=== PATIENT | female | born 1965 | race Two or more races ===

== ENCOUNTER 2023-11-11 08:58 | Inpatient (IN) | payer MEDICAID, OTHER ==
[~2023-11-11] VITALS: Ht 167.6 cm; Wt 77.0 kg
[2023-11-11] MEDS: SODIUM CHLORIDE 0.9% 1,000 ML IV ONE (10:17)
[2023-11-11] MEDS: MORPHINE SULFATE 4 MG/ML SYR/VIAL IV ONE (10:47)
[2023-11-11] MEDS: ONDANSETRON HCL 4 MG/2 ML VIAL IV ONE (10:47)
[2023-11-11 10:54] VITALS: PULSE 53; RESP 16; O2SAT 96
[2023-11-11 10:57] LABS: INR 1.12 (0.9-1.15); Partial Thromboplastin Time 26.8 SEC (24.5-34.5); Prothrombin Time 11.8 sec (9.3-11.8)
[2023-11-11] MEDS: BACITRACIN TOP OINT 1 UD PKG TOP ONE (11:00)
[2023-11-11] MEDS: LIDOCAINE 2%HCL (LOCAL ANESTH.) INJ 20ML MDV ID ONE (11:00)
[2023-11-11 11:01] LABS: Alanine Aminotransferase 12 U/L (7-40); Albumin 4.2 g/dL (3.2-4.8); Alkaline Phosphatase 73 U/L (46-116); Anion Gap 6 (5-15); Aspartate Aminotransferase 16 U/L (13-40); BUN/Creatinine Ratio 19.2 (10.0-20.0); Bilirubin, Total 0.5 mg/dL (0.2-1.0); Blood Urea Nitrogen 15 mg/dL (9-23); Calcium 9.7 mg/dL (8.5-10.1); Carbon Dioxide 29 mmol/L (20-30); Chloride 107 mmol/L (98-107); Glucose 112 mg/dL (74-106); Magnesium 1.9 mg/dL (1.6-2.6); Potassium 4.1 mmol/L (3.5-5.1); Sodium 142 mmol/L (136-145)
[2023-11-11 11:02] LABS: Total Protein 6.8 g/dL (5.7-8.2)
[2023-11-11 11:19] LABS: Basophils # (auto) 0 10 ^3/uL (0-0.2); Basophils % (auto) 0.2 % (0.0-2.0); Eosinophils # (auto) 0 10 ^3/uL (0-0.8); Eosinophils % (auto) 1.1 % (0.0-7.0); Hemoglobin 12.4 g/dL (12.2-16.2); Lymphocytes # (auto) 1.5 10 ^3/uL (0.4-5.4); Lymphocytes % (auto) 33.7 % (10.0-50.0); Mean Corpuscular Hemoglobin 30.6 pg (28.0-32.0); Mean Corpuscular Hgb Conc. 33.5 g/dL (32.0-36.0); Mean Corpuscular Volume 91.2 fL (80.0-100.0); Monocytes # (auto) 0.5 10 ^3/uL (0-1.3); Monocytes % (auto) 11.6 % (0.0-12.0); Neutrophils # (auto) 2.4 10 ^3/uL (1.6-8.6); Neutrophils % (auto) 53.4 % (37.0-80.0); Nucleated Red Blood Cells % 0.1 %; Red Blood Cells 4.06 10^6/uL (4.0-5.20); Red Cell Distribution Width 14.5 % (11.8-14.3); White Blood Cell 4.4 10^3/uL (4.4-10.8)
[2023-11-11] MEDS: TETANUS-DIPTH-ACEL PERTUSSIS 0.5ML SYR Tdap IM ONE (11:25)
[2023-11-11] MEDS: LORazepam 2MG/ML-1ML VIAL IV ONE (12:54)
[2023-11-11] MEDS: LORazepam 2MG/ML-1ML VIAL ONE (12:54)
[2023-11-11] MEDS ORDERED: DOCUSATE SOD 100 MG CAP PO PRN (14:00)
[2023-11-11] MEDS ORDERED: ONDANSETRON HCL 4 MG/2 ML VIAL IV PRN (14:00)
[2023-11-11] MEDS: SODIUM CHLORIDE 0.9% 1,000 ML IV SCH (14:00)
[2023-11-11] MEDS ORDERED: LORazepam 2MG/ML-1ML VIAL IV PRN (15:30)
[2023-11-11] MEDS: levETIRAcetam 1000 mg/100ml 100 ML IV ONE (15:41)
[2023-11-11] MEDS ORDERED: MORPHINE SULFATE INJ 2 MG/ml SYRG IV PRN (17:00)
[2023-11-11] MEDS ORDERED: NITROGLYCERIN 0.4 MG SL TAB SL PRN (17:00)
[2023-11-11 20:00] VITALS: BP 100/59; PULSE 56; RESP 16; TEMP 98.4; O2SAT 95
[2023-11-11] MEDS: NEOMYCIN-BACITRACIN-POLYM 15GM TOP OINT TOP SCH (22:00)
[2023-11-11] MEDS: levETIRAcetam 1000 mg/100ml 100 ML IV SCH (22:46)
[2023-11-11 23:06] VITALS: BP 109/66; PULSE 57; RESP 20; TEMP 98.3; O2SAT 100
[2023-11-12] VITALS (8 sets, daily range): BP systolic 85–109; BP diastolic 49–63; PULSE 52–88; RESP 16–18; TEMP 97.8–98.7; O2SAT 95–100
[2023-11-12 06:35] LABS: Basophils # (auto) 0 10 ^3/uL (0-0.2); Basophils % (auto) 0.3 % (0.0-2.0); Eosinophils # (auto) 0.1 10 ^3/uL (0-0.8); Eosinophils % (auto) 1.4 % (0.0-7.0); Hematocrit 32.6 % (36.0-46.0); Hemoglobin 11.1 g/dL (12.2-16.2); Lymphocytes # (auto) 1.9 10 ^3/uL (0.4-5.4); Lymphocytes % (auto) 46.5 % (10.0-50.0); Mean Corpuscular Hemoglobin 30.7 pg (28.0-32.0); Mean Corpuscular Volume 90.2 fL (80.0-100.0); Monocytes # (auto) 0.5 10 ^3/uL (0-1.3); Neutrophils # (auto) 1.6 10 ^3/uL (1.6-8.6); Neutrophils % (auto) 38.8 % (37.0-80.0); Nucleated Red Blood Cells % 0.1 %; Red Blood Cells 3.61 10^6/uL (4.0-5.20); Red Cell Distribution Width 14.6 % (11.8-14.3); White Blood Cell 4.1 10^3/uL (4.4-10.8)
[2023-11-12 06:53] LABS: Alanine Aminotransferase 10 U/L (7-40); Albumin 3.5 g/dL (3.2-4.8); Alkaline Phosphatase 63 U/L (46-116); Anion Gap 5 (5-15); Aspartate Aminotransferase 15 U/L (13-40); BUN/Creatinine Ratio 13.7 (10.0-20.0); Blood Urea Nitrogen 10 mg/dL (9-23); Calcium 9.1 mg/dL (8.7-10.4); Carbon Dioxide 26 mmol/L (20-30); Chloride 110 mmol/L (98-107); Glucose 88 mg/dL (74-106); Potassium 3.8 mmol/L (3.5-5.1); Sodium 141 mmol/L (136-145)
[2023-11-12 06:54] LABS: Bilirubin, Total 0.6 mg/dL (0.2-1.0); Total Protein 5.9 g/dL (5.7-8.2)
[2023-11-12 21:40] LABS: Urine Bacteria None Seen /hpf (None Seen)
[2023-11-12 22:10] LABS: Urine Amorphous Crystal FEW /hpf (None Seen); Urine Blood Negative /uL (Negative); Urine Clarity Turbid (Clear); Urine Color Light-Yellow (Yellow); Urine Protein, UAD Negative (Negative); Urine Specific Gravity 1.011 (1.001-1.035); Urine Urobilinogen 2 mg/dL (Negative); Urine WBC 1 /hpf (0 - 5); Urine pH 7.5 (5.0-9.0)
[2023-11-12] MEDS: LORazepam 2MG/ML-1ML VIAL IV PRN (22:57)
[2023-11-13 01:00] VITALS: BP 99/60; PULSE 70; RESP 18; TEMP 97.9; O2SAT 93
[2023-11-13 05:00] VITALS: BP 105/60; PULSE 69; RESP 18; TEMP 98.1; O2SAT 94
[2023-11-13] MEDS: MORPHINE SULFATE INJ 2 MG/ml SYRG IV PRN (08:27)
[2023-11-13 09:00] VITALS: BP 103/65; PULSE 61; RESP 17; TEMP 98.1; O2SAT 98
[2023-11-13 13:00] VITALS: BP 103/56; PULSE 58; RESP 16; TEMP 97.9; O2SAT 100
[2023-11-13 17:24] VITALS: BP 106/67; PULSE 66; RESP 17; TEMP 97.9; O2SAT 99
[2023-11-13 17:58] VITALS: TEMP 36.6
== END 2023-11-13 19:00 | disposition home or self-care (01) | DRG 384 ==
LOC: EDBD 08:58 → ER 09:15 → OVERFLOW 17:01 → EAST 22:20
PROVIDERS: ADMIT Nurse Practitioner Family; ATTEND Family Medicine
PROC: 0HQ1XZZ Repair Face Skin, External Approach (ICD-10-PCS; principal; 2023-11-11)
DX: S01.81XA Laceration without foreign body of other part of head, initial encounter (principal); G40.409 Other generalized epilepsy and epileptic syndromes, not intractable, without status epilepticus; G89.29 Other chronic pain; S01.01XA Laceration without foreign body of scalp, initial encounter; W18.39XA Other fall on same level, initial encounter; Z88.2 Allergy status to sulfonamides; Z91.041 Radiographic dye allergy status; Y93.89 Activity, other specified; Y92.89 Other specified places as the place of occurrence of the external cause; Y99.8 Other external cause status; Z82.49 Family history of ischemic heart disease and other diseases of the circulatory system; Z86.73 Personal history of transient ischemic attack (TIA), and cerebral infarction without residual deficits
CPT/HCPCS: 12015; 36415; 70450; 71046; 72125; 80053; 81001; 83735; 84484; 85025; 85610; 85730; 87081; 90471; 90715; 93005; 93306; 95819; 96361; 96374; 96375; 97116; 97163; 97530; G0378; J2405

== ENCOUNTER 2023-12-05 06:36 | Emergency (ER) | payer MEDICAID ==
[~2023-12-05] VITALS: Ht 160 cm; Wt 66.0 kg
[2023-12-05 07:15] LABS: Basophils # (auto) 0 10 ^3/uL (0-0.2); Basophils % (auto) 0.5 % (0.0-2.0); Eosinophils # (auto) 0.1 10 ^3/uL (0-0.8); Eosinophils % (auto) 1.8 % (0.0-7.0); Hematocrit 35.6 % (36.0-46.0); Lymphocytes # (auto) 1.5 10 ^3/uL (0.4-5.4); Lymphocytes % (auto) 44.6 % (10.0-50.0); Mean Corpuscular Hemoglobin 30.9 pg (28.0-32.0); Mean Corpuscular Hgb Conc. 33.8 g/dL (32.0-36.0); Mean Corpuscular Volume 91.4 fL (80.0-100.0); Monocytes # (auto) 0.4 10 ^3/uL (0-1.3); Monocytes % (auto) 13.1 % (0.0-12.0); Neutrophils # (auto) 1.3 10 ^3/uL (1.6-8.6); Red Blood Cells 3.89 10^6/uL (4.0-5.20); Red Cell Distribution Width 14.5 % (11.8-14.3); White Blood Cell 3.4 10^3/uL (4.4-10.8)
[2023-12-05 07:25] VITALS: RESP 16; O2SAT 98
[2023-12-05 07:32] LABS: Alanine Aminotransferase 11 U/L (7-40); Albumin 3.9 g/dL (3.2-4.8); Alkaline Phosphatase 73 U/L (46-116); Anion Gap 3 (5-15); Aspartate Aminotransferase 18 U/L (13-40); BUN/Creatinine Ratio 21.5 (10.0-20.0); Blood Urea Nitrogen 17 mg/dL (9-23); Calcium 9.6 mg/dL (8.7-10.4); Carbon Dioxide 30 mmol/L (20-30); Chloride 108 mmol/L (98-107); Glucose 84 mg/dL (74-106); Potassium 3.9 mmol/L (3.5-5.1); Sodium 141 mmol/L (136-145)
[2023-12-05 07:33] LABS: Bilirubin, Total 0.4 mg/dL (0.2-1.0); Total Protein 6.6 g/dL (5.7-8.2)
[2023-12-05 08:55] LABS: Urine Bacteria None Seen /hpf (None Seen)
[2023-12-05 09:24] LABS: Urine Blood Negative /uL (Negative); Urine Clarity Clear (Clear); Urine Color Light-Yellow (Yellow); Urine Protein, UAD Negative (Negative); Urine Specific Gravity 1.015 (1.001-1.035); Urine Urobilinogen Normal (Negative); Urine WBC 5 /hpf (0 - 5)
[2023-12-05] MEDS: ACETAMINOPHEN 500 MG TAB PO ONE (10:31)
[2023-12-05] MEDS: ONDANSETRON HCL 4 MG/2 ML VIAL IV ONE (11:13)
[2023-12-05] MEDS: VALPROATE INJ 500 MG in SODIUM CHL 0.9% 100 ML IV ONE (11:28)
[2023-12-05 13:14] VITALS: BP 125/69; PULSE 60; RESP 18; TEMP 98; O2SAT 98
== END 2023-12-05 13:40 ==
LOC: EDBD 06:36 → ER 06:36
DX: R40.4 Transient alteration of awareness (principal); F32.9 Major depressive disorder, single episode, unspecified; E78.5 Hyperlipidemia, unspecified; Z91.040 Latex allergy status; Z88.2 Allergy status to sulfonamides; Z86.73 Personal history of transient ischemic attack (TIA), and cerebral infarction without residual deficits
CPT/HCPCS: 36415; 70450; 71046; 80053; 81001; 82962; 84484; 85025; 93005; 96365; 96375; 99285; J2405

== ENCOUNTER 2023-12-28 08:18 | Inpatient (IN) | payer MEDICAID ==
[~2023-12-28] VITALS: Ht 165.1 cm; Wt 72.2 kg
[2023-12-28 10:09] LABS: Basophils # (auto) 0 10 ^3/uL (0-0.2); Basophils % (auto) 0.7 % (0.0-2.0); Eosinophils # (auto) 0.1 10 ^3/uL (0-0.8); Eosinophils % (auto) 1.7 % (0.0-7.0); Hematocrit 35.9 % (36.0-46.0); Hemoglobin 11.9 g/dL (12.2-16.2); Lymphocytes # (auto) 1.9 10 ^3/uL (0.4-5.4); Lymphocytes % (auto) 48.8 % (10.0-50.0); Mean Corpuscular Hemoglobin 30.7 pg (28.0-32.0); Mean Corpuscular Hgb Conc. 33.3 g/dL (32.0-36.0); Mean Corpuscular Volume 92.2 fL (80.0-100.0); Monocytes # (auto) 0.5 10 ^3/uL (0-1.3); Monocytes % (auto) 12.4 % (0.0-12.0); Neutrophils # (auto) 1.4 10 ^3/uL (1.6-8.6); Neutrophils % (auto) 36.4 % (37.0-80.0); Nucleated Red Blood Cells % 0.2 %; Red Blood Cells 3.89 10^6/uL (4.0-5.20); White Blood Cell 3.8 10^3/uL (4.4-10.8)
[2023-12-28] MEDS: SODIUM CHLORIDE 0.9% 1,000 ML IV ONE ×3 (11:12→14:40)
[2023-12-28] MEDS: LORazepam 2MG/ML-1ML VIAL IV ONE (11:12)
[2023-12-28 11:18] VITALS: PULSE 66
[2023-12-28 14:15] LABS: Chloride 109 mmol/L (98-107); Potassium 4.1 mmol/L (3.5-5.1); Sodium 142 mmol/L (136-145)
[2023-12-28 14:16] LABS: Anion Gap 3 (5-15); Carbon Dioxide 30 mmol/L (20-30)
[2023-12-28 14:21] LABS: BUN/Creatinine Ratio 17.6 (10.0-20.0); Blood Urea Nitrogen 13 mg/dL (9-23); Glucose 82 mg/dL (74-106)
[2023-12-28] MEDS ORDERED: LACTATED RINGER'S 1,000 ML IV ONE (17:00)
[2023-12-28] MEDS ORDERED: LORazepam 2MG/ML-1ML VIAL IV PRN (17:00)
[2023-12-28] MEDS ORDERED: HYDROmorphone HCL 2 MG/ML VL/or syr IV PRN (17:30)
[2023-12-28] MEDS ORDERED: ONDANSETRON HCL 4 MG/2 ML VIAL IV PRN (17:30)
[2023-12-28] MEDS: LACTATED RINGER'S 1,000 ML IV ONE (18:23)
[2023-12-28] MEDS: diphenhdrAMINE HCL 25 MG CAP PO ONE (22:20)
[2023-12-28] MEDS: SODIUM CHLOR 0.9% PF (SALINE LOCK) 10ML VIAL/SYR IV SCH (22:20)
[2023-12-29] VITALS (9 sets, daily range): BP systolic 100–125; BP diastolic 55–72; PULSE 55–86; RESP 16–20; TEMP 97.6–98.8; O2SAT 92–100
[2023-12-29 00:49] LABS: Urine Bacteria FEW /hpf (None Seen); Urine Blood Negative /uL (Negative); Urine Clarity Clear (Clear); Urine Color Light-Yellow (Yellow); Urine Protein, UAD Negative (Negative); Urine Specific Gravity 1.014 (1.001-1.035); Urine Urobilinogen Normal (Negative); Urine WBC 95 /hpf (0 - 5); Urine pH 6.5 (5.0-9.0)
[2023-12-29 06:49] LABS: Basophils # (auto) 0 10 ^3/uL (0-0.2); Basophils % (auto) 0.3 % (0.0-2.0); Eosinophils # (auto) 0.1 10 ^3/uL (0-0.8); Eosinophils % (auto) 2.6 % (0.0-7.0); Hematocrit 32.8 % (36.0-46.0); Hemoglobin 11.3 g/dL (12.2-16.2); Lymphocytes # (auto) 1.8 10 ^3/uL (0.4-5.4); Lymphocytes % (auto) 42.7 % (10.0-50.0); Mean Corpuscular Hemoglobin 31.4 pg (28.0-32.0); Mean Corpuscular Hgb Conc. 34.4 g/dL (32.0-36.0); Mean Corpuscular Volume 91.1 fL (80.0-100.0); Monocytes # (auto) 0.4 10 ^3/uL (0-1.3); Monocytes % (auto) 10.9 % (0.0-12.0); Neutrophils # (auto) 1.8 10 ^3/uL (1.6-8.6); Neutrophils % (auto) 43.5 % (37.0-80.0); Nucleated Red Blood Cells % 0.2 %; Red Cell Distribution Width 13.7 % (11.8-14.3); White Blood Cell 4.1 10^3/uL (4.4-10.8)
[2023-12-29 06:53] LABS: Alanine Aminotransferase 14 U/L (7-40); Albumin 3.5 g/dL (3.2-4.8); Alkaline Phosphatase 60 U/L (46-116); Anion Gap 7 (5-15); Aspartate Aminotransferase 19 U/L (13-40); BUN/Creatinine Ratio 16.4 (10.0-20.0); Bilirubin, Total 0.6 mg/dL (0.2-1.0); Blood Urea Nitrogen 11 mg/dL (9-23); Carbon Dioxide 26 mmol/L (20-30); Chloride 109 mmol/L (98-107); Glucose 86 mg/dL (74-106); Potassium 3.2 mmol/L (3.5-5.1); Sodium 142 mmol/L (136-145); Total Protein 6.1 g/dL (5.7-8.2)
[2023-12-29] MEDS: POTASSIUM CHL 20MEQ/100ML 100 ML IV ONE (08:57)
[2023-12-29] MEDS: ENOXAPARIN SOD 40 MG/0.4 ML SYRINGE SC SCH (08:57)
[2023-12-29] MEDS: SOD CHL 0.9%/ KCL 40MEQ 1,000 ML IV SCH (08:57)
[2023-12-29] MEDS: cefTRIAXone 1GM/50ML D5W 50 ML IV ONE (12:11)
[2023-12-29 13:58] LABS: Magnesium 1.8 mg/dL (1.6-2.6)
[2023-12-29] MEDS: HYDROcodone-ACET 5/325MG TAB PO PRN (15:58)
[2023-12-29] MEDS: HYDROCORTONE 1% TOPICAL CREAM 30 GM TUBE TOP ONE (17:36)
[2023-12-29] MEDS: HYDROCORTONE 1% TOPICAL CREAM 30 GM TUBE TOP SCH (21:22)
[2023-12-29] MEDS: MELATONIN 5 MG TAB PO ONE (23:20)
[2023-12-30] VITALS (8 sets, daily range): BP systolic 110–133; BP diastolic 60–77; PULSE 58–96; RESP 16–18; TEMP 97.4–98.4; O2SAT 96–99
[2023-12-30] MEDS: TEMAZEPAM 15 MG CAP PO ONE (03:29)
[2023-12-30 08:56] LABS: Basophils # (auto) 0 10 ^3/uL (0-0.2); Basophils % (auto) 0.3 % (0.0-2.0); Eosinophils # (auto) 0 10 ^3/uL (0-0.8); Eosinophils % (auto) 0.4 % (0.0-7.0); Hematocrit 38.4 % (36.0-46.0); Hemoglobin 13.2 g/dL (12.2-16.2); Lymphocytes # (auto) 1.4 10 ^3/uL (0.4-5.4); Lymphocytes % (auto) 32.3 % (10.0-50.0); Mean Corpuscular Hemoglobin 31.8 pg (28.0-32.0); Mean Corpuscular Hgb Conc. 34.3 g/dL (32.0-36.0); Mean Corpuscular Volume 92.6 fL (80.0-100.0); Monocytes # (auto) 0.5 10 ^3/uL (0-1.3); Monocytes % (auto) 12.4 % (0.0-12.0); Neutrophils # (auto) 2.4 10 ^3/uL (1.6-8.6); Neutrophils % (auto) 54.6 % (37.0-80.0); Nucleated Red Blood Cells % 0.1 %; Red Blood Cells 4.14 10^6/uL (4.0-5.20); Red Cell Distribution Width 13.8 % (11.8-14.3); White Blood Cell 4.3 10^3/uL (4.4-10.8)
[2023-12-30 09:09] LABS: Alanine Aminotransferase 17 U/L (7-40); Albumin 4.4 g/dL (3.2-4.8); Alkaline Phosphatase 77 U/L (46-116); Anion Gap 8 (5-15); Aspartate Aminotransferase 29 U/L (13-40); BUN/Creatinine Ratio 11.9 (10.0-20.0); Blood Urea Nitrogen 10 mg/dL (9-23); Calcium 10.3 mg/dL (8.7-10.4); Carbon Dioxide 25 mmol/L (20-30); Chloride 108 mmol/L (98-107); Glucose 107 mg/dL (74-106); Potassium 3.9 mmol/L (3.5-5.1); Sodium 141 mmol/L (136-145)
[2023-12-30 09:10] LABS: Bilirubin, Total 0.5 mg/dL (0.2-1.0); Total Protein 7.7 g/dL (5.7-8.2)
[2023-12-30] MEDS: cefTRIAXone 1GM/50ML D5W 50 ML IV SCH (09:14)
[2023-12-30] MEDS ORDERED: levETIRAcetam 1000 mg/100ml 100 ML IV SCH (10:00)
[2023-12-30] MEDS: levETIRAcetam 1000 mg/100ml 100 ML IV SCH (10:39)
[2023-12-30] MEDS: levETIRAcetam 500 MG TAB PO ONE (11:42)
[2023-12-30] MEDS: LORazepam 0.5 MG TAB PO PRN (11:42)
[2023-12-30] MEDS: hydrOXYzine HCL 10 MG TAB PO PRN (15:41)
[2023-12-30] MEDS: levETIRAcetam 500 MG TAB PO SCH (21:16)
[2023-12-30] MEDS: MAGNESIUM SULFATE 1GM/100ML 100 ML IV SCH (22:00)
[2023-12-30] MEDS: MAGNESIUM SULFATE 1GM/100ML 100 ML IV ONE (22:17)
[2023-12-30] MEDS: MELATONIN 5 MG TAB PO ONE (23:20)
[2023-12-31] VITALS (8 sets, daily range): BP systolic 95–109; BP diastolic 60–64; PULSE 63–88; RESP 14–18; TEMP 97.8–98.8; O2SAT 95–100
[2023-12-31 06:51] LABS: Alanine Aminotransferase 20 U/L (7-40); Alkaline Phosphatase 69 U/L (46-116); Anion Gap 6 (5-15); Aspartate Aminotransferase 29 U/L (13-40); BUN/Creatinine Ratio 16.7 (10.0-20.0); Bilirubin, Total 0.5 mg/dL (0.2-1.0); Blood Urea Nitrogen 13 mg/dL (9-23); Calcium 9.7 mg/dL (8.7-10.4); Carbon Dioxide 27 mmol/L (20-30); Chloride 110 mmol/L (98-107); Glucose 112 mg/dL (74-106); Sodium 143 mmol/L (136-145); Total Protein 6.9 g/dL (5.7-8.2)
[2023-12-31 07:04] LABS: Basophils # (auto) 0 10 ^3/uL (0-0.2); Basophils % (auto) 0.4 % (0.0-2.0); Eosinophils # (auto) 0.1 10 ^3/uL (0-0.8); Eosinophils % (auto) 1.3 % (0.0-7.0); Hematocrit 34.6 % (36.0-46.0); Hemoglobin 12.1 g/dL (12.2-16.2); Lymphocytes # (auto) 1.6 10 ^3/uL (0.4-5.4); Lymphocytes % (auto) 39.5 % (10.0-50.0); Mean Corpuscular Hemoglobin 32.2 pg (28.0-32.0); Mean Corpuscular Hgb Conc. 35.1 g/dL (32.0-36.0); Mean Corpuscular Volume 91.7 fL (80.0-100.0); Monocytes # (auto) 0.6 10 ^3/uL (0-1.3); Monocytes % (auto) 14.5 % (0.0-12.0); Neutrophils # (auto) 1.8 10 ^3/uL (1.6-8.6); Neutrophils % (auto) 44.3 % (37.0-80.0); Nucleated Red Blood Cells % 0.1 %; Red Blood Cells 3.77 10^6/uL (4.0-5.20); Red Cell Distribution Width 13.9 % (11.8-14.3); White Blood Cell 4.1 10^3/uL (4.4-10.8)
[2024-01-01] VITALS: BP 101/69; PULSE 66; RESP 17; TEMP 98.1; O2SAT 96
[2024-01-01] MEDS: MELATONIN 5 MG TAB PO ONE (00:39)
[2024-01-01 05:00] VITALS: BP 116/81; PULSE 61; RESP 17; TEMP 98.2; O2SAT 99
[2024-01-01 06:09] LABS: Basophils # (auto) 0 10 ^3/uL (0-0.2); Basophils % (auto) 0.4 % (0.0-2.0); Eosinophils # (auto) 0.1 10 ^3/uL (0-0.8); Eosinophils % (auto) 2.6 % (0.0-7.0); Hematocrit 35.1 % (36.0-46.0); Lymphocytes # (auto) 1.7 10 ^3/uL (0.4-5.4); Lymphocytes % (auto) 41.7 % (10.0-50.0); Mean Corpuscular Hemoglobin 31.6 pg (28.0-32.0); Mean Corpuscular Hgb Conc. 34.3 g/dL (32.0-36.0); Mean Corpuscular Volume 92.3 fL (80.0-100.0); Monocytes # (auto) 0.5 10 ^3/uL (0-1.3); Monocytes % (auto) 12.9 % (0.0-12.0); Neutrophils # (auto) 1.7 10 ^3/uL (1.6-8.6); Neutrophils % (auto) 42.4 % (37.0-80.0); Nucleated Red Blood Cells % 0.2 %; Red Blood Cells 3.81 10^6/uL (4.0-5.20); Red Cell Distribution Width 14.1 % (11.8-14.3); White Blood Cell 4.1 10^3/uL (4.4-10.8)
[2024-01-01 06:28] LABS: Alanine Aminotransferase 23 U/L (7-40); Alkaline Phosphatase 70 U/L (46-116); Anion Gap 4 (5-15); BUN/Creatinine Ratio 14.8 (10.0-20.0); Blood Urea Nitrogen 12 mg/dL (9-23); Calcium 9.7 mg/dL (8.7-10.4); Carbon Dioxide 28 mmol/L (20-30); Chloride 109 mmol/L (98-107); Glucose 97 mg/dL (74-106); Magnesium 1.9 mg/dL (1.6-2.6); Potassium 4.1 mmol/L (3.5-5.1); Sodium 141 mmol/L (136-145)
[2024-01-01 06:29] LABS: Aspartate Aminotransferase 39 U/L (13-40); Bilirubin, Total 0.4 mg/dL (0.2-1.0); Total Protein 6.8 g/dL (5.7-8.2)
[2024-01-01 08:00] VITALS: PULSE 49
[2024-01-01 08:30] VITALS: BP 112/65; PULSE 67; RESP 17; TEMP 98.2; O2SAT 97
[2024-01-01 12:30] VITALS: BP 116/69; PULSE 68; RESP 18; TEMP 98; O2SAT 97
[2024-01-01] MEDS ORDERED: KEP500T PO (14:19)
[2024-01-01 15:07] LABS: Urine Bacteria None Seen /hpf (None Seen)
[2024-01-01 15:47] LABS: Urine Amorphous Crystal FEW /hpf (None Seen); Urine Blood Negative /uL (Negative); Urine Clarity Clear (Clear); Urine Color Colorless (Yellow); Urine Protein, UAD Negative (Negative); Urine Urobilinogen Normal (Negative); Urine WBC 8 /hpf (0 - 5); Urine pH 6.5 (5.0-9.0)
[2024-01-01 17:20] VITALS: BP 115/62; PULSE 62; RESP 17; TEMP 98; O2SAT 96
== END 2024-01-01 19:05 | disposition home or self-care (01) | DRG 53 ==
LOC: EDBD 08:18 → EDUNIT# 08:18 → ER 08:24 → TELE 17:31 → TELE-EAST 23:39
PROVIDERS: ADMIT Internal Medicine; ATTEND Emergency Medicine
DX: G40.409 Other generalized epilepsy and epileptic syndromes, not intractable, without status epilepticus (principal); G93.41 Metabolic encephalopathy; I69.398 Other sequelae of cerebral infarction; E87.6 Hypokalemia; N39.0 Urinary tract infection, site not specified; F32.A Depression, unspecified; F10.10 Alcohol abuse, uncomplicated; Y90.9 Presence of alcohol in blood, level not specified; M54.2 Cervicalgia; Z88.2 Allergy status to sulfonamides; Z91.041 Radiographic dye allergy status; Z79.899 Other long term (current) drug therapy; Z82.3 Family history of stroke; Z82.49 Family history of ischemic heart disease and other diseases of the circulatory system
CPT/HCPCS: 36415; 70450; 70551; 71045; 72125; 72170; 80048; 80053; 81001; 82306; 82542; 82550; 82607; 83735; 84146; 84443; 85025; 97110; 97116; 97163; 97530; 99291; G0378; J3480

== ENCOUNTER 2024-01-10 10:57 | Inpatient (IN) | payer MEDICAID ==
[~2024-01-10] VITALS: Ht 188 cm; Wt 67.3 kg
[~2024-01-10 10:57] MED LIST: KEP500T PO
[2024-01-10] MEDS: CEFEPIME 2GM/50ML NS 50 ML IV ONE (12:15)
[2024-01-10 12:36] LABS: Basophils # (auto) 0 10 ^3/uL (0-0.2); Basophils % (auto) 0.3 % (0.0-2.0); Eosinophils # (auto) 0.1 10 ^3/uL (0-0.8); Eosinophils % (auto) 1.5 % (0.0-7.0); Hematocrit 36.5 % (36.0-46.0); Hemoglobin 12.4 g/dL (12.2-16.2); Lymphocytes # (auto) 1.9 10 ^3/uL (0.4-5.4); Lymphocytes % (auto) 45.9 % (10.0-50.0); Mean Corpuscular Hemoglobin 31.7 pg (28.0-32.0); Mean Corpuscular Hgb Conc. 34.1 g/dL (32.0-36.0); Mean Corpuscular Volume 92.9 fL (80.0-100.0); Monocytes # (auto) 0.4 10 ^3/uL (0-1.3); Neutrophils # (auto) 1.8 10 ^3/uL (1.6-8.6); Neutrophils % (auto) 43.3 % (37.0-80.0); Nucleated Red Blood Cells % 0.1 %; Platelet Count (auto) 134 10^3/uL (140-450); Red Blood Cells 3.92 10^6/uL (4.0-5.20); Red Cell Distribution Width 13.6 % (11.8-14.3); White Blood Cell 4.2 10^3/uL (4.4-10.8)
[2024-01-10 13:03] LABS: Alanine Aminotransferase 13 U/L (7-40); Albumin 4.2 g/dL (3.2-4.8); Alkaline Phosphatase 66 U/L (46-116); Anion Gap 4 (5-15); Aspartate Aminotransferase 18 U/L (13-40); BUN/Creatinine Ratio 11.5 (10.0-20.0); Blood Urea Nitrogen 10 mg/dL (9-23); Calcium 9.5 mg/dL (8.7-10.4); Carbon Dioxide 29 mmol/L (20-30); Chloride 108 mmol/L (98-107); Glucose 88 mg/dL (74-106); Potassium 4.4 mmol/L (3.5-5.1); Sodium 141 mmol/L (136-145)
[2024-01-10 13:04] LABS: Bilirubin, Total 0.5 mg/dL (0.2-1.0)
[2024-01-10] MEDS: AZITHROMYCIN 250 MG TAB PO ONE (13:13)
[2024-01-10] MEDS: VANCOMYCIN 1.5GM/300ML 300 ML IV ONE (13:14)
[2024-01-10 13:43] VITALS: PULSE 51; RESP 12; O2SAT 99
[2024-01-10 15:15] LABS: Urine Bacteria FEW /hpf (None Seen); Urine Blood Negative /uL (Negative); Urine Clarity Clear (Clear); Urine Color Light-Yellow (Yellow); Urine Protein, UAD Negative (Negative); Urine Specific Gravity 1.008 (1.001-1.035); Urine Urobilinogen Normal (Negative); Urine WBC 1 /hpf (0 - 5)
[2024-01-10] MEDS ORDERED: HYDROcodone-ACET 5/325MG TAB PO PRN (16:30)
[2024-01-10] MEDS ORDERED: DOCUSATE SOD 100 MG CAP PO PRN (16:30)
[2024-01-10] MEDS ORDERED: HYDROmorphone HCL 2 MG/ML VL/or syr IV PRN (16:30)
[2024-01-10] MEDS ORDERED: ONDANSETRON HCL 4 MG/2 ML VIAL IV PRN (16:30)
[2024-01-10] MEDS: levETIRAcetam 1000 mg/100ml 100 ML IV SCH (16:43)
[2024-01-10 19:30] VITALS: PULSE 62; RESP 16; O2SAT 98
[2024-01-10] MEDS: SODIUM CHLOR 0.9% PF (SALINE LOCK) 10ML VIAL/SYR IV SCH (22:14)
[2024-01-11] VITALS (9 sets, daily range): BP systolic 98–107; BP diastolic 56–72; PULSE 50–79; RESP 16–18; TEMP 97–98.5; O2SAT 93–99
[2024-01-11] MEDS ORDERED: IBUP-1453 PO (00:19)
[2024-01-11] MEDS ORDERED: GABA300T4 PO (00:21)
[2024-01-11] MEDS ORDERED: IBUP100C23 PO (00:24)
[2024-01-11 07:05] LABS: Alanine Aminotransferase 14 U/L (7-40); Albumin 4.3 g/dL (3.2-4.8); Alkaline Phosphatase 68 U/L (46-116); Anion Gap 11 (5-15); Aspartate Aminotransferase 16 U/L (13-40); BUN/Creatinine Ratio 13.3 (10.0-20.0); Blood Urea Nitrogen 11 mg/dL (9-23); Calcium 9.8 mg/dL (8.7-10.4); Carbon Dioxide 25 mmol/L (20-30); Chloride 105 mmol/L (98-107); Glucose 89 mg/dL (74-106); Potassium 3.8 mmol/L (3.5-5.1); Sodium 141 mmol/L (136-145)
[2024-01-11 07:06] LABS: Basophils # (auto) 0 10 ^3/uL (0-0.2); Basophils % (auto) 0.3 % (0.0-2.0); Bilirubin, Total 0.7 mg/dL (0.2-1.0); Eosinophils # (auto) 0.1 10 ^3/uL (0-0.8); Eosinophils % (auto) 2.8 % (0.0-7.0); Hematocrit 39.4 % (36.0-46.0); Hemoglobin 13.6 g/dL (12.2-16.2); Lymphocytes # (auto) 2.5 10 ^3/uL (0.4-5.4); Lymphocytes % (auto) 52.3 % (10.0-50.0); Mean Corpuscular Hemoglobin 31.8 pg (28.0-32.0); Mean Corpuscular Hgb Conc. 34.4 g/dL (32.0-36.0); Mean Corpuscular Volume 92.3 fL (80.0-100.0); Monocytes # (auto) 0.4 10 ^3/uL (0-1.3); Monocytes % (auto) 9.4 % (0.0-12.0); Neutrophils # (auto) 1.7 10 ^3/uL (1.6-8.6); Neutrophils % (auto) 35.2 % (37.0-80.0); Nucleated Red Blood Cells % 0.2 %; Platelet Count (auto) 141 10^3/uL (140-450); Red Blood Cells 4.27 10^6/uL (4.0-5.20); Red Cell Distribution Width 13.9 % (11.8-14.3); White Blood Cell 4.7 10^3/uL (4.4-10.8)
[2024-01-11 07:07] LABS: Total Protein 7.4 g/dL (5.7-8.2)
[2024-01-11 08:28] LABS: Hepatitis B Surface Antibody Positive (Negative)
[2024-01-11 09:06] LABS: Hepatitis C Antibody Reactive (Negative)
[2024-01-11 09:13] LABS: INR 1.12 (0.9-1.15); Partial Thromboplastin Time 27.8 SEC (24.5-34.5); Prothrombin Time 11.8 sec (9.3-11.8)
[2024-01-11] MEDS: PANTOPRAZOLE 40 MG/10 ML VIAL INJ IV SCH (10:51)
[2024-01-11] MEDS: ENOXAPARIN SOD 40 MG/0.4 ML SYRINGE SC SCH (10:52)
[2024-01-11] MEDS: THIAMINE 100mg/ml INJ (200mg/2ml VIAL) IV ONE (16:10)
[2024-01-11] MEDS: FOLIC ACID 1 MG in D5W 5% 50 ML INJ ONE (16:12)
[2024-01-11] MEDS: ACETAMINOPHEN 325 MG TAB PO PRN (20:50)
[2024-01-11] MEDS: levETIRAcetam 500 MG TAB PO SCH (20:50)
[2024-01-11] MEDS: diphenhdrAMINE HCL 25 MG CAP PO ONE (22:39)
[2024-01-12] VITALS (7 sets, daily range): BP systolic 92–124; BP diastolic 59–82; PULSE 66–93; RESP 16–19; TEMP 97.9–98.8; O2SAT 91–93
[2024-01-12] MEDS: MELATONIN 5 MG TAB PO ONE (02:01)
[2024-01-12 06:54] LABS: Rapid Influenza A Negative (Negative); Rapid Influenza B Negative (Negative)
[2024-01-12 06:55] LABS: COVID19 ANTIGEN SOFIA FIA NEGATIVE (NEGATIVE)
[2024-01-12] MEDS: FOLIC ACID 1 MG in D5W 5% 50 ML INJ SCH (09:23)
[2024-01-12] MEDS: THIAMINE 100mg/ml INJ (200mg/2ml VIAL) IV SCH (12:11)
[2024-01-14 09:11] LABS: Hepatitis B Core Total AB Negative (Negative)
[2024-01-14 11:03] LABS: Hepatitis A Total Antibody Positive (Negative)
[2024-01-14 11:04] LABS: Hepatitis B Surface Antibody Positive (Negative); Hepatitis B Surface Antigen Negative (Negative)
[2024-01-14 11:06] LABS: Hepatitis C Antibody Reactive (Negative)
== END 2024-01-12 19:00 | disposition home or self-care (01) | DRG 52 ==
LOC: EDBD 10:57 → ER 10:57 → TELE 16:23 → TELE-WESTW 21:03
PROVIDERS: ADMIT Internal Medicine; ATTEND Internal Medicine
DX: G93.41 Metabolic encephalopathy (principal); K74.60 Unspecified cirrhosis of liver; B19.20 Unspecified viral hepatitis C without hepatic coma; E78.5 Hyperlipidemia, unspecified; G40.909 Epilepsy, unspecified, not intractable, without status epilepticus; I10 Essential (primary) hypertension; F32.A Depression, unspecified; Z20.822 Contact with and (suspected) exposure to COVID-19; F10.239 Alcohol dependence with withdrawal, unspecified; Y90.9 Presence of alcohol in blood, level not specified; Z88.2 Allergy status to sulfonamides; Z91.041 Radiographic dye allergy status; Z86.73 Personal history of transient ischemic attack (TIA), and cerebral infarction without residual deficits; Z82.49 Family history of ischemic heart disease and other diseases of the circulatory system
CPT/HCPCS: 36415; 70450; 71045; 74176; 80053; 81001; 82140; 84484; 85025; 85610; 85730; 86704; 86706; 86708; 86803; 87081; 87340; 87426; 87804; 93005; 96365; 97116; 97163; 97530; G0378; J0692; J2470; J7060

== ENCOUNTER 2024-03-30 07:44 | Inpatient (IN) | payer MEDICAID ==
[~2024-03-30] VITALS: Ht 175.3 cm; Wt 76.3 kg
[~2024-03-30 07:44] MED LIST changes: +GABA300T4 PO; +IBUP-1453 PO; +IBUP100C23 PO
--- NOTE | 2024-03-30 08:03 | ED.PDOC ---
HPI (NEURO) HPI Comments 58 year old female TIMMY presents to the ED with chief complaint of seizure. EMS reports that patient is coming from [facility] for witnessed seizure occurring this morning. EMS relays patient had a tonic-clonic seizure witnessed by staff, however, she is now in a post-ictal state and only has a complaint of feeling cold. EMS states no trauma had occurred. Patient denies any chest pain, headache, dizziness, weakness, SOB, or N/V. Time Seen by MD: 07:58 Primary Care Provider: NONE Reviewed Notes: Nurses Notes, Lithoduplicator Operator Notes, Medications, Allergies Information Source: Patient, Emergency Med Personnel Mode of Arrival: EMS Severity: Moderate Headache Severity: None Timing: Hours Duration: Minutes Prehospital treatment: None Seizure Quality: Tonic-clonic Seizure Location: Generalized Onset: At rest Circumstances: Spontaneous Symptoms: None Before: Normal During: LOC After: Normal Mentation History of: CVA, Seizure Disorder Modifying factors: Nothing Past Medical History PAST MEDICAL HISTORY: CVA, Depression, High Lipids, HTN, Seizures Surgical History: Unknown 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 Family History Family History: Reviewed,noncontributory to illness, Unknown Social History Smoker: Unknown Alcohol: Unknown Drugs: Unknown Lives In: Assisted Care Constitutional: denies: chills, diaphoresis, fatigue, fever, malaise, sweats, weakness, others EENTM: denies: blurred vision, double vision, ear bleeding, ear discharge, ear drainage, ear pain, ear ringing, eye pain, eye redness, hearing loss, mouth pain, mouth swelling, nasal discharge, nose bleeding, nose congestion, nose pain, photophobia, tearing, throat pain, throat swelling, voice changes, others Respiratory: denies: cough, hemoptysis, orthopnea, SOB at rest, shortness of breath, SOB with excertion, stridor, wheezing, others Cardiovascular: denies: chest pain, dizzy spells, diaphoresis, Dyspnea on exertion, edema, irregular heart beat, left arm pain, lightheadedness, palpitations, PND, syncope, others Gastrointestinal: denies: abdomen distended, abdominal pain, blood streaked bowels, constipated, diarrhea, dysphagia, difficulty swallowing, hematemesis, melena, nausea, poor appetite, poor fluid intake, rectal bleeding, rectal pain, vomiting, others Genitourinary: denies: abnormal vagina bleeding, burning, dyspareunia, dysuria, flank pain, frequency, hematuria, incontinence, pain, , vagina discharge, urgency, others Neurological: reports: seizure; denies: dizziness, fainting, headache, left sided numbness, left sided weakness, numbness, paresthesia, pre-existing defici t, right sided numbness, right sided weakness, speech problems, tingling, tremors, weakness, others Musculoskeletal: denies: back pain, gout, joint pain, joint swelling, muscle pain, muscle stiffness, neck pain, others Integumetry: denies: bruises, change in color, change in hair/nails, dryness, laceration, lesions, lumps, rash, wounds, others Allergic/Immunocompromised: denies: Difficulty Healing, Frequent Infections, Hives, Itching, others Hematologic/Lymphatic: denies: anemia, blood clots, easy bleeding, easy bruising, swollen glands, others Endocrine: denies: excessive hunger, excessive sweating, excessive thirst, excessive urination, flushing, intolerance to cold, intolerance to heat, unexplained weight gain, unexplained weight loss, others Psychiatric: denies: anxiety, bipolar disorder, depression, hopeless, panic disorder, schizophrenia, sleepless, suicidal, others All Other Systems: Reviewed and Negative Physical Exam General Appearance: Moderate Distress, Normal HEENT: Normal ENT Inspection, PERRL/EOMI Neck: Full Range of Motion, Non-Tender, Normal, Normal Inspection Respiratory: Chest Non-Tender, Lungs Clear, No Accessory Muscle Use, No Respiratory Distress, Normal Breath Sounds Cardiovascular: No Edema, No JVD, No Murmur, No Gallop, Normal Peripheral Pulses, Regular Rate/Rhythm Breast Exam: Deferred Gastrointestinal: No Organomegaly, Non Tender, No Pulsatile Mass, Normal Bowel Sounds, Soft Genitalia: Deferred Pelvic: Deferred Rectal: Deferred Extremities: No calf tenderness, Normal capillary refill, Normal inspection, Normal range of motion, Non-tender, No pedal edema Musculoskeletal : Apperance: Normal Neurologic: Disoriented, No Motor Deficits, No Sensory Deficits Cerebellar Function: NOT DONE Reflexes: NOT DONE Skin: Dry, Normal Color, Warm Peripheral Pulses: 3+ Radial (R), 3+ Radial (L) Lymphatic: No Adenopathy Was a procedure done? Was a procedure done?: No Differential Diagnosis (SZ) Seizure: Psychogenic Seizure, Closed Head Injury, CVA/TIA X-Ray, Labs, Meds, VS Vital Signs Date Time Temp Pulse Resp B/P (MAP) Pulse Ox O2 Delivery O2 Flow Rate FiO2 03/30/24 12:00 71 03/30/24 11:00 67 12 108/72 (84) 100 03/30/24 09:30 62 15 108/69 (82) 94 03/30/24 09:30 62 15 94 Room Air* 0 21 03/30/24 08:42 83 03/30/24 07:50 97.7 63 18 111/73 (86) 98 Lab Test 03/30/24 11:03 03/30/24 09:03 Range/Units Urine Color Light-yellow Yellow Urine Clarity Clear Clear Urine pH 7.0 5.0-9.0 Urine Specific [place] 1.018 1.001-1.035 Urine Protein Negative Negative Urine Ketones Negative Negative Urine Blood Trace H Negative /uL Urine Nitrite Negative Negative Urine Bilirubin Negative Negative Urine Urobilinogen Normal Negative mg/dL Urine Leukocyte Esterase Negative Negative /uL Urine RBC 10 0 - 4 /hpf Urine WBC 1 0 - 5 /hpf Urine Squamous Epithelial Cells None seen <5 /hpf Urine Transitional Epithelial Cells Few <2 /hpf Urine Bacteria None seen None Seen /hpf Urine Glucose Normal Normal mg/dL Urine Opiates Screen Pending Urine Fentanyl Screen Pending Urine Barbiturates Screen Pending Urine Phencyclidine Screen Pending Urine Amphetamines Screen Pending Urine Benzodiazepines Screen Pending Urine Cocaine Screen Pending Urine Cannabinoids Screen Pending White Blood Count 3.7 L 4.4-10.8 10^3/uL Red Blood Count 4.02 4.0-5.20 10^6/uL Hemoglobin 12.8 12.2-16.2 g/dL Hematocrit 37.9 36.0-46.0 % Mean Corpuscular Volume 94.3 80.0-100.0 fL Mean Corpuscular Hemoglobin 31.7 28.0-32.0 pg Mean Corpuscular Hemoglobin Concent 33.6 32.0-36.0 g/dL Red Cell Distribution Width 14.1 11.8-14.3 % Platelet Count 134 L 140-450 10^3/uL Mean Platelet Volume 8.3 6.9-10.8 fL Neutrophils (%) (Auto) 40.5 37.0-80.0 % Lymphocytes (%) (Auto) 48.4 10.0-50.0 % Monocytes (%) (Auto) 6.0 0.0-12.0 % Eosinophils (%) (Auto) 4.7 0.0-7.0 % Basophils (%) (Auto) 0.4 0.0-2.0 % Neutrophils # (Auto) 1.5 L 1.6-8.6 10 ^3/uL Lymphocytes # (Auto) 1.8 0.4-5.4 10 ^3/uL Monocytes # (Auto) 0.2 0-1.3 10 ^3/uL Eosinophils # (Auto) 0.2 0-0.8 10 ^3/uL Basophils # (Auto) 0 0-0.2 10 ^3/uL Nucleated Red Blood Cells 0.0 % Sodium Level 145 136-145 mmol/L Potassium Level 3.8 3.5-5.1 mmol/L Chloride Level 109 H 98-107 mmol/L Carbon Dioxide Level 29 20-31 mmol/L Anion Gap 7 5-15 Blood Urea Nitrogen 16 9-23 mg/dL Creatinine 0.82 0.550-1.02 mg/dL Glomerular Filtration Rate Calc 84 >90 mL/min BUN/Creatinine Ratio 19.5 10.0-20.0 Serum Glucose 89 74-106 mg/dL Calcium Level 9.6 8.7-10.4 mg/dL Troponin I High Sensitivity < 3 L </=34 ng/L Current Medications Medications (Trade) Dose Ordered Sig/Aureliano Route Start Time Stop Time Status Last Admin Lorazepam (Ativan Inj) 1 mg ONCE ONCE IV 03/30/24 10:15 03/30/24 10:16 DC 03/30/24 10:15 Levetiracetam 100 ml @ 400 mls/hr ONCE ONCE IV 03/30/24 10:15 03/30/24 10:29 DC 03/30/24 10:24 Sodium Chloride 1,000 ml @ 1,000 mls/hr Q1H ONCE IV 03/30/24 10:15 03/30/24 11:14 DC 03/30/24 10:53 Sodium Chloride 1,000 ml @ 150 mls/hr Q6H40M ONCE IV 03/30/24 10:15 03/30/24 16:54 03/30/24 10:53 Patient alert. Had a seizure. History of seizures. Vitals stable. Answering questions. She is moving all extremities. EKG reviewed does not show any acute changes. Reviewed her history. Explained to the patient. Continue cardiac monitoring. Had a seizure in the ER. Was given Ativan. Was given Keppra. Cardiac marker within normal limits. Establish intravenous access. Was given fluids. Time of 1ST Reevaluation: 08:58 Reevaluation 1ST: Unchanged Patient Education/Counseling: Diagnosis, Treatment Family Education/Counseling: No Family Present Departure 1 Departure Time of Disposition: 09:03 Impression: Primary Impression: Metabolic encephalopathy Additional Impressions: Post-ictal state Seizure disorder as sequela of cerebrovascular accident Disposition: ADMITTED INPATIENT Admit to: Med Surg Condition: Guarded Critical Care Note Critical Care Time?: Yes (45 min-critical care time only) Stability Stability form required: No Heart Score Heart Score: Heart Score Response (Comments) Value History Slightly Suspicious 0 EKG Normal 0 Age 45-64 1 Risk Factors 1 or 2 risk factors 1 Troponin Normal limit 0 Total 2 I personally scribed for DEJUAN GIMENEZ MD ([email or web address]) on 03/30/24 at 08:03. Electronically submitted by Yaya Mendosa ([email or web address]). DEJUAN GIMENEZ MD Mar 30, 2024 08:03
[2024-03-30 09:29] LABS: Basophils # (auto) 0 10 ^3/uL (0-0.2); Basophils % (auto) 0.4 % (0.0-2.0); Eosinophils # (auto) 0.2 10 ^3/uL (0-0.8); Eosinophils % (auto) 4.7 % (0.0-7.0); Hematocrit 37.9 % (36.0-46.0); Hemoglobin 12.8 g/dL (12.2-16.2); Lymphocytes # (auto) 1.8 10 ^3/uL (0.4-5.4); Lymphocytes % (auto) 48.4 % (10.0-50.0); Mean Corpuscular Hemoglobin 31.7 pg (28.0-32.0); Mean Corpuscular Hgb Conc. 33.6 g/dL (32.0-36.0); Mean Corpuscular Volume 94.3 fL (80.0-100.0); Monocytes # (auto) 0.2 10 ^3/uL (0-1.3); Neutrophils # (auto) 1.5 10 ^3/uL (1.6-8.6); Neutrophils % (auto) 40.5 % (37.0-80.0); Platelet Count (auto) 134 10^3/uL (140-450); Red Blood Cells 4.02 10^6/uL (4.0-5.20); Red Cell Distribution Width 14.1 % (11.8-14.3); White Blood Cell 3.7 10^3/uL (4.4-10.8)
[2024-03-30 09:30] VITALS: PULSE 62; RESP 15; O2SAT 94
[2024-03-30 09:42] LABS: Chloride 109 mmol/L (98-107); Potassium 3.8 mmol/L (3.5-5.1); Sodium 145 mmol/L (136-145)
[2024-03-30 09:43] LABS: Anion Gap 7 (5-15); Calcium 9.6 mg/dL (8.7-10.4); Carbon Dioxide 29 mmol/L (20-31)
[2024-03-30 09:48] LABS: BUN/Creatinine Ratio 19.5 (10.0-20.0); Blood Urea Nitrogen 16 mg/dL (9-23); Glucose 89 mg/dL (74-106)
[2024-03-30] MEDS: LORazepam 2MG/ML-1ML VIAL IV ONE (10:15)
[2024-03-30] MEDS: LORazepam 2MG/ML-1ML VIAL ONE (10:24)
[2024-03-30] MEDS: levETIRAcetam 1000 mg/100ml 100 ML IV ONE (10:24)
[2024-03-30] MEDS: SODIUM CHLORIDE 0.9% 1,000 ML IV ONE ×3 (10:53→13:23)
--- NOTE | 2024-03-30 11:02 | DVH ---
EXAM: CT HEAD WITHOUT CONTRAST INDICATION: seizure TECHNIQUE: CT of the head without intravenous contrast. Radiation dose : Head: CT Dose: CTDI volume is 56 mGy. Dose-length product is 1110.4 mGy*cm The dose indicators for CT are the volume computed tomography (CT) dose index (CTDIvol) and the dose length product (DLP), and are measured in units of mGy and mGy-cm, respectively. These indicators are not patient dose, but values generated from the CT scanner acquisition factors. The report includes radiation exposure data for exposures received during this examination. COMPARISON: CT HEAD WITHOUT CONTRAST on DOS: 01/10/24, MRI BRAIN HEAD WO CONTRAST on DOS: 12/29/23, CT HEAD WITHOUT CONTRAST on DOS: 12/28/23 FINDINGS: There is no evidence of acute intracranial hemorrhage, extra-axial collection, mass effect, midline s hift, herniation or hydrocephalus. There is [id number] cerebral atrophy. The thapa-white differentiation is intact. Patchy periventricular and subcortical white matter hypoattenuation is nonspecific but may be related to small vessel ischemic disease. The visualized paranasal sinuses and mastoid air cells are clear. The surrounding soft tissues and osseous structures are unremarkable. IMPRESSION: 1. No acute intracranial abnormality. [id number] cerebral atrophy. Radiation optimization: All CT scans at this facility use at least one of these dose optimization tyron hniques: Automated exposure control mA and/or kV adjustment per patient size (includes targeted exams where dose is matched to clinical indication) or iterative reconstruction. HS:Y
[2024-03-30 11:41] LABS: Urine Bacteria None Seen /hpf (None Seen)
[2024-03-30 12:03] LABS: Urine Blood TRACE /uL (Negative); Urine Clarity Clear (Clear); Urine Color Light-Yellow (Yellow); Urine Protein, UAD Negative (Negative); Urine Specific Gravity 1.018 (1.001-1.035); Urine Urobilinogen Normal (Negative); Urine WBC 1 /hpf (0 - 5)
[2024-03-30] MEDS ORDERED: LORazepam 2MG/ML-1ML VIAL IV PRN (12:30)
[2024-03-30] MEDS ORDERED: ONDANSETRON HCL 4 MG/2 ML VIAL IV PRN (12:30)
[2024-03-30] MEDS ORDERED: MAALOX PLUS or MAALOX 30 ML PO PRN (12:30)
[2024-03-30] MEDS ORDERED: DOCUSATE SOD 100 MG CAP PO PRN (12:30)
[2024-03-30 13:06] LABS: Amphetamine Screen, Urine Neg (NEGATIVE); Barbiturate Scree,Urine Neg (NEGATIVE); Benzodiazephine Screen, Urine Neg (NEGATIVE); Cannabinoid Screen, Urine Neg (NEGATIVE); Cocaine Screen, Urine Neg (NEGATIVE); Opiate Scree,Urine Neg (NEGATIVE); Phencyclidine Screen, Urine Neg (NEGATIVE)
--- NOTE | 2024-03-30 13:15 | DVHHP2 ---
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 Dyspnea, Edema, Lt Headedness, Other Gastrointestinal: No: Nausea, Vomiting, Abdominal Pain, Diarrhea, Constipation, Melena, Hematochezia, Other Genitourinary: No Dysuria, No Frequency, No Incontinence, No Hematuria, No Retention, No Other Musculoskeletal: No: other, neck pain, shoulder pain, arm pain, back pain, hand pain, leg pain, foot pain Skin: No: Rash, Lesions, Jaundice, Bruising, Other Neurological: Seizures; No: Weakness, Numbness, Incoordination, Change in sp eech, Confusion, Other Allergies: Coded Allergies: Iodine (Verified Allergy, Unknown, 11/11/23) Sulfa Antibiotics (Verified Allergy, Unknown, 11/11/23) Medications Current Medications Medications Dose Ordered Sig/Aureliano Route Start Time Stop Time Status Last Admin Dose Admin Levetiracetam 100 ml @ 400 mls/hr BID IV 03/30/24 22:00 Lorazepam 2 mg Q4HP PRN IV 03/30/24 12:30 Lorazepam 0.5 mg Q6HP PRN PO 03/30/24 12:30 Al Hydrox/Mg Hydrox/Simethicone 30 ml Q6HP PRN PO 03/30/24 12:30 Docusate Sodium 100 mg BIDPRN PRN PO 03/30/24 12:30 Acetaminophen 650 mg Q6HP PRN PO 03/30/24 12:30 Temazepam 15 mg QHSP PRN PO 03/30/24 12:30 Acetaminophen/ Hydrocodone Bitart 1 tab Q4HP PRN PO 03/30/24 12:30 Ondansetron HCl 4 mg Q4HP PRN IV 03/30/24 12:30 Exam Vital Signs Vital Signs Date Time Temp Pulse Resp B/P (MAP) Pulse Ox O2 Delivery O2 Flow Rate FiO2 03/30/24 12:00 71 03/30/24 11:00 12 108/72 (84) 100 03/30/24 09:30 Room Air* 0 21 03/30/24 07:50 97.7 General Appearance: Alert, Oriented X3 HEENT: Atraumatic, PERRLA Respiratory: Clear to auscultation, Normal air movement Cardiovascular: Regular rate, Normal S1, Normal S2 Abdominal: Normal bowel sounds, Soft, No tenderness Extremities: No clubbing, No cyanosis, No edema Skin: No rashes, No breakdown Neuro: Normal gait, Normal speech, Strength at 5/5 X4 ext Psych/Mental Status: Mental status NL, Mood NL Labs/Xrays Labs Test 03/30/24 11:03 03/30/24 09:03 Range/Units Urine Color Light-yellow Yellow Urine Clarity Clear Clear Urine pH 7.0 5.0-9.0 Urine Specific [place] 1.018 1.001-1.035 Urine Protein Negative Negative Urine Ketones Negative Negative Urine Blood Trace H Negative /uL Urine Nitrite Negative Negative Urine Bilirubin Negative Negative Urine Urobilinogen Normal Negative mg/dL Urine Leukocyte Esterase Negative Negative /uL Urine RBC 10 0 - 4 /hpf Urine WBC 1 0 - 5 /hpf Urine Squamous Epithelial Cells None seen <5 /hpf Urine Transitional Epithelial Cells Few <2 /hpf Urine Bacteria None seen None Seen /hpf Urine Glucose Normal Normal mg/dL White Blood Count 3.7 L 4.4-10.8 10^3/uL Red Blood Count 4.02 4.0-5.20 10^6/uL Hemoglobin 12.8 12.2-16.2 g/dL Hematocrit 37.9 36.0-46.0 % Mean Corpuscular Volume 94.3 80.0-100.0 fL Mean Corpuscular Hemoglobin 31.7 28.0-32.0 pg Mean Corpuscular Hemoglobin Concent 33.6 32.0-36.0 g/dL Red Cell Distribution Width 14.1 11.8-14.3 % Platelet Count 134 L 140-450 10^3/uL Mean Platelet Volume 8.3 6.9-10.8 fL Neutrophils (%) (Auto) 40.5 37.0-80.0 % Lymphocytes (%) (Auto) 48.4 10.0-50.0 % Monocytes (%) (Auto) 6.0 0.0-12.0 % Eosinophils (%) (Auto) 4.7 0.0-7.0 % Basophils (%) (Auto) 0.4 0.0-2.0 % Neutrophils # (Auto) 1.5 L 1.6-8.6 10 ^3/uL Lymphocytes # (Auto) 1.8 0.4-5.4 10 ^3/uL Monocytes # (Auto) 0.2 0-1.3 10 ^3/uL Eosinophils # (Auto) 0.2 0-0.8 10 ^3/uL Basophils # (Auto) 0 0-0.2 10 ^3/uL Nucleated Red Blood Cells 0.0 % Sodium Level 145 136-145 mmol/L Potassium Level 3.8 3.5-5.1 mmol/L Chloride Level 109 H 98-107 mmol/L Carbon Dioxide Level 29 20-31 mmol/L Anion Gap 7 5-15 Blood Urea Nitrogen 16 9-23 mg/dL Creatinine 0.82 0.550-1.02 mg/dL Glomerular Filtration Rate Calc 84 >90 mL/min BUN/Creatinine Ratio 19.5 10.0-20.0 Serum Glucose 89 74-106 mg/dL Calcium Level 9.6 8.7-10.4 mg/dL Troponin I High Sensitivity < 3 L </=34 ng/L Assessment/Plan Assessment/Plan Admit Med/Surge Seizures Breakthrough seizures Keppra at home Keppra increased 1000mg bid IV IV hydration monitor for overload drug screen requested prn Ativan for break through seizures if continued seizures consider neuro ct head negative Plan discussed with: Patient My Orders Orders - JOSÉ MIGUEL GU MD Procedure Category Date Status Time Levetiracetam 1000 PHA 03/30/24 In Process Mg/100ml (Levetiracet 22:00 Lorazepam 2mg/Ml Inj PHA 03/30/24 In Process (Ativan Inj) 12:30 Sodium Chloride 0.9% PHA 03/30/24 In Process 12:30 Drug Screen LAB 03/30/24 In Process 12:29 Admit ADMIT 03/30/24 Transmitted 12:29 Code Status CODE 03/30/24 Transmitted 12:29 Vital Signs [facility] 03/30/24 In Process 12:29 Review Orders With SERENA 03/30/24 In Process Adm.Md 12:29 Regular Diet DIET 03/30/24 Transmitted Lunch Lorazepam Tablet PHA 03/30/24 In Process (Ativan Tablet) 12:30 Alum & Mag PHA 03/30/24 In Process Hydrox-Simethicone 12:30 Docusate Sodium PHA 03/30/24 In Process Capsule (Colace 12:30 Acetaminophen Tablet PHA 03/30/24 In Process (Tylenol Tablet) 12:30 Temazepam (Restoril) PHA 03/30/24 In Process 12:30 Notify Md Of Changes [facility] 03/30/24 In Process From Base 12:29 Advance Directive [facility] 03/30/24 In Process 12:29 Basic Metabolic Panel LAB 03/31/24 Verified 04:00 Complete Blood Count LAB 03/31/24 Verified 04:00 Patient Condition ORDERS 03/30/24 Transmitted 12:29 Allergies SERENA 03/30/24 In Process 12:29 Hydrocodone-Acet PHA 03/30/24 In Process 5/325mg Tab ([place] 12:30 Ondansetron Hcl PHA 03/30/24 In Process (Zofran) 12:30 Problem List: (1) Altered level of consciousness (2) Head injury (3) Fall at assisted (4) Post-ictal state (5) Seizure disorder as sequela of cerebrovascular accident Date of Service: Mar 30, 2024 Billing Provider: JOSÉ MIGUEL GU MD Common Visit Codes: [id number] INP/OBS CARE (HIGH) JOSÉ MIGUEL GU MD Mar 30, 2024 13:15
[2024-03-30] MEDS: ACETAMINOPHEN 325 MG TAB PO PRN (16:24)
[2024-03-30 19:25] VITALS: PULSE 79; RESP 10; O2SAT 98
[2024-03-30] MEDS: levETIRAcetam 1000 mg/100ml 100 ML IV SCH (21:47)
[2024-03-31] MEDS: LORazepam 0.5 MG TAB PO PRN (02:21)
[2024-03-31] MEDS: HYDROcodone-ACET 5/325MG TAB PO PRN (03:47)
[2024-03-31] MEDS: diphenhdrAMINE HCL 25 MG CAP PO ONE ×2 (05:16→08:32)
[2024-03-31 06:39] LABS: Basophils # (auto) 0 10 ^3/uL (0-0.2); Basophils % (auto) 0.3 % (0.0-2.0); Eosinophils # (auto) 0.2 10 ^3/uL (0-0.8); Eosinophils % (auto) 4.3 % (0.0-7.0); Hematocrit 39.3 % (36.0-46.0); Hemoglobin 13.2 g/dL (12.2-16.2); Lymphocytes # (auto) 1.9 10 ^3/uL (0.4-5.4); Lymphocytes % (auto) 40.8 % (10.0-50.0); Mean Corpuscular Hemoglobin 31.6 pg (28.0-32.0); Mean Corpuscular Hgb Conc. 33.7 g/dL (32.0-36.0); Monocytes # (auto) 0.5 10 ^3/uL (0-1.3); Monocytes % (auto) 10.7 % (0.0-12.0); Neutrophils % (auto) 43.9 % (37.0-80.0); Nucleated Red Blood Cells % 0.1 %; Platelet Count (auto) 145 10^3/uL (140-450); Red Blood Cells 4.18 10^6/uL (4.0-5.20); Red Cell Distribution Width 14.1 % (11.8-14.3); White Blood Cell 4.5 10^3/uL (4.4-10.8)
[2024-03-31 06:41] LABS: Chloride 108 mmol/L (98-107); Potassium 3.8 mmol/L (3.5-5.1); Sodium 140 mmol/L (136-145)
[2024-03-31 06:42] LABS: Anion Gap 12 (5-15); Carbon Dioxide 20 mmol/L (20-31)
[2024-03-31 06:43] LABS: Calcium 9.8 mg/dL (8.7-10.4)
[2024-03-31 06:47] LABS: BUN/Creatinine Ratio 16.9 (10.0-20.0); Blood Urea Nitrogen 12 mg/dL (9-23); Glucose 100 mg/dL (74-106)
[2024-03-31 08:00] VITALS: PULSE 73; RESP 12; O2SAT 99
--- NOTE | 2024-03-31 16:08 | DVHPN2 ---
Reviewed: Care Plan, H&P, Labs, Medications, Previous Orders Changes from previous H/P or p: No Changes General: Per HPI Eyes: No Pain, No Vision change, No Conjunctivae inflammation, No Eyelid inflammation, No Other, No Redness ENT: No Ear pain, No Ear discharge, No Nose pain, No Nose discharge, No Nose congestion, No Mouth pain, No Mouth swelling, No Throat pain, No Throat swelling, No Other Cardiovascular: No Chest Pain, No Palpitations, No Orthopnea, No Paroxysmal Noc. Dyspnea, No Edema, No Lt Headedness, No Other Respiratory: No Cough, No Dry, No Shortness of breath, No SOB with excertion, No Wheezing, No Hemoptysis, No Pleuritic Pain, No Sputum, No Other Gastrointestinal: No Nausea, No Vomiting, No Abdominal Pain, No Diarrhea, No Constipation, No Melena, No Hematochezia, No Other Genitourinary: No Dysuria, No Frequency, No Incontinence, No Hematuria, No Retention, No Other Musculoskeletal: No other, No neck pain, No shoulder pain, No arm pain, No back pain, No hand pain, No leg pain, No foot pain Skin: No Rash, No Lesions, No Jaundice, No Bruising, No Other Objective Vitals Vital Signs Date Time Temp Pulse Resp B/P (MAP) Pulse Ox O2 Delivery O2 Flow Rate FiO2 03/31/24 12:00 82 03/31/24 12:00 14 101/65 (77) 98 03/31/24 08:00 Room Air* 0 21 03/30/24 19:25 98.3 98.3 Intake/Output Intake and Output 03/31/24 07:00 Intake Total 1987 ml Balance 1987 ml Intake IV Total 1987 ml General Appearance: Alert, Oriented X3 HEENT: Atraumatic Medications Current Medications Medications Dose Ordered Sig/Aureliano Route Start Time Stop Time Status Last Admin Dose Admin Levetiracetam 100 ml @ 400 mls/hr BID IV 03/30/24 22:00 03/31/24 10:45 400 MLS/HR Lorazepam 2 mg Q4HP PRN IV 03/30/24 12:30 Lorazepam 0.5 mg Q6HP PRN PO 03/30/24 12:30 03/31/24 15:29 0.5 MG Al Hydrox/Mg Hydrox/Simethicone 30 ml Q6HP PRN PO 03/30/24 12:30 Docusate Sodium 100 mg BIDPRN PRN PO 03/30/24 12:30 Acetaminophen 650 mg Q6HP PRN PO 03/30/24 12:30 03/30/24 16:24 650 MG Temazepam 15 mg QHSP PRN PO 03/30/24 12:30 Acetaminophen/ Hydrocodone Bitart 1 tab Q4HP PRN PO 03/30/24 12:30 03/31/24 14:11 1 TAB Ondansetron HCl 4 mg Q4HP PRN IV 03/30/24 12:30 Laboratory Results Laboratory Tests 03/31/24 05:39 Chemistry Test 03/31/24 05:39 Calcium Level 9.8 mg/dL (8.7-10.4) Urinalysis Test 03/30/24 11:03 Urine Color Light-yellow (Yellow) Urine Clarity Clear (Clear) Urine pH 7.0 (5.0-9.0) Urine Specific [place] 1.018 (1.001-1.035) Urine Protein Negative (Negative) Urine Ketones Negative (Negative) Urine Blood Trace /uL (Negative) H Urine Nitrite Negative (Negative) Urine Bilirubin Negative (Negative) Urine Urobilinogen Normal mg/dL (Negative) Urine Leukocyte Esterase Negative /uL (Negative) Urine RBC 10 /hpf (0 - 4) Urine WBC 1 /hpf (0 - 5) Urine Squamous Epithelial Cells None seen /hpf (<5) Urine Transitional Epithelial Cells Few /hpf (<2) Urine Bacteria None seen /hpf (None Seen) Urine Glucose Normal mg/dL (Normal) Labs and/or images reviewed: Labs reviewed by me, Image(s) reviewed by me Assessment/Plan Assessment/Plan Seizures Breakthrough seizures weakness Keppra at home Keppra increased 1000mg bid IV IV hydration monitor for overload drug screen requested prn Ativan for break through seizures if continued seizures consider neuro ct head negative 03/31/2024: awaiting evaluation by neurology continue with Keppra Plan discussed with: Patient Date of Service: Mar 31, 2024 Billing Provider: MARTHA FERRARA DO Common Visit Codes: [id number] INP/OBS CARE(HIGH) MARTHA FERRARA DO Mar 31, 2024 16:08
[2024-03-31] MEDS: diphenhdrAMINE HCL 50 MG/1 ML VL IV ONE (18:44)
[2024-03-31 20:00] VITALS: PULSE 84; RESP 19; O2SAT 98
[2024-03-31] MEDS: HALOPERIDOL LACTATE 5 MG/ML INJ VIAL IM ONE (21:05)
[2024-04-01] MEDS: LORazepam 2MG/ML-1ML VIAL IV ONE (01:22)
[2024-04-01] MEDS: LORazepam 2MG/ML-1ML VIAL ONE (04:56)
[2024-04-01] MEDS: LORazepam 2MG/ML-1ML VIAL IV PRN (04:57)
[2024-04-01 07:30] VITALS: PULSE 83; RESP 18; O2SAT 98
[2024-04-01] MEDS: HALOPERIDOL LACTATE 5 MG/ML INJ VIAL IM ONE (10:34)
--- NOTE | 2024-04-01 16:11 | DVHPN2 ---
Reviewed: Care Plan, H&P, Labs, Medications, Previous Orders Changes from previous H/P or p: No Changes General: Per HPI Eyes: No Pain, No Vision change, No Conjunctivae inflammation, No Eyelid inflammation, No Other, No Redness ENT: No Ear pain, No Ear discharge, No Nose pain, No Nose discharge, No Nose congestion, No Mouth pain, No Mouth swelling, No Throat pain, No Throat swelling, No Other Cardiovascular: No Chest Pain, No Palpitations, No Orthopnea, No Paroxysmal Noc. Dyspnea, No Edema, No Lt Headedness, No Other Respiratory: No Cough, No Dry, No Shortness of breath, No SOB with excertion, No Wheezing, No Hemoptysis, No Pleuritic Pain, No Sputum, No Other Gastrointestinal: No Nausea, No Vomiting, No Abdominal Pain, No Diarrhea, No Constipation, No Melena, No Hematochezia, No Other Genitourinary: No Dysuria, No Frequency, No Incontinence, No Hematuria, No Retention, No Other Musculoskeletal: No other, No neck pain, No shoulder pain, No arm pain, No back pain, No hand pain, No leg pain, No foot pain Skin: No Rash, No Lesions, No Jaundice, No Bruising, No Other Objective Vitals Vital Signs Date Time Temp Pulse Resp B/P (MAP) Pulse Ox O2 Delivery O2 Flow Rate FiO2 04/01/24 14:00 74 18 126/84 (98) 97 04/01/24 07:30 Room Air* 0 21 03/31/24 20:00 98.8 98.8 Intake/Output Intake and Output 04/01/24 07:00 Intake Total 600 ml Output Total 3020 ml Balance -2420 ml Intake Oral 500 ml IV Total 100 ml Output Urine Total 3020 ml General Appearance: Alert, Oriented X3 HEENT: Atraumatic Abdomen: Normal bowel sounds, Soft Medications Current Medications Medications Dose Ordered Sig/Aureliano Route Start Time Stop Time Status Last Admin Dose Admin Levetiracetam 100 ml @ 400 mls/hr BID IV 03/30/24 22:00 04/01/24 10:40 400 MLS/HR Lorazepam 2 mg Q4HP PRN IV 03/30/24 12:30 Lorazepam 0.5 mg Q6HP PRN PO 03/30/24 12:30 03/31/24 21:04 0.5 MG Al Hydrox/Mg Hydrox/Simethicone 30 ml Q6HP PRN PO 03/30/24 12:30 Docusate Sodium 100 mg BIDPRN PRN PO 03/30/24 12:30 Acetaminophen 650 mg Q6HP PRN PO 03/30/24 12:30 03/30/24 16:24 650 MG Temazepam 15 mg QHSP PRN PO 03/30/24 12:30 Acetaminophen/ Hydrocodone Bitart 1 tab Q4HP PRN PO 03/30/24 12:30 03/31/24 22:02 1 TAB Ondansetron HCl 4 mg Q4HP PRN IV 03/30/24 12:30 Lorazepam 1 mg Q8HP PRN IV 04/01/24 04:55 04/01/24 13:14 1 MG Laboratory Results Laboratory Tests 03/31/24 05:39 Urinalysis Test 03/30/24 11:03 Urine Color Light-yellow (Yellow) Urine Clarity Clear (Clear) Urine pH 7.0 (5.0-9.0) Urine Specific [place] 1.018 (1.001-1.035) Urine Protein Negative (Negative) Urine Ketones Negative (Negative) Urine Blood Trace /uL (Negative) H Urine Nitrite Negative (Negative) Urine Bilirubin Negative (Negative) Urine Urobilinogen Normal mg/dL (Negative) Urine Leukocyte Esterase Negative /uL (Negative) Urine RBC 10 /hpf (0 - 4) Urine WBC 1 /hpf (0 - 5) Urine Squamous Epithelial Cells None seen /hpf (<5) Urine Transitional Epithelial Cells Few /hpf (<2) Urine Bacteria None seen /hpf (None Seen) Urine Glucose Normal mg/dL (Normal) Labs and/or images reviewed: Labs reviewed by me, Image(s) reviewed by me Assessment/Plan Assessment/Plan Seizures Breakthrough seizures weakness Keppra at home Keppra increased 1000mg bid IV IV hydration monitor for overload drug screen requested prn Ativan for break through seizures if continued seizures consider neuro ct head negative 03/31/2024: awaiting evaluation by neurology continue with Keppra 04/01/2024: close monitoring. Neurology to evaluate Plan discussed with: Patient My Orders Orders - MARTHA FERRARA DO Procedure Category Date Status Time * Neurology Consult CONS 04/01/24 Transmitted 16:10 Brain Head Wo Contrast MRI 11/15/24 Verified 16:10 Date of Service: Apr 01, 2024 Billing Provider: MARTHA FERRARA DO Common Visit Codes: [id number] INP/OBS CARE(HIGH) MARTHA FERRARA DO Apr 01, 2024 16:11
[2024-04-01 18:30] VITALS: BP 125/82; PULSE 84; RESP 20; TEMP 98; O2SAT 98
[2024-04-01 19:54] VITALS: PULSE 84; RESP 20; O2SAT 98
[2024-04-01 20:00] VITALS: PULSE 84; RESP 20; O2SAT 98
[2024-04-01] MEDS ORDERED: KEP500T PO (20:54)
[2024-04-01] MEDS ORDERED: MELA3TAB27 PO (20:54)
[2024-04-01] MEDS ORDERED: MULT1TAB57 PO (20:54)
[2024-04-01] MEDS ORDERED: THIA100T10 PO (20:54)
[2024-04-01] MEDS ORDERED: OLAN1TAB75 PO (20:54)
[2024-04-01] MEDS ORDERED: SENN-58 PO (20:54)
[2024-04-01] MEDS ORDERED: LORA-1121 PO (20:54)
[2024-04-01] MEDS ORDERED: LORA-622 PO (20:54)
[2024-04-01] MEDS ORDERED: DIPH25CA66 PO (20:54)
[2024-04-01] MEDS ORDERED: ASPI1TAB20 PO (20:54)
[2024-04-01] MEDS ORDERED: QUET50TA PO (20:54)
[2024-04-01] MEDS ORDERED: ATOR20TA50 PO (20:54)
[2024-04-01] MEDS ORDERED: HYDR-3682 PO (20:54)
[2024-04-01] MEDS ORDERED: DIVA500T12 PO (20:54)
[2024-04-01] MEDS ORDERED: SERT25TA28 PO (20:54)
[2024-04-01] MEDS ORDERED: LACO150T3 PO (20:54)
[2024-04-01 21:00] VITALS: BP 142/73; PULSE 89; RESP 20; TEMP 98.2; O2SAT 99
[2024-04-02] VITALS (8 sets, daily range): BP systolic 96–124; BP diastolic 55–63; PULSE 72–84; RESP 18–20; TEMP 97.6–98.8; O2SAT 94–98
--- NOTE | 2024-04-02 12:31 | DVHINCON2 ---
Neurolgy Consult Neurology Consult Neurology Consult [place] [facility] Note # Demographics Consult Type: General Neurology Patient Location: Inpatient First Name: Tammy Last Name: Navjot Date of : 1965 Age: 58 Gender: Female Facility: [facility] Time of Initial Page (): 04/02/2024, 11:27 Time of Return Call (): 04/02/2024, 11:27 # HPI History: 58yof with seizures (on Keppra) who presents with breakthrough seizure. When asked about how much Keppra she takes, she says 1 pill a day. On review, says she is meant to be on Keppra 500mg BID. # Exam Mental Status: - awake - alert and oriented x 3 - follows commands Language: - normal speech - no aphasia Cranial Nerves: - normal - extra ocular movements intact Motor: - normal strength - no drift Sensory: - normal sensation Cerebellar: - normal cerebellar exam # Data Time Head CT personally read by me (): 04/02/2024, 12:[address]: - no bleed - per radiologist read # Assessment Impression: Breakthrough seizures commonly resulting secondary to medication non-compliance, acute medical illness such as infection or metabolic abnormality, or sleep deprivation. Unclear if pt was incorrectly taking her seizure medications. If she was only taking Keppra 500mg daily, then I would continue her on Keppra 500mg BID and litigation counsel how to properly take her medications. If she was taking Keppra 500mg BID and compliant with no other causes for breakthrough seizure such as infection or metabolic abnormalities, then I would increase to 750mg BID # Plan Labs: - CBC - comprehensive metabolic panel - ua Basic infectious and metabolic workup Magnesium Diagnostic Test: - EEG Other: - If patient has any neurological deterioration please call me back immediately - seizure precautions - Please check routine labs and studies to rule out infection or metabolic abnormality (CBC, BMP, LFTs, magnesium, UA, B-HCG, CXR) and treat as appropriate - Give 2 grams IV magnesium sulfate for serum magnesium <= 1.8, optimize other electrolytes - May consider brief course of Ativan as temporizing measure (1 mg BID x 2 days) if provoking factor such as infection, medication noncompliance, or metabolic abnormality is found - Avoid epileptogenic medications such as wellbutrin, cefepime, ultram, quinolones, and imipenum - Seizure precautions, including appropriate state law prohibiting driving, avoiding heights, tubs/swimming pools and standing over open flames # Logistics Attestation of consult completion: The patient is located at: [facility]. Facility staff participated in the visit. I performed this telemedic ine visit from my offsite office utilizing interactive 2 way audio and visual telecommunication technology. Total time spent in telemedicine encounter: I spent 27 minutes reviewing clinical data and/or imaging, obtaining history, examining the patient, co mmunicating with the onsite care team, and in preparation of this report. # Demographics First Name: Tammy Last Name: Navjot Facility: [facility] MAYRA HAHN MD Apr 02, 2024 12:31
[2024-04-02] MEDS: diphenhdrAMINE HCL 50 MG/1 ML VL IV PRN (14:09)
[2024-04-02] MEDS: GABAPENTIN 300 MG CAP PO SCH (15:34)
--- NOTE | 2024-04-02 17:45 | DVH ---
EXAM: MRI BRAIN HEAD WO CONTRAST CLINICAL HISTORY: SZ COMPARISON: CT HEAD WITHOUT CONTRAST on DOS: 03/30/24, CT HEAD WITHOUT CONTRAST on DOS: 01/10/24, MRI BRAIN HEAD WO CONTRAST on DOS: 12/29/23 TECHNIQUE: Multiplanar, multisequence magnetic resonance imaging of the brain was performed without intravenous contrast. FINDINGS: Moderate diffuse brain atrophy. Minimal chronic small-vessel ischemic changes. No hemorrhages, masses, mass effect, midline shift, herniation or cytotoxic edema following a large v ascular territory. No intra-axial or extra-axial fluid collections. No evidence of hydrocephalus. Th e basal cisterns are patent. The vascular flow voids are maintained. The pituitary gland, sella and parasellar regions are unremarkable. The cerebellar tonsils are in nor mal position. The cerebellum is unremarkable. The orbits and globes are unremarkable. Minimal mucoperiosteal thickening of the anterior ethmoid air cells. Otherwise, the paranasal sinuses and mastoids are clear. There are no worrisome calvarial l esions. IMPRESSION: No evidence of acute intracranial abnormalities.
[2024-04-02] MEDS: levETIRAcetam 500 MG TAB PO SCH (20:57)
[2024-04-02] MEDS: TEMAZEPAM 15 MG CAP PO PRN (20:58)
[2024-04-02] MEDS ORDERED: GABAPENTIN 300 MG CAP PO SCH (22:00)
[2024-04-03] VITALS (7 sets, daily range): BP systolic 93–101; BP diastolic 55–63; PULSE 64–81; RESP 17–20; TEMP 97.9–98.2; O2SAT 93–100
[2024-04-04 01:00] VITALS: BP 117/65; PULSE 68; RESP 20; TEMP 97.8; TEMP 98; TEMP 99; O2SAT 98
[2024-04-04 05:00] VITALS: BP 116/71; PULSE 74; RESP 18; TEMP 97.8; O2SAT 97
[2024-04-04 09:01] VITALS: BP 100/71; PULSE 74; RESP 16; TEMP 99; O2SAT 98
--- NOTE | 2024-04-04 11:04 | DVHPN2 ---
Reviewed: Care Plan, H&P, Labs, Medications, Previous Orders General: Per HPI Eyes: No Pain, No Vision change, No Conjunctivae inflammation, No Eyelid inflammation, No Other, No Redness ENT: No Ear pain, No Ear discharge, No Nose pain, No Nose discharge, No Nose congestion, No Mouth pain, No Mouth swelling, No Throat pain, No Throat swelling, No Other Cardiovascular: No Chest Pain, No Palpitations, No Orthopnea, No Paroxysmal Noc. Dyspnea, No Edema, No Lt Headedness, No Other Respiratory: No Cough, No Dry, No Shortness of breath, No SOB with excertion, No Wheezing, No Hemoptysis, No Pleuritic Pain, No Sputum, No Other Gastrointestinal: No Nausea, No Vomiting, No Abdominal Pain, No Diarrhea, No Constipation, No Melena, No Hematochezia, No Other Genitourinary: No Dysuria, No Frequency, No Incontinence, No Hematuria, No Retention, No Other Musculoskeletal: No other, No neck pain, No shoulder pain, No arm pain, No back pain, No hand pain, No leg pain, No foot pain Skin: No Rash, No Lesions, No Jaundice, No Bruising, No Other Objective Vitals Vital Signs Date Time Temp Pulse Resp B/P (MAP) Pulse Ox O2 Delivery O2 Flow Rate FiO2 04/04/24 09:01 99.0 74 16 100/71 (81) 98 99.0 04/04/24 07:48 Room Air* 0 21 Intake/Output Intake and Output 04/04/24 07:00 Intake Total 868 ml Balance 868 ml Intake Oral 868 ml # Voids 8 General Appearance: Alert, Oriented X3 HEENT: Atraumatic Medications Current Medications Medications Dose Ordered Sig/Aureliano Route Start Time Stop Time Status Last Admin Dose Admin Lorazepam 2 mg Q4HP PRN IV 03/30/24 12:30 Lorazepam 0.5 mg Q6HP PRN PO 03/30/24 12:30 04/02/24 23:09 0.5 MG Al Hydrox/Mg Hydrox/Simethicone 30 ml Q6HP PRN PO 03/30/24 12:30 Docusate Sodium 100 mg BIDPRN PRN PO 03/30/24 12:30 Acetaminophen 650 mg Q6HP PRN PO 03/30/24 12:30 04/02/24 20:58 650 MG Temazepam 15 mg QHSP PRN PO 03/30/24 12:30 04/04/24 00:06 15 MG Acetaminophen/ Hydrocodone Bitart 1 tab Q4HP PRN PO 03/30/24 12:30 04/02/24 23:10 1 TAB Ondansetron HCl 4 mg Q4HP PRN IV 03/30/24 12:30 Lorazepam 1 mg Q8HP PRN IV 04/01/24 04:55 04/01/24 13:14 1 MG Levetiracetam 750 mg BID PO 04/02/24 22:00 04/04/24 08:41 750 MG Diphenhydramine HCl 50 mg Q8HPRN PRN IV 04/02/24 13:30 04/04/24 05:51 50 MG Gabapentin 300 mg TID PO 04/02/24 16:00 04/04/24 05:42 300 MG Laboratory Results Laboratory Tests 03/31/24 05:39 Urinalysis Test 03/30/24 11:03 Urine Color Light-yellow (Yellow) Urine Clarity Clear (Clear) Urine pH 7.0 (5.0-9.0) Urine Specific [place] 1.018 (1.001-1.035) Urine Protein Negative (Negative) Urine Ketones Negative (Negative) Urine Blood Trace /uL (Negative) H Urine Nitrite Negative (Negative) Urine Bilirubin Negative (Negative) Urine Urobilinogen Normal mg/dL (Negative) Urine Leukocyte Esterase Negative /uL (Negative) Urine RBC 10 /hpf (0 - 4) Urine WBC 1 /hpf (0 - 5) Urine Squamous Epithelial Cells None seen /hpf (<5) Urine Transitional Epithelial Cells Few /hpf (<2) Urine Bacteria None seen /hpf (None Seen) Urine Glucose Normal mg/dL (Normal) NEAL SANTOS MD Apr 04, 2024 11:04
[2024-04-04] MEDS ORDERED: CLOTCRE3 EX (11:37)
[2024-04-04] MEDS ORDERED: LEVE500T40 PO (11:37)
--- NOTE | 2024-04-04 11:40 | DVHDS2 ---
Discharge Summary Date of Admission Mar 30, 2024 at 12:29 Date of Discharge: Apr 04, 2024 Admitting Diagnosis Seizures Breakthrough seizures weakness acute metabolic encephalopathy Labs/Diagnostic Data: Laboratory Results Test 03/31/24 05:39 03/30/24 11:03 03/30/24 09:03 White Blood Count 4.5 10^3/uL (4.4-10.8) Red Blood Count 4.18 10^6/uL (4.0-5.20) Hemoglobin 13.2 g/dL (12.2-16.2) Hematocrit 39.3 % (36.0-46.0) Mean Corpuscular Volume 94.0 fL (80.0-100.0) Mean Corpuscular Hemoglobin 31.6 pg (28.0-32.0) Mean Corpuscular Hemoglobin Concent 33.7 g/dL (32.0-36.0) Red Cell Distribution Width 14.1 % (11.8-14.3) Platelet Count 145 10^3/uL (140-450) Mean Platelet Volume 8.7 fL (6.9-10.8) Neutrophils (%) (Auto) 43.9 % (37.0-80.0) Lymphocytes (%) (Auto) 40.8 % (10.0-50.0) Monocytes (%) (Auto) 10.7 % (0.0-12.0) Eosinophils (%) (Auto) 4.3 % (0.0-7.0) Basophils (%) (Auto) 0.3 % (0.0-2.0) Neutrophils # (Auto) 2.0 10 ^3/uL (1.6-8.6) Lymphocytes # (Auto) 1.9 10 ^3/uL (0.4-5.4) Monocytes # (Auto) 0.5 10 ^3/uL (0-1.3) Eosinophils # (Auto) 0.2 10 ^3/uL (0-0.8) Basophils # (Auto) 0 10 ^3/uL (0-0.2) Nucleated Red Blood Cells 0.1 % Sodium Level 140 mmol/L (136-145) Potassium Level 3.8 mmol/L (3.5-5.1) Chloride Level 108 mmol/L (98-107) Carbon Dioxide Level 20 mmol/L (20-31) Anion Gap 12 (5-15) Blood Urea Nitrogen 12 mg/dL (9-23) Creatinine 0.71 mg/dL (0.550-1.02) Glomerular Filtration Rate Calc 100 mL/min (>90) BUN/Creatinine Ratio 16.9 (10.0-20.0) Serum Glucose 100 mg/dL (74-106) Calcium Level 9.8 mg/dL (8.7-10.4) Urine Color Light-yellow (Yellow) Urine Clarity Clear (Clear) Urine pH 7.0 (5.0-9.0) Urine Specific [place] 1.018 (1.001-1.035) Urine Protein Negative (Negative) Urine Ketones Negative (Negative) Urine Blood Trace /uL (Negative) Urine Nitrite Negative (Negative) Urine Bilirubin Negative (Negative) Urine Urobilinogen Normal mg/dL (Negative) Urine Leukocyte Esterase Negative /uL (Negative) Urine RBC 10 /hpf (0 - 4) Urine WBC 1 /hpf (0 - 5) Urine Squamous Epithelial Cells None seen /hpf (<5) Urine Transitional Epithelial Cells Few /hpf (<2) Urine Bacteria None seen /hpf (None Seen) Urine Glucose Normal mg/dL (Normal) Urine Opiates Screen Neg (NEGATIVE) Urine Fentanyl Screen Neg (NEGATIVE) Urine Barbiturates Screen Neg (NEGATIVE) Urine Phencyclidine Screen Neg (NEGATIVE) Urine Amphetamines Screen Neg (NEGATIVE) Urine Benzodiazepines Screen Neg (NEGATIVE) Urine Cocaine Screen Neg (NEGATIVE) Urine Cannabinoids Screen Neg (NEGATIVE) Troponin I High Sensitivity < 3 ng/L (</=34) Other Laboratory Tests 03/31/24 05:39 Brief Hx & Hospital Course: This is a 58 years old female with past medical history seizure come into emergency department because of seizure at home. The patient apparently had a breakthrough seizure and was given Keppra and Ativan in the emergency department to control the seizure. The patient was admitted. CT head and MRI of the brain showed no acute process, no intracranial abnormality. Luis Daniel david [facility] neurologist see the patient and recommend to increase her Keppra to 750 mg twice per day if patient compliant. Per patient she compliant with medication and never skip a dose. So I am going to increase her Keppra to 700 mg twice per day. I am going to discharge the patient home today. Advised the patient to follow up with primary care physician 1-2 weeks. Follow up with her neurologist per schedule. Activity as tolerated. Diet per home diet. Advised not driving. Physical exam: HEENT: Normocephalic atraumatic pupils equal react to light and accommodation. Extraocular muscles intact, conjunctiva pink, oropharynx moist, no thrush, no exudate. Lymphatic: No lymphadenopathy Cardiovascular exam: S1, S2 was heard. No murmurs, rubs, gallops Lung: Clear on auscultation bilaterally, no wheeze, rale, rhonchi. GI: Abdominal soft, nondistended, nontenderness, positive bowel sounds. Extremity: No crepitus, cyanosis, edema. Pedal pulses present bilateral. Full range of motion. Skin: Normal turgor, no rash. Psych: Alert, oriented x3. Neurology: No focal deficits, cranial nerve II to XII grossly intact. Condition at Discharge: Stable Final Diagnosis/Problems List Seizure Weakness acute metabolic encephalopathy Discharge Disposition: Home Discharge Instruct/Medications Diet: Cardiac 2g Na,low cholest Activity: No Restrictions, As Tolerated Follow Up/Referral: pcp 1-2 weeks Medications: resume home meds Keppra 750mg bid Discharge Statement: "Patient was advised to return to the ER or call 911 if any headaches, dizziness, shortness of breath, chest pain, abdominal pain, bleeding, fevers, or worsening of medical condition. Patient was counseled about treatment plan, medications, possible side effects, patientverbalized understanding. All questions were answered to the best of my ability. This discharge took greater then 30 minutes in planning, reviewing documentation, counseling the patient, and discussing with other team members." ASSESSMENT ASSESSMENT Assessment Seizure Date of Service: Apr 04, 2024 Billing Provider: NEAL SANTOS MD Common Visit Codes: [id number] DISCH DAY >30min NEAL SANTOS MD Apr 04, 2024 11:40
[2024-04-04 12:40] VITALS: BP 96/58; PULSE 70; RESP 16; TEMP 97.9; O2SAT 94
[2024-04-04 14:22] VITALS: BP 96/58; PULSE 70; RESP 16; TEMP 97.9; O2SAT 94
--- NOTE | 2024-04-04 19:41 | DVHPN2 ---
Reviewed: Care Plan, H&P, Labs, Medications, Previous Orders Changes from previous H/P or p: No Changes General: Per HPI Eyes: No Pain, No Vision change, No Conjunctivae inflammation, No Eyelid inflammation, No Other, No Redness ENT: No Ear pain, No Ear discharge, No Nose pain, No Nose discharge, No Nose congestion, No Mouth pain, No Mouth swelling, No Throat pain, No Throat swelling, No Other Cardiovascular: No Chest Pain, No Palpitations, No Orthopnea, No Paroxysmal Noc. Dyspnea, No Edema, No Lt Headedness, No Other Respiratory: No Cough, No Dry, No Shortness of breath, No SOB with excertion, No Wheezing, No Hemoptysis, No Pleuritic Pain, No Sputum, No Other Gastrointestinal: No Nausea, No Vomiting, No Abdominal Pain, No Diarrhea, No Constipation, No Melena, No Hematochezia, No Other Genitourinary: No Dysuria, No Frequency, No Incontinence, No Hematuria, No Retention, No Other Musculoskeletal: No other, No neck pain, No shoulder pain, No arm pain, No back pain, No hand pain, No leg pain, No foot pain Skin: No Rash, No Lesions, No Jaundice, No Bruising, No Other Objective Vitals Vital Signs Date Time Temp Pulse Resp B/P (MAP) Pulse Ox O2 Delivery O2 Flow Rate FiO2 04/04/24 14:22 97.9 70 16 94 04/04/24 12:40 96/58 (71) 04/04/24 07:48 Room Air* 0 21 Intake/Output Intake and Output 04/04/24 07:00 Intake Total 868 ml Balance 868 ml Intake Oral 868 ml # Voids 8 General Appearance: Alert, Oriented X3 HEENT: Atraumatic Abdomen: Normal bowel sounds, Soft Laboratory Results Laboratory Tests 03/31/24 05:39 Urinalysis Test 03/30/24 11:03 Urine Color Light-yellow (Yellow) Urine Clarity Clear (Clear) Urine pH 7.0 (5.0-9.0) Urine Specific [place] 1.018 (1.001-1.035) Urine Protein Negative (Negative) Urine Ketones Negative (Negative) Urine Blood Trace /uL (Negative) H Urine Nitrite Negative (Negative) Urine Bilirubin Negative (Negative) Urine Urobilinogen Normal mg/dL (Negative) Urine Leukocyte Esterase Negative /uL (Negative) Urine RBC 10 /hpf (0 - 4) Urine WBC 1 /hpf (0 - 5) Urine Squamous Epithelial Cells None seen /hpf (<5) Urine Transitional Epithelial Cells Few /hpf (<2) Urine Bacteria None seen /hpf (None Seen) Urine Glucose Normal mg/dL (Normal) Labs and/or images reviewed: Labs reviewed by me, Image(s) reviewed by me Assessment/Plan Assessment/Plan Seizures Breakthrough seizures weakness acute metabolic encephalopathy Keppra at home Keppra increased 1000mg bid IV IV hydration monitor for overload drug screen requested prn Ativan for break through seizures if continued seizures consider neuro ct head negative 03/31/2024: awaiting evaluation by neurology continue with Keppra 04/01/2024: close monitoring. Neurology to evaluate 04/02/2024: needs further evaluation by PT/OT, still confused Plan discussed with: Patient Date of Service: Apr 02, 2024 Billing Provider: MARTHA FERRARA DO Common Visit Codes: [id number] INP/OBS CARE(HIGH) MARTHA FERRARA DO Apr 04, 2024 19:41
--- NOTE | 2024-04-04 19:43 | DVHPN2 ---
Reviewed: Care Plan, H&P, Labs, Medications, Previous Orders Changes from previous H/P or p: No Changes General: Per HPI Eyes: No Pain, No Vision change, No Conjunctivae inflammation, No Eyelid inflammation, No Other, No Redness ENT: No Ear pain, No Ear discharge, No Nose pain, No Nose discharge, No Nose congestion, No Mouth pain, No Mouth swelling, No Throat pain, No Throat swelling, No Other Cardiovascular: No Chest Pain, No Palpitations, No Orthopnea, No Paroxysmal Noc. Dyspnea, No Edema, No Lt Headedness, No Other Respiratory: No Cough, No Dry, No Shortness of breath, No SOB with excertion, No Wheezing, No Hemoptysis, No Pleuritic Pain, No Sputum, No Other Gastrointestinal: No Nausea, No Vomiting, No Abdominal Pain, No Diarrhea, No Constipation, No Melena, No Hematochezia, No Other Genitourinary: No Dysuria, No Frequency, No Incontinence, No Hematuria, No Retention, No Other Musculoskeletal: No other, No neck pain, No shoulder pain, No arm pain, No back pain, No hand pain, No leg pain, No foot pain Skin: No Rash, No Lesions, No Jaundice, No Bruising, No Other Objective Vitals Vital Signs Date Time Temp Pulse Resp B/P (MAP) Pulse Ox O2 Delivery O2 Flow Rate FiO2 04/04/24 14:22 97.9 70 16 94 04/04/24 12:40 96/58 (71) 04/04/24 07:48 Room Air* 0 21 Intake/Output Intake and Output 04/04/24 07:00 Intake Total 868 ml Balance 868 ml Intake Oral 868 ml # Voids 8 General Appearance: Alert, Oriented X3 HEENT: Atraumatic Abdomen: Normal bowel sounds, Soft Laboratory Results Laboratory Tests 03/31/24 05:39 Urinalysis Test 03/30/24 11:03 Urine Color Light-yellow (Yellow) Urine Clarity Clear (Clear) Urine pH 7.0 (5.0-9.0) Urine Specific [place] 1.018 (1.001-1.035) Urine Protein Negative (Negative) Urine Ketones Negative (Negative) Urine Blood Trace /uL (Negative) H Urine Nitrite Negative (Negative) Urine Bilirubin Negative (Negative) Urine Urobilinogen Normal mg/dL (Negative) Urine Leukocyte Esterase Negative /uL (Negative) Urine RBC 10 /hpf (0 - 4) Urine WBC 1 /hpf (0 - 5) Urine Squamous Epithelial Cells None seen /hpf (<5) Urine Transitional Epithelial Cells Few /hpf (<2) Urine Bacteria None seen /hpf (None Seen) Urine Glucose Normal mg/dL (Normal) Labs and/or images reviewed: Labs reviewed by me, Image(s) reviewed by me Assessment/Plan Assessment/Plan Seizures Breakthrough seizures weakness acute metabolic encephalopathy Keppra at home Keppra increased 1000mg bid IV IV hydration monitor for overload drug screen requested prn Ativan for break through seizures if continued seizures consider neuro ct head negative 03/31/2024: awaiting evaluation by neurology continue with Keppra 04/01/2024: close monitoring. Neurology to evaluate 04/02/2024: needs further evaluation by PT/OT, still confused 04/03/2024: pt still has a sitter due to confusion and high risk of fall. needs PT/OT eval and possible SNF placement Plan discussed with: Patient Date of Service: Apr 03, 2024 Billing Provider: MARTHA FERRARA DO Common Visit Codes: [id number] INP/OBS CARE(HIGH) MARTHA FERRARA DO Apr 04, 2024 19:43
== END 2024-04-04 16:11 | disposition home or self-care (01) | DRG 53 ==
LOC: EDBD 07:44 → ER 07:44 → OVERFLOW 12:29 → CENTRAL 04-01 18:28
PROVIDERS: ADMIT Hospitalist; ATTEND Internal Medicine
DX: G40.909 Epilepsy, unspecified, not intractable, without status epilepticus (principal); F32.A Depression, unspecified; I69.398 Other sequelae of cerebral infarction; Z91.148 Patient's other noncompliance with medication regimen for other reason; Z72.820 Sleep deprivation; Z88.2 Allergy status to sulfonamides; Z91.041 Radiographic dye allergy status
CPT/HCPCS: 36415; 70450; 70551; 80048; 80307; 81001; 84484; 85025; 99291; G0378

== ENCOUNTER 2024-05-09 03:12 | Emergency (ER) | payer MEDICAID ==
[~2024-05-09] VITALS: Ht 157.5 cm; Wt 68.0 kg
[~2024-05-09 03:12] MED LIST changes: +ASPI1TAB20 PO; +ATOR20TA50 PO; +CLOTCRE3 EX; +DIPH25CA66 PO; +DIVA500T12 PO; +HYDR-3682 PO; -IBUP-1453 PO; -IBUP100C23 PO; -KEP500T PO; +LACO150T3 PO; +LEVE500T40 PO; +LORA-1121 PO; +LORA-622 PO; +MELA3TAB27 PO; +MULT1TAB57 PO; +OLAN1TAB75 PO; +QUET50TA PO; +SENN-58 PO; +SERT25TA28 PO; +THIA100T10 PO
--- NOTE | 2024-05-09 03:42 | ED.PDOC ---
History of Present Illness HPI Comments 58-year-old female brought in by EMS presents with a chief complaint of generalized weakness and bruising. Patient is confused at baseline and is coming from [facility]. Patient has been having frequent falls per EMS and staff called 911 because patient was attempting to ambulate to the restroom and had a fall. Patient now has a hematoma to her left cheek. No loss of consciousness reported. Chief Complaint: Fall Injury Time Seen by MD: 03:39 Primary Care Provider: LEXI Reviewed Notes: Medications, Allergies Allergies: Coded Allergies: Iodine (Verified Allergy, Unknown, 11/11/23) Sulfa Antibiotics (Verified Allergy, Unknown, 11/11/23) Home Meds Active Scripts Clotrimazole W/ Betamethasone (Clotrimazole/Betamethason 1-0.05 %) 1 Cre Cre, 1 CRE EX BID PRN, #45 GM Prov:NEAL SANTOS MD 04/04/24 Levetiracetam (Keppra) 500 Mg Tab, 1.5 TAB PO BID, #180 TAB 3 Refills Prov:NEAL SANTOS MD 04/04/24 Reported Medications Divalproex Sodium (Divalproex Sodium Er) 500 Mg Tab, 4 TAB PO HS, TAB 04/01/24 Atorvastatin Calcium (ATORVASTATIN CALCIUM) 20 Mg Tab, 20 MG PO HS, TAB 04/01/24 Aspirin (Aspir-81) 81 Mg Tab, 81 MG PO DAILY, TAB 04/01/24 Lacosamide (Lacosamide) 150 Mg Tab, 150 MG PO BID, TAB 04/01/24 Multiple Vitamins W/ Minerals (One Daily Multivitamin Wo) 1 Tab Tab, 1 TAB PO DAILY, TAB 04/01/24 Olanzapine (OLANZAPINE) 20 Mg Tab, 20 MG PO HS, TAB 04/01/24 Melatonin (KP MELATONIN) 3 Mg Tab, 10 MG PO HS, TAB 04/01/24 Loratadine (Claritin) 10 Mg Tab, 10 MG PO DAILY, TAB 04/01/24 Thiamine Hcl (VITAMIN B-1) 100 Mg Tb, 100 MG PO DAILY, TAB 04/01/24 Sertraline Hcl (Sertraline Hcl) 25 Mg Tab, 25 MG PO DAILY, TAB 04/01/24 Senna (Senokot) 8.6 Mg Tab, 2 TAB PO BID, TAB 04/01/24 Quetiapine Fumerate (Seroquel) 50 Mg Tab, 12.5 MG PO BID, TAB 04/01/24 Hydroxyzine Hcl (Hydroxyzine Hcl) 25 Mg Tab, 25 MG PO Q8HPRN PRN for ANXIETY, TAB 04/01/24 Diphenhydramine Hcl (Benadryl Allergy) 25 Mg Cap, 25 MG PO Q6HPRN PRN for FOR ITCHING, CAP 04/01/24 Lorazepam (ATIVAN TABLET) 0.5 Mg Tb, 0.5 MG PO Q6HPRN PRN for ANXIETY, TAB 04/01/24 Gabapentin (Once-Daily) (Gabapentin) 300 Mg Tab, 300 MG PO TID, TAB 01/11/24 Information Source: Emergency Med Personnel Mode of Arrival: EMS Severity: Moderate Timing: Minutes Duration: Since onset Prehospital treatment: None Past Medical History PAST MEDICAL HISTORY: CVA, Depression, High Lipids, HTN, Seizures Surgical History: Unknown 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 Family History Family History: Reviewed,noncontributory to illness, Unknown Social History Smoker: Unknown Alcohol: Unknown Drugs: Unknown Lives In: Assisted Care Constitutional: reports: weakness; denies: chills, diaphoresis, fatigue, fever, malaise, sweats, others EENTM: denies: blurred vision, double vision, ear bleeding, ear discharge, ear drainage, ear pain, ear ringing, eye pain, eye redness, hearing loss, mouth pain, mouth swelling, nasal discharge, nose bleeding, nose congestion, nose pain, photophobia, tearing, throat pain, throat swelling, voice changes, others Respiratory: denies: cough, hemoptysis, orthopnea, SOB at rest, shortness of breath, SOB with excertion, stridor, wheezing, others Cardiovascular: denies: chest pain, dizzy spells, diaphoresis, Dyspnea on exertion, edema, irregular heart beat, left arm pain, lightheadedness, palpitations, PND, syncope, others Gastrointestinal: denies: abdomen distended, abdominal pain, blood streaked bowels, constipated, diarrhea, dysphagia, difficulty swallowing, hematemesis, melena, nausea, poor appetite, poor fluid intake, rectal bleeding, rectal pain, vomiting, others Genitourinary: denies: abnormal vagina bleeding, burning, dyspareunia, dysuria, flank pain, frequency, hematuria, incontinence, pain, , vagina discharge, urgency, others Neurological: denies: dizziness, fainting, headache, left sided numbness, left sided weakness, numbness, paresthesia, pre-existing deficit, right sided numbness, right sided weakness, seizure, speech problems, tingling, tremors, weakness, others Musculoskeletal: denies: back pain, gout, joint pain, joint swelling, muscle pain, muscle stiffness, neck pain, others Integumetry: reports: bruises (HEMATOMA LEFT CHEEK); denies: change in color, change in hair/nails, dryness, laceration, lesions, lumps, rash, wounds, others Allergic/Immunocompromised: denies: Difficulty Healing, Frequent Infections, Hives, Itching, others Hematologic/Lymphatic: denies: anemia, blood clots, easy bleeding, easy bruising, swollen glands, others Endocrine: denies: excessive hunger, excessive sweating, excessive thirst, excessive urination, flushing, intolerance to cold, intolerance to heat, unexplained weight gain, unexplained weight loss, others Psychiatric: denies: anxiety, bipolar disorder, depression, hopeless, panic disorder, schizophrenia, sleepless, suicidal, others All Other Systems: Reviewed and Negative Physical Exam General Appearance: No Apparent Distress, Normal, Other (HEMATOMA TO LEFT CHEEK) HEENT: Normal ENT Inspection, Pharynx Normal, TMs Normal Neck: Full Range of Motion, Non-Tender, Normal, Normal Inspection Respiratory: Chest Non-Tender, Lungs Clear, No Accessory Muscle Use, No Respiratory Distress, Normal Breath Sounds Cardiovascular: No Edema, No JVD, No Murmur, No Gallop, Normal Peripheral Pulses, Regular Rate/Rhythm Breast Exam: Deferred Gastrointestinal: No Organomegaly, Non Tender, No Pulsatile Mass, Normal Bowel Sounds, Soft Genitalia: Deferred Pelvic: Deferred Rectal: Deferred Extremities: No calf tenderness, Normal capillary refill, Normal inspection, Normal range of motion, Non-tender, No pedal edema Musculoskeletal : Apperance: Normal Neurologic: Alert, statistical clerk advertising II-XII nml as Tested, No Motor Deficits, Normal Affect, Normal Mood, No Sensory Deficits Cerebellar Function: Normal Reflexes: Normal Skin: Dry, Normal Color, Warm Lymphatic: No Adenopathy Was a procedure done? Was a procedure done?: No Differential Dx Considerations may include: Intracranial abnormality, cervical strain X-Ray, Labs, Meds, VS Vital Signs Date Time Temp Pulse Resp B/P (MAP) Pulse Ox O2 Delivery O2 Flow Rate FiO2 05/09/24 03:18 98.3 74 18 122/79 (93) 97 Time of 1ST Reevaluation: 04:09 Reevaluation 1ST: Unchanged Patient Education/Counseling: Diagnosis, Treatment, Prognosis Family Education/Counseling: No Family Present Departure 1 Departure Time of Disposition: 06:19 (Patient has returned to her baseline. Patient has not no acute intracranial abnormalities. We will discharge patient back to her facility) Impression: Primary Impression: Fall at correction Qualified Codes: W19.XXXA - Unspecified fall, initial encounter; Y92.129 - Unspecified place in correction as the place of occurrence of the external cause Disposition: 03 LONG-TERM FACILITY Condition: Stable Additional Instructions: Her CT scans were benign. She should continue to take your regular medication and follow up with the regular doctors. Discharged With: Music Manager Critical Care Note Critical Care Time?: No Stability Stability form required: No I personally scribed for TOMMIE CARDOZO MD ([email or web address]) on 05/09/24 at 03:42. Elec tronically submitted by Martín Quinn ([email or web address]). TOMMIE CARDOZO MD May 09, 2024 03:42
--- NOTE | 2024-05-09 05:39 | DVH ---
EXAM: CT HEAD WITHOUT CONTRAST INDICATION: fall, trauma, pain TECHNIQUE: CT of the head without intravenous contrast. Radiation Dose : 1. Head: CT Dose: CTDI volume is 19.8 mGy. Dose-length product is 1401 mGy*cm The dose indicators for CT are the volume Computed Tomography (CT) Dose Index (CTDIvol) and the Dose Length Product (DLP), and are measured in units of mGy and mGy-cm, respectively. These indicators are not patient dose, but values generated from the CT scanner acquisition factors. The report includes radiation exposure data for exposures received during this examination. COMPARISON: MRI BRAIN HEAD WO CONTRAST on DOS: 04/02/24, CT HEAD WITHOUT CONTRAST on DOS: 03/30/24, C T HEAD WITHOUT CONTRAST on DOS: 01/10/24, MRI BRAIN HEAD WO CONTRAST on DOS: 12/29/23, CT HEAD WITHOUT CONTRAST on DOS: 12/28/23 FINDINGS: There is no evidence of acute intracranial hemorrhage, extra-axial collection, mass effect, midline s hift, herniation or hydrocephalus. The ventricles, sulci and cisterns are age appropriate. The thapa-white differentiation is intact. The visualized paranasal sinuses and mastoid air cells are clear. The surrounding soft tissues and osseous structures are unremarkable. IMPRESSION: No acute intracranial abnormality. Radiation optimization: All CT scans at this facility use at least one of these dose optimization tyron hniques: automated exposure control mA and/or kV adjustment per patient size (includes targeted exam s where dose is matched to clinical indication) or iterative reconstruction.
--- NOTE | 2024-05-09 05:44 | DVH ---
EXAM: CT CERVICAL WITHOUT CONTRAST INDICATION: Fall EXAM DATE: 05/09/2024 05:21 AM COMPARISON: CT of the cervical spine dated 12/28/2023. TECHNIQUE: Multiple axial CT images of the cervical spine were obtained using bone algorithm. Axial a nd coronal reformatting was done. Bone and soft tissue windows were reviewed. Radiation Dose Information: CT Dose: CTDI volume is 19.81 mGy. Dose-length product is 479.81 mGy*cm FINDINGS: The cervical alignment is intact. Curvature is unremarkable. No acute cervical spine fracture is iden tified. The vertebral body heights are intact. No suspicious osseous lesions are identified. Multilevel intervertebral disc space narrowing. No significant spinal stenosis. No significant neural foraminal stenosis. There is no prevertebral soft tissue swelling. The lung apices are clear. IMPRESSION: 1. No evidence of acute cervical spine fracture or traumatic malalignment. All CT scans at this medical facility are performed using dose modulation techniques as appropriate t o a performed exam including the following: Automated exposure control was utilized; adjustment of th e MA and/or KV according to patient size; and use of iterative reconstruction technique.
[2024-05-09 09:39] VITALS: BP 90/49; PULSE 57; TEMP 97.8
[2024-05-09 09:50] VITALS: RESP 18; O2SAT 97
== END 2024-05-09 09:52 | disposition home or self-care (01) ==
LOC: EDBD 03:12 → ER 03:12
DX: S00.83XA Contusion of other part of head, initial encounter (principal); E78.5 Hyperlipidemia, unspecified; I10 Essential (primary) hypertension; Z79.899 Other long term (current) drug therapy; Z88.2 Allergy status to sulfonamides; Z88.8 Allergy status to other drugs, medicaments and biological substances; W18.39XA Other fall on same level, initial encounter; Y93.89 Activity, other specified; Y92.89 Other specified places as the place of occurrence of the external cause; Y99.8 Other external cause status
CPT/HCPCS: 70450; 72125

== ENCOUNTER 2024-05-10 12:28 | Inpatient (IN) | payer MEDICAID ==
[~2024-05-10] VITALS: Ht 172.7 cm; Wt 72.3 kg
--- NOTE | 2024-05-10 12:41 | ECG ---
[facility] Test Date: 2024-05-10 Test Time: 12:40:24 Pat Name: JER ORNELAS Department: er Room: Gender: F Community Development Worker: suyapa : 1965 Requested By: GRAHAM MCMAHON Order Number: [id number] Reading MD: Uri Dillon Measurements Intervals [place] Rate: 126 P: 53 DE: 55 QRS: 240 QRSD: 102 T: 60 QT: 451 QTc: 654 Interpretive Statements Sinus tachycardia Paired ventricular premature complexes LAD, consider left anterior fascicular block Anteroseptal infarct, age indeterminate Prolonged QT interval Electronically Signed On 05-10-2024 13:13:34 PST by Uri Dillon Please click the below link to view image of tracing.
--- NOTE | 2024-05-10 12:48 | ED.PDOC ---
History of Present Illness HPI Comments 58 y/o F, with a Hx of Hx of CVA, HLD, HTN, seizures, and gabapentin use, is BIBA for c/o ALOC, today. Per EMS report, patient is a resident of [facility] and was brought after faculty found the patient altered, this morning, characterized by lethargic appearance and not following commands. Patient was stated by staff on scene on last time being seen normal was 12 hours ago. Patient was also reported by staff to have suffered a fall and was sent to and discharge from [facility] ED, yesterday. On scene, patient was found with a blood glucose 94 and a blood pressure of 100/50 by EMS staff. At time of assessment, patient was reported to still altered. Upon direct inquiry, patient only complains of throat, facial, abdominal, and bilateral hip pain that is still persisting since her aforementioned fall that she still recollects. Patient has no additional reported associated symptoms or relevant or pertinent Hx at this time. Time Seen by MD: 12:30 Primary Care Provider: LEXI Reviewed Notes: Nurses Notes, Coil Former Notes, Medications, Allergies Allergies: Coded Allergies: Iodine (Verified Allergy, Unknown, 11/11/23) Sulfa Antibiotics (Verified Allergy, Unknown, 11/11/23) Home Meds Active Scripts Clotrimazole W/ Betamethasone (Clotrimazole/Betamethason 1-0.05 %) 1 Cre Cre, 1 CRE EX BID PRN, #45 GM Prov:NEAL SANTOS MD 04/04/24 Levetiracetam (Keppra) 500 Mg Tab, 1.5 TAB PO BID, #180 TAB 3 Refills Prov:NEAL SANTOS MD 04/04/24 Reported Medications Divalproex Sodium (Divalproex Sodium Er) 500 Mg Tab, 4 TAB PO HS, TAB 04/01/24 Atorvastatin Calcium (ATORVASTATIN CALCIUM) 20 Mg Tab, 20 MG PO HS, TAB 04/01/24 Aspirin (Aspir-81) 81 Mg Tab, 81 MG PO DAILY, TAB 04/01/24 Lacosamide (Lacosamide) 150 Mg Tab, 150 MG PO BID, TAB 04/01/24 Multiple Vitamins W/ Minerals (One Daily Multivitamin Wo) 1 Tab Tab, 1 TAB PO DAILY, TAB 04/01/24 Olanzapine (OLANZAPINE) 20 Mg Tab, 20 MG PO HS, TAB 04/01/24 Melatonin (KP MELATONIN) 3 Mg Tab, 10 MG PO HS, TAB 04/01/24 Loratadine (Claritin) 10 Mg Tab, 10 MG PO DAILY, TAB 04/01/24 Thiamine Hcl (VITAMIN B-1) 100 Mg Tb, 100 MG PO DAILY, TAB 04/01/24 Sertraline Hcl (Sertraline Hcl) 25 Mg Tab, 25 MG PO DAILY, TAB 04/01/24 Senna (Senokot) 8.6 Mg Tab, 2 TAB PO BID, TAB 04/01/24 Quetiapine Fumerate (Seroquel) 50 Mg Tab, 12.5 MG PO BID, TAB 04/01/24 Hydroxyzine Hcl (Hydroxyzine Hcl) 25 Mg Tab, 25 MG PO Q8HPRN PRN for ANXIETY, TAB 04/01/24 Diphenhydramine Hcl (Benadryl Allergy) 25 Mg Cap, 25 MG PO Q6HPRN PRN for FOR ITCHING, CAP 04/01/24 Lorazepam (ATIVAN TABLET) 0.5 Mg Tb, 0.5 MG PO Q6HPRN PRN for ANXIETY, TAB 04/01/24 Gabapentin (Once-Daily) (Gabapentin) 300 Mg Tab, 300 MG PO TID, TAB 01/11/24 Information Source: Patient, Emergency Med Personnel Mode of Arrival: EMS Severity: Moderate Timing: Hours Duration: Since onset Prehospital treatment: 12 Lead EKG, Accucheck (94), Manager Poker Past Medical History PAST MEDICAL HISTORY: CVA, Depression, High Lipids, HTN, Seizures Past Medical History (Other): gabapentin use Surgical History: Denies all surgeries 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 Family History Family History: Reviewed,noncontributory to illness, Unknown, Unobtainable Social History Smoker: Non-Smoker Alcohol: Denies ETOH Use, Unknown Drugs: Denies Drug Use Lives In: Assisted Care Constitutional: denies: chills, diaphoresis, fatigue, fever, malaise, sweats, weakness, others EENTM: reports: throat pain, others (facial pain); denies: blurred vision, double vision, ear bleeding, ear discharge, ear drainage, ear pain, ear ringing, eye pain, eye redness, hearing loss, mouth pain, mouth swelling, nasal discharge, nose bleeding, nose congestion, nose pain, photophobia, tearing, throat swelling, voice changes Respiratory: denies: cough, hemoptysis, orthopnea, SOB at rest, shortness of breath, SOB with excertion, stridor, wheezing, others Cardiovascular: denies: chest pain, dizzy spells, diaphoresis, Dyspnea on exertion, edema, irregular heart beat, left arm pain, lightheadedness, palpitations, PND, syncope, others Gastrointestinal: reports: abdominal pain; denies: abdomen distended, blood streaked bowels, constipated, diarrhea, dysphagia, difficulty swallowing, hematemesis, melena, nausea, poor appetite, poor fluid intake, rectal bleeding, rectal pain, vomiting, others Genitourinary: denies: abnormal vagina bleeding, burning, dyspareunia, dysuria, flank pain, frequency, hematuria, incontinence, pain, , vagina discharge, urgency, others Neurological: reports: others (ALOC); denies: dizziness, fainting, headache, left sided numbness, left sided weakness, numbness, paresthesia, pre-existing deficit, right sided numbness, right sided weakness, seizure, speech problems, tingling, tremors, weakness Musculoskeletal: reports: others (bilateral hip pain); denies: back pain, gout, joint pain, joint swelling, muscle pain, muscle stiffness, neck pain Integumetry: denies: bruises, change in color, change in hair/nails, dryness, laceration, lesions, lumps, rash, wounds, others Allergic/Immunocompromised: denies: Difficulty Healing, Frequent Infections, Hives, Itching, others Hematologic/Lymphatic: denies: anemia, blood clots, easy bleeding, easy bruising, swollen glands, others Endocrine: denies: excessive hunger, excessive sweating, excessive thirst, excessive urination, flushing, intolerance to cold, intolerance to heat, unexplained weight gain, unexplained weight loss, others Psychiatric: denies: anxiety, bipolar disorder, depression, hopeless, panic disorder, schizophrenia, sleepless, suicidal, others All Other Systems: Reviewed and Negative Physical Exam General Appearance: Moderate Distress HEENT: Normal ENT Inspection, Pharynx Normal, TMs Normal, Other (The patient was old abrasions to the left facial area) Neck: Full Range of Motion, Non-Tender, Normal, Normal Inspection Respiratory: Chest Non-Tender, Lungs Clear, No Accessory Muscle Use, No Respiratory Distress, Normal Breath Sounds Cardiovascular: No Edema, No JVD, No Murmur, No Gallop, Normal Peripheral Pulses, Regular Rate/Rhythm Breast Exam: Deferred Gastrointestinal: No Organomegaly, Non Tender, No Pulsatile Mass, Normal Bowel Sounds, Soft Genitalia: Deferred Pelvic: Deferred Rectal: Deferred Extremities: No calf tenderness, Normal capillary refill, No pedal edema Musculoskeletal : Apperance: Normal Neurologic: edger machine setter II-XII nml as Tested, Motor Weakness, No Sensory Deficits, Other (ALOC) Cerebellar Function: Unable to Test Reflexes: Normal Skin: Dry, Pallor, Warm Lymphatic: No Adenopathy Was a procedure done? Was a procedure done?: No EKG EKG : Pulse Rate (adult): 126 [place]: Normal Cardiac Rhythm: ST Block: None Hypertrophy: None ST: Normal Differential Dx Considerations may include: toxic encephalopathy, metabolic encephalopathy, UTI, electrolyte imbalance, viral syndrome, closed head injury s/p fall X-Ray, Labs, Meds, VS Vital Signs Date Time Temp Pulse Resp B/P (MAP) Pulse Ox O2 Delivery O2 Flow Rate FiO2 05/10/24 14:05 60 12 99 Room Air* 0 21 05/10/24 14:00 97.7 60 17 99/61 (74) 99 97.7 05/10/24 12:48 126 05/10/24 12:40 126 05/10/24 12:35 98.9 58 18 100/66 (77) 97 Lab Test 05/10/24 12:49 Range/Units White Blood Count 4.3 L 4.4-10.8 10^3/uL Red Blood Count 3.99 L 4.0-5.20 10^6/uL Hemoglobin 12.6 12.2-16.2 g/dL Hematocrit 37.5 36.0-46.0 % Mean Corpuscular Volume 93.9 80.0-100.0 fL Mean Corpuscular Hemoglobin 31.6 28.0-32.0 pg Mean Corpuscular Hemoglobin Concent 33.7 32.0-36.0 g/dL Red Cell Distribution Width 13.4 11.8-14.3 % Platelet Count 118 L 140-450 10^3/uL Mean Platelet Volume 8.2 6.9-10.8 fL Neutrophils (%) (Auto) 35.5 L 37.0-80.0 % Lymphocytes (%) (Auto) 47.5 10.0-50.0 % Monocytes (%) (Auto) 10.9 0.0-12.0 % Eosinophils (%) (Auto) 5.8 0.0-7.0 % Basophils (%) (Auto) 0.3 0.0-2.0 % Neutrophils # (Auto) 1.5 L 1.6-8.6 10 ^3/uL Lymphocytes # (Auto) 2.0 0.4-5.4 10 ^3/uL Monocytes # (Auto) 0.5 0-1.3 10 ^3/uL Eosinophils # (Auto) 0.2 0-0.8 10 ^3/uL Basophils # (Auto) 0 0-0.2 10 ^3/uL Nucleated Red Blood Cells 0.1 % Sodium Level 143 136-145 mmol/L Potassium Level 3.9 3.5-5.1 mmol/L Chloride Level 110 H 98-107 mmol/L Carbon Dioxide Level 29 20-31 mmol/L Anion Gap 4 L 5-15 Blood Urea Nitrogen 21 9-23 mg/dL Creatinine 0.80 0.550-1.02 mg/dL Glomerular Filtration Rate Calc 86 >90 mL/min BUN/Creatinine Ratio 26.3 H 10.0-20.0 Serum Glucose 75 74-106 mg/dL Calcium Level 9.7 8.7-10.4 mg/dL Total Bilirubin 0.4 0.2-1.0 mg/dL Aspartate Amino Transferase (AST) 24 13-40 U/L Alanine Aminotransferase (ALT) 15 7-40 U/L Alkaline Phosphatase 72 46-116 U/L Ammonia 45 H 11-32 umol/L Total Protein 7.0 5.7-8.2 g/dL Albumin 3.9 3.2-4.8 g/dL Plasma/Serum Blood Alcohol < 3.0 <10 mg/dL The patient's CBC is within normal limits The chemistry panel is within normal limits The alcohol level is negative At this time, the patient was being admitted to the hospitalist CT scan of the head is negative The patient was being admitted at this time. Images Reviewed?: Images reviewed and evaluated by me Time of 1ST Reevaluation: 13:00 Reevaluation 1ST: Unchanged Patient Education/Counseling: Other (patient is altered ) Family Education/Counseling: Diagnosis, Treatment, Prognosis Departure 1 Departure Time of Disposition: 15:50 Impression: Primary Impression: Hepatic encephalopathy Additional Impression: Altered mental status Qualified Codes: R41.82 - Altered mental status, unspecified Disposition: 09 ADMITTED INPATIENT Admit to: Tele Condition: Fair Critical Care Note Critical Care Time?: Yes (35 min-critical care time only) Stability Stability form required: Yes Unstable for transfer: Telemetry monitoring (Telemetry monitoring required), ED Physician Assesment (Clinical assesment) Heart Score Heart Score: Heart Score Response (Comments) Value History Moderate Suspicious 1 EKG Normal 0 Age 45-64 1 Risk Factors 1 or 2 risk factors 1 Troponin Normal limit 0 Total 3 I personally scribed for GRAHAM MCMAHON MD ([email or web address]) on 05/10/24 at 12:48. Electronically submitted by Thien Dickey ([email or web address]). GRAHAM MCMAHON MD May 10, 2024 12:48
[2024-05-10 13:08] LABS: Basophils # (auto) 0 10 ^3/uL (0-0.2); Basophils % (auto) 0.3 % (0.0-2.0); Eosinophils # (auto) 0.2 10 ^3/uL (0-0.8); Eosinophils % (auto) 5.8 % (0.0-7.0); Hematocrit 37.5 % (36.0-46.0); Hemoglobin 12.6 g/dL (12.2-16.2); Lymphocytes % (auto) 47.5 % (10.0-50.0); Mean Corpuscular Hemoglobin 31.6 pg (28.0-32.0); Mean Corpuscular Hgb Conc. 33.7 g/dL (32.0-36.0); Mean Corpuscular Volume 93.9 fL (80.0-100.0); Monocytes # (auto) 0.5 10 ^3/uL (0-1.3); Monocytes % (auto) 10.9 % (0.0-12.0); Neutrophils # (auto) 1.5 10 ^3/uL (1.6-8.6); Neutrophils % (auto) 35.5 % (37.0-80.0); Nucleated Red Blood Cells % 0.1 %; Platelet Count (auto) 118 10^3/uL (140-450); Red Blood Cells 3.99 10^6/uL (4.0-5.20); Red Cell Distribution Width 13.4 % (11.8-14.3); White Blood Cell 4.3 10^3/uL (4.4-10.8)
[2024-05-10 13:16] LABS: Alanine Aminotransferase 15 U/L (7-40); Albumin 3.9 g/dL (3.2-4.8); Alkaline Phosphatase 72 U/L (46-116); Anion Gap 4 (5-15); Aspartate Aminotransferase 24 U/L (13-40); BUN/Creatinine Ratio 26.3 (10.0-20.0); Blood Urea Nitrogen 21 mg/dL (9-23); Calcium 9.7 mg/dL (8.7-10.4); Carbon Dioxide 29 mmol/L (20-31); Glucose 75 mg/dL (74-106); Potassium 3.9 mmol/L (3.5-5.1); Sodium 143 mmol/L (136-145)
[2024-05-10 13:17] LABS: Bilirubin, Total 0.4 mg/dL (0.2-1.0)
[2024-05-10 13:21] LABS: Blood Alcohol < 3.0 mg/dL (<10); Chloride 110 mmol/L (98-107)
[2024-05-10 14:05] VITALS: PULSE 60; RESP 12; O2SAT 99
--- NOTE | 2024-05-10 14:11 | DVH ---
EXAM: CT HEAD WITHOUT CONTRAST HISTORY: aloc COMPARISON: CT HEAD WITHOUT CONTRAST on DOS: 05/09/24, CT CERVICAL WITHOUT CONTRAST on DOS: 05/09/24 TECHNIQUE: Axial images of the head were obtained and reformatted in coronal and sagittal planes. All CT scans at this medical facility are performed using dose modulation techniques as appropriate t o a performed exam including the following: Automated exposure control was utilized; adjustment of th e MA and/or KV according to patient size; and use of iterative reconstruction technique. CT Dose: CTDI volume is 53.92 mGy. Dose-length product is 1062.69 mGy*cm FINDINGS: There is no evidence of acute intracranial hemorrhage, mass, mass effect midline shift. There is no h ydrocephalus or extra-axial fluid collection. Condon-white matter differentiation is maintained. The visualized paranasal sinuses and mastoid air cells are clear. The calvarium is intact. IMPRESSION: 1. No acute intracranial process. HS:Y
[2024-05-10] MEDS ORDERED: MORPHINE SULFATE INJ 2 MG/ml SYRG IV PRN ×2 (17:00)
[2024-05-10] MEDS ORDERED: NITROGLYCERIN 0.4 MG SL TAB SL PRN (17:00)
[2024-05-10] MEDS ORDERED: DOCUSATE SOD 100 MG CAP PO PRN (17:00)
--- NOTE | 2024-05-10 18:26 | DVHHPRES ---
History of Present Illness Resident Creating Document: ZACHARY BORJA RESIDENT History of Present Illness Patient is 58 years old female with past medical history of hypertension, hyperlipidemia, CVA, seizure disorder, liver, portal hypertension, hepatitis B and hepatitis C positive, history of recurrent fall, depression was brought in by the EMS due to on telemetry status. The patient is a poor historian. History is obtained from the patient and [facility] chart from the ER physician was reviewed. Patient is brought in from the [facility] intermediate facility due to altered mental status. The patient was found lethargic in the morning and blood sugar 94, blood pressure 100/50. She had a fall 2 nights before and hit her face. The patient visited ER yesterday and CT scan of the cervical spine was negative for any fracture. Was also admitted at the [facility] in March and was diagnosed with breakthrough seizure and that time MRI and CT scan of the brain was negative for any acute intracranial pathology.. Lab workup revealed mEq of the older BC 4.3, mild thrombocytopenia with platelet 118, hemoglobin 12.6, ammonia 45, TSH is 3.2, mentioned 2.2, serum alcohol<3. CT head revealed -no acute intracranial abnormality. Past Medical History hypertension, hyperlipidemia, CVA, seizure disorder, liver, portal hypertension, hepatitis B and hepatitis C positive, history of recurrent fall, depression Past Surgical History Could not be obtained due to patient's current mental status Family History could Not be obtained due to patient's current mental status Past Social History [facility], denies alcoholism/drug abuse or smoking Review of Systems Review of Systems Patient was seen today at the bedside. Patient reports pain in the left side of the face Cardiovascular- deny acute chest pain or shortness of breath or cough or palpitation Respiratory- denies cough or short of breath or wheezing Gastrointestinal- denies any rectal bleeding, nausea or vomiting Musculoskeletal-denies acute joint swelling or tenderness or redness Neurological- denies acute dysarthria, dysphagia, change in vision Psychiatry- denies depression or SI or HI Allergies: Coded Allergies: Iodine (Verified Allergy, Unknown, 11/11/23) Sulfa Antibiotics (Verified Allergy, Unknown, 11/11/23) Medications Current Medications Medications Dose Ordered Sig/Aureliano Route Start Time Stop Time Status Last Admin Dose Admin Sodium Chloride 10 ml Q8HR IV 05/10/24 22:00 UNV Docusate Sodium 100 mg BIDPRN PRN PO 05/10/24 17:00 UNV Enoxaparin Sodium 40 mg DAILY SC 05/11/24 10:00 UNV Acetaminophen 650 mg Q6HP PRN PO 05/10/24 17:00 UNV Morphine Sulfate 2 mg Q4HPRN PRN IV 05/10/24 17:00 UNV Nitroglycerin 0.4 mg Q5MINP PRN SL 05/10/24 17:00 UNV Morphine Sulfate 2 mg Q30M PRN IV 05/10/24 17:00 UNV Aspirin 81 mg DAILY PO 05/11/24 10:00 UNV Atorvastatin Calcium 20 mg HS PO 05/10/24 22:00 UNV Levetiracetam 750 mg BID PO 05/10/24 22:00 UNV Lorazepam 0.5 mg Q6HPRN PRN PO 05/10/24 18:15 UNV Multivitamins/ Minerals 1 tab DAILY PO 05/11/24 10:00 UNV Sennosides 17.2 mg BID PO 05/10/24 22:00 UNV Thiamine HCl 100 mg DAILY PO 05/11/24 10:00 UNV Patient Own Medication 4 tab HS PO 05/10/24 22:00 UNV Patient Own Medication 300 mg TID PO 05/10/24 22:00 UNV Patient Own Medication 20 mg HS PO 05/10/24 22:00 UNV Patient Own Medication 25 mg DAILY PO 05/11/24 10:00 UNV Exam Vital Signs Vital Signs Date Time Temp Pulse Resp B/P (MAP) Pulse Ox O2 Delivery O2 Flow Rate FiO2 05/10/24 16:00 61 17 107/63 (78) 99 05/10/24 14:05 Room Air* 0 21 05/10/24 14:00 97.7 97.7 Exam General examination- patient with confusion, bruise on the left side of the face HEENT- PEERLA, no acute nasal discharge Cardiovascular- S1-S2 audible, rate and rhythm regular, no murmur Respiratory- CTAB, no wheeze or rhonchi Gastrointestinal-nontender, bowel sound+. Nondistended Musculoskeletal-no acute joint swelling or tenderness or redness# Lower extremity- trace leg edema Neurological- decreased muscle power of the upper and lower extremity 3/5 Psychiatry- confusion, AAOX2 Skin- bruise on the left side of the face Labs/Xrays Labs Test 05/10/24 18:07 05/10/24 17:27 05/10/24 12:49 Range/Units White Blood Count 4.3 L 4.4-10.8 10^3/uL Red Blood Count 3.99 L 4.0-5.20 10^6/uL Hemoglobin 12.6 12.2-16.2 g/dL Hematocrit 37.5 36.0-46.0 % Mean Corpuscular Volume 93.9 80.0-100.0 fL Mean Corpuscular Hemoglobin 31.6 28.0-32.0 pg Mean Corpuscular Hemoglobin Concent 33.7 32.0-36.0 g/dL Red Cell Distribution Width 13.4 11.8-14.3 % Platelet Count 118 L 140-450 10^3/uL Mean Platelet Volume 8.2 6.9-10.8 fL Neutrophils (%) (Auto) 35.5 L 37.0-80.0 % Lymphocytes (%) (Auto) 47.5 10.0-50.0 % Monocytes (%) (Auto) 10.9 0.0-12.0 % Eosinophils (%) (Auto) 5.8 0.0-7.0 % Basophils (%) (Auto) 0.3 0.0-2.0 % Neutrophils # (Auto) 1.5 L 1.6-8.6 10 ^3/uL Lymphocytes # (Auto) 2.0 0.4-5.4 10 ^3/uL Monocytes # (Auto) 0.5 0-1.3 10 ^3/uL Eosinophils # (Auto) 0.2 0-0.8 10 ^3/uL Basophils # (Auto) 0 0-0.2 10 ^3/uL Nucleated Red Blood Cells 0.1 % Sodium Level 143 136-145 mmol/L Potassium Level 3.9 3.5-5.1 mmol/L Chloride Level 110 H 98-107 mmol/L Carbon Dioxide Level 29 20-31 mmol/L Anion Gap 4 L 5-15 Blood Urea Nitrogen 21 9-23 mg/dL Creatinine 0.80 0.550-1.02 mg/dL Glomerular Filtration Rate Calc 86 >90 mL/min BUN/Creatinine Ratio 26.3 H 10.0-20.0 Serum Glucose 75 74-106 mg/dL Calcium Level 9.7 8.7-10.4 mg/dL Magnesium Level 2.2 1.6-2.6 mg/dL Total Bilirubin 0.4 0.2-1.0 mg/dL Aspartate Amino Transferase (AST) 24 13-40 U/L Alanine Aminotransferase (ALT) 15 7-40 U/L Alkaline Phosphatase 72 46-116 U/L Ammonia 45 H 11-32 umol/L Total Protein 7.0 5.7-8.2 g/dL Albumin 3.9 3.2-4.8 g/dL Thyroid Stimulating Hormone (TSH) 3.32 0.55-4.78 uIU/mL Plasma/Serum Blood Alcohol < 3.0 <10 mg/dL Assessment/Plan Assessment/Plan #Metabolic encephalopathy # suspected seizure episode # status post fall # seizure disorder # positive for hepatitis-B and hepatitis-C # sources of liver # portal hypertension # CVA # hypertension # hyperlipidemia Lactulose 30 mL p.o. b.i.d. Lovenox 40 mg subcutaneously daily Resume home medications Goals of care/advance care planning; FULL CODE; discussed with the patient >15 minutes PUD prophylaxis: Pantoprazole DVT prophylaxis: Lovenox Plan discussed with , nursing staff, patient Total time spent on patient evaluation, chart review, assessment and plan, discussion discussion >30 minutes Plan discussed with: Patient Plan discussed with: Patient, Other (Brother,RN) My Orders Orders - ZACHARY BORJA RESIDENT Procedure Category Date Status Time Admit ADMIT 05/10/24 Transmitted 16:57 Code Status CODE 05/10/24 Transmitted 16:57 Sodium Chloride Lock PHA 05/10/24 Logged (Saline Lock Ns) 22:00 Docusate Sodium PHA 05/10/24 Logged Capsule (Colace 17:00 Enoxaparin Sodium PHA 05/11/24 Logged (Lovenox) 10:00 Complete Blood Count LAB 05/11/24 Verified 04:00 Comprehensive LAB 05/11/24 Verified Metabolic Panel 04:00 Cardiac DIET 05/10/24 Transmitted Diet-2gna,Lofat,Lochol Dinner Acetaminophen Tablet PHA 05/10/24 Logged (Tylenol Tablet) 17:00 Morphine Sulfate PHA 05/10/24 Logged Injection 17:00 Nitroglycerin PHA 05/10/24 Logged Sublingual (Ntrostat 17:00 Morphine Sulfate PHA 05/10/24 Logged Injection 17:00 Oxygen By Nasal RT 05/10/24 Transmitted Cannula 16:57 Stat Ekg For Chest SERENA 05/10/24 In Process Pain 16:57 Notify Of Changes SERENA 05/10/24 In Process From Base 16:57 Research Hydrologist For [facility] 05/10/24 In Process 24 Hours 16:57 Emergency Dysrhythmia SERENA 05/10/24 In Process Protocol 16:57 Rhythm Strips Once SERENA 05/10/24 In Process Every Shift 16:57 Lactic Acid W/ Reflex LAB 05/10/24 In Process Order 17:09 Vitamin B12 LAB 05/10/24 In Process 17:27 Folate (Folic Acid) LAB 05/10/24 In Process 17:27 Hemoglobin A1c LAB 05/10/24 Logged 17:27 Chest Two Views XY 05/10/24 Logged Routine 17:28 Creatine Kinase LAB 05/10/24 In Process 18:09 Aspirin Enteric PHA 05/11/24 Logged Coated Tablet 10:00 Atorvastatin (Lipitor) PHA 05/10/24 Logged 22:00 Levetiracetam Tablet PHA 05/10/24 Logged (Keppra Tablet) 22:00 Lorazepam Tablet PHA 05/10/24 Logged (Ativan Tablet) 18:15 Thiamine Tab PHA 05/11/24 Logged 10:00 (Nf) Divalproex PHA 05/10/24 Logged Sodium (Divalproex 22:00 (Nf) Gabapentin PHA 05/10/24 Logged (Once-Daily) 22:00 (Nf) Olanzapine PHA 05/10/24 Logged 22:00 (Nf) Sertraline Hcl PHA 05/11/24 Logged 10:00 Multiple Vitamin W PHA 05/11/24 Logged Mineral Tab (Mvi W/ M 10:00 Senna Pod Tablet PHA 05/10/24 Logged (Senokot Tablet) 22:00 Date of Service: May 10, 2024 Billing Provider: ZULEYKA WALKER MD Common Visit Codes: [id number] INP/OBS CARE (HIGH) ZACHARY BORJA RESIDENT May 10, 2024 18:26 ZULEYKA WALKER MD May 10, 2024 20:24
[2024-05-10 18:38] LABS: Folate (Folic Acid) > 48.00 ng/mL (>5.38)
[2024-05-10 19:34] LABS: INR 1.14 (0.9-1.15)
[2024-05-10 20:00] VITALS: PULSE 70; RESP 13; O2SAT 95
[2024-05-10] MEDS ORDERED: GABAPENTIN 300 MG CAP PO SCH (22:00)
[2024-05-10] MEDS: SODIUM CHLOR 0.9% PF (SALINE LOCK) 10ML VIAL/SYR IV SCH (23:02)
[2024-05-10] MEDS: PANTOPRAZOLE 40 MG TAB PO ONE (23:02)
[2024-05-10] MEDS: LACTULOSE 20Gm/30ML SOLN PO SCH (23:02)
[2024-05-10] MEDS: ATORVASTATIN 20 MG TAB PO SCH (23:03)
[2024-05-10] MEDS: levETIRAcetam 500 MG TAB PO SCH (23:03)
[2024-05-10] MEDS: SERTRALINE HCL 50 MG TAB PO SCH (23:04)
[2024-05-10] MEDS: SENNA 8.6 MG TAB PO SCH (23:04)
[2024-05-10] MEDS: GABAPENTIN 300 MG CAP PO SCH (23:04)
[2024-05-10] MEDS: OLANZapine 5 MG TAB PO SCH (23:05)
[2024-05-10] MEDS: ACETAMINOPHEN 325 MG TAB PO PRN (23:12)
[2024-05-10] MEDS: DIVALPROEX 500 MG PO SCH (23:49)
[2024-05-11] VITALS (7 sets, daily range): BP systolic 99–146; BP diastolic 61–75; PULSE 68–94; RESP 12–18; TEMP 97.6–98.1; O2SAT 95–98
[2024-05-11] MEDS: LACOSAMIDE 50 MG TAB ONE (01:21)
[2024-05-11] MEDS: LACOSAMIDE 150 MG PO SCH (01:22)
[2024-05-11] MEDS: PANTOPRAZOLE 40 MG TAB PO SCH (05:17)
--- NOTE | 2024-05-11 05:32 | DVH ---
CHEST RADIOGRAPH Indication: rule out PNA/Pulmonary congestion Technique: Single frontal view of the chest was obtained Comparison: XY CHEST PORTABLE on DOS: 01/10/24, XY CHEST PORTABLE on DOS: 12/29/23, XY CHEST PORTABLE o n DOS: 01/10/24 FINDINGS: Medical devices: None. Cardiomediastinal: The heart is normal in size. Pulmonary vasculature is within normal limits. <<ao:c alc/Tortuous/CABG>> Lungs: No lobar consolidation. Reticular opacities are seen in bilateral lower lung zones. Bilateral perihilar peribronchial cuffing noted. The costophrenic angles are clear. No pneumothorax. Bones/soft tissues: No acute abnormality is noted. IMPRESSION: 1. Mild bilateral perihilar peribronchial cuffing bilateral lower lung zones reticular opacities may reflect bronchitis or atypical pneumonia. Recommend clinical and biochemical correlation.
[2024-05-11] MEDS: cefTRIAXone 1GM/50ML D5W 50 ML IV ONE (07:22)
[2024-05-11 07:43] LABS: Basophils # (auto) 0 10 ^3/uL (0-0.2); Basophils % (auto) 0.2 % (0.0-2.0); Eosinophils # (auto) 0.2 10 ^3/uL (0-0.8); Eosinophils % (auto) 3.3 % (0.0-7.0); Hematocrit 38.1 % (36.0-46.0); Lymphocytes # (auto) 1.1 10 ^3/uL (0.4-5.4); Lymphocytes % (auto) 18.1 % (10.0-50.0); Mean Corpuscular Hemoglobin 31.8 pg (28.0-32.0); Mean Corpuscular Hgb Conc. 34.1 g/dL (32.0-36.0); Monocytes # (auto) 0.3 10 ^3/uL (0-1.3); Monocytes % (auto) 4.7 % (0.0-12.0); Neutrophils # (auto) 4.5 10 ^3/uL (1.6-8.6); Neutrophils % (auto) 73.7 % (37.0-80.0); Nucleated Red Blood Cells % 0.1 %; Platelet Count (auto) 116 10^3/uL (140-450); Red Cell Distribution Width 13.5 % (11.8-14.3); White Blood Cell 6.1 10^3/uL (4.4-10.8)
[2024-05-11 08:02] LABS: Alanine Aminotransferase 14 U/L (7-40); Albumin 3.8 g/dL (3.2-4.8); Alkaline Phosphatase 73 U/L (46-116); Anion Gap 9 (5-15); Aspartate Aminotransferase 24 U/L (13-40); BUN/Creatinine Ratio 22.1 (10.0-20.0); Blood Urea Nitrogen 19 mg/dL (9-23); Calcium 9.8 mg/dL (8.7-10.4); Carbon Dioxide 25 mmol/L (20-31); Glucose 98 mg/dL (74-106); Potassium 4.2 mmol/L (3.5-5.1); Sodium 141 mmol/L (136-145)
[2024-05-11 08:03] LABS: Bilirubin, Total 0.4 mg/dL (0.2-1.0)
[2024-05-11 08:10] LABS: Chloride 107 mmol/L (98-107)
[2024-05-11] MEDS: DOXYCYCLINE 100MG/250ML 250 ML IV ONE (09:17)
[2024-05-11] MEDS: ASPirin-EC 81 mg tab PO SCH (09:40)
[2024-05-11] MEDS: MULTIPLE VITAMINS W/ MINERALS TAB PO SCH (09:41)
[2024-05-11] MEDS: THIAMINE HCL 100 MG TAB PO SCH (09:41)
[2024-05-11] MEDS: ENOXAPARIN SOD 40 MG/0.4 ML SYRINGE SC SCH (09:42)
--- NOTE | 2024-05-11 13:23 | DVHPNRES ---
Progress Note Date Seen: May 11, 2024 Resident Creating Document: ZACHARY BORJA RESIDENT Medical Necessity Reason Pt with a Central, PICC or Fol: No Subjective Review of Systems Patient is 58 years old female with past medical history of hypertension, hyperlipidemia, CVA, seizure disorder, liver, portal hypertension, hepatitis B and hepatitis C positive, history of recurrent fall, depression was brought in by the EMS due to on telemetry status. The patient is a poor historian. History is obtained from the patient and chart from the ER physician was reviewed. Patient is brought in from the [facility] due to altered mental status. The patient was found lethargic in the morning and blood sugar 94, blood pressure 100/50. She had a fall 2 nights before and hit her face. The patient visited ER yesterday and CT scan of the cervical spine was negative for any fracture. Was also admitted at the [facility] in March and was diagnosed with breakthrough seizure and that time MRI and CT scan of the brain was negative for any acute intracranial pathology.. Lab workup revealed mEq of the older BC 4.3, mild thrombocytopenia with platelet 118, hemoglobin 12.6, ammonia 45, TSH is 3.2, mentioned 2.2, serum alcohol<3. CT head revealed -no acute intracranial abnormality.CXR-Mild bilateral perihilar peribronchial cuffing bilateral lower lung zones reticular opacities may reflect bronchitis or atypical pneumonia. Past Medical History-hypertension, hyperlipidemia, CVA, seizure disorder, liver, portal hypertension, hepatitis B and hepatitis C positive, history of recurrent fall, depression Past Social History-Lives in for [facility], denies alcoholism/drug abuse or smoking Patient was seen today for clinical evaluation. Labs and chart reviewed. patient reported feeling tired. CXR-Mild bilateral perihilar peribronchial cuffing bilateral lower lung zones reticular opacities may reflect bronchitis or atypical pneumonia. Objective vital signs Vital Sign Date Time Temp Pulse Resp B/P (MAP) Pulse Ox O2 Delivery O2 Flow Rate FiO2 05/11/24 08:00 77 18 96 Room Air* 0 21 05/11/24 05:00 98.1 106/70 (82) 98.1 Total Intake and Output 05/10/24 05/10/24 05/11/24 15:00 23:00 07:00 Intake Total 100 ml Balance 100 ml medications Current Medications Medications Dose Ordered Sig/Aureliano Route Start Time Stop Time Status Last Admin Dose Admin Sodium Chloride 10 ml Q8HR IV 05/10/24 22:00 05/11/24 05:16 10 ML Docusate Sodium 100 mg BIDPRN PRN PO 05/10/24 17:00 Enoxaparin Sodium 40 mg DAILY SC 05/11/24 10:00 05/11/24 09:42 40 MG Acetaminophen 650 mg Q6HP PRN PO 05/10/24 17:00 05/10/24 23:12 650 MG Morphine Sulfate 2 mg Q4HPRN PRN IV 05/10/24 17:00 Nitroglycerin 0.4 mg Q5MINP PRN SL 05/10/24 17:00 Morphine Sulfate 2 mg Q30M PRN IV 05/10/24 17:00 Aspirin 81 mg DAILY PO 05/11/24 10:00 05/11/24 09:40 81 MG Atorvastatin Calcium 20 mg HS PO 05/10/24 22:00 05/10/24 23:03 20 MG Levetiracetam 750 mg BID PO 05/10/24 22:00 05/11/24 09:41 750 MG Lorazepam 0.5 mg Q6HPRN PRN PO 05/10/24 18:15 Multivitamins/ Minerals 1 tab DAILY PO 05/11/24 10:00 05/11/24 09:41 1 TAB Sennosides 17.2 mg BID PO 05/10/24 22:00 05/10/24 23:04 17.2 MG Thiamine HCl 100 mg DAILY PO 05/11/24 10:00 05/11/24 09:41 100 MG Patient Own Medication 4 HS PO 05/10/24 22:00 Hold Gabapentin 300 mg TID PO 05/10/24 22:00 05/11/24 05:16 300 MG Olanzapine 20 mg HS PO 05/10/24 22:00 05/10/24 23:05 20 MG Sertraline HCl 25 mg HS PO 05/10/24 22:00 05/10/24 23:04 25 MG Patient Own Medication 150 mg BID PO 05/10/24 22:00 05/11/24 01:22 150 MG Lactulose 30 ml BID PO 05/10/24 22:00 05/11/24 09:41 30 ML Pantoprazole Sodium 40 mg DAILY@0600 PO 05/11/24 06:00 05/11/24 05:17 40 MG Divalproex Sodium 1,000 mg BID PO 05/10/24 22:15 05/11/24 09:41 1,000 MG Ceftriaxone Sodium 50 ml @ 100 mls/hr DAILY@09 IV 05/12/24 09:00 Doxycycline Hyclate 250 ml @ 125 mls/hr Q12HR IV 05/11/24 22:00 laboratory and microbiology Laboratory Tests 05/11/24 07:15 Test 05/11/24 07:15 Range/Units Serum Glucose 98 74-106 mg/dL Problem List/Assessment/Plan Problem List/Assessment/Plan #Metabolic encephalopathy # pneumonia Gram-positive versus Gram-negative # status post fall # seizure disorder # positive for hepatitis-B and hepatitis-C # sources of liver # portal hypertension # CVA # hypertension # hyperlipidemia CXR- Mild bilateral perihilar peribronchial cuffing bilateral lower lung zones reticular opacities may reflect bronchitis or atypical pneumonia. Continue ceftriaxone 1 g IV daily Continue doxycycline 100 mg IV b.i.d. Continue lacosamide 150 mg p.o. b.i.d. Continue aspirin 81 mg p.o. daily Continue atorvastatin 20 mg p.o. q.h.s. Continue levetiracetam 750 mg p.o. b.i.d. Lactulose 30 mL p.o. b.i.d. Lovenox 40 mg subcutaneously daily Resume home medications Goals of care/advance care planning; FULL CODE; discussed with the patient >15 minutes PUD prophylaxis: Pantoprazole DVT prophylaxis: Lovenox Plan discussed with , nursing staff, patient Total time spent on patient evaluation, chart review, assessment and plan, discussion discussion >30 minutes Plan discussed with: Patient Plan discussed with: Patient, Other (Brother,RN) Plan discussed with: Patient, Other (RN) My Orders My Orders Orders - ZACHARY BORJA Procedure Category Date Status Time Admit ADMIT 05/10/24 Transmitted 16:57 Code Status CODE 05/10/24 Transmitted 16:57 Sodium Chloride Lock PHA 05/10/24 In Process (Saline Lock Ns) 22:00 Docusate Sodium PHA 05/10/24 In Process Capsule (Colace 17:00 Enoxaparin Sodium PHA 05/11/24 In Process (Lovenox) 10:00 Cardiac DIET 05/10/24 Transmitted Diet-2gna,Lofat,Lochol Dinner Acetaminophen Tablet PHA 05/10/24 In Process (Tylenol Tablet) 17:00 Morphine Sulfate PHA 05/10/24 In Process Injection 17:00 Nitroglycerin PHA 05/10/24 In Process Sublingual (Ntrostat 17:00 Morphine Sulfate PHA 05/10/24 In Process Injection 17:00 Oxygen By Nasal RT 05/10/24 Transmitted Cannula 16:57 Stat Ekg For Chest SERENA 05/10/24 In Process Pain 16:57 Notify Of Changes SERENA 05/10/24 In Process From Base 16:57 Computerized Machine Fabric Cutter For SERENA 05/10/24 In Process 24 Hours 16:57 Emergency Dysrhythmia SERENA 05/10/24 In Process Protocol 16:57 Rhythm Strips Once SERENA 05/10/24 In Process Every Shift 16:57 Aspirin Enteric PHA 05/11/24 In Process Coated Tablet 10:00 Atorvastatin (Lipitor) PHA 05/10/24 In Process 22:00 Levetiracetam Tablet PHA 05/10/24 In Process (Keppra Tablet) 22:00 Lorazepam Tablet PHA 05/10/24 In Process (Ativan Tablet) 18:15 Thiamine Tab PHA 05/11/24 In Process 10:00 Patients Own PHA 05/10/24 In Process Medication 22:00 Gabapentin Capsule PHA 05/10/24 In Process (Neurontin Capsule) 22:00 Olanzapine Tablet PHA 05/10/24 In Process (Zyprexa Tablet) 22:00 Multiple Vitamin W PHA 05/11/24 In Process Mineral Tab (Mvi W/ M 10:00 Senna Pod Tablet PHA 05/10/24 In Process (Senokot Tablet) 22:00 Levetiracetam (Keppra) LAB 05/10/24 In Process 18:32 (Nf) Lacosamide PHA 05/10/24 In Process 22:00 Lactulose Oral PHA 05/10/24 In Process 22:00 Sertraline Hcl PHA 05/10/24 In Process (Zoloft) 22:00 Pantoprazole Tablet PHA 05/11/24 In Process (Protonix Tablet) 06:00 Chest Xray 1 View XY 05/10/24 Resulted 17:28 Mrsa Screen KALEIGH 05/11/24 In Process 03:25 Doxycycline PHA 05/11/24 In Process 100mg/250ml 22:00 Ceftriaxone 1gm/50ml PHA 05/12/24 In Process D5w (Rocephin) 09:00 Date of Service: May 11, 2024 Billing Provider: ZULEYKA WALKER MD Common Visit Codes: [id number] INP/OBS CARE(HIGH) ZACHARY BORJA RESIDENT May 11, 2024 13:23 ZULEYKA WALKER MD May 11, 2024 22:37
[2024-05-11] MEDS: DOXYCYCLINE 100MG/250ML 250 ML IV SCH (21:14)
[2024-05-12 00:25] LABS: Urine Bacteria None Seen /hpf (None Seen)
[2024-05-12 00:40] LABS: Urine Blood Negative /uL (Negative); Urine Clarity Clear (Clear); Urine Color Yellow (Yellow); Urine Protein, UAD Negative (Negative); Urine Specific Gravity 1.028 (1.001-1.035); Urine Squamous Epithelial Cell FEW /hpf (<5); Urine Urobilinogen Normal (Negative); Urine WBC 23 /hpf (0 - 5)
[2024-05-12 00:57] VITALS: BP 103/58; PULSE 69; RESP 12; TEMP 97.9; O2SAT 96
[2024-05-12 04:01] LABS: Barbiturate Scree,Urine Neg (NEGATIVE); Benzodiazephine Screen, Urine Neg (NEGATIVE)
[2024-05-12 04:06] LABS: Amphetamine Screen, Urine Neg (NEGATIVE); Cannabinoid Screen, Urine Neg (NEGATIVE); Cocaine Screen, Urine Neg (NEGATIVE); Opiate Scree,Urine Neg (NEGATIVE); Phencyclidine Screen, Urine Neg (NEGATIVE)
[2024-05-12 04:59] VITALS: BP 102/57; PULSE 75; RESP 12; TEMP 97.8; O2SAT 95
[2024-05-12 07:39] LABS: Anion Gap 7 (5-15); Carbon Dioxide 26 mmol/L (20-31); Sodium 142 mmol/L (136-145)
[2024-05-12 07:40] LABS: Calcium 9.5 mg/dL (8.7-10.4)
[2024-05-12 07:44] LABS: Chloride 109 mmol/L (98-107); Glucose 88 mg/dL (74-106); Potassium 3.4 mmol/L (3.5-5.1)
[2024-05-12 07:45] LABS: BUN/Creatinine Ratio 23.3 (10.0-20.0); Blood Urea Nitrogen 17 mg/dL (9-23); Magnesium 1.8 mg/dL (1.6-2.6)
[2024-05-12 08:00] VITALS: PULSE 68; PULSE 75; RESP 12; O2SAT 95
[2024-05-12] MEDS: cefTRIAXone 1GM/50ML D5W 50 ML IV SCH (09:52)
[2024-05-12] MEDS: LORazepam 0.5 MG TAB PO PRN (10:02)
[2024-05-12] MEDS ORDERED: AUG875T PO (10:52)
[2024-05-12] MEDS: POTASSIUM EFFERVESENT TAB 25 MEQ PO ONE (11:08)
[2024-05-12 15:53] VITALS: BP 102/57; PULSE 75; RESP 12; TEMP 97.8; O2SAT 95
--- NOTE | 2024-05-12 19:44 | DVHDSRES ---
Discharge Summary Date of Admission Resident Creating Document: ZACHARY BORJA RESIDENT May 10, 2024 at 16:57 Date of Discharge: May 12, 2024 Admitting Diagnosis Metabolic encephalopathy Labs/Diagnostic Data: Laboratory Results Test 05/12/24 06:08 05/12/24 00:00 05/11/24 07:15 05/10/24 19:55 Sodium Level 142 mmol/L (136-145) Potassium Level 3.4 mmol/L (3.5-5.1) Chloride Level 109 mmol/L (98-107) Carbon Dioxide Level 26 mmol/L (20-31) Anion Gap 7 (5-15) Blood Urea Nitrogen 17 mg/dL (9-23) Creatinine 0.73 mg/dL (0.550-1.02) Glomerular Filtration Rate Calc 96 mL/min (>90) BUN/Creatinine Ratio 23.3 (10.0-20.0) Serum Glucose 88 mg/dL (74-106) Calcium Level 9.5 mg/dL (8.7-10.4) Magnesium Level 1.8 mg/dL (1.6-2.6) Urine Color Yellow (Yellow) Urine Clarity Clear (Clear) Urine pH 6.0 (5.0-9.0) Urine Specific Warren 1.028 (1.001-1.035) Urine Protein Negative (Negative) Urine Ketones Trace (Negative) Urine Blood Negative /uL (Negative) Urine Nitrite Negative (Negative) Urine Bilirubin Negative (Negative) Urine Urobilinogen Normal mg/dL (Negative) Urine Leukocyte Esterase 1+ /uL (Negative) Urine RBC 1 /hpf (0 - 4) Urine WBC 23 /hpf (0 - 5) Urine Squamous Epithelial Cells Few /hpf (<5) Urine Bacteria None seen /hpf (None Seen) Urine Glucose Normal mg/dL (Normal) Urine Opiates Screen Neg (NEGATIVE) Urine Fentanyl Screen Neg (NEGATIVE) Urine Barbiturates Screen Neg (NEGATIVE) Urine Phencyclidine Screen Neg (NEGATIVE) Urine Amphetamines Screen Neg (NEGATIVE) Urine Benzodiazepines Screen Neg (NEGATIVE) Urine Cocaine Screen Neg (NEGATIVE) Urine Cannabinoids Screen Neg (NEGATIVE) White Blood Count 6.1 10^3/uL (4.4-10.8) Red Blood Count 4.10 10^6/uL (4.0-5.20) Hemoglobin 13.0 g/dL (12.2-16.2) Hematocrit 38.1 % (36.0-46.0) Mean Corpuscular Volume 93.0 fL (80.0-100.0) Mean Corpuscular Hemoglobin 31.8 pg (28.0-32.0) Mean Corpuscular Hemoglobin Concent 34.1 g/dL (32.0-36.0) Red Cell Distribution Width 13.5 % (11.8-14.3) Platelet Count 116 10^3/uL (140-450) Mean Platelet Volume 8.3 fL (6.9-10.8) Neutrophils (%) (Auto) 73.7 % (37.0-80.0) Lymphocytes (%) (Auto) 18.1 % (10.0-50.0) Monocytes (%) (Auto) 4.7 % (0.0-12.0) Eosinophils (%) (Auto) 3.3 % (0.0-7.0) Basophils (%) (Auto) 0.2 % (0.0-2.0) Neutrophils # (Auto) 4.5 10 ^3/uL (1.6-8.6) Lymphocytes # (Auto) 1.1 10 ^3/uL (0.4-5.4) Monocytes # (Auto) 0.3 10 ^3/uL (0-1.3) Eosinophils # (Auto) 0.2 10 ^3/uL (0-0.8) Basophils # (Auto) 0 10 ^3/uL (0-0.2) Nucleated Red Blood Cells 0.1 % Total Bilirubin 0.4 mg/dL (0.2-1.0) Aspartate Amino Transferase (AST) 24 U/L (13-40) Alanine Aminotransferase (ALT) 14 U/L (7-40) Alkaline Phosphatase 73 U/L (46-116) Total Protein 7.0 g/dL (5.7-8.2) Albumin 3.8 g/dL (3.2-4.8) Troponin I High Sensitivity < 3 ng/L (</=34) Test 05/10/24 19:00 05/10/24 18:07 05/10/24 17:27 05/10/24 12:49 Prothrombin Time 12.0 sec (9.3-11.8) Prothrombin Time INR 1.14 (0.9-1.15) Hemoglobin A1c 5.2 % A1C (<5.7) Lactic Acid Level 1.0 mmol/L (0.4-2.0) Ammonia 45 umol/L (11-32) Creatine Kinase 123 U/L (34-145) Vitamin B12 Level 1053 pg/mL (211-911) Folic Acid > 48.00 ng/mL (>5.38) Thyroid Stimulating Hormone (TSH) 3.32 uIU/mL (0.55-4.78) Plasma/Serum Blood Alcohol < 3.0 mg/dL (<10) Other Laboratory Tests 05/12/24 06:08 05/11/24 07:15 Brief Hx & Hospital Course: Patient is 58 years old female with past medical history of hypertension, hyperlipidemia, CVA, seizure disorder, liver, portal hypertension, hepatitis B and hepatitis C positive, history of recurrent fall, depression was brought in by the EMS due to on telemetry status. The patient is a poor historian. History is obtained from the patient and chart from the ER physician was reviewed. [facility] due to altered mental status. The patient was found lethargic in the morning and blood sugar 94, blood pressure 100/50. She had a fall 2 nights before and hit her face. The patient visited ER yesterday and CT scan of the cervical spine was negative for any fracture. Was also admitted at the [facility] in March and was diagnosed with breakthrough seizure and that time MRI and CT scan of the brain was negative for any acute intracranial pathology.. Lab workup revealed mEq of the older BC 4.3, mild thrombocytopenia with platelet 118, hemoglobin 12.6, ammonia 45, TSH is 3.2, mentioned 2.2, serum alcohol<3. CT head revealed -no acute intracranial abnormality.CXR-Mild bilateral perihilar peribronchial cuffing bilateral lower lung zones reticular opacities may reflect bronchitis or atypical pneumonia. During hospitalization patient was treated conservatively with the IV antibiotic ceftriaxone and doxycyclin with the other home medications. Patient's symptom improved clinically. Patient returned to her baseline with some confusion and memory impairment. Patient's being discharged home to the assisted living facility where she came from. Patient was discharged with Augmentin 875 mg p.o. b.i.d. for 5 days. Patient was advised to follow up with the MD at SNF and also follow up with the neurologist as per schedule. Patient's meds were sent to the pharmacy electronically. Patient was hemodynamically stable on discharge. General examination- ,bruise on the left side of the face HEENT- PEERLA, no acute nasal discharge Cardiovascular- S1-S2 audible, rate and rhythm regular, no murmur Respiratory- CTAB, no wheeze or rhonchi Gastrointestinal-nontender, bowel sound+. Nondistended Musculoskeletal-no acute joint swelling or tenderness or redness# Lower extremity- trace leg edema Neurological- decreased muscle power of the upper and lower extremity 3/5 Psychiatry- confusion, AAOX2 Skin- bruise on the left side of the face Operations or Procedures DIAGNOSTIC IMAGING Diagnostic Imaging Report : [id number] Signed PATIENT: JER ORNELAS ACCT: [id number] UNIT: [id number] : 1965 LOC: ER ROOM / BED: / AGE / SEX: 58 / F ADM STATUS: REG ER SERVICE 1236 ORDERING PHYSICIAN: GRAHAM MCMAHON MD PROCEDURE(s): HWOCT - HEAD WITHOUT CONTRAST REASON: aloc ORDER NUMBER(s): [id number], ACCESSION NUMBER(s): [id number] EXAM: CT HEAD WITHOUT CONTRAST HISTORY: aloc COMPARISON: CT HEAD WITHOUT CONTRAST on DOS: 05/09/24, CT CERVICAL WITHOUT CONTRAST on DOS: 05/09/24 TECHNIQUE: Axial images of the head were obtained and reformatted in coronal and sagittal planes. All CT scans at this medical facility are performed using dose modulation techniques as appropriate to a performed exam including the following: Automated exposure control was utilized; adjustment of the MA and/or KV according to patient size; and use of iterative reconstruction technique. CT Dose: CTDI volume is 53.92 mGy. Dose-length product is 1062.69 mGy*cm FINDINGS: There is no evidence of acute intracranial hemorrhage, mass, mass effect midline shift. There is no hydrocephalus or extra-axial fluid collection. Condon-white matter differentiation is maintained. The visualized paranasal sinuses and mastoid air cells are clear. The calvarium is intact. IMPRESSION: 1. No acute intracranial process. HS:Y ATED BY: RODRIGUEZ NI MD DICTATED DATE/TIME: 05/10/241409 SIGNED BY: RODRIGUEZ NI MD SIGNED DATE/TIME: 05/10/241409 CC: Diagnostic Imaging Report : [id number] Signed PATIENT: JER ORNELAS ACCT: [id number] UNIT: [id number] : 1965 [facility] AGE / SEX: 58 / F ADM STATUS: ADM IN SERVICE 27 ORDERING PHYSICIAN: ZACHARY BORJA RESIDENT PROCEDURE(s): CXR1 - CHEST XRAY 1 VIEW REASON: rule out PNA/Pulmonary congestion ORDER NUMBER(s): [id number], ACCESSION NUMBER(s): [id number] CHEST RADIOGRAPH Indication: rule out PNA/Pulmonary congestion Technique: Single frontal view of the chest was obtained Comparison: XY CHEST PORTABLE on DOS: 01/10/24, XY CHEST PORTABLE on DOS: 12/29/23, XY CHEST PORTABLE on DOS: 01/10/24 FINDINGS: Medical devices: None. Cardiomediastinal: The heart is normal in size. Pulmonary vasculature is within normal limits. <<ao:calc/Tortuous/CABG>> Lungs: No lobar consolidation. Reticular opacities are seen in bilateral lower lung zones. Bilateral perihilar peribronchial cuffing noted. The costophrenic angles are clear. No pneumothorax. Bones/soft tissues: No acute abnormality is noted. IMPRESSION: 1. Mild bilateral perihilar peribronchial cuffing bilateral lower lung zones reticular opacities may reflect bronchitis or atypical pneumonia. Recommend clinical and biochemical correlation. ATED BY: LIBERTY ROLON MD DICTATED DATE/TIME: 05/11/24528 SIGNED BY: LIBERTY ROLON MD SIGNED DATE/TIME: 05/11/24528 CC: Condition at Discharge: Stable Final Diagnosis/Problems List Metabolic encephalopathy Pneumonia Gram-positive versus Gram-negative UTI Seizure disorder Cirrhosis of liver Hepatitis-B and hepatitis-C infection Portal hypertension Status post fall Hypertension Hyperlipidemia Discharge Disposition: Assisted Living Facility Discharge Instruct/Medications Diet: Cardiac 2g Na,low cholest Activity: Light activity Follow Up/Referral: MD at SNF avoid dehydration and nephrotoxic drugs Please follow up with the neurologist as per schedule Medications: Augmentin 875 mg p.o. b.i.d. for 5 days Resume other home medications Discharge Statement: "Patient was advised to return to the ER or call 911 if any headaches, dizziness, shortness of breath, chest pain, abdominal pain, bleeding, fevers, or worsening of medical condition. Patient was counseled about treatment plan, medications, possible side effects, patientverbalized understanding. All questions were answered to the best of my ability. This discharge took greater then 30 minutes in planning, reviewing documentation, counseling the patient, and discussing with other team members." ASSESSMENT ASSESSMENT Assessment Metabolic encephalopathy Pneumonia Gram-positive versus Gram-negative UTI Seizure disorder Cirrhosis of liver Hepatitis-B and hepatitis-C infection Portal hypertension Status post fall Hypertension Hyperlipidemia Date of Service: May 12, 2024 Billing Provider: ZULEYKA WALKER MD Common Visit Codes: 36554-CEL/OBS DISCH DAY >30min ZACHARY BORJA RESIDENT May 12, 2024 19:44 ZULEYKA WALKER MD May 13, 2024 08:49
== END 2024-05-12 17:30 | disposition home or self-care (01) | DRG 137 ==
LOC: EDBD 12:28 → ER 12:31 → TELE 16:57 → TELE-CENTR 05-11 02:35
PROVIDERS: ADMIT Internal Medicine; ATTEND Emergency Medicine
DX: J15.69 Pneumonia due to other Gram-negative bacteria (principal); G93.41 Metabolic encephalopathy; K76.6 Portal hypertension; D69.6 Thrombocytopenia, unspecified; B19.10 Unspecified viral hepatitis B without hepatic coma; N39.0 Urinary tract infection, site not specified; J15.9 Unspecified bacterial pneumonia; M25.551 Pain in right hip; M25.552 Pain in left hip; K74.60 Unspecified cirrhosis of liver; G40.909 Epilepsy, unspecified, not intractable, without status epilepticus; B19.20 Unspecified viral hepatitis C without hepatic coma; I10 Essential (primary) hypertension; E78.5 Hyperlipidemia, unspecified; F32.A Depression, unspecified; Z86.73 Personal history of transient ischemic attack (TIA), and cerebral infarction without residual deficits; Z88.2 Allergy status to sulfonamides; Z91.041 Radiographic dye allergy status; Z79.82 Long term (current) use of aspirin; Z79.899 Other long term (current) drug therapy
CPT/HCPCS: 36415; 70450; 71045; 80048; 80053; 80307; 80320; 81001; 82140; 82542; 82550; 82607; 82746; 83036; 83605; 83735; 84443; 84484; 85025; 85610; 87081; 87086; 93005; 97163; 99291; G0378; J3490

== ENCOUNTER 2024-06-10 07:51 | Emergency (ER) | payer MEDICAID ==
[~2024-06-10] VITALS: Ht 165.1 cm; Wt 63.7 kg
[~2024-06-10 07:51] MED LIST changes: +AUG875T PO
--- NOTE | 2024-06-10 08:41 | DVH ---
CLINICAL INDICATION: 58 years old, Female; LEFT SIDE SWELLING. TECHNIQUE: Noncontrast CT of the maxillofacial structures was performed. Sagittal and coronal reforma tted images are provided. COMPARISON: None CT Dose: CTDI volume is 65.81 mGy. Dose-length product is 1270.8 mGy*cm FINDINGS: No fracture or dislocation. Multilevel intervertebral disc space narrowing. No significant spinal st enosis. No significant neural foraminal stenosis. IMPRESSION: 1. No acute fracture or malalignment of the cervical spine. All CT scans at this medical facility are performed using dose modulation techniques as appropriate t o a performed exam including the following: Automated exposure control was utilized; adjustment of th e MA and/or KV according to patient size; and use of iterative reconstruction technique.
--- NOTE | 2024-06-10 08:42 | ED.PDOC ---
History of Present Illness HPI Comments 58-year-old female presents with a chief complaint of facial pain s/p fall. Patient was brought in via EMS from a SNF. Per EMS, staff at SNF found patient on the floor during shift change. Patient states that she lost her balance while attempting to put her shoes on. Patient has a record of falls according to EMS from the SNF. Patient has a history of seizures, but states that she "did not have a seizure". Patient is not on Coumadin or Warfarin, but is on ASA. No other symptoms or modifying factors present at this time. Chief Complaint: Fall Injury Time Seen by MD: 08:05 Primary Care Provider: unknown Reviewed Notes: Play Reader Notes, Medications, Allergies Allergies: Coded Allergies: Iodine (Verified Allergy, Unknown, 11/11/23) Sulfa Antibiotics (Verified Allergy, Unknown, 11/11/23) Home Meds Active Scripts Amoxicillin & Pot Clavulanate (AUGMENTIN TABLET) 875 Mg Tb, 875 MG PO BID for 5 Days, #10 TAB Prov:KAMARI CONNELLY RESIDENT 05/12/24 Clotrimazole W/ Betamethasone (Clotrimazole/Betamethason 1-0.05 %) 1 Cre Cre, 1 CRE EX BID PRN, #45 GM Prov:NEAL SANTOS MD 04/04/24 Levetiracetam (Keppra) 500 Mg Tab, 1.5 TAB PO BID, #180 TAB 3 Refills Prov:NEAL SANTOS MD 04/04/24 Reported Medications Divalproex Sodium (Divalproex Sodium Er) 500 Mg Tab, 4 TAB PO HS, TAB 04/01/24 Atorvastatin Calcium (ATORVASTATIN CALCIUM) 20 Mg Tab, 20 MG PO HS, TAB 04/01/24 Aspirin (Aspir-81) 81 Mg Tab, 81 MG PO DAILY, TAB 04/01/24 Lacosamide (Lacosamide) 150 Mg Tab, 150 MG PO BID, TAB 04/01/24 Multiple Vitamins W/ Minerals (One Daily Multivitamin Wo) 1 Tab Tab, 1 TAB PO DAILY, TAB 04/01/24 Olanzapine (OLANZAPINE) 20 Mg Tab, 20 MG PO HS, TAB 04/01/24 Melatonin (KP MELATONIN) 3 Mg Tab, 10 MG PO HS, TAB 04/01/24 Loratadine (Claritin) 10 Mg Tab, 10 MG PO DAILY, TAB 04/01/24 Thiamine Hcl (VITAMIN B-1) 100 Mg Tb, 100 MG PO DAILY, TAB 04/01/24 Sertraline Hcl (Sertraline Hcl) 25 Mg Tab, 25 MG PO DAILY, TAB 04/01/24 Senna (Senokot) 8.6 Mg Tab, 2 TAB PO BID, TAB 04/01/24 Quetiapine Fumerate (Seroquel) 50 Mg Tab, 12.5 MG PO BID, TAB 04/01/24 Hydroxyzine Hcl (Hydroxyzine Hcl) 25 Mg Tab, 25 MG PO Q8HPRN PRN for ANXIETY, TAB 04/01/24 Diphenhydramine Hcl (Benadryl Allergy) 25 Mg Cap, 25 MG PO Q6HPRN PRN for FOR ITCHING, CAP 04/01/24 Lorazepam (ATIVAN TABLET) 0.5 Mg Tb, 0.5 MG PO Q6HPRN PRN for ANXIETY, TAB 04/01/24 Gabapentin (Once-Daily) (Gabapentin) 300 Mg Tab, 300 MG PO TID, TAB 01/11/24 Information Source: Patient, Emergency Med Personnel Mode of Arrival: EMS Severity: Moderate Timing: Hours Duration: Intermittent Prehospital treatment: Accucheck (102) Past Medical History PAST MEDICAL HISTORY: CVA, Depression, High Lipids, HTN, Seizures Surgical History: Denies all surgeries DOCENT COORDINATOR History: Unknown Family History Family History: Reviewed,noncontributory to illness, Unknown, Unobtainable Social History Smoker: Non-Smoker Alcohol: Denies ETOH Use, Unknown Drugs: Denies Drug Use Lives In: Assisted Care Constitutional: reports: others (FALL); denies: chills, diaphoresis, fatigue, fever, malaise, sweats, weakness EENTM: denies: blurred vision, double vision, ear bleeding, ear discharge, ear drainage, ear pain, ear ringing, eye pain, eye redness, hearing loss, mouth pain, mouth swelling, nasal discharge, nose bleeding, nose congestion, nose pain, photophobia, tearing, throat pain, throat swelling, voice changes, others Respiratory: denies: cough, hemoptysis, orthopnea, SOB at rest, shortness of breath, SOB with excertion, stridor, wheezing, others Cardiovascular: denies: chest pain, dizzy spells, diaphoresis, Dyspnea on exertion, edema, irregular heart beat, left arm pain, lightheadedness, palpitations, PND, syncope, others Gastrointestinal: denies: abdomen distended, abdominal pain, blood streaked bowels, constipated, diarrhea, dysphagia, difficulty swallowing, hematemesis, melena, nausea, poor appetite, poor fluid intake, rectal bleeding, rectal pain, vomiting, others Genitourinary: denies: abnormal vagina bleeding, burning, dyspareunia, dysuria, flank pain, frequency, hematuria, incontinence, pain, , vagina discharge, urgency, others Neurological: denies: dizziness, fainting, headache, left sided numbness, left sided weakness, numbness, paresthesia, pre-existing deficit, right sided numbne ss, right sided weakness, seizure, speech problems, tingling, tremors, weakness, others Musculoskeletal: reports: muscle pain; denies: back pain, gout, joint pain, joint swelling, muscle stiffness, neck pain, others Integumetry: denies: bruises, change in color, change in hair/nails, dryness, laceration, lesions, lumps, rash, wounds, others Allergic/Immunocompromised: denies: Difficulty Healing, Frequent Infections, Hives, Itching, others Hematologic/Lymphatic: denies: anemia, blood clots, easy bleeding, easy bruising, swollen glands, others Endocrine: denies: excessive hunger, excessive sweating, excessive thirst, excessive urination, flushing, intolerance to cold, intolerance to heat, unexplained weight gain, unexplained weight loss, others Psychiatric: denies: anxiety, bipolar disorder, depression, hopeless, panic disorder, schizophrenia, sleepless, suicidal, others All Other Systems: Reviewed and Negative Physical Exam General Appearance: No Apparent Distress, Normal, Other (LEFT UPPER CHEEK TENDERNESS) HEENT: Normal ENT Inspection, Pharynx Normal, TMs Normal, Other (Well-healed scar to the left scalp from previous fall, no evidence of trauma today) Neck: Full Range of Motion, Non-Tender, Normal, Normal Inspection Respiratory: Chest Non-Tender, Lungs Clear, No Accessory Muscle Use, No Respiratory Distress, Normal Breath Sounds Cardiovascular: No Edema, No JVD, No Murmur, No Gallop, Normal Peripheral Pulses, Regular Rate/Rhythm Breast Exam: Deferred Gastrointestinal: No Organomegaly, Non Tender, No Pulsatile Mass, Normal Bowel Sounds, Soft Genitalia: Deferred Pelvic: Deferred Rectal: Deferred Extremities: No calf tenderness, Normal capillary refill, Normal inspection, Normal range of motion, Non-tender, No pedal edema, Other (NON-TENDER L- and C- SPINE , t spine) Musculoskeletal : Apperance: Normal Neurologic: Alert, backend java developer II-XII nml as Tested, No Motor Deficits, Normal Affect, Normal Mood, No Sensory Deficits, Other (NO LEFT EYE ENTRAPMENT) Cerebellar Function: Normal Reflexes: Normal Skin: Dry, Normal Color, Warm Lymphatic: No Adenopathy Was a procedure done? Was a procedure done?: No EKG EKG : Comments Normal sinus rhythm rate of [address] changes Differential Dx Considerations may include: Acute coronary syndrome, stroke, intracranial hemorrhage, maxillofacial injury fracture, entrapment of the eye, UTI, bradycardia, acute arrhythmia, injury to other body parts including the hip X-Ray, Labs, Meds, VS Vital Signs Date Time Temp Pulse Resp B/P (MAP) Pulse Ox O2 Delivery O2 Flow Rate FiO2 06/10/24 09:22 60 06/10/24 08:53 58 16 97 Room Air* 0 21 06/10/24 08:50 98.1 58 15 105/67 (80) 97 98.1 06/10/24 08:01 97.4 60 16 104/78 (87) 100 Lab Test 06/10/24 10:07 06/10/24 08:46 06/10/24 08:36 Range/Units Troponin I High Sensitivity Pending < 3 L </=34 ng/L Urine Color Light-yellow Yellow Urine Clarity Turbid H Clear Urine pH 7.5 5.0-9.0 Urine Specific [place] 1.016 1.001-1.035 Urine Protein Negative Negative Urine Ketones Negative Negative Urine Blood Negative Negative /uL Urine Nitrite Negative Negative Urine Bilirubin Negative Negative Urine Urobilinogen Normal Negative mg/dL Urine Leukocyte Esterase Negative Negative /uL Urine RBC 4 0 - 4 /hpf Urine Microscopic WBC 2 0-5 /HPF Urine Squamous Epithelial Cells None seen <5 /hpf Urine Amorphous Crystals Few None Seen /hpf Urine Bacteria None seen None Seen /hpf Urine Glucose Normal Normal mg/dL White Blood Count 3.6 L 4.4-10.8 10^3/uL Red Blood Count 3.93 L 4.0-5.20 10^6/uL Hemoglobin 12.5 12.2-16.2 g/dL Hematocrit 37.0 36.0-46.0 % Mean Corpuscular Volume 94.1 80.0-100.0 fL Mean Corpuscular Hemoglobin 31.9 28.0-32.0 pg Mean Corpuscular Hemoglobin Concent 33.9 32.0-36.0 g/dL Red Cell Distribution Width 13.4 11.8-14.3 % Platelet Count 113 L 140-450 10^3/uL Mean Platelet Volume 8.3 6.9-10.8 fL Neutrophils (%) (Auto) 35.2 L 37.0-80.0 % Lymphocytes (%) (Auto) 46.7 10.0-50.0 % Monocytes (%) (Auto) 9.0 0.0-12.0 % Eosinophils (%) (Auto) 8.7 H 0.0-7.0 % Basophils (%) (Auto) 0.4 0.0-2.0 % Neutrophils # (Auto) 1.3 L 1.6-8.6 10 ^3/uL Lymphocytes # (Auto) 1.7 0.4-5.4 10 ^3/uL Monocytes # (Auto) 0.3 0-1.3 10 ^3/uL Eosinophils # (Auto) 0.3 0-0.8 10 ^3/uL Basophils # (Auto) 0 0-0.2 10 ^3/uL Nucleated Red Blood Cells 0.3 % Sodium Level 141 136-145 mmol/L Potassium Level 4.0 3.5-5.1 mmol/L Chloride Level 108 H 98-107 mmol/L Carbon Dioxide Level 29 20-31 mmol/L Anion Gap 4 L 5-15 Blood Urea Nitrogen 16 9-23 mg/dL Creatinine 0.90 0.550-1.02 mg/dL Glomerular Filtration Rate Calc 75 >90 mL/min BUN/Creatinine Ratio 17.8 10.0-20.0 Serum Glucose 88 74-106 mg/dL Calcium Level 9.6 8.7-10.4 mg/dL Total Bilirubin 0.4 0.2-1.0 mg/dL Aspartate Amino Transferase (AST) 20 13-40 U/L Alanine Aminotransferase (ALT) 14 7-40 U/L Alkaline Phosphatase 74 46-116 U/L Total Protein 7.1 5.7-8.2 g/dL Albumin 4.2 3.2-4.8 g/dL [facility] [id number] [place] [id number] Ph: [phone] DIAGNOSTIC IMAGING Diagnostic Imaging Report : [id number] Signed PATIENT: JER ORNELAS ACCT: [id number] UNIT: [id number] : 1965 LOC: ER ROOM / BED: / AGE / SEX: 58 / F ADM STATUS: REG ER SERVICE 5 ORDERING PHYSICIAN: MAIKOL PRASAD MD PROCEDURE(s): FAC2C - MAXILLOFACIAL WITHOUT REASON: LEFT SIDE SWELLING ORDER NUMBER(s): [id number], ACCESSION NUMBER(s): [id number] CLINICAL INDICATION: 58 years old, Female; LEFT SIDE SWELLING. TECHNIQUE: Noncontrast CT of the maxillofacial structures was performed. Sagittal and coronal reformatted images are provided. COMPARISON: None CT Dose: CTDI volume is 65.81 mGy. Dose-length product is 1270.8 mGy*cm FINDINGS: No fracture or dislocation. Multilevel intervertebral disc space narrowing. No significant spinal stenosis. No significant neural foraminal stenosis. IMPRESSION: 1. No acute fracture or malalignment of the cervical spine. All CT scans at this medical facility are performed using dose modulation techniques as appropriate to a performed exam including the following: Automated exposure control was utilized; adjustment of the MA and/or KV according to patient size; and use of iterative reconstruction technique. ATED BY: HALLE HILL MD DICTATED DATE/TIME: 06/10/24838 SIGNED BY: HALLE HILL MD SIGNED DATE/TIME: 06/10/24838 CC: [facility] [id number] [place] [id number] Ph: [phone] DIAGNOSTIC IMAGING Diagnostic Imaging Report : [id number] Signed PATIENT: JER ORNELAS ACCT: [id number] UNIT: [id number] : 1965 LOC: ER ROOM / BED: / AGE / SEX: 58 / F ADM STATUS: REG ER SERVICE 0803 ORDERING PHYSICIAN: MAIKOL PRASAD MD PROCEDURE(s): HWOCT - HEAD WITHOUT CONTRAST REASON: ro bleed, sp fall w head pain ORDER NUMBER(s): [id number], ACCESSION NUMBER(s): [id number] EXAM: CT HEAD WITHOUT CONTRAST INDICATION: ro bleed, sp fall w head pain TECHNIQUE: CT of the head without intravenous contrast. Radiation Dose Information: CT Dose: CTDI volume is 53.24 mGy. Dose-length product is 853.58 mGy*cm The dose indicators for CT are the volume Computed Tomography (CT) Dose Index (CTDIvol) and the Dose Length Product (DLP), and are measured in units of mGy and mGy-cm, respectively. These indicators are not patient dose, but values generated from the CT scanner acquisition factors. The report includes radiation exposure data for exposures received during this examination. COMPARISON: CT HEAD WITHOUT CONTRAST on DOS: 05/10/24, CT HEAD WITHOUT CONTRAST on DOS: 05/09/24, CT CERVICAL WITHOUT CONTRAST on DOS: 05/09/24, CT HEAD WITHOUT CONTRAST on DOS: 03/30/24, CT HEAD WITHOUT CONTRAST on DOS: 01/10/24 FINDINGS: There is no evidence of acute intracranial hemorrhage, extra-axial collection, mass effect, midline shift, herniation or hydrocephalus. The ventricles, sulci and cisterns are age appropriate. The thapa-white differentiation is intact. Patchy periventricular and subcortical white matter hypoattenuation is nonspecific but may be related to small vessel ischemic disease. The visualized paranasal sinuses and mastoid air cells are clear. The surrounding soft tissues and osseous structures are unremarkable. IMPRESSION: No acute intracranial abnormality. ATED BY: LIBERTY ROLON MD DICTATED DATE/TIME: 06/10/24837 SIGNED BY: LIBERTY ROLON MD SIGNED DATE/TIME: 06/10/24837 CC: 58-year-old female presents here from nursing care facility after having a fall. Exact fall time is unclear. Patient states she was putting on her shoe and she lost balance. She does report mild headache and also has swelling to the left upper cheek. She does take aspirin daily and I am concerned about intracranial hemorrhage. Additionally I am concerned about possible fracture to the maxillofacial bones. I considered possible entrapment to the eye however she does not have any evidence of that on physical exam. Considered possible UTI and electrolyte abnormality. Including dehydration as her lips are dry. At this time blood work has been done which is unremarkable. First troponin is negative. EKG does not demonstrate any acute arrhythmia. Urine does not demonstrate any UTI. CT of the brain and max face are negative for acute pathology. At this time patient is well-appearing. She has been able to drink water in the ER. I will be sending the patient home. Advised her to follow up with her PCP in 2-3 days and return to the ER if symptoms worsen or persist. Patient agreeable to the plan. Time of 1ST Reevaluation: 08:35 Reevaluation 1ST: Unchanged Time of 2ND Reevaluation: 10:23 Reevaluation 2ND: Improved Patient Education/Counseling: Diagnosis, Treatment, Prognosis Family Education/Counseling: No Family Present Departure 1 Departure Time of Disposition: 10:24 Impression: Primary Impression: Unsteady gait Additional Impression: Swelling of left side of face Disposition: 03 [facility] Condition: Stable Additional Instructions: Follow up with the primary care physician in 2-3 days. Your results today do not show any evidence of blood in the brain. There was no evidence of fracture on your face. Discharged With: Self Critical Care Note Critical Care Time?: No Stability Stability form required: No Heart Score Heart Score: Heart Score Response (Comments) Value History Slightly Suspicious 0 EKG Normal 0 Age 45-64 1 Risk Factors 1 or 2 risk factors 1 Troponin Normal limit 0 Total 2 I personally scribed for MAIKOL PRASAD MD ([email or web address]) on 06/10/24 at 08:42. Electronically submitted by Martín Quinn ([email or web address]). MAIKOL PRASAD MD Jun 10, 2024 08:42
[2024-06-10 08:50] VITALS: TEMP 98.1
[2024-06-10 08:53] VITALS: PULSE 58; RESP 16; O2SAT 97
[2024-06-10 08:53] LABS: Basophils # (auto) 0 10 ^3/uL (0-0.2); Basophils % (auto) 0.4 % (0.0-2.0); Eosinophils # (auto) 0.3 10 ^3/uL (0-0.8); Eosinophils % (auto) 8.7 % (0.0-7.0); Hemoglobin 12.5 g/dL (12.2-16.2); Lymphocytes # (auto) 1.7 10 ^3/uL (0.4-5.4); Lymphocytes % (auto) 46.7 % (10.0-50.0); Mean Corpuscular Hemoglobin 31.9 pg (28.0-32.0); Mean Corpuscular Hgb Conc. 33.9 g/dL (32.0-36.0); Mean Corpuscular Volume 94.1 fL (80.0-100.0); Monocytes # (auto) 0.3 10 ^3/uL (0-1.3); Neutrophils # (auto) 1.3 10 ^3/uL (1.6-8.6); Neutrophils % (auto) 35.2 % (37.0-80.0); Nucleated Red Blood Cells % 0.3 %; Platelet Count (auto) 113 10^3/uL (140-450); Red Blood Cells 3.93 10^6/uL (4.0-5.20); Red Cell Distribution Width 13.4 % (11.8-14.3); White Blood Cell 3.6 10^3/uL (4.4-10.8)
[2024-06-10 09:05] LABS: Alanine Aminotransferase 14 U/L (7-40); Alkaline Phosphatase 74 U/L (46-116); Anion Gap 4 (5-15); Aspartate Aminotransferase 20 U/L (13-40); BUN/Creatinine Ratio 17.8 (10.0-20.0); Blood Urea Nitrogen 16 mg/dL (9-23); Calcium 9.6 mg/dL (8.7-10.4); Carbon Dioxide 29 mmol/L (20-31); Glucose 88 mg/dL (74-106); Sodium 141 mmol/L (136-145)
[2024-06-10 09:06] LABS: Albumin 4.2 g/dL (3.2-4.8); Bilirubin, Total 0.4 mg/dL (0.2-1.0); Total Protein 7.1 g/dL (5.7-8.2)
[2024-06-10 09:08] LABS: Chloride 108 mmol/L (98-107)
[2024-06-10 09:37] LABS: Urine Bacteria None Seen /hpf (None Seen)
[2024-06-10 09:56] LABS: Urine Blood Negative /uL (Negative); Urine Clarity Turbid (Clear); Urine Color Light-Yellow (Yellow); Urine Protein, UAD Negative (Negative); Urine Specific Gravity 1.016 (1.001-1.035); Urine Squamous Epithelial Cell None Seen /hpf (<5); Urine Urobilinogen Normal (Negative); Urine pH 7.5 (5.0-9.0)
[2024-06-10 09:59] LABS: Urine Amorphous Crystal FEW /hpf (None Seen); Urine WBC 2 /HPF (0-5)
--- NOTE | 2024-06-10 10:57 | ECG ---
[facility] Test Date: 2024-06-10 Test Time: 09:22:51 Pat Name: JER ORNELAS Department: ER Room: Gender: F Checker: DANIEL : 1965 Requested By: MAIKOL PRASAD Order Number: [id number] Reading MD: Uri Dillon Measurements Intervals [place] Rate: 60 P: 53 [place]: 189 QRS: 98 QRSD: 97 T: 59 QT: 401 QTc: 401 Interpretive Statements Sinus rhythm Anteroseptal infarct, age indeterminate Electronically Signed On 06-10-2024 17:22:50 PST by Uri Dillon Please click the below link to view image of tracing.
[2024-06-10 11:01] VITALS: BP 116/68; PULSE 60; RESP 15; O2SAT 97
== END 2024-06-10 10:19 ==
LOC: EDBD 07:51 → ER 07:51
DX: R26.81 Unsteadiness on feet (principal); R22.0 Localized swelling, mass and lump, head; I10 Essential (primary) hypertension; E78.5 Hyperlipidemia, unspecified; Z86.73 Personal history of transient ischemic attack (TIA), and cerebral infarction without residual deficits; Z79.82 Long term (current) use of aspirin; Z79.899 Other long term (current) drug therapy; Z88.2 Allergy status to sulfonamides; Z88.8 Allergy status to other drugs, medicaments and biological substances
CPT/HCPCS: 36415; 70450; 70486; 80053; 81001; 84484; 85025; 93005

== ENCOUNTER 2024-09-16 06:47 | Inpatient (IN) | payer MEDICAID, OTHER ==
[~2024-09-16] VITALS: Ht 162.6 cm; Wt 73.9 kg
--- NOTE | 2024-09-16 07:08 | ED.PDOC ---
History of Present Illness HPI Comments 59F BIBA w/ prior Hx of Neuropathy, Depression, High lipids, Sz, CVA, Schizophrenic, Anxiety and HTN; SHx of Breast Implants, and c/c of a fall. EMS report that the pt was picked up via [facility] for a fall and the pt having a skin tear on the right knee. Family Hx of Cancer. Denies chills, fever, N/V/D, SOB, CP, Dizziness. No other associated symptoms, modifiers, recent injuries or sick contacts present at this time. Time Seen by MD: 06:55 Primary Care Provider: unknown Reviewed Notes: Nurses Notes, Cardiopulmonary Technologist Chief Notes, Medications, Allergies Allergies: Coded Allergies: Iodine (Verified Allergy, Unknown, 11/11/23) Sulfa Antibiotics (Verified Allergy, Unknown, 11/11/23) Home Meds Active Scripts Amoxicillin & Pot Clavulanate (AUGMENTIN TABLET) 875 Mg Tb, 875 MG PO BID for 5 Days, #10 TAB Prov:KAMARI CONNELLY RESIDENT 05/12/24 Clotrimazole W/ Betamethasone (Clotrimazole/Betamethason 1-0.05 %) 1 Cre Cre, 1 CRE EX BID PRN, #45 GM Prov:NEAL SANTOS MD 04/04/24 Levetiracetam (Keppra) 500 Mg Tab, 1.5 TAB PO BID, #180 TAB 3 Refills Prov:NEAL SANTOS MD 04/04/24 Reported Medications Divalproex Sodium (Divalproex Sodium Er) 500 Mg Tab, 4 TAB PO HS, TAB 04/01/24 Atorvastatin Calcium (ATORVASTATIN CALCIUM) 20 Mg Tab, 20 MG PO HS, TAB 04/01/24 Aspirin (Aspir-81) 81 Mg Tab, 81 MG PO DAILY, TAB 04/01/24 Lacosamide (Lacosamide) 150 Mg Tab, 150 MG PO BID, TAB 04/01/24 Multiple Vitamins W/ Minerals (One Daily Multivitamin Wo) 1 Tab Tab, 1 TAB PO DAILY, TAB 04/01/24 Olanzapine (OLANZAPINE) 20 Mg Tab, 20 MG PO HS, TAB 04/01/24 Melatonin (KP MELATONIN) 3 Mg Tab, 10 MG PO HS, TAB 04/01/24 Loratadine (Claritin) 10 Mg Tab, 10 MG PO DAILY, TAB 04/01/24 Thiamine Hcl (VITAMIN B-1) 100 Mg Tb, 100 MG PO DAILY, TAB 04/01/24 Sertraline Hcl (Sertraline Hcl) 25 Mg Tab, 25 MG PO DAILY, TAB 04/01/24 Senna (Senokot) 8.6 Mg Tab, 2 TAB PO BID, TAB 04/01/24 Quetiapine Fumerate (Seroquel) 50 Mg Tab, 12.5 MG PO BID, TAB 04/01/24 Hydroxyzine Hcl (Hydroxyzine Hcl) 25 Mg Tab, 25 MG PO Q8HPRN PRN for ANXIETY, TAB 04/01/24 Diphenhydramine Hcl (Benadryl Allergy) 25 Mg Cap, 25 MG PO Q6HPRN PRN for FOR ITCHING, CAP 04/01/24 Lorazepam (ATIVAN TABLET) 0.5 Mg Tb, 0.5 MG PO Q6HPRN PRN for ANXIETY, TAB 04/01/24 Gabapentin (Once-Daily) (Gabapentin) 300 Mg Tab, 300 MG PO TID, TAB 01/11/24 Information Source: Patient, Emergency Med Personnel Mode of Arrival: EMS Severity: Moderate Timing: Minutes Duration: Since onset, Minutes Prehospital treatment: None Past Medical History PAST MEDICAL HISTORY: Anxiety, CVA, Depression, High Lipids, HTN, Schizophrenia, Seizures Past Medical History (Other): Neuropathy Surgical History: Denies all surgeries LIGHT BULB REPLACER History: No Pertinent LIGHT BULB REPLACER History Family History Family History: Reviewed,noncontributory to illness, Family hx of Cancer Social History Smoker: Non-Smoker Alcohol: Denies ETOH Use, Unknown Drugs: Denies Drug Use Lives In: Assisted Care Constitutional: reports: others (Fall(Skin tear)); denies: chills, diaphoresis, fatigue, fever, malaise, sweats, weakness EENTM: denies: blurred vision, double vision, ear bleeding, ear discharge, ear drainage, ear pain, ear ringing, eye pain, eye redness, hearing loss, mouth pain, mouth swelling, nasal discharge, nose bleeding, nose congestion, nose pain, photophobia, tearing, throat pain, throat swelling, voice changes, others Respiratory: denies: cough, hemoptysis, orthopnea, SOB at rest, shortness of breath, SOB with excertion, stridor, wheezing, others Cardiovascular: denies: chest pain, dizzy spells, diaphoresis, Dyspnea on exertion, edema, irregular heart beat, left arm pain, lightheadedness, palpitations, PND, syncope, others Gastrointestinal: denies: abdomen distended, abdominal pain, blood streaked bowels, constipated, diarrhea, dysphagia, difficulty swallowing, hematemesis, melena, nausea, poor appetite, poor fluid intake, rectal bleeding, rectal pain, vomiting, others Genitourinary: denies: abnormal vagina bleeding, burning, dyspareunia, dysuria, flank pain, frequency, hematuria, incontinence, pain, , vagina discharge, urgency, others Neurological: denies: dizziness, fainting, headache, left sided numbness, left sided weakness, numbness, paresthesia, pre-existing deficit, right sided numbness, right sided weakness, seizure, speech problems, tingling, tremors, weakness, others Musculoskeletal: denies: back pain, gout, joint pain, joint swelling, muscle pain, muscle stiffness, neck pain, others Integumetry: denies: bruises, change in color, change in hair/nails, dryness, laceration, lesions, lumps, rash, wounds, others Allergic/Immunocompromised: denies: Difficulty Healing, Frequent Infections, Hives, Itching, others Hematologic/Lymphatic: denies: anemia, blood clots, easy bleeding, easy bruising, swollen glands, others Endocrine: denies: excessive hunger, excessive sweating, excessive thirst, excessive urination, flushing, intolerance to cold, intolerance to heat, unexplained weight gain, unexplained weight loss, others Psychiatric: denies: anxiety, bipolar disorder, depression, hopeless, panic disorder, schizophrenia, sleepless, suicidal, others All Other Systems: Reviewed and Negative Physical Exam General Appearance: Moderate Distress HEENT: Normal ENT Inspection, Pharynx Normal, TMs Normal Neck: Full Range of Motion, Non-Tender, Normal, Normal Inspection Respiratory: Chest Non-Tender, Lungs Clear, No Accessory Muscle Use, No Respiratory Distress, Normal Breath Sounds Cardiovascular: No Edema, No JVD, No Murmur, No Gallop, Normal Peripheral Pulses, Regular Rate/Rhythm Breast Exam: Deferred Gastrointestinal: Diffuse, No Organomegaly, No Pulsatile Mass, Normal Bowel Sounds, Soft, Tenderness Genitalia: Deferred Pelvic: Deferred Rectal: Deferred Extremities: No calf tenderness, Normal capillary refill, No pedal edema, Other (Abrasion to the right knee) Musculoskeletal : Apperance: Normal Neurologic: Alert, cop II-XII nml as Tested, No Motor Deficits, Normal Affect, Normal Mood, No Sensory Deficits Cerebellar Function: Normal Reflexes: Normal Skin: Dry, Normal Color, Warm Lymphatic: No Adenopathy Was a procedure done? Was a procedure done?: No Differential Dx Considerations may include: Fracture, strain, generalized weakness, electrolyte imbalance X-Ray, Labs, Meds, VS Vital Signs Date Time Temp Pulse Resp B/P (MAP) Pulse Ox O2 Delivery O2 Flow Rate FiO2 09/16/24 07:03 97.9 77 16 128/79 (95) 100 97.9 Lab Test 09/16/24 07:15 Range/Units White Blood Count 5.0 4.4-10.8 10^3/uL Red Blood Count 4.45 4.0-5.20 10^6/uL Hemoglobin 14.1 12.2-16.2 g/dL Hematocrit 40.8 36.0-46.0 % Mean Corpuscular Volume 91.5 80.0-100.0 fL Mean Corpuscular Hemoglobin 31.6 28.0-32.0 pg Mean Corpuscular Hemoglobin Concent 34.6 32.0-36.0 g/dL Red Cell Distribution Width 13.2 11.8-14.3 % Platelet Count 180 140-450 10^3/uL Mean Platelet Volume 8.1 6.9-10.8 fL Neutrophils (%) (Auto) 64.9 37.0-80.0 % Lymphocytes (%) (Auto) 26.0 10.0-50.0 % Monocytes (%) (Auto) 7.6 0.0-12.0 % Eosinophils (%) (Auto) 1.2 0.0-7.0 % Basophils (%) (Auto) 0.3 0.0-2.0 % Neutrophils # (Auto) 3.2 1.6-8.6 10 ^3/uL Lymphocytes # (Auto) 1.3 0.4-5.4 10 ^3/uL Monocytes # (Auto) 0.4 0-1.3 10 ^3/uL Eosinophils # (Auto) 0.1 0-0.8 10 ^3/uL Basophils # (Auto) 0 0-0.2 10 ^3/uL Nucleated Red Blood Cells 0.3 % Sodium Level 143 136-145 mmol/L Potassium Level 4.6 3.5-5.1 mmol/L Chloride Level 107 98-107 mmol/L Carbon Dioxide Level 29 20-31 mmol/L Anion Gap 7 5-15 Blood Urea Nitrogen 19 9-23 mg/dL Creatinine 0.83 0.550-1.02 mg/dL Glomerular Filtration Rate Calc 82 >90 mL/min BUN/Creatinine Ratio 22.9 H 10.0-20.0 Serum Glucose 105 74-106 mg/dL Calcium Level 11.1 H 8.7-10.4 mg/dL Current Medications Medications (Trade) Dose Ordered Sig/Aureliano Route Start Time Stop Time Status Last Admin Lorazepam (Ativan Inj) 1 mg ONCE ONCE IM 09/16/24 07:45 09/16/24 07:46 DC 09/16/24 07:38 IMPRESSION: 1. No fracture or dislocation in the right knee. ESSION: 1. No evidence of acute intracranial abnormality. The patient's CBC and chemistry panel are within normal limits The patient was given Ativan 1 mg IM after having what seemed to be a shaking episode or seizure on the CAT scan take The patient was being admitted at this time Images Reviewed?: Images reviewed and evaluated by me Time of 1ST Reevaluation: 07:25 Reevaluation 1ST: Unchanged Patient Education/Counseling: Diagnosis, Treatment, Prognosis Family Education/Counseling: No Family Present Departure 1 Departure Time of Disposition: 11:33 Impression: Primary Impression: Autonomic dysfunction Additional Impressions: Abrasion of right knee Qualified Codes: S80.211A - Abrasion, right knee, initial encounter History of fall Disposition: ADMITTED INPATIENT Admit to: Tele Condition: Fair Critical Care Note Critical Care Time?: Yes (45 min-critical care time only) Stability Stability form required: Yes Unstable for transfer: Telemetry monitoring (Telemetry monitoring required), ED Physician Assesment (Clinical assesment) Heart Score Heart Score: Heart Score Response (Comments) Value History N/A 0 EKG N/A 0 Age N/A 0 Risk Factors N/A 0 Troponin N/A 0 Total 0 I personally scribed for GRAHAM MCMAHON MD ([email or web address]) on 09/16/24 at 07:08. Electronically submitted by Maxwell Nguyen ([email or web address]). I personally scribed for GRAHAM MCMAHON MD ([email or web address]) on 09/16/24 at 10:58. Electronically submitted by Maxwell Nguyen ([email or web address]). GRAHAM MCMAHON MD September 16, 2024 07:08
[2024-09-16] MEDS: LORazepam 2MG/ML-1ML VIAL IM ONE (07:38)
[2024-09-16] MEDS: LORazepam 2MG/ML-1ML VIAL ONE (07:38)
[2024-09-16 07:45] LABS: Basophils # (auto) 0 10 ^3/uL (0-0.2); Basophils % (auto) 0.3 % (0.0-2.0); Eosinophils # (auto) 0.1 10 ^3/uL (0-0.8); Eosinophils % (auto) 1.2 % (0.0-7.0); Hematocrit 40.8 % (36.0-46.0); Hemoglobin 14.1 g/dL (12.2-16.2); Lymphocytes # (auto) 1.3 10 ^3/uL (0.4-5.4); Mean Corpuscular Hemoglobin 31.6 pg (28.0-32.0); Mean Corpuscular Hgb Conc. 34.6 g/dL (32.0-36.0); Mean Corpuscular Volume 91.5 fL (80.0-100.0); Monocytes # (auto) 0.4 10 ^3/uL (0-1.3); Monocytes % (auto) 7.6 % (0.0-12.0); Neutrophils # (auto) 3.2 10 ^3/uL (1.6-8.6); Neutrophils % (auto) 64.9 % (37.0-80.0); Nucleated Red Blood Cells % 0.3 %; Platelet Count (auto) 180 10^3/uL (140-450); Red Blood Cells 4.45 10^6/uL (4.0-5.20); Red Cell Distribution Width 13.2 % (11.8-14.3)
[2024-09-16 07:52] LABS: Chloride 107 mmol/L (98-107); Potassium 4.6 mmol/L (3.5-5.1); Sodium 143 mmol/L (136-145)
[2024-09-16 07:53] LABS: Anion Gap 7 (5-15); Carbon Dioxide 29 mmol/L (20-31)
--- NOTE | 2024-09-16 07:56 | DVH ---
EXAM: CT HEAD WITHOUT CONTRAST INDICATION: fall TECHNIQUE: CT of the head without intravenous contrast. Coronal and sagittal reformatted images are s ubmitted. Radiation Dose : 1. Head: CT Dose: CTDI volume is 48.11 mGy. Dose-length product is 846.59 mGy*cm The dose indicators for CT are the volume Computed Tomography (CT) Dose Index (CTDIvol) and the Dose Length Product (DLP), and are measured in units of mGy and mGy-cm, respectively. These indicators are not patient dose, but values generated from the CT scanner acquisition factors. The report includes radiation exposure data for exposures received during this examination. All CT scans at this medical facility are performed using dose modulation techniques as appropriate to a performed exam including the following: Automated exposure control was utilized; adjustment of the MA and/or KV according to patient size; and use of iterative reconstruction technique. COMPARISON: CT HEAD WITHOUT CONTRAST on DOS: 06/10/24, CT HEAD WITHOUT CONTRAST on DOS: 05/10/24, CT H EAD WITHOUT CONTRAST on DOS: 05/09/24 FINDINGS: There is no evidence of acute intracranial hemorrhage, extra-axial collection, mass effect, midline s hift, herniation or hydrocephalus. Mild diffuse volume loss. The ventricles, sulci and cisterns are age appropriate. The thapa-white differentiation is intact. The visualized paranasal sinuses and mastoid air cells are clear. No depressed calvarial fracture. The surrounding soft tissues are unremarkable. IMPRESSION: 1. No evidence of acute intracranial abnormality.
[2024-09-16 07:58] LABS: BUN/Creatinine Ratio 22.9 (10.0-20.0); Blood Urea Nitrogen 19 mg/dL (9-23); Glucose 105 mg/dL (74-106)
[2024-09-16 08:00] LABS: Calcium 11.1 mg/dL (8.7-10.4)
--- NOTE | 2024-09-16 09:58 | DVH ---
EXAM: XY R KNEE 2V XRAY HISTORY: fall COMPARISON: None TECHNIQUE: AP and lateral views of the right knee were performed. FINDINGS: No acute fracture is identified about the right knee. No significant joint space narrowing. No evid ence of significant joint effusion. IMPRESSION: 1. No fracture or dislocation in the right knee.
[2024-09-16] MEDS ORDERED: MORPHINE SULFATE INJ 2 MG/ml SYRG IV PRN (14:00)
[2024-09-16] MEDS ORDERED: PATIENTS OWN MEDICATION (Hydroxyzine Hcl 25 MG) PO PRN (14:00)
[2024-09-16] MEDS ORDERED: PATIENTS OWN MEDICATION (Gabapentin (Once-Daily) (Gabapentin) 300 MG) PO SCH (14:00)
[2024-09-16] MEDS ORDERED: LORazepam 0.5 MG TAB PO PRN (14:00)
[2024-09-16] MEDS ORDERED: ONDANSETRON HCL 4 MG/2 ML VIAL IV PRN (14:00)
[2024-09-16] MEDS ORDERED: diphenhdrAMINE HCL 25 MG CAP PO PRN (14:00)
--- NOTE | 2024-09-16 14:07 | DVHHP2 ---
History of Present Illness Reason for Visit: Status post mechanical fall at SNF with reported seizure History of Present Illness Tammy Morfin is a 59-year-old female with past medical history of hy pertension, hyperlipidemia, CVA, seizures, liver disease, portal hypertension, hepatitis-B and C positive, recurrent falls, depression, neuropathy, schizophrenia, anxiety, and breast augmentation who presents to the ED with a right skin tear status post fall at a SNF. Patient reports that she had currently has a headache 7/10 throbbing and constant. She states that she was in bed putting on her shoes when she fell on her right knee. Patient also endorses that she uses a front wheel walker with ambulation. Upon examination patient is unable to tell me which SNF she is from however she is from [facility]. Patient denies any chest pain, shortness of breath, fever, chills, lightheadedness, weakness, dizziness, recent sick contacts, recent travels, abdominal pain, nausea, vomiting, or diarrhea. 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 seizures) Hepatobiliary: Hep A/B/C Psych: Anxiety, Depression, Schizophrenia Past Medical History Liver disease Portal hypertension Recurrent falls Neuropathy Past Surgical History: Other (Breast augmentation) Family History: Cancer, Other (Patient unable to report who has cancer in her family) Smoke: No ALCOHOL: none (Quit drinking) Drugs: Other (Patient reports that she was using drugs unknown which ones) Lives: [facility] Domestic Violence: Neg Review of Systems Musculoskeletal: other (Right knee pain) Skin: Other (Right knee skin tear) Allergies: Coded Allergies: Iodine (Verified Allergy, Unknown, 11/11/23) Sulfa Antibiotics (Verified Allergy, Unknown, 11/11/23) Medications Current Medications Medications Dose Ordered Sig/Aureliano Route Start Time Stop Time Status Last Admin Dose Admin Aspirin 81 mg DAILY PO 09/17/24 10:00 UNV Atorvastatin Calcium 20 mg HS PO 09/16/24 22:00 UNV Diphenhydramine HCl 25 mg Q6HPRN PRN PO 09/16/24 14:00 UNV Levetiracetam 750 mg BID PO 09/16/24 22:00 UNV Loratadine 10 mg DAILY PO 09/17/24 10:00 UNV Lorazepam 0.5 mg Q6HPRN PRN PO 09/16/24 14:00 UNV Multivitamins/ Minerals 1 tab DAILY PO 09/17/24 10:00 UNV Sennosides 17.2 mg BID PO 09/16/24 22:00 UNV Thiamine HCl 100 mg DAILY PO 09/17/24 10:00 UNV Patient Own Medication 4 tab HS PO 09/16/24 22:00 UNV Patient Own Medication 300 mg TID PO 09/16/24 14:00 UNV Patient Own Medication 25 mg Q8HPRN PRN PO 09/16/24 14:00 UNV Patient Own Medication 150 mg BID PO 09/16/24 22:00 UNV Patient Own Medication 10 mg HS PO 09/16/24 22:00 UNV Patient Own Medication 20 mg HS PO 09/16/24 22:00 UNV Patient Own Medication 12.5 mg BID PO 09/16/24 22:00 UNV Patient Own Medication 25 mg DAILY PO 09/17/24 10:00 UNV Exam Vital Signs Vital Signs Date Time Temp Pulse Resp B/P (MAP) Pulse Ox O2 Delivery O2 Flow Rate FiO2 09/16/24 07:03 97.9 77 16 128/79 (95) 100 97.9 General Appearance: Alert, Oriented X3, Cooperative, No acute distress HEENT: Atraumatic, PERRLA, EOMI, Mucous membr. moist/pink Respiratory: Clear to auscultation, Normal air movement Cardiovascular: Regular rate, Normal S1, Normal S2, No murmurs Abdominal: Normal bowel sounds, Soft Extremities: No clubbing, No cyanosis Neuro: Normal speech, Normal tone, Sensation intact Psych/Mental Status: Mental status NL, Mood NL Labs/Xrays Labs Test 09/16/24 07:15 Range/Units White Blood Count 5.0 4.4-10.8 10^3/uL Red Blood Count 4.45 4.0-5.20 10^6/uL Hemoglobin 14.1 12.2-16.2 g/dL Hematocrit 40.8 36.0-46.0 % Mean Corpuscular Volume 91.5 80.0-100.0 fL Mean Corpuscular Hemoglobin 31.6 28.0-32.0 pg Mean Corpuscular Hemoglobin Concent 34.6 32.0-36.0 g/dL Red Cell Distribution Width 13.2 11.8-14.3 % Platelet Count 180 140-450 10^3/uL Mean Platelet Volume 8.1 6.9-10.8 fL Neutrophils (%) (Auto) 64.9 37.0-80.0 % Lymphocytes (%) (Auto) 26.0 10.0-50.0 % Monocytes (%) (Auto) 7.6 0.0-12.0 % Eosinophils (%) (Auto) 1.2 0.0-7.0 % Basophils (%) (Auto) 0.3 0.0-2.0 % Neutrophils # (Auto) 3.2 1.6-8.6 10 ^3/uL Lymphocytes # (Auto) 1.3 0.4-5.4 10 ^3/uL Monocytes # (Auto) 0.4 0-1.3 10 ^3/uL Eosinophils # (Auto) 0.1 0-0.8 10 ^3/uL Basophils # (Auto) 0 0-0.2 10 ^3/uL Nucleated Red Blood Cells 0.3 % Sodium Level 143 136-145 mmol/L Potassium Level 4.6 3.5-5.1 mmol/L Chloride Level 107 98-107 mmol/L Carbon Dioxide Level 29 20-31 mmol/L Anion Gap 7 5-15 Blood Urea Nitrogen 19 9-23 mg/dL Creatinine 0.83 0.550-1.02 mg/dL Glomerular Filtration Rate Calc 82 >90 mL/min BUN/Creatinine Ratio 22.9 H 10.0-20.0 Serum Glucose 105 74-106 mg/dL Calcium Level 11.1 H 8.7-10.4 mg/dL Bilateral lower extremity venous duplex Clinical History: Pain; r/o dvt Comparison: None Technique: Duplex Doppler evaluation of the deep venous systems of both lower extremities from the common femoral veins to the popliteal veins including color Doppler and spectral/pulsed waveform analysis was performed. Findings: RIGHT SIDE: The common femoral vein demonstrates appropriate compressibility and waveform variability. There is compressibility/patency of the great saphenous vein at the proximal thigh. The femoral vein demonstrates appropriate compressibility and waveform variability. The deep femoral vein demonstrates appropriate compressibility and waveform variability. The popliteal vein demonstrates appropriate compressibility and waveform variability. There is normal compressibility at the tibioperoneal trunk. LEFT SIDE: The common femoral vein demonstrates appropriate compressibility and waveform variability. There is compressibility/patency of the great saphenous vein at the proximal thigh. The femoral vein demonstrates appropriate compressibility and waveform variability. The deep femoral vein demonstrates appropriate compressibility and waveform variability. The popliteal vein demonstrates appropriate compressibility and waveform variability. There is normal compressibility at the tibioperoneal trunk. Impression: No right or left femoropopliteal venous thrombosis. EXAM: XY R KNEE 2V XRAY HISTORY: fall COMPARISON: None TECHNIQUE: AP and lateral views of the right knee were performed. FINDINGS: No acute fracture is identified about the right knee. No significant joint space narrowing. No evidence of significant joint effusion. IMPRESSION: 1. No fracture or dislocation in the right knee. EXAM: CT HEAD WITHOUT CONTRAST INDICATION: fall TECHNIQUE: CT of the head without intravenous contrast. Coronal and sagittal reformatted images are submitted. Radiation Dose : 1. Head: CT Dose: CTDI volume is 48.11 mGy. Dose-length product is 846.59 mGy*cm The dose indicators for CT are the volume Computed Tomography (CT) Dose Index (CTDIvol) and the Dose Length Product (DLP), and are measured in units of mGy and mGy-cm, respectively. These indicators are not patient dose, but values generated from the CT scanner acquisition factors. The report includes radiation exposure data for exposures received during this examination. All CT scans at this medical facility are performed using dose modulation techniques as appropriate to a performed exam including the following: Automated exposure control was utilized; adjustment of the MA and/or KV according to patient size; and use of iterative reconstruction technique. COMPARISON: CT HEAD WITHOUT CONTRAST on DOS: 06/10/24, CT HEAD WITHOUT CONTRAST on DOS: 05/10/24, CT HEAD WITHOUT CONTRAST on DOS: 05/09/24 FINDINGS: There is no evidence of acute intracranial hemorrhage, extra-axial collection, mass effect, midline shift, herniation or hydrocephalus. Mild diffuse volume loss. The ventricles, sulci and cisterns are age appropriate. The thapa-white differentiation is intact. The visualized paranasal sinuses and mastoid air cells are clear. No depressed calvarial fracture. The surrounding soft tissues are unremarkable. IMPRESSION: 1. No evidence of acute intracranial abnormality. Assessment/Plan Assessment/Plan Assessment Right knee skin tear status post mechanical fall Seizure Ex drinker Ex drug use History of hypertension History of hyperlipidemia History of CVA History of liver disease History of portal hypertension History of hep B and C positive History of recurrent falls History of neuropathy History of depression History of schizophrenia History of anxiety History of breast augmentation Plan Admit to med surge Ativan given ED X-ray right knee noted CT head noted EKG UA Ultrasound bilateral lower extremities Antiemetics Pain management Diet Seizure precautions Wound halfway medications reconciled DVT prophylaxis-Lovenox PUD prophylaxis-not indicated no history of GERD or GI bleed Discussed plan of care with patient and nurse Counseled patient on continuance of cessation of EtOH use Counseled patient on continuance of cessation of drug use Neurology consult Plan discussed with: Patient My Orders 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 Procedure Category Date Status Time Aspirin Enteric PHA 09/17/24 Logged Coated Tablet 10:00 Atorvastatin (Lipitor) PHA 09/16/24 Logged 22:00 Diphenhdramine PHA 09/16/24 Logged Capsule (Benadryl 14:00 Levetiracetam Tablet PHA 09/16/24 Logged (Keppra Tablet) 22:00 Loratadine Tablet PHA 09/17/24 Logged (Claritin Tablet) 10:00 Lorazepam Tablet PHA 09/16/24 Logged (Ativan Tablet) 14:00 Multiple Vitamin W PHA 09/17/24 Logged Mineral Tab (Mvi W/ M 10:00 Senna Pod Tablet PHA 09/16/24 Logged (Senokot Tablet) 22:00 Thiamine Tab PHA 09/17/24 Logged 10:00 (Nf) Divalproex PHA 09/16/24 Logged Sodium (Divalproex 22:00 (Nf) Gabapentin PHA 09/16/24 Logged (Once-Daily) 14:00 (Nf) Hydroxyzine Hcl PHA 09/16/24 Logged 14:00 (Nf) Lacosamide PHA 09/16/24 Logged 22:00 (Nf) Melatonin (Kp PHA 09/16/24 Logged Melatonin) 22:00 (Nf) Olanzapine PHA 09/16/24 Logged 22:00 (Nf) Quetiapine PHA 09/16/24 Logged Fumerate (Seroquel) 22:00 (Nf) Sertraline Hcl PHA 09/17/24 Logged 10:00 Admit ADMIT 09/16/24 Transmitted 13:55 Allergies SERENA 09/16/24 Transmitted 13:55 Code Status CODE 09/16/24 Transmitted 13:55 Hydrocodone-Acet PHA 09/16/24 Transmitted 5/325mg Tab (Schroeder 14:00 Ondansetron Hcl PHA 09/16/24 Transmitted (Zofran) 14:00 Enoxaparin Sodium PHA 09/17/24 Transmitted (Lovenox) 10:00 Complete Blood Count LAB 09/17/24 Verified 04:00 Comprehensive LAB 09/17/24 Verified Metabolic Panel 04:00 Cardiac DIET 09/16/24 Transmitted Diet-2gna,Lofat,Lochol Dinner Acetaminophen Tablet PHA 09/16/24 Transmitted (Tylenol Tablet) 14:00 Morphine Sulfate PHA 09/16/24 Transmitted Injection 14:00 Date of Service: September 16, 2024 Billing Provider: TIA IBRAHIM Common Visit Codes: 36403-TPRIULC INP/OBS CARE (HIGH) TIA IBRAHIM September 16, 2024 14:07
--- NOTE | 2024-09-16 14:50 | DVH ---
Bilateral lower extremity venous duplex Clinical History: Pain; r/o dvt Comparison: None Technique: Duplex Doppler evaluation of the deep venous systems of both lower extremities from the common femora l veins to the popliteal veins including color Doppler and spectral/pulsed waveform analysis was perf ormed. Findings: RIGHT SIDE: The common femoral vein demonstrates appropriate compressibility and waveform variability. There is compressibility/patency of the great saphenous vein at the proximal thigh. The femoral vein demonstrates appropriate compressibility and waveform variability. The deep femoral vein demonstrates appropriate compressibility and waveform variability. The popliteal vein demonstrates appropriate compressibility and waveform variability. There is normal compressibility at the tibioperoneal trunk. LEFT SIDE: The common femoral vein demonstrates appropriate compressibility and waveform variability. There is compressibility/patency of the great saphenous vein at the proximal thigh. The femoral vein demonstrates appropriate compressibility and waveform variability. The deep femoral vein demonstrates appropriate compressibility and waveform variability. The popliteal vein demonstrates appropriate compressibility and waveform variability. There is normal compressibility at the tibioperoneal trunk. Impression: No right or left femoropopliteal venous thrombosis.
[2024-09-16 16:39] VITALS: PULSE 86; RESP 16; O2SAT 95
[2024-09-16] MEDS ORDERED: hydrOXYzine 25 MG TAB or CAP PO PRN (17:00)
[2024-09-16 17:10] VITALS: BP 159/87; PULSE 85; RESP 16; TEMP 98.8; O2SAT 96
[2024-09-16] MEDS: HYDROcodone-ACET 5/325MG TAB PO PRN (17:46)
[2024-09-16 20:00] VITALS: PULSE 89; RESP 18; O2SAT 97
[2024-09-16 21:00] VITALS: BP 100/61; PULSE 89; RESP 18; TEMP 97.6; O2SAT 97
[2024-09-16] MEDS: GABAPENTIN 300 MG CAP PO SCH (21:10)
[2024-09-16] MEDS: MELATONIN 5 MG TAB PO SCH (21:10)
[2024-09-16] MEDS: OLANZapine 5 MG TAB PO SCH (21:11)
[2024-09-16] MEDS: levETIRAcetam 500 MG TAB PO SCH (21:11)
[2024-09-16] MEDS: ATORVASTATIN 20 MG TAB PO SCH (21:12)
[2024-09-16] MEDS: QUEtiapine FUMARATE 25 MG TAB PO SCH (21:12)
[2024-09-16] MEDS: SENNA 8.6 MG TAB PO SCH (21:13)
[2024-09-16] MEDS: ACETAMINOPHEN 325 MG TAB PO PRN (21:15)
[2024-09-16] MEDS: DIVALPROEX SODIUM 500 MG PO SCH (21:26)
[2024-09-16] MEDS: LACOSAMIDE 150 MG PO SCH (21:26)
[2024-09-16] MEDS ORDERED: QUETIAPINE FUMERATE PO SCH (22:00)
[2024-09-16] MEDS ORDERED: MELATONIN 10 MG PO SCH (22:00)
[2024-09-16] MEDS ORDERED: OLANZAPINE 20 MG PO SCH (22:00)
[2024-09-17 05:00] VITALS: BP 96/63; PULSE 71; RESP 18; TEMP 97.5; O2SAT 92
[2024-09-17 06:25] LABS: Basophils # (auto) 0 10 ^3/uL (0-0.2); Basophils % (auto) 0.3 % (0.0-2.0); Eosinophils # (auto) 0.1 10 ^3/uL (0-0.8); Eosinophils % (auto) 2.1 % (0.0-7.0); Hematocrit 36.8 % (36.0-46.0); Hemoglobin 12.8 g/dL (12.2-16.2); Lymphocytes # (auto) 2.2 10 ^3/uL (0.4-5.4); Lymphocytes % (auto) 43.5 % (10.0-50.0); Mean Corpuscular Hemoglobin 31.7 pg (28.0-32.0); Mean Corpuscular Hgb Conc. 34.7 g/dL (32.0-36.0); Mean Corpuscular Volume 91.5 fL (80.0-100.0); Monocytes # (auto) 0.6 10 ^3/uL (0-1.3); Monocytes % (auto) 11.2 % (0.0-12.0); Neutrophils # (auto) 2.2 10 ^3/uL (1.6-8.6); Neutrophils % (auto) 42.9 % (37.0-80.0); Nucleated Red Blood Cells % 0.1 %; Platelet Count (auto) 168 10^3/uL (140-450); Red Blood Cells 4.02 10^6/uL (4.0-5.20); Red Cell Distribution Width 12.8 % (11.8-14.3); White Blood Cell 5.2 10^3/uL (4.4-10.8)
[2024-09-17 06:47] LABS: Alanine Aminotransferase 14 U/L (7-40); Albumin 4.3 g/dL (3.2-4.8); Alkaline Phosphatase 76 U/L (46-116); Anion Gap 8 (5-15); Aspartate Aminotransferase 21 U/L (13-40); BUN/Creatinine Ratio 31.6 (10.0-20.0); Calcium 10.1 mg/dL (8.7-10.4); Carbon Dioxide 25 mmol/L (20-31); Chloride 106 mmol/L (98-107); Glucose 98 mg/dL (74-106); Potassium 3.7 mmol/L (3.5-5.1); Sodium 139 mmol/L (136-145); Total Protein 7.4 g/dL (5.7-8.2)
[2024-09-17 06:48] LABS: Bilirubin, Total 0.6 mg/dL (0.2-1.0); Blood Urea Nitrogen 25 mg/dL (9-23)
[2024-09-17 08:36] VITALS: BP 92/62; PULSE 63; RESP 16; TEMP 97.6; O2SAT 93
[2024-09-17] MEDS ORDERED: SERTRALINE HCL 25 MG PO SCH (10:00)
[2024-09-17] MEDS: THIAMINE HCL 100 MG TAB PO SCH (10:40)
[2024-09-17] MEDS: ASPirin-EC 81 mg tab PO SCH (10:40)
[2024-09-17] MEDS: MULTIPLE VITAMINS W/ MINERALS TAB PO SCH (10:41)
[2024-09-17] MEDS: LORATADINE 10 MG TAB PO SCH (10:45)
[2024-09-17] MEDS: ENOXAPARIN SOD 40 MG/0.4 ML SYRINGE SC SCH (10:46)
[2024-09-17] MEDS: SERTRALINE HCL 50 MG TAB PO SCH (10:46)
--- NOTE | 2024-09-17 11:56 | DVHPN2 ---
Reviewed: Care Plan, H&P, Labs, Medications, Previous Orders, Radiology Changes from previous H/P or p: No Changes Musculoskeletal: other (Right knee pain) Skin: Other (Right knee skin tear) Objective Vitals Vital Signs Date Time Temp Pulse Resp B/P (MAP) Pulse Ox O2 Delivery O2 Flow Rate FiO2 09/17/24 08:36 97.6 63 16 92/62 (72) 93 97.6 09/16/24 20:00 Room Air* 0 21 Intake/Output Intake and Output 09/17/24 07:00 Intake Total 800 ml Balance 800 ml Intake Oral 800 ml # Voids 3 Medications Current Medications Medications Dose Ordered Sig/Aureliano Route Start Time Stop Time Status Last Admin Dose Admin Aspirin 81 mg DAILY PO 09/17/24 10:00 09/17/24 10:40 81 MG Atorvastatin Calcium 20 mg HS PO 09/16/24 22:00 09/16/24 21:12 20 MG Diphenhydramine HCl 25 mg Q6HPRN PRN PO 09/16/24 14:00 Levetiracetam 750 mg BID PO 09/16/24 22:00 09/17/24 10:44 750 MG Loratadine 10 mg DAILY PO 09/17/24 10:00 09/17/24 10:45 10 MG Lorazepam 0.5 mg Q6HPRN PRN PO 09/16/24 14:00 Multivitamins/ Minerals 1 tab DAILY PO 09/17/24 10:00 09/17/24 10:41 1 TAB Sennosides 17.2 mg BID PO 09/16/24 22:00 09/17/24 10:46 17.2 MG Thiamine HCl 100 mg DAILY PO 09/17/24 10:00 09/17/24 10:40 100 MG Patient Own Medication 4 tab HS PO 09/16/24 22:00 Patient Own Medication 300 mg TID PO 09/16/24 14:00 UNV Patient Own Medication 25 mg Q8HPRN PRN PO 09/16/24 14:00 UNV Patient Own Medication 150 mg BID PO 09/16/24 22:00 Patient Own Medication 10 mg HS PO 09/16/24 22:00 Cancel Patient Own Medication 20 mg HS PO 09/16/24 22:00 UNV Patient Own Medication 12.5 mg BID PO 09/16/24 22:00 UNV Patient Own Medication 25 mg DAILY PO 09/17/24 10:00 UNV Acetaminophen/ Hydrocodone Bitart 1 tab Q4HP PRN PO 09/16/24 14:00 09/16/24 17:46 1 TAB Ondansetron HCl 4 mg Q4HP PRN IV 09/16/24 14:00 Enoxaparin Sodium 40 mg DAILY SC 09/17/24 10:00 09/17/24 10:46 40 MG Acetaminophen 650 mg Q6HP PRN PO 09/16/24 14:00 09/16/24 21:15 650 MG Morphine Sulfate 2 mg Q4HPRN PRN IV 09/16/24 14:00 Gabapentin 300 mg TID PO 09/16/24 22:00 09/17/24 06:10 300 MG Hydroxyzine Pamoate 25 mg Q8HP PRN PO 09/16/24 17:00 Melatonin 10 mg HS PO 09/16/24 22:00 09/16/24 21:10 10 MG Olanzapine 20 mg HS PO 09/16/24 22:00 09/16/24 21:11 20 MG Quetiapine Fumarate 12.5 mg BID PO 09/16/24 22:00 09/17/24 10:43 12.5 MG Sertraline HCl 25 mg DAILY PO 09/17/24 10:00 09/17/24 10:46 25 MG Laboratory Results Laboratory Tests 09/17/24 05:19 Chemistry Test 09/17/24 05:19 Albumin 4.3 g/dL (3.2-4.8) Calcium Level 10.1 mg/dL (8.7-10.4) Total Protein 7.4 g/dL (5.7-8.2) LFT Test 09/17/24 05:19 Alanine Aminotransferase (ALT) 14 U/L (7-40) Alkaline Phosphatase 76 U/L (46-116) Aspartate Amino Transferase (AST) 21 U/L (13-40) Total Bilirubin 0.6 mg/dL (0.2-1.0) Labs and/or images reviewed: Labs reviewed by me, Image(s) reviewed by me Assessment/Plan Assessment/Plan Skin tear right knee status post mechanical fall ; x-ray right knee negative DVT right lower extremity ruled out Seizures History of drug abuse Chronic alcohol abuse Hypertension Hypercholesterolemia CVA Cirrhosis of liver Portal hypertension Hep B positive Hep C positive Recurrent falls Depression Schizophrenia Anxiety Peripheral neuropathy Recurrent falls [facility] Complaining of headache: CT head without contrast ordered Plan discussed with: Patient Date of Service: September 17, 2024 Billing Provider: JENNIFER CHAMBERS MD Common Visit Codes: [id number] INP/OBS CARE(HIGH) JENNIFER CHAMBERS MD September 17, 2024 11:56
[2024-09-17 12:31] VITALS: BP 83/54; PULSE 71; RESP 16; TEMP 98.1; O2SAT 96
[2024-09-17 17:00] VITALS: BP 93/66; PULSE 72; RESP 16; TEMP 98.7; O2SAT 97
--- NOTE | 2024-09-17 19:25 | BSKYNEURO ---
[place] [facility] Note # Demographics Consult Type: General Neurology Patient Location: Inpatient First Name: Tammy Last Name: Navjot Date of : 1965 Age: 59 Gender: Female Facility: [facility] Time of Initial Page ([place] Time): 09/17/2024 18:48 Time of Return Call ([place] Time): 09/17/2024 18:48 # HPI History: Patient is currently admitted for breakthrough seizures; she started having seizures 5 yrs ago. She is having seizures almost once a month. She is in a lcohol rehab and has h/o alcohol use in the past. H/O meningitis in high school. # Exam Mental Status: - awake - alert and oriented x 3 - follows commands Language: - normal speech Cranial Nerves: - no facial droop # Assessment Impression: - Seizure H/O alcohol use, hep b and c; avoid hepatotoxic meds. Avoid depakote- start patient on vimpat 200 mg bid # Plan Labs: - comprehensive metabolic panel - CBC - ua - ESR - Ammonia Imaging: (urgency: routine): - MRI Brain with AND without contrast Diagnostic Test: - EEG Medication: -Start lacosamide 200 mg bid Other: - If patient has any neurological deterioration please call me back immediately - seizure precautions - I have discussed my recommendations with the referring provider Additional Recommendations: -No driving till cleared by neurology as outpatient -Stop using alcohol # Logistics Attestation of consult completion: The patient is located at: [facility]. Facility staff participated in the visit. I performed this telemedicine visit from my offsite office utilizing interactive 2 way audio and visual telecommunication technology. Total time spent in telemedicine encounter: I spent 10 minutes reviewing clinical data and/or imaging, obtaining history, examining the patient, communicating with the onsite care team, and in preparation of this report. # Demographics First Name: Tammy Last Name: Navjot Facility: [facility] Yes TINA RODRIGUEZ MD September 17, 2024 19:25
[2024-09-17 21:00] VITALS: BP_SYST 127; BP_SYST 92; BP_DIAS 45; BP_DIAS 70; PULSE 112; PULSE 85; RESP 17; RESP 18; TEMP 97.5; TEMP 97.7; O2SAT 94; O2SAT 95
[2024-09-18 05:00] VITALS: BP 96/53; PULSE 66; RESP 16; TEMP 98.1; O2SAT 96
[2024-09-18 09:00] VITALS: BP 91/56; PULSE 63; RESP 16; TEMP 98; O2SAT 93
--- NOTE | 2024-09-18 11:12 | DVHPN2 ---
Reviewed: Care Plan, H&P, Labs, Medications, Previous Orders, Radiology Changes from previous H/P or p: No Changes Musculoskeletal: other (Right knee pain) Skin: Other (Right knee skin tear) Objective Vitals Vital Signs Date Time Temp Pulse Resp B/P (MAP) Pulse Ox O2 Delivery O2 Flow Rate FiO2 09/18/24 09:00 98.0 63 16 91/56 (68) 93 98.0 09/18/24 08:00 Room Air* 0 21 Intake/Output Intake and Output 09/18/24 07:00 Intake Total 440 ml Balance 440 ml Intake Oral 440 ml # Voids 4 Medications Current Medications Medications Dose Ordered Sig/Aureliano Route Start Time Stop Time Status Last Admin Dose Admin Aspirin 81 mg DAILY PO 09/17/24 10:00 09/18/24 09:40 81 MG Atorvastatin Calcium 20 mg HS PO 09/16/24 22:00 09/17/24 21:34 20 MG Diphenhydramine HCl 25 mg Q6HPRN PRN PO 09/16/24 14:00 Levetiracetam 750 mg BID PO 09/16/24 22:00 09/18/24 09:41 750 MG Loratadine 10 mg DAILY PO 09/17/24 10:00 09/18/24 09:41 10 MG Lorazepam 0.5 mg Q6HPRN PRN PO 09/16/24 14:00 Multivitamins/ Minerals 1 tab DAILY PO 09/17/24 10:00 09/18/24 09:40 1 TAB Sennosides 17.2 mg BID PO 09/16/24 22:00 09/18/24 09:40 17.2 MG Thiamine HCl 100 mg DAILY PO 09/17/24 10:00 09/18/24 09:41 100 MG Patient Own Medication 4 tab HS PO 09/16/24 22:00 Patient Own Medication 300 mg TID PO 09/16/24 14:00 UNV Patient Own Medication 25 mg Q8HPRN PRN PO 09/16/24 14:00 UNV Patient Own Medication 150 mg BID PO 09/16/24 22:00 Patient Own Medication 10 mg HS PO 09/16/24 22:00 Cancel Patient Own Medication 20 mg HS PO 09/16/24 22:00 UNV Patient Own Medication 12.5 mg BID PO 09/16/24 22:00 UNV Patient Own Medication 25 mg DAILY PO 09/17/24 10:00 UNV Acetaminophen/ Hydrocodone Bitart 1 tab Q4HP PRN PO 09/16/24 14:00 09/16/24 17:46 1 TAB Ondansetron HCl 4 mg Q4HP PRN IV 09/16/24 14:00 Enoxaparin Sodium 40 mg DAILY SC 09/17/24 10:00 09/18/24 09:41 40 MG Acetaminophen 650 mg Q6HP PRN PO 09/16/24 14:00 09/16/24 21:15 650 MG Morphine Sulfate 2 mg Q4HPRN PRN IV 09/16/24 14:00 Gabapentin 300 mg TID PO 09/16/24 22:00 09/18/24 06:05 300 MG Hydroxyzine Pamoate 25 mg Q8HP PRN PO 09/16/24 17:00 Melatonin 10 mg HS PO 09/16/24 22:00 09/17/24 21:34 10 MG Olanzapine 20 mg HS PO 09/16/24 22:00 09/17/24 21:35 20 MG Quetiapine Fumarate 12.5 mg BID PO 09/16/24 22:00 09/18/24 09:41 12.5 MG Sertraline HCl 25 mg DAILY PO 09/17/24 10:00 09/18/24 09:41 25 MG Laboratory Results Laboratory Tests 09/17/24 05:19 Labs and/or images reviewed: Labs reviewed by me, Image(s) reviewed by me Assessment/Plan Assessment/Plan Skin tear right knee status post mechanical fall ; x-ray right knee negative DVT right lower extremity ruled out Seizures: Tele neurology Dr. Marques Cardona, recommend to [place] Depakote and start on Vimpat 200 mg p.o. b.i.d. which was done History of drug abuse Chronic alcohol abuse Hypertension Hypercholesterolemia CVA Cirrhosis of liver Portal hypertension Hep B positive Hep C positive Recurrent falls Depression Schizophrenia Anxiety Peripheral neuropathy Recurrent falls [facility] Complaining of headache: CT head without contrast negative Plan discussed with: Patient My Orders Orders - JENNIFER CHAMBERS MD Procedure Category Date Status Time Cover Wound With Foam SERENA 09/17/24 In Process Dressing 10:40 Date of Service: September 18, 2024 Billing Provider: JENNIFER CHAMBERS MD Common Visit Codes: [id number] INP/OBS CARE(HIGH) JENNIFER CHAMBERS MD September 18, 2024 11:12
[2024-09-18] MEDS: LACOSAMIDE 50 MG TAB PO SCH (11:54)
[2024-09-18 13:00] VITALS: BP 118/67; PULSE 75; RESP 17; TEMP 97.6; O2SAT 97
[2024-09-18 17:00] VITALS: BP 112/71; PULSE 67; RESP 17; TEMP 97.8; O2SAT 99
[2024-09-18 20:00] VITALS: PULSE 61; RESP 18
[2024-09-18 21:00] VITALS: BP 96/62; PULSE 61; RESP 18; TEMP 97.4; O2SAT 96
[2024-09-19 01:00] VITALS: BP_SYST 106; BP_SYST 90; BP_DIAS 49; BP_DIAS 50; PULSE 51; PULSE 68; RESP 17; TEMP 97.2; TEMP 97.5; O2SAT 93; O2SAT 95
[2024-09-19 05:00] VITALS: BP 84/53; PULSE 51; RESP 17; TEMP 97; O2SAT 96
[2024-09-19 09:00] VITALS: BP 109/62; PULSE 78; RESP 16; TEMP 97.6; O2SAT 98
[2024-09-19] MEDS ORDERED: LACO100T PO (12:51)
--- NOTE | 2024-09-19 12:52 | DVHPN2 ---
Reviewed: Care Plan, H&P, Labs, Medications, Previous Orders, Radiology Changes from previous H/P or p: No Changes Musculoskeletal: other (Right knee pain) Skin: Other (Right knee skin tear) Objective Vitals Vital Signs Date Time Temp Pulse Resp B/P (MAP) Pulse Ox O2 Delivery O2 Flow Rate FiO2 09/19/24 09:00 97.6 78 16 109/62 (78) 98 97.6 09/19/24 08:02 Room Air* 0 21 Intake/Output Intake and Output 09/19/24 07:00 Intake Total 1150 ml Output Total 0 ml Balance 1150 ml Intake Oral 1150 ml Output Urine Total 0 ml # Voids 6 Medications Current Medications Medications Dose Ordered Sig/Aureliano Route Start Time Stop Time Status Last Admin Dose Admin Aspirin 81 mg DAILY PO 09/17/24 10:00 09/19/24 09:41 81 MG Atorvastatin Calcium 20 mg HS PO 09/16/24 22:00 09/18/24 22:25 20 MG Diphenhydramine HCl 25 mg Q6HPRN PRN PO 09/16/24 14:00 Levetiracetam 750 mg BID PO 09/16/24 22:00 09/19/24 09:42 750 MG Loratadine 10 mg DAILY PO 09/17/24 10:00 09/19/24 09:43 10 MG Lorazepam 0.5 mg Q6HPRN PRN PO 09/16/24 14:00 Multivitamins/ Minerals 1 tab DAILY PO 09/17/24 10:00 09/19/24 09:41 1 TAB Sennosides 17.2 mg BID PO 09/16/24 22:00 09/19/24 09:42 17.2 MG Thiamine HCl 100 mg DAILY PO 09/17/24 10:00 09/19/24 09:43 100 MG Patient Own Medication 300 mg TID PO 09/16/24 14:00 UNV Patient Own Medication 25 mg Q8HPRN PRN PO 09/16/24 14:00 UNV Patient Own Medication 10 mg HS PO 09/16/24 22:00 Cancel Patient Own Medication 20 mg HS PO 09/16/24 22:00 UNV Patient Own Medication 12.5 mg BID PO 09/16/24 22:00 UNV Patient Own Medication 25 mg DAILY PO 09/17/24 10:00 UNV Acetaminophen/ Hydrocodone Bitart 1 tab Q4HP PRN PO 09/16/24 14:00 09/18/24 22:28 1 TAB Ondansetron HCl 4 mg Q4HP PRN IV 09/16/24 14:00 Enoxaparin Sodium 40 mg DAILY SC 09/17/24 10:00 09/19/24 09:43 40 MG Acetaminophen 650 mg Q6HP PRN PO 09/16/24 14:00 09/16/24 21:15 650 MG Morphine Sulfate 2 mg Q4HPRN PRN IV 09/16/24 14:00 Gabapentin 300 mg TID PO 09/16/24 22:00 09/19/24 06:09 300 MG Hydroxyzine Pamoate 25 mg Q8HP PRN PO 09/16/24 17:00 Melatonin 10 mg HS PO 09/16/24 22:00 09/18/24 22:26 10 MG Olanzapine 20 mg HS PO 09/16/24 22:00 09/18/24 22:24 20 MG Quetiapine Fumarate 12.5 mg BID PO 09/16/24 22:00 09/19/24 09:43 12.5 MG Sertraline HCl 25 mg DAILY PO 09/17/24 10:00 09/19/24 09:43 25 MG Lacosamide 200 mg BID PO 09/18/24 11:19 09/19/24 09:42 200 MG Laboratory Results Laboratory Tests 09/17/24 05:19 Labs and/or images reviewed: Labs reviewed by me, Image(s) reviewed by me Assessment/Plan Assessment/Plan Skin tear right knee status post mechanical fall ; x-ray right knee negative DVT right lower extremity ruled out Seizures: Tele neurology Dr. Marques Cardona, recommend to [place] Depakote and start on Vimpat 200 mg p.o. b.i.d. which was done History of drug abuse Chronic alcohol abuse Hypertension Hypercholesterolemia CVA Cirrhosis of liver Portal hypertension Hep B positive Hep C positive Recurrent falls Depression Schizophrenia Anxiety Peripheral neuropathy Recurrent falls [facility] Complaining of headache: CT head without contrast negative Plan discussed with: Patient Date of Service: September 19, 2024 Billing Provider: JENNIFER CHAMBERS MD Common Visit Codes: [id number] INP/OBS CARE(HIGH) JENNIFER CHAMBERS MD September 19, 2024 12:52
[2024-09-19] MEDS ORDERED: LACO200T3 PO (12:58)
--- NOTE | 2024-09-19 12:58 | DVHDS2 ---
Discharge Summary Date of Admission September 16, 2024 at 13:55 Date of Discharge: September 19, 2024 Admitting Diagnosis Fall injury Wounds: skin tear Over the knee Labs/Diagnostic Data: Laboratory Results Test 09/17/24 05:19 White Blood Count 5.2 10^3/uL (4.4-10.8) Red Blood Count 4.02 10^6/uL (4.0-5.20) Hemoglobin 12.8 g/dL (12.2-16.2) Hematocrit 36.8 % (36.0-46.0) Mean Corpuscular Volume 91.5 fL (80.0-100.0) Mean Corpuscular Hemoglobin 31.7 pg (28.0-32.0) Mean Corpuscular Hemoglobin Concent 34.7 g/dL (32.0-36.0) Red Cell Distribution Width 12.8 % (11.8-14.3) Platelet Count 168 10^3/uL (140-450) Mean Platelet Volume 8.4 fL (6.9-10.8) Neutrophils (%) (Auto) 42.9 % (37.0-80.0) Lymphocytes (%) (Auto) 43.5 % (10.0-50.0) Monocytes (%) (Auto) 11.2 % (0.0-12.0) Eosinophils (%) (Auto) 2.1 % (0.0-7.0) Basophils (%) (Auto) 0.3 % (0.0-2.0) Neutrophils # (Auto) 2.2 10 ^3/uL (1.6-8.6) Lymphocytes # (Auto) 2.2 10 ^3/uL (0.4-5.4) Monocytes # (Auto) 0.6 10 ^3/uL (0-1.3) Eosinophils # (Auto) 0.1 10 ^3/uL (0-0.8) Basophils # (Auto) 0 10 ^3/uL (0-0.2) Nucleated Red Blood Cells 0.1 % Sodium Level 139 mmol/L (136-145) Potassium Level 3.7 mmol/L (3.5-5.1) Chloride Level 106 mmol/L (98-107) Carbon Dioxide Level 25 mmol/L (20-31) Anion Gap 8 (5-15) Blood Urea Nitrogen 25 mg/dL (9-23) Creatinine 0.79 mg/dL (0.550-1.02) Glomerular Filtration Rate Calc 87 mL/min (>90) BUN/Creatinine Ratio 31.6 (10.0-20.0) Serum Glucose 98 mg/dL (74-106) Calcium Level 10.1 mg/dL (8.7-10.4) Total Bilirubin 0.6 mg/dL (0.2-1.0) Aspartate Amino Transferase (AST) 21 U/L (13-40) Alanine Aminotransferase (ALT) 14 U/L (7-40) Alkaline Phosphatase 76 U/L (46-116) Total Protein 7.4 g/dL (5.7-8.2) Albumin 4.3 g/dL (3.2-4.8) Other Laboratory Tests 09/17/24 05:19 Brief Hx & Hospital Course: 72-year-old female with a history of seizures drug abuse alcohol abuse hypertension hypercholesterolemia CVA cirrhosis of liver portal hypertension hepatitis B positive hepatitis-C positive recurrent falls depression schizophrenia anxiety living in assisted living facility brought in after a mechanical fall complained of skin tear over the right knee x-ray was negative for any fracture. Seen by tele neurologist and recommended DC Depakote and start on Vimpat 200 mg p.o. b.i.d. which was done. Patient at the time of discharge is stable without any active complaints. Discharged home. She will continue all her home medications except Depakote follow up with the primary Dr Consults/Reason for consult Tele neurologist Operations or Procedures CT head Condition at Discharge: Fair Final Diagnosis/Problems List Skin tear right knee status post mechanical fall ; x-ray right knee negative DVT right lower extremity ruled out Seizures: Tele neurology Dr. Marques Cardona, recommend to [place] Depakote and start on Vimpat 200 mg p.o. b.i.d. which was done History of drug abuse Chronic alcohol abuse Hypertension Hypercholesterolemia CVA Cirrhosis of liver Portal hypertension Hep B positive Hep C positive Recurrent falls Depression Schizophrenia Anxiety Peripheral neuropathy Recurrent falls [facility] Complaining of headache: CT head without contrast negative Discharge Disposition: Assisted Living Facility Discharge Instruct/Medications Diet: Cardiac 2g Na,low cholest Activity: Light activity Follow Up/Referral: Follow up with the primary Dr Resume all previous home medication Medications: none 39 (Time taken for discharge summary 39 minutes) Discharge Statement: "Patient was advised to return to the ER or call 911 if any headaches, dizziness, shortness of breath, chest pain, abdominal pain, bleeding, fevers, or worsening of medical condition. Patient was counseled about treatment plan, medications, possible side effects, patientverbalized understanding. All questions were answered to the best of my ability. This discharge took greater then 30 minutes in planning, reviewing documentation, counseling the patient, and discussing with other team members." ASSESSMENT ASSESSMENT Hospital Course Improved Assessment Skin tear right knee status post mechanical fall ; x-ray right knee negative DVT right lower extremity ruled out Seizures: Tele neurology Dr. Marques Cardona, recommend to [place] Depakote and start on Vimpat 200 mg p.o. b.i.d. which was done History of drug abuse Chronic alcohol abuse Hypertension Hypercholesterolemia CVA Cirrhosis of liver Portal hypertension Hep B positive Hep C positive Recurrent falls Depression Schizophrenia Anxiety Peripheral neuropathy Recurrent falls [facility] Complaining of headache: CT head without contrast negative Date of Service: September 19, 2024 Billing Provider: JENNIFER CHAMBERS MD Common Visit Codes: [id number] DISCH DAY >30min JENNIFER CHAMBERS MD September 19, 2024 12:58
[2024-09-19 13:00] VITALS: BP 101/63; PULSE 75; RESP 18; TEMP 98; O2SAT 99
[2024-09-19 17:02] VITALS: BP 108/66; PULSE 80; RESP 18; TEMP 98.2; O2SAT 97
== END 2024-09-19 20:03 | DRG 351 ==
LOC: EDBD 06:47 → ER 06:47 → OVERFLOW 13:55 → WEST WING 17:14
PROVIDERS: ADMIT Family Medicine; ATTEND Family Medicine
DX: S81.011A Laceration without foreign body, right knee, initial encounter (principal); K76.6 Portal hypertension; K74.60 Unspecified cirrhosis of liver; B19.10 Unspecified viral hepatitis B without hepatic coma; G90.89 Other disorders of autonomic nervous system; R56.9 Unspecified convulsions; B19.20 Unspecified viral hepatitis C without hepatic coma; E78.00 Pure hypercholesterolemia, unspecified; F10.10 Alcohol abuse, uncomplicated; F20.9 Schizophrenia, unspecified; F32.A Depression, unspecified; F41.9 Anxiety disorder, unspecified; G62.9 Polyneuropathy, unspecified; I10 Essential (primary) hypertension; R29.6 Repeated falls; W18.39XA Other fall on same level, initial encounter; B15.9 Hepatitis A without hepatic coma; Y90.9 Presence of alcohol in blood, level not specified; Z88.2 Allergy status to sulfonamides; Z91.041 Radiographic dye allergy status; Z79.2 Long term (current) use of antibiotics; Z79.82 Long term (current) use of aspirin; Z79.899 Other long term (current) drug therapy; Y93.89 Activity, other specified; Y92.89 Other specified places as the place of occurrence of the external cause; Y99.8 Other external cause status; Z86.73 Personal history of transient ischemic attack (TIA), and cerebral infarction without residual deficits; Z98.82 Breast implant status
CPT/HCPCS: 36415; 70450; 73560; 80048; 80053; 85025; 93970; 96372; 99291; G0378

== ENCOUNTER 2025-01-14 14:20 | Inpatient (IN) | payer OTHER ==
[~2025-01-14] VITALS: Ht 170.2 cm; Wt 82.0 kg
[~2025-01-14 14:20] MED LIST changes: +LACO100T PO; +LACO200T3 PO
--- NOTE | 2025-01-14 15:00 | ED.PDOC ---
Drew. trauma (HPI) HPI Comments 59 y.o female with PMHx of HLD, HTN, and seizures, presents to the ED via EMS s/p fall today. Patient reports residing at [facility], states she was walking around and fell in an enclosed location. Patient fell face forward and heard a crack to the posterior neck region. Patient presents with a C-collar in place, complaining of discomfort and has a dried abrasion to the right upper abrasion with no bleeding or laceration noted. Patient denies any back, head pain or LOC. Chief Complaint: Fall Injury Time Seen by MD: 14:45 Primary Care Provider: unknown Reviewed notes: Nurses Notes, Audio Visual Arts Director Notes, Medications, Allergies Allergies: Coded Allergies: Iodine (Verified Allergy, Unknown, 11/11/23) Sulfa Antibiotics (Verified Allergy, Unknown, 11/11/23) Home Meds Active Scripts Amoxicillin & Pot Clavulanate (AUGMENTIN TABLET) 875 Mg Tb, 875 MG PO BID for 5 Days, #10 TAB Prov:KAMARI CONNELLY RESIDENT 05/12/24 Clotrimazole W/ Betamethasone (Clotrimazole/Betamethason 1-0.05 %) 1 Cre Cre, 1 CRE EX BID PRN, #45 GM Prov:NEAL SANTOS MD 04/04/24 Levetiracetam (Keppra) 500 Mg Tab, 1.5 TAB PO BID, #180 TAB 3 Refills Prov:NEAL SANTOS MD 04/04/24 Reported Medications Lacosamide (Lacosamide) 200 Mg Tab, 200 MG PO BID, #60 TAB 525 Lacosamide (Vimpat) 100 Mg Tab, 100 MG PO BID, #60 TAB 5/25 Lacosamide (Vimpat) 100 Mg Tab, 200 MG PO BID, #60 TAB 5//25 Lacosamide (Vimpat) 100 Mg Tab, 200 MG PO BID, #60 TAB /25 Divalproex Sodium (Divalproex Sodium Er) 500 Mg Tab, 4 TAB PO HS, TAB 04/01/24 Atorvastatin Calcium (ATORVASTATIN CALCIUM) 20 Mg Tab, 20 MG PO HS, TAB 04/01/24 Aspirin (Aspir-81) 81 Mg Tab, 81 MG PO DAILY, TAB 04/01/24 Lacosamide (Lacosamide) 150 Mg Tab, 150 MG PO BID, TAB 04/01/24 Multiple Vitamins W/ Minerals (One Daily Multivitamin Wo) 1 Tab Tab, 1 TAB PO DAILY, TAB 04/01/24 Olanzapine (OLANZAPINE) 20 Mg Tab, 20 MG PO HS, TAB 04/01/24 Melatonin (KP MELATONIN) 3 Mg Tab, 10 MG PO HS, TAB 04/01/24 Loratadine (Claritin) 10 Mg Tab, 10 MG PO DAILY, TAB 04/01/24 Thiamine Hcl (VITAMIN B-1) 100 Mg Tb, 100 MG PO DAILY, TAB 04/01/24 Sertraline Hcl (Sertraline Hcl) 25 Mg Tab, 25 MG PO DAILY, TAB 04/01/24 Senna (Senokot) 8.6 Mg Tab, 2 TAB PO BID, TAB 04/01/24 Quetiapine Fumerate (Seroquel) 50 Mg Tab, 12.5 MG PO BID, TAB 04/01/24 Hydroxyzine Hcl (Hydroxyzine Hcl) 25 Mg Tab, 25 MG PO Q8HPRN PRN for ANXIETY, TAB 04/01/24 Diphenhydramine Hcl (Benadryl Allergy) 25 Mg Cap, 25 MG PO Q6HPRN PRN for FOR ITCHING, CAP 04/01/24 Lorazepam (ATIVAN TABLET) 0.5 Mg Tb, 0.5 MG PO Q6HPRN PRN for ANXIETY, TAB 04/01/24 Gabapentin (Once-Daily) (Gabapentin) 300 Mg Tab, 300 MG PO TID, TAB 01/11/24 Information Source: Patient Mode of Arrival: EMS Severity: Moderate Timing: Hours Duration: Since onset Location: Neck Location of laceration: None Mechanism: Fall Associated signs and symtoms: Other Past Medical History PAST MEDICAL HISTORY: Anxiety, CVA, Depression, High Lipids, HTN, Schizo phrenia, Seizures Surgical History: Denies all surgeries 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 RUBBISH COLLECTOR History Family History Family History: Reviewed,noncontributory to illness, Family hx of Cancer Social History Smoker: Non-Smoker Alcohol: Denies ETOH Use, Unknown Drugs: Denies Drug Use Lives In: Assisted Care Constitutional: denies: chills, diaphoresis, fatigue, fever, malaise, sweats, weakness, others EENTM: denies: blurred vision, double vision, ear bleeding, ear discharge, ear drainage, ear pain, ear ringing, eye pain, eye redness, hearing loss, mouth pain, mouth swelling, nasal discharge, nose bleeding, nose congestion, nose pain, photophobia, tearing, throat pain, throat swelling, voice changes, others Respiratory: denies: cough, hemoptysis, orthopnea, SOB at rest, shortness of breath, SOB with excertion, stridor, wheezing, others Cardiovascular: denies: chest pain, dizzy spells, diaphoresis, Dyspnea on exertion, edema, irregular heart beat, left arm pain, lightheadedness, palpitations, PND, syncope, others Gastrointestinal: denies: abdomen distended, abdominal pain, blood streaked bowels, constipated, diarrhea, dysphagia, difficulty swallowing, hematemesis, melena, nausea, poor appetite, poor fluid intake, rectal bleeding, rectal pain, vomiting, others Genitourinary: denies: abnormal vagina bleeding, burning, dyspareunia, dysuria, flank pain, frequency, hematuria, incontinence, pain, , vagina discharge, urgency, others Neurological: denies: dizziness, fainting, headache, left sided numbness, left sided weakness, numbness, paresthesia, pre-existing deficit, right sided numbness, right sided weakness, seizure, speech problems, tingling, tremors, weakness, others Musculoskeletal: reports: neck pain; denies: back pain, gout, joint pain, joint swelling, muscle pain, muscle stiffness, others Integumetry: reports: others (abrasion to the right upper eyebrow); denies: bruises, change in color, change in hair/nails, dryness, laceration, lesions, lumps, rash, wounds Allergic/Immunocompromised: denies: Difficulty Healing, Frequent Infections, Hives, Itching, others Hematologic/Lymphatic: denies: anemia, blood clots, easy bleeding, easy bruising, swollen glands, others Endocrine: denies: excessive hunger, excessive sweating, excessive thirst, excessive urination, flushing, intolerance to cold, intolerance to heat, unexplained weight gain, unexplained weight loss, others Psychiatric: denies: anxiety, bipolar disorder, depression, hopeless, panic disorder, schizophrenia, sleepless, suicidal, others All Other Systems: Reviewed and Negative Physical Exam General Appearance: Moderate Distress HEENT: Normal ENT Inspection, Pharynx Normal, TMs Normal Neck: Full Range of Motion, Non-Tender, Normal, Normal Inspection Respiratory: Chest Non-Tender, Lungs Clear, No Accessory Muscle Use, No Respiratory Distress, Normal Breath Sounds Cardiovascular: No Edema, No JVD, No Murmur, No Gallop, Normal Peripheral Pulses, Regular Rate/Rhythm Breast Exam: Deferred Gastrointestinal: No Organomegaly, Non Tender, No Pulsatile Mass, Normal Bowel Sounds, Soft Genitalia: Deferred Pelvic: Deferred Rectal: Deferred Extremities: No calf tenderness, Normal capillary refill, Normal inspection, Normal range of motion, Non-tender, No pedal edema Musculoskeletal : Apperance: Normal Neurologic: Alert, barrel waterer II-XII nml as Tested, No Motor Deficits, Normal Affect, Normal Mood, No Sensory Deficits Cerebellar Function: Normal Reflexes: Normal Skin: Bruises (Forehead) Peripheral Pulses: 3+ Radial (R), 3+ Radial (L) Lymphatic: No Adenopathy Was a procedure done? Was a procedure done?: No Differential Diagnosis Multiple Trauma: Closed Head Injury, Fractures, Abrasions, Contusion Neck Injury: Cervical Muscle Spasm, Cervical Fracture, Spinal Cord Injury X-Ray, Labs, Meds, VS Vital Signs Date Time Temp Pulse Resp B/P (MAP) Pulse Ox O2 Delivery O2 Flow Rate FiO2 01/14/25 15:09 98.0 98 17 109/64 98 98.0 Lab Test 01/14/25 15:39 Range/Units White Blood Count 4.2 L 4.4-10.8 10^3/uL Red Blood Count 4.35 4.0-5.20 10^6/uL Hemoglobin 13.1 12.2-16.2 g/dL Hematocrit 38.3 36.0-46.0 % Mean Corpuscular Volume 88.2 80.0-100.0 fL Mean Corpuscular Hemoglobin 30.2 28.0-32.0 pg Mean Corpuscular Hemoglobin Concent 34.2 32.0-36.0 g/dL Red Cell Distribution Width 13.4 11.8-14.3 % Platelet Count 185 140-450 10^3/uL Mean Platelet Volume 8.0 6.9-10.8 fL Neutrophils (%) (Auto) 56.5 37.0-80.0 % Lymphocytes (%) (Auto) 34.3 10.0-50.0 % Monocytes (%) (Auto) 7.7 0.0-12.0 % Eosinophils (%) (Auto) 1.1 0.0-7.0 % Basophils (%) (Auto) 0.4 0.0-2.0 % Neutrophils # (Auto) 2.4 1.6-8.6 10 ^3/uL Lymphocytes # (Auto) 1.5 0.4-5.4 10 ^3/uL Monocytes # (Auto) 0.3 0-1.3 10 ^3/uL Eosinophils # (Auto) 0 0-0.8 10 ^3/uL Basophils # (Auto) 0 0-0.2 10 ^3/uL Nucleated Red Blood Cells 0.1 % Sodium Level Pending Potassium Level Pending Chloride Level Pending Carbon Dioxide Level Pending Anion Gap Pending Blood Urea Nitrogen Pending Creatinine Pending Glomerular Filtration Rate Calc Pending BUN/Creatinine Ratio Pending Serum Glucose Pending Calcium Level Pending Patient alert. Status post fall. Vitals stable. Answering questions. Has bruises on the face. Ambulating. CT of the head reviewed does not show any acute changes. Explained to the patient. Continue monitoring. Time of 1ST Reevaluation: 14:56 Reevaluation 1ST: Improved Patient Education/Counseling: Diagnosis, Treatment, Prognosis Family Education/Counseling: No Family Present Departure 1 Departure Time of Disposition: 16:04 Impression: Primary Impression: Head injury Qualified Codes: S09.90XA - Unspecified injury of head, initial encounter Disposition: ADMITTED INPATIENT Admit to: Med Surg Condition: Guarded Critical Care Note Critical Care Time?: No Stability Stability form required: No I personally scribed for DEJUAN GIMENEZ MD ([email or web address]) on 01/14/25 at 15:00. Electronically submitted by Rachel Truong ([facility]). DEJUAN GIMENEZ MD Jan 14, 2025 15:00
[2025-01-14 15:59] LABS: Hematocrit 38.3 % (36.0-46.0); Hemoglobin 13.1 g/dL (12.2-16.2); Mean Corpuscular Hemoglobin 30.2 pg (28.0-32.0); Mean Corpuscular Volume 88.2 fL (80.0-100.0); Nucleated Red Blood Cells % 0.1 %
[2025-01-14 16:05] LABS: Chloride 106 mmol/L (98-107); Potassium 4.1 mmol/L (3.5-5.1); Sodium 141 mmol/L (136-145)
[2025-01-14 16:06] LABS: Anion Gap 9 (5-15); Calcium 9.4 mg/dL (8.7-10.4); Carbon Dioxide 26 mmol/L (20-31)
[2025-01-14 16:11] LABS: BUN/Creatinine Ratio 17.5 (10.0-20.0); Blood Urea Nitrogen 14 mg/dL (9-23)
[2025-01-14 16:19] LABS: Glucose 111 mg/dL (74-106)
--- NOTE | 2025-01-14 16:20 | DVH ---
CT HEAD WITHOUT CONTRAST INDICATION: fall EXAM DATE: 01/14/2025 03:36 PM COMPARISON: CT HEAD WITHOUT CONTRAST on DOS: 09/16/24, CT MAXILLOFACIAL WITHOUT on DOS: 06/10/24, CT HEA D WITHOUT CONTRAST on DOS: 06/10/24 RADIATION DOSE: CTDIvol: 53 mGy, DLP: 863 mGy*cm PROCEDURE: CT scans of the head were obtained from the vertex to the skull base. Sagittal and coronal reconstructions were provided. All CT scans at this medical facility are performed using dose modulation techniques as appropriate t o a performed exam including the following: Automated exposure control was utilized; adjustment of th e MA and/or KV according to patient size; and use of iterative reconstruction technique. FINDINGS: There is sulcal and ventricular prominence. The brainshows normal morphology and thapa-whi te matter differentiation, without intracranial hemorrhage, extra-axial fluid collection, mass effect or acute large vessel infarct. The ventricles are normal in size. The basal cisterns are patent. The skull and visible facial bones are intact. The paranasal sinuses, mastoid air cells and middle ear c avities are well-aerated. Small frontal scalp laceration. IMPRESSION: No acute intracranial abnormality.
--- NOTE | 2025-01-14 16:53 | DVH ---
CT CERVICAL WITHOUT CONTRAST INDICATION: fall EXAM DATE: 01/14/2025 03:40 PM COMPARISON: CT HEAD WITHOUT CONTRAST on DOS: 01/14/25, CT HEAD WITHOUT CONTRAST on DOS: 09/16/24, CT HEA D WITHOUT CONTRAST on DOS: 06/10/24 RADIATION DOSE: CTDIvol: 17 mGy, DLP: 488 mGy*cm PROCEDURE: Utilizing the CT scanner, contiguous axial images were obtained through the cervical spine . Coronal and sagittal reformatted images were then generated. All CT scans at this medical facility are performed using dose modulation techniques as appropriate t o a performed exam including the following: Automated exposure control was utilized; adjustment of th e MA and/or KV according to patient size; and use of iterative reconstruction technique. FINDINGS: Alignment at the craniocervical junction is maintained. The cortical margins are intact. Th e vertebral body heights and cervical alignment are normal. The facet joints show normal alignment wi thout fracture. The intervertebral disc spaces are narrowed and degenerative. The paraspinal soft tis sues appear normal. On axial images: Multi level posterior disc osteophyte complex with mild central canal narrowing at C 5-C6. Moderate right neuroforaminal narrowing at C5-C6. Facet and uncinate spondylosis is noted. IMPRESSION: No cervical spine fracture or subluxation.
--- NOTE | 2025-01-14 18:12 | DVHHP2 ---
Admitting Diagnosis: Fall History of Present Illness 59 y.o female with PMHx of HLD, HTN, and seizures, presents to the ED via EMS s/p fall today. Patient reports residing at [facility], states she was walking around and fell in an enclosed location. Patient fell face forward and heard a crack to the posterior neck region. Patient presents with a C-collar in place, complaining of discomfort and has a dried abrasion to the right upper abrasion with no bleeding or laceration noted. Patient denies any back, head pain or LOC. 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 FLOW MACHINE OPERATOR History Family History: Reviewed,noncontributory to illness, Family hx of Cancer Social History Smoker: Non-Smoker Alcohol: Denies ETOH Use, Unknown Drugs: Denies Drug Use Lives In: Assisted Care Patient Family History: Cardiovascular disease G8 BROTHER Hypertension G8 MOTHER, Allergies: Coded Allergies: Iodine (Verified Allergy, Unknown, 11/11/23) Sulfa Antibiotics (Verified Allergy, Unknown, 11/11/23) Home Meds Active Scripts Amoxicillin & Pot Clavulanate (AUGMENTIN TABLET) 875 Mg Tb, 875 MG PO BID for 5 Days, #10 TAB Prov:KAMARI CONNELLY RESIDENT 05/12/24 Clotrimazole W/ Betamethasone (Clotrimazole/Betamethason 1-0.05 %) 1 Cre Cre, 1 CRE EX BID PRN, #45 GM Prov:NEAL SANTOS MD 04/04/24 Levetiracetam (Keppra) 500 Mg Tab, 1.5 TAB PO BID, #180 TAB 3 Refills Prov:NEAL SANTOS MD 04/04/24 Reported Medications Lacosamide (Lacosamide) 200 Mg Tab, 200 MG PO BID, #60 TAB 5/5/25 Lacosamide (Vimpat) 100 Mg Tab, 100 MG PO BID, #60 TAB 5/5/25 Lacosamide (Vimpat) 100 Mg Tab, 200 MG PO BID, #60 TAB 5/5/25 Lacosamide (Vimpat) 100 Mg Tab, 200 MG PO BID, #60 TAB 5/5/25 Divalproex Sodium (Divalproex Sodium Er) 500 Mg Tab, 4 TAB PO HS, TAB 04/01/24 Atorvastatin Calcium (ATORVASTATIN CALCIUM) 20 Mg Tab, 20 MG PO HS, TAB 04/01/24 Aspirin (Aspir-81) 81 Mg Tab, 81 MG PO DAILY, TAB 04/01/24 Lacosamide (Lacosamide) 150 Mg Tab, 150 MG PO BID, TAB 04/01/24 Multiple Vitamins W/ Minerals (One Daily Multivitamin Wo) 1 Tab Tab, 1 TAB PO DAILY, TAB 04/01/24 Olanzapine (OLANZAPINE) 20 Mg Tab, 20 MG PO HS, TAB 04/01/24 Melatonin (KP MELATONIN) 3 Mg Tab, 10 MG PO HS, TAB 04/01/24 Loratadine (Claritin) 10 Mg Tab, 10 MG PO DAILY, TAB 04/01/24 Thiamine Hcl (VITAMIN B-1) 100 Mg Tb, 100 MG PO DAILY, TAB 04/01/24 Sertraline Hcl (Sertraline Hcl) 25 Mg Tab, 25 MG PO DAILY, TAB 04/01/24 Senna (Senokot) 8.6 Mg Tab, 2 TAB PO BID, TAB 04/01/24 Quetiapine Fumerate (Seroquel) 50 Mg Tab, 12.5 MG PO BID, TAB 04/01/24 Hydroxyzine Hcl (Hydroxyzine Hcl) 25 Mg Tab, 25 MG PO Q8HPRN PRN for ANXIETY, TAB 04/01/24 Diphenhydramine Hcl (Benadryl Allergy) 25 Mg Cap, 25 MG PO Q6HPRN PRN for FOR ITCHING, CAP 04/01/24 Lorazepam (ATIVAN TABLET) 0.5 Mg Tb, 0.5 MG PO Q6HPRN PRN for ANXIETY, TAB 04/01/24 Gabapentin (Once-Daily) (Gabapentin) 300 Mg Tab, 300 MG PO TID, TAB 01/11/24 Vital Signs Vital Signs Date Time Temp Pulse Resp B/P (MAP) Pulse Ox O2 Delivery O2 Flow Rate FiO2 01/14/25 15:09 98.0 98 17 109/64 98 98.0 SEPSIS Sepsis Screen Date sepsis recognized/suspect: Jan 14, 2025 Time Sepsis recognized/suspect: 1429 Recent Procedure: No On Antibiotic Therapy: No Respiratory Rate >20: No Heart Rate >90: No Temp<36 C (96.8 F) or >38.3 C: No SBP <90 or MAP <65 mmHG: No New Acute Mental Status Change: No Is the patient on CPAP, BIPAP,: No Physician Orders Urinalysis (01/14/25 15:05) Head Without Contrast (01/14/25 15:05) Cervical Without Contrast (01/14/25 15:05) Vital Signs Date Time Temp Pulse Resp B/P (MAP) Pulse Ox O2 Delivery O2 Flow Rate FiO2 01/14/25 15:09 98.0 98 17 109/64 98 98.0 Laboratory Tests Test 01/14/25 15:39 White Blood Count 4.2 10^3/uL (4.4-10.8) L Results Labs Test 01/14/25 15:39 Range/Units White Blood Count 4.2 L 4.4-10.8 10^3/uL Red Blood Count 4.35 4.0-5.20 10^6/uL Hemoglobin 13.1 12.2-16.2 g/dL Hematocrit 38.3 36.0-46.0 % Mean Corpuscular Volume 88.2 80.0-100.0 fL Mean Corpuscular Hemoglobin 30.2 28.0-32.0 pg Mean Corpuscular Hemoglobin Concent 34.2 32.0-36.0 g/dL Red Cell Distribution Width 13.4 11.8-14.3 % Platelet Count 185 140-450 10^3/uL Mean Platelet Volume 8.0 6.9-10.8 fL Neutrophils (%) (Auto) 56.5 37.0-80.0 % Lymphocytes (%) (Auto) 34.3 10.0-50.0 % Monocytes (%) (Auto) 7.7 0.0-12.0 % Eosinophils (%) (Auto) 1.1 0.0-7.0 % Basophils (%) (Auto) 0.4 0.0-2.0 % Neutrophils # (Auto) 2.4 1.6-8.6 10 ^3/uL Lymphocytes # (Auto) 1.5 0.4-5.4 10 ^3/uL Monocytes # (Auto) 0.3 0-1.3 10 ^3/uL Eosinophils # (Auto) 0 0-0.8 10 ^3/uL Basophils # (Auto) 0 0-0.2 10 ^3/uL Nucleated Red Blood Cells 0.1 % Sodium Level 141 136-145 mmol/L Potassium Level 4.1 3.5-5.1 mmol/L Chloride Level 106 98-107 mmol/L Carbon Dioxide Level 26 20-31 mmol/L Anion Gap 9 5-15 Blood Urea Nitrogen 14 9-23 mg/dL Creatinine 0.80 0.550-1.02 mg/dL Glomerular Filtration Rate Calc 86 >90 mL/min BUN/Creatinine Ratio 17.5 10.0-20.0 Serum Glucose 111 H 74-106 mg/dL Calcium Level 9.4 8.7-10.4 mg/dL Primary Diagnosis Mechanical fall Neck pain Facial abrasion Plan discussed with: Patient SALIMA FARLEY MD Jan 14, 2025 18:12
[2025-01-14] MEDS ORDERED: LORazepam 2MG/ML-1ML VIAL IV PRN (20:45)
[2025-01-14] MEDS ORDERED: ONDANSETRON HCL 4 MG/2 ML VIAL IV PRN (20:45)
[2025-01-14] MEDS ORDERED: DOCUSATE SOD 100 MG CAP PO PRN (20:45)
[2025-01-14 22:26] LABS: Urine Protein, UAD Negative (Negative)
[2025-01-15] MEDS: GABAPENTIN 300 MG CAP PO SCH (01:40)
[2025-01-15] MEDS: ATORVASTATIN 20 MG TAB PO SCH (01:41)
[2025-01-15] MEDS: SODIUM CHLOR 0.9% PF (SALINE LOCK) 10ML VIAL/SYR IV SCH (01:41)
--- NOTE | 2025-01-15 02:14 | DVHHP2 ---
History of Present Illness Reason for Visit: Fall with injury History of Present Illness The patient is a 59-year-old female with multiple past medical history including anxiety, CVA, depression, hypertension, and seizures who presented to [facility] ED for evaluation of fall at home. Patient reports she was walking around when she slipped and fall in an enclosed location hitting her face with injury to the posterior neck region. Patient presents with a C-collar in place, complaining of discomfort and has abrasion to the right upper eyelid with no bleeding. Patient was seen and evaluated in the ED, laboratory data shows WBC 4.2, platelets 185, sodium 141, potassium 4.1, BUN 14, creatinine 0.80, glucose 111, calcium 9.4, blood pressure 109/64, heart rate 98, temperature 98.0 F, O2 saturation 98% on room air. Head CT shows no acute intracranial abnormality. Cervical spine CT shows no fracture subluxation. Please see medication orders section in the computer. On my assessment, patient denied chest pain, no headache, no loss of consciousness, no dizziness, no diaphoresis, no shortness of breaths, no nausea, no vomiting, no fever, no chills. Patient was admitted for further evaluation and medical management. Past Medical History Anxiety, CVA, Depression, High Lipids, HTN, Schizophrenia, Seizures Past Surgical History Denies all surgeries Family History Reviewed, noncontributory to the management of this case. Past Social History The patient lives at home, denies smoking, alcohol or illicit drugs abuse. Review of Systems Constitutional: Yes: Weakness; No: Fever, Chills, Sweats, Malaise, Other Eyes: No: Pain, Vision change, Conjunctivae inflammation, Eyelid inflammation, Other, Redness ENT: No: Ear pain, Ear discharge, Nose pain, Nose discharge, Nose congestion, Mouth pain, Mouth swelling, Throat pain, Throat swelling, Other Respiratory: No: Cough, Dry, Shortness of breath, SOB with excertion, Wheezing, Hemoptysis, Pleuritic Pain, Sputum, Wheezing, Other Cardiovascular: No: Chest Pain, Palpitations, Orthopnea, Paroxysmal Noc. Dyspnea, Edema, Lt Headedness, Other Gastrointestinal: No: Nausea, Vomiting, Abdominal Pain, Diarrhea, Constipation, Melena, Hematochezia, Other Genitourinary: No Dysuria, No Frequency, No Incontinence, No Hematuria, No Retention, No Other Musculoskeletal: neck pain; No: other, shoulder pain, arm pain, back pain, hand pain, leg pain, foot pain Skin: Other (Right eyebrow laceration); No: Rash, Lesions, Jaundice, Bruising Neurological: No: Weakness, Numbness, Incoordination, Change in speech, Confusion, Seizures, Other Allergies: Coded Allergies: Iodine (Verified Allergy, Unknown, 11/11/23) Sulfa Antibiotics (Verified Allergy, Unknown, 11/11/23) Medications Current Medications Medications Dose Ordered Sig/Aureliano Route Start Time Stop Time Status Last Admin Dose Admin Aspirin 81 mg DAILY PO 01/15/25 10:00 Atorvastatin Calcium 20 mg HS PO 01/14/25 22:00 01/15/25 01:41 20 MG Gabapentin 300 mg TID PO 01/14/25 22:00 01/15/25 01:40 300 MG Lorazepam 1 mg Q8HP PRN IV 01/14/25 20:45 Patient Own Medication 150 mg BID PO 01/14/25 22:00 UNV Divalproex Sodium 1,000 mg BID PO 01/14/25 22:00 01/15/25 01:47 1,000 MG Quetiapine Fumarate 50 mg HS PO 01/14/25 22:00 01/15/25 01:41 50 MG Sertraline HCl 25 mg DAILY PO 01/15/25 10:00 Sodium Chloride 10 ml Q8HR IV 01/14/25 22:00 Acetaminophen/ Hydrocodone Bitart 1 tab Q4HP PRN PO 01/14/25 20:45 Ondansetron HCl 4 mg Q4HP PRN IV 01/14/25 20:45 Docusate Sodium 100 mg BIDPRN PRN PO 01/14/25 20:45 Acetaminophen 650 mg Q6HP PRN PO 01/14/25 20:45 Exam Vital Signs Vital Signs Date Time Temp Pulse Resp B/P (MAP) Pulse Ox O2 Delivery O2 Flow Rate FiO2 01/15/25 01:45 97.6 61 16 119/77 (91) 98 97.6 General Appearance: Alert, Oriented X3, Cooperative, No acute distress HEENT: Atraumatic, PERRLA, EOMI, Mucous membr. moist/pink Respiratory: Normal air movement Cardiovascular: Regular rate, Normal S1, Normal S2, No murmurs Abdominal: Normal bowel sounds, Soft, No tenderness, No hepatospenomegaly, No masses Extremities: No clubbing, No cyanosis, No edema, Normal pulses, No tenderness/swelling Skin: No rashes, No significant lesion Neuro: Normal speech, Normal tone, Sensation intact, Cranial nerves 3-12 NL, Reflexes 2+, Other (Generalized weakness) Psych/Mental Status: Mental status NL, Mood NL Labs/Xrays Labs Test 01/14/25 19:52 01/14/25 15:39 Range/Units Urine Color Yellow Yellow Urine Clarity Turbid H Clear Urine pH 6.0 5.0-9.0 Urine Specific [place] 1.023 1.001-1.035 Urine Protein Negative Negative Urine Ketones Trace Negative Urine Blood Negative Negative /uL Urine Nitrite Negative Negative Urine Bilirubin Negative Negative Urine Urobilinogen Normal Negative mg/dL Urine Leukocyte Esterase Negative Negative /uL Urine RBC 1 0 - 4 /hpf Urine Microscopic WBC 6 H 0-5 /HPF Urine Squamous Epithelial Cells Few <5 /hpf Urine Bacteria Few H None Seen /hpf Urine Mucus Few None Seen Urine Glucose Normal Normal mg/dL White Blood Count 4.2 L 4.4-10.8 10^3/uL Red Blood Count 4.35 4.0-5.20 10^6/uL Hemoglobin 13.1 12.2-16.2 g/dL Hematocrit 38.3 36.0-46.0 % Mean Corpuscular Volume 88.2 80.0-100.0 fL Mean Corpuscular Hemoglobin 30.2 28.0-32.0 pg Mean Corpuscular Hemoglobin Concent 34.2 32.0-36.0 g/dL Red Cell Distribution Width 13.4 11.8-14.3 % Platelet Count 185 140-450 10^3/uL Mean Platelet Volume 8.0 6.9-10.8 fL Neutrophils (%) (Auto) 56.5 37.0-80.0 % Lymphocytes (%) (Auto) 34.3 10.0-50.0 % Monocytes (%) (Auto) 7.7 0.0-12.0 % Eosinophils (%) (Auto) 1.1 0.0-7.0 % Basophils (%) (Auto) 0.4 0.0-2.0 % Neutrophils # (Auto) 2.4 1.6-8.6 10 ^3/uL Lymphocytes # (Auto) 1.5 0.4-5.4 10 ^3/uL Monocytes # (Auto) 0.3 0-1.3 10 ^3/uL Eosinophils # (Auto) 0 0-0.8 10 ^3/uL Basophils # (Auto) 0 0-0.2 10 ^3/uL Nucleated Red Blood Cells 0.1 % Sodium Level 141 136-145 mmol/L Potassium Level 4.1 3.5-5.1 mmol/L Chloride Level 106 98-107 mmol/L Carbon Dioxide Level 26 20-31 mmol/L Anion Gap 9 5-15 Blood Urea Nitrogen 14 9-23 mg/dL Creatinine 0.80 0.550-1.02 mg/dL Glomerular Filtration Rate Calc 86 >90 mL/min BUN/Creatinine Ratio 17.5 10.0-20.0 Serum Glucose 111 H 74-106 mg/dL Calcium Level 9.4 8.7-10.4 mg/dL PATIENT: JER ORNELAS ACCT: [id number] UNIT: [id number] : 1965 LOC: ER ROOM / BED: / AGE / SEX: 59 / F ADM STATUS: REG ER SERVICE 1505 ORDERING PHYSICIAN: DEJUAN GIMENEZ MD PROCEDURE(s): HWOCT - HEAD WITHOUT CONTRAST REASON: fall ORDER NUMBER(s): [id number], ACCESSION NUMBER(s): [id number] CT HEAD WITHOUT CONTRAST INDICATION: fall EXAM DATE: 01/14/2025 03:36 PM COMPARISON: CT HEAD WITHOUT CONTRAST on DOS: 09/16/24, CT MAXILLOFACIAL WITHOUT on DOS: 06/10/24, CT HEAD WITHOUT CONTRAST on DOS: 06/10/24 RADIATION DOSE: CTDIvol: 53 mGy, DLP: 863 mGy*cm PROCEDURE: CT scans of the head were obtained from the vertex to the skull base. Sagittal and coronal reconstructions were provided. All CT scans at this medical facility are performed using dose modulation tech niques as appropriate to a performed exam including the following: Automated exposure control was utilized; adjustment of the MA and/or KV according to patient size; and use of iterative reconstruction technique. FINDINGS: There is sulcal and ventricular prominence. The brainshows normal morphology and thapa-white matter differentiation, without intracranial hemorrhage, extra-axial fluid collection, mass effect or acute large vessel infarct. The ventricles are normal in size. The basal cisterns are patent. The skull and visible facial bones are intact. The paranasal sinuses, mastoid air cells and middle ear cavities are well-aerated. Small frontal scalp laceration. IMPRESSION: No acute intracranial abnormality. ORDERING PHYSICIAN: DEJUAN GIMENEZ MD PROCEDURE(s): CS2 - CERVICAL WITHOUT CONTRAST REASON: fall ORDER NUMBER(s): [id number], ACCESSION NUMBER(s): [id number] CT CERVICAL WITHOUT CONTRAST INDICATION: fall EXAM DATE: 01/14/2025 03:40 PM COMPARISON: CT HEAD WITHOUT CONTRAST on DOS: 01/14/25, CT HEAD WITHOUT CONTRAST on DOS: 09/16/24, CT HEAD WITHOUT CONTRAST on DOS: 06/10/24 RADIATION DOSE: CTDIvol: 17 mGy, DLP: 488 mGy*cm PROCEDURE: Utilizing the CT scanner, contiguous axial images were obtained through the cervical spine. Coronal and sagittal reformatted images were then generated. All CT scans at this medical facility are performed using dose modulation techniques as appropriate to a performed exam including the following: Automated exposure control was utilized; adjustment of the MA and/or KV according to patient size; and use of iterative reconstruction technique. FINDINGS: Alignment at the craniocervical junction is maintained. The cortical margins are intact. The vertebral body heights and cervical alignment are normal. The facet joints show normal alignment without fracture. The intervertebral disc spaces are narrowed and degenerative. The paraspinal soft tissues appear normal. On axial images: Multi level posterior disc osteophyte complex with mild central canal narrowing at C5-C6. Moderate right neuroforaminal narrowing at C5-C6. Facet and uncinate spondylosis is noted. IMPRESSION: No cervical spine fracture or subluxation. SEPSIS Sepsis Screen Date sepsis recognized/suspect: Jan 14, 2025 Time Sepsis recognized/suspect: 1430 Recent Procedure: No On Antibiotic Therapy: No Respiratory Rate >20: No Heart Rate >90: No Temp<36 C (96.8 F) or >38.3 C: No SBP <90 or MAP <65 mmHG: No New Acute Mental Status Change: No Is the patient on CPAP, BIPAP,: No Physician Orders Aspirin Tablet (01/15/25 10:00) Atorvastatin (Lipitor) (01/14/25 22:00) Gabapentin Capsule (Neurontin Capsule) (01/14/25 22:00) Lorazepam 2mg/Ml Inj (Ativan Inj) (01/14/25 20:45) (Nf) Lacosamide (01/14/25 22:00) Divalproex Dr Tablet (Depakote "Dr" Tabl (01/14/25 22:00) Quetiapine Fumarate Tablet (Seroquel Tab (01/14/25 22:00) Sertraline Hcl (Zoloft) (01/15/25 10:00) Allergies (01/14/25 20:35) Code Status (01/14/25 20:35) Sodium Chloride Lock (Saline Lock Ns) (01/14/25 22:00) Oxygen Per Hour (01/14/25 20:35) Hydrocodone-Acet 5/325mg Tab ([place] 32 (01/14/25 20:45) Ondansetron Hcl (Zofran) (01/14/25 20:45) Docusate Sodium Capsule (Colace Capsule) (01/14/25 20:45) Fall Risk Precautions In Place QSHIFT (01/14/25 20:35) Complete Blood Count (01/15/25 04:00) Comprehensive Metabolic Panel (01/15/25 04:00) Cardiac Diet-2gna,Lofat,Lochol (01/15/25 Breakfast) Condition: Serious (01/14/25 20:35) Acetaminophen Tablet (Tylenol Tablet) (01/14/25 20:45) Maintain Bed Rest (01/14/25 20:35) Sequential Compression Device (01/14/25 ) Admit (01/15/25 02:02) Nitroglycerin Sublingual (Ntrostat Subli (01/15/25 02:15) Morphine Sulfate Injection (01/15/25 02:15) Notify Md Of Changes From Base (01/15/25 02:02) Emergency Dysrhythmia Protocol (01/15/25 02:02) Oxygen By Nasal Cannula (01/15/25 02:02) Vital Signs Date Time Temp Pulse Resp B/P (MAP) Pulse Ox O2 Delivery O2 Flow Rate FiO2 01/15/25 01:45 97.6 61 16 119/77 (91) 98 97.6 Laboratory Tests Test 01/14/25 15:39 White Blood Count 4.2 10^3/uL (4.4-10.8) L Medications Medications Dose Ordered Sig/Aureliano Route Start Time Stop Time Status Last Admin Dose Admin Atorvastatin Calcium 20 mg HS PO 01/14/25 22:00 01/15/25 01:41 20 MG Divalproex Sodium 1,000 mg BID PO 01/14/25 22:00 01/15/25 01:47 1,000 MG Gabapentin 300 mg TID PO 01/14/25 22:00 01/15/25 01:40 300 MG Quetiapine Fumarate 50 mg HS PO 01/14/25 22:00 01/15/25 01:41 50 MG Assessment/Plan Assessment/Plan Fall with injury Head injury Unspecified injury of head, initial encounter Plan 1. Admit to telemetry unit 2. Breathing treatment 3. Pain control management 4. Management of fluids and electrolytes 5. Consultation for hospitalist 6. Diagnostic tests head CT 7. DVT prophylaxis on SCDs 8. Repeat labs CBC, CMP in a.m. 9. Continue with current medical management 10. Treatment plan discussed with patient and RN. Patient verbalized understanding. Plan discussed with: Patient, Other (RN) My Orders Orders - JULIO CESAR MACHADO DNP Procedure Category Date Status Time Aspirin Tablet PHA 01/15/25 In Process 10:00 Atorvastatin (Lipitor) PHA 01/14/25 In Process 22:00 Gabapentin Capsule PHA 01/14/25 In Process (Neurontin Capsule) 22:00 Lorazepam 2mg/Ml Inj PHA 01/14/25 In Process (Ativan Inj) 20:45 (Nf) Lacosamide PHA 01/14/25 Pending 22:[address] Tablet PHA 01/14/25 In Process (Depakote "Dr" Tabl 22:00 Quetiapine Fumarate PHA 01/14/25 In Process Tablet (Seroquel Tab 22:00 Sertraline Hcl PHA 01/15/25 In Process (Zoloft) 10:00 Allergies SERENA 01/14/25 In Process 20:35 Code Status CODE 01/14/25 Transmitted 20:35 Sodium Chloride Lock PHA 01/14/25 In Process (Saline Lock Ns) 22:00 Oxygen Per Hour RT 01/14/25 Transmitted 20:35 Hydrocodone-Acet PHA 01/14/25 In Process 5/325mg Tab ([place] 20:45 Ondansetron Hcl PHA 01/14/25 In Process (Zofran) 20:45 Docusate Sodium PHA 01/14/25 In Process Capsule (Colace 20:45 Fall Risk Precautions SERENA 01/14/[address] 20:35 Complete Blood Count LAB 01/15/25 Logged 04:00 Comprehensive LAB 01/15/25 Logged Metabolic Panel 04:00 Cardiac DIET 01/15/25 Transmitted Diet-2gna,Lofat,Lochol Breakfast Condition: Serious SERENA 01/14/25 In Process 20:35 Acetaminophen Tablet PHA 01/14/25 In Process (Tylenol Tablet) 20:45 Maintain Bed Rest SERENA 01/14/25 In Process 20:35 Sequential SERENA 01/14/25 In Process Compression Device Admit ADMIT 01/15/25 Verified 02:02 Nitroglycerin [facility] 01/15/25 Verified Sublingual (Ntrostat 02:15 Morphine Sulfate PHA 01/15/25 Verified Injection 02:15 Notify Md Of Changes [facility] 01/15/25 Verified From Base 02:02 Emergency Dysrhythmia [facility] 01/15/25 Verified Protocol 02:02 Oxygen By Nasal RT 01/15/25 Verified Cannula 02:02 Problem List: (1) Fall with injury (2) Head injury (3) Unspecified injury of head, initial encounter Date of Service: Jan 14, 2025 Billing Provider: JULIO CESAR MACHADO DNP Common Visit Codes: [id number] INP/OBS CARE (HIGH) JULIO CESAR MACHADO DNP Jan 15, 2025 02:14
[2025-01-15] MEDS ORDERED: MORPHINE SULFATE INJ 2 MG/ml SYRG IV PRN (02:15)
[2025-01-15] MEDS ORDERED: NITROGLYCERIN 0.4 MG SL TAB SL PRN (02:15)
[2025-01-15 07:15] VITALS: PULSE 88; RESP 18; O2SAT 97
[2025-01-15] MEDS: HYDROcodone-ACET 5/325MG TAB PO PRN (07:56)
[2025-01-15 08:30] LABS: Hematocrit 39.6 % (36.0-46.0); Hemoglobin 13.5 g/dL (12.2-16.2); Mean Corpuscular Hemoglobin 30.1 pg (28.0-32.0); Mean Corpuscular Volume 88.4 fL (80.0-100.0); Nucleated Red Blood Cells % 0.1 %
[2025-01-15 08:50] LABS: Albumin 4.4 g/dL (3.2-4.8); Alkaline Phosphatase 71 U/L (46-116); Anion Gap 10 (5-15); BUN/Creatinine Ratio 17.2 (10.0-20.0); Bilirubin, Total 0.4 mg/dL (0.2-1.0); Blood Urea Nitrogen 15 mg/dL (9-23); Calcium 9.9 mg/dL (8.7-10.4); Carbon Dioxide 28 mmol/L (20-31); Chloride 105 mmol/L (98-107); Glucose 90 mg/dL (74-106); Potassium 4.1 mmol/L (3.5-5.1); Sodium 143 mmol/L (136-145); Total Protein 7.9 g/dL (5.7-8.2)
[2025-01-15 08:53] LABS: Alanine Aminotransferase < 9 U/L (7-40)
[2025-01-15] MEDS ORDERED: LACOSAMIDE 50 MG TAB PO SCH (10:00)
[2025-01-15] MEDS: SERTRALINE HCL 50 MG TAB PO SCH (10:26)
[2025-01-15] MEDS ORDERED: LORazepam 0.5 MG TAB PO PRN (11:30)
[2025-01-15] MEDS ORDERED: LORazepam 2MG/ML-1ML VIAL IV PRN (11:30)
[2025-01-15] MEDS: LORazepam 2MG/ML-1ML VIAL IV ONE (11:32)
--- NOTE | 2025-01-15 13:08 | DVHPN2 ---
Reviewed: Care Plan, H&P, Labs, Medications, Previous Orders, Radiology Changes from previous H/P or p: No Changes Eyes: No Pain, No Vision change, No Conjunctivae inflammation, No Eyelid inflammation, No Other, No Redness ENT: No Ear pain, No Ear discharge, No Nose pain, No Nose discharge, No Nose congestion, No Mouth pain, No Mouth swelling, No Throat pain, No Throat swelling, No Other Cardiovascular: No Chest Pain, No Palpitations, No Orthopnea, No Paroxysmal Noc. Dyspnea, No Edema, No Lt Headedness, No Other Respiratory: No Cough, No Dry, No Shortness of breath, No SOB with excertion, No Wheezing, No Hemoptysis, No Pleuritic Pain, No Sputum, No Other Gastrointestinal: No Nausea, No Vomiting, No Abdominal Pain, No Diarrhea, No Constipation, No Melena, No Hematochezia, No Other Genitourinary: No Dysuria, No Frequency, No Incontinence, No Hematuria, No Retention, No Other Musculoskeletal: No other; neck pain; No shoulder pain, No arm pain, No back pain, No hand pain, No leg pain, No foot pain Skin: No Rash, No Lesions, No Jaundice, No Bruising; Other (Right eyebrow laceration) Objective Vitals Vital Signs Date Time Temp Pulse Resp B/P (MAP) Pulse Ox O2 Delivery O2 Flow Rate FiO2 01/15/25 11:14 70 17 108/47 (67) 95 01/15/25 07:15 98.2 98.2 01/15/25 07:15 Room Air* 0 21 Medications Current Medications Medications Dose Ordered Sig/Aureliano Route Start Time Stop Time Status Last Admin Dose Admin Aspirin 81 mg DAILY PO 01/15/25 10:00 01/15/25 10:26 81 MG Atorvastatin Calcium 20 mg HS PO 01/14/25 22:00 01/15/25 01:41 20 MG Gabapentin 300 mg TID PO 01/14/25 22:00 01/15/25 07:53 300 MG Lorazepam 1 mg Q8HP PRN IV 01/14/25 20:45 Lacosamide 150 mg BID PO 01/15/25 10:00 Hold Divalproex Sodium 1,000 mg BID PO 01/14/25 22:00 01/15/25 10:29 1,000 MG Quetiapine Fumarate 50 mg HS PO 01/14/25 22:00 01/15/25 01:41 50 MG Sertraline HCl 25 mg DAILY PO 01/15/25 10:00 01/15/25 10:26 25 MG Sodium Chloride 10 ml Q8HR IV 01/14/25 22:00 Acetaminophen/ Hydrocodone Bitart 1 tab Q4HP PRN PO 01/14/25 20:45 01/15/25 07:56 1 TAB Ondansetron HCl 4 mg Q4HP PRN IV 01/14/25 20:45 Docusate Sodium 100 mg BIDPRN PRN PO 01/14/25 20:45 Acetaminophen 650 mg Q6HP PRN PO 01/14/25 20:45 Nitroglycerin 0.4 mg Q5MINP PRN SL 01/15/25 02:15 Morphine Sulfate 2 mg Q30M PRN IV 01/15/25 02:15 Lorazepam 1 mg Q5MINP PRN IV 01/15/25 11:30 Lorazepam 1 mg Q8HP PRN PO 01/15/25 11:30 Laboratory Results Laboratory Tests 01/15/25 07:50 Chemistry Test 01/14/25 15:39 01/15/25 07:50 Calcium Level 9.4 mg/dL (8.7-10.4) 9.9 mg/dL (8.7-10.4) Albumin 4.4 g/dL (3.2-4.8) Total Protein 7.9 g/dL (5.7-8.2) LFT Test 01/15/25 07:50 Alanine Aminotransferase (ALT) < 9 U/L (7-40) Alkaline Phosphatase 71 U/L (46-116) Aspartate Amino Transferase (AST) 13 U/L (13-40) Total Bilirubin 0.4 mg/dL (0.2-1.0) Urinalysis Test 01/14/25 19:52 Urine Color Yellow (Yellow) Urine Clarity Turbid (Clear) H Urine pH 6.0 (5.0-9.0) Urine Specific [place] 1.023 (1.001-1.035) Urine Protein Negative (Negative) Urine Ketones Trace (Negative) Urine Blood Negative /uL (Negative) Urine Nitrite Negative (Negative) Urine Bilirubin Negative (Negative) Urine Urobilinogen Normal mg/dL (Negative) Urine Leukocyte Esterase Negative /uL (Negative) Urine RBC 1 /hpf (0 - 4) Urine Microscopic WBC 6 /HPF (0-5) H Urine Squamous Epithelial Cells Few /hpf (<5) Urine Bacteria Few /hpf (None Seen) H Urine Mucus Few (None Seen) Urine Glucose Normal mg/dL (Normal) Labs and/or images reviewed: Labs reviewed by me, Image(s) reviewed by me Assessment/Plan Assessment/Plan Status post mechanical fall Bruises over the face Neck pain: C-spine CT negative Headache after the fall CT head negative History of seizures Anxiety Depression Hypertension Hypercholesterolemia History of CVA Schizophrenia Time spent 50 minutes Patient is full code Advanced care planning time 20 mts Plan discussed with: Patient My Orders Orders - JENNIFER CHAMBERS MD Procedure Category Date Status Time Lorazepam 2mg/Ml Inj PHA 01/15/25 In Process (Ativan Inj) 11:30 Lorazepam Tablet PHA 01/15/25 In Process (Ativan Tablet) 11:30 Date of Service: Jan 15, 2025 Billing Provider: JENNIFER CHAMBERS MD Common Visit Codes: [id number] INP/OBS CARE(HIGH) Secondary Visit Codes: [id number] CARE PLAN 30 MINUTES JENNIFER CHAMBERS MD Jan 15, 2025 13:08
[2025-01-15 21:36] VITALS: BP 104/63; PULSE 71; RESP 13; O2SAT 96
[2025-01-15 22:16] VITALS: PULSE 67; RESP 16; O2SAT 0
[2025-01-15 22:41] VITALS: BP 134/79; PULSE 69; RESP 16; TEMP 97.6; O2SAT 95
[2025-01-15 23:33] VITALS: BP 134/76; PULSE 67; RESP 16; TEMP 97.6; O2SAT 94
[2025-01-16 01:05] VITALS: BP 115/71; PULSE 70; RESP 16; TEMP 98.2; O2SAT 96
[2025-01-16 04:00] VITALS: BP 114/76; PULSE 65; RESP 17; TEMP 97.8; O2SAT 98
[2025-01-16] MEDS ORDERED: FOLI-119 PO (05:06)
[2025-01-16] MEDS ORDERED: LEVE250T18 PO (05:08)
[2025-01-16 09:00] VITALS: BP 117/73; PULSE 61; RESP 18; TEMP 97.7; O2SAT 95
[2025-01-16] MEDS: ACETAMINOPHEN 325 MG TAB PO PRN (09:32)
--- NOTE | 2025-01-16 11:32 | DVHPN2 ---
Reviewed: Care Plan, H&P, Labs, Medications, Previous Orders, Radiology Changes from previous H/P or p: No Changes Eyes: No Pain, No Vision change, No Conjunctivae inflammation, No Eyelid inflammation, No Other, No Redness ENT: No Ear pain, No Ear discharge, No Nose pain, No Nose discharge, No Nose congestion, No Mouth pain, No Mouth swelling, No Throat pain, No Throat swelling, No Other Cardiovascular: No Chest Pain, No Palpitations, No Orthopnea, No Paroxysmal Noc. Dyspnea, No Edema, No Lt Headedness, No Other Respiratory: No Cough, No Dry, No Shortness of breath, No SOB with excertion, No Wheezing, No Hemoptysis, No Pleuritic Pain, No Sputum, No Other Gastrointestinal: No Nausea, No Vomiting, No Abdominal Pain, No Diarrhea, No Constipation, No Melena, No Hematochezia, No Other Genitourinary: No Dysuria, No Frequency, No Incontinence, No Hematuria, No Retention, No Other Musculoskeletal: No other; neck pain; No shoulder pain, No arm pain, No back pain, No hand pain, No leg pain, No foot pain Skin: No Rash, No Lesions, No Jaundice, No Bruising; Other (Right eyebrow laceration) Objective Vitals Vital Signs Date Time Temp Pulse Resp B/P (MAP) Pulse Ox O2 Delivery O2 Flow Rate FiO2 01/16/25 09:32 98.4 01/16/25 09:00 61 18 117/73 (88) 95 01/15/25 22:16 Room Air* 0 21 Intake/Output Intake and Output 01/16/25 07:00 Intake Total 480 ml Balance 480 ml Intake Oral 480 ml # Voids 3 Medications Current Medications Medications Dose Ordered Sig/Uareliano Route Start Time Stop Time Status Last Admin Dose Admin Aspirin 81 mg DAILY PO 01/15/25 10:00 01/16/25 09:34 81 MG Atorvastatin Calcium 20 mg HS PO 01/14/25 22:00 01/15/25 21:40 20 MG Gabapentin 300 mg TID PO 01/14/25 22:00 01/15/25 21:40 300 MG Lorazepam 1 mg Q8HP PRN IV 01/14/25 20:45 Lacosamide 150 mg BID PO 01/15/25 10:00 Hold Divalproex Sodium 1,000 mg BID PO 01/14/25 22:00 01/16/25 09:33 1,000 MG Quetiapine Fumarate 50 mg HS PO 01/14/25 22:00 01/15/25 21:40 50 MG Sertraline HCl 25 mg DAILY PO 01/15/25 10:00 01/16/25 09:33 25 MG Sodium Chloride 10 ml Q8HR IV 01/14/25 22:00 01/15/25 21:40 10 ML Acetaminophen/ Hydrocodone Bitart 1 tab Q4HP PRN PO 01/14/25 20:45 01/15/25 07:56 1 TAB Ondansetron HCl 4 mg Q4HP PRN IV 01/14/25 20:45 Docusate Sodium 100 mg BIDPRN PRN PO 01/14/25 20:45 Acetaminophen 650 mg Q6HP PRN PO 01/14/25 20:45 01/16/25 09:32 650 MG Nitroglycerin 0.4 mg Q5MINP PRN SL 01/15/25 02:15 Morphine Sulfate 2 mg Q30M PRN IV 01/15/25 02:15 Lorazepam 1 mg Q5MINP PRN IV 01/15/25 11:30 Lorazepam 1 mg Q8HP PRN PO 01/15/25 11:30 Laboratory Results Laboratory Tests 01/15/25 07:50 Urinalysis Test 01/14/25 19:52 Urine Color Yellow (Yellow) Urine Clarity Turbid (Clear) H Urine pH 6.0 (5.0-9.0) Urine Specific [place] 1.023 (1.001-1.035) Urine Protein Negative (Negative) Urine Ketones Trace (Negative) Urine Blood Negative /uL (Negative) Urine Nitrite Negative (Negative) Urine Bilirubin Negative (Negative) Urine Urobilinogen Normal mg/dL (Negative) Urine Leukocyte Esterase Negative /uL (Negative) Urine RBC 1 /hpf (0 - 4) Urine Microscopic WBC 6 /HPF (0-5) H Urine Squamous Epithelial Cells Few /hpf (<5) Urine Bacteria Few /hpf (None Seen) H Urine Mucus Few (None Seen) Urine Glucose Normal mg/dL (Normal) Labs and/or images reviewed: Labs reviewed by me, Image(s) reviewed by me Assessment/Plan Assessment/Plan Status post mechanical fall Bruises over the face Neck pain: C-spine CT negative Headache after the fall CT head negative History of seizures Anxiety Depression Hypertension Hypercholesterolemia History of CVA Schizophrenia Time spent 50 minutes Patient is full code Advanced care planning time 20 mts Patient Feels better and wants to go home RN [place] bed side Plan discussed with: Patient My Orders Orders - JENNIFER CHAMBERS MD Procedure Category Date Status Time Mrsa Screen [place] 01/16/25 Logged 01:25 * [employer] CONS 01/15/25 Transmitted Consult Date of Service: Jan 16, 2025 Billing Provider: JENNIFER CHAMBERS MD Common Visit Codes: [id number] INP/OBS CARE(HIGH) JENNIFER CHAMBERS MD Jan 16, 2025 11:32
--- NOTE | 2025-01-16 11:36 | DVHDS2 ---
Discharge Summary Date of Admission Jan 15, 2025 at 02:02 Date of Discharge: Jan 16, 2025 Admitting Diagnosis Fall injury Wounds: Bruise over the forehead Labs/Diagnostic Data: Laboratory Results Test 01/15/25 07:50 01/15/25 07:28 01/14/25 19:52 White Blood Count 6.2 10^3/uL (4.4-10.8) Red Blood Count 4.48 10^6/uL (4.0-5.20) Hemoglobin 13.5 g/dL (12.2-16.2) Hematocrit 39.6 % (36.0-46.0) Mean Corpuscular Volume 88.4 fL (80.0-100.0) Mean Corpuscular Hemoglobin 30.1 pg (28.0-32.0) Mean Corpuscular Hemoglobin Concent 34.1 g/dL (32.0-36.0) Red Cell Distribution Width 13.4 % (11.8-14.3) Platelet Count 164 10^3/uL (140-450) Mean Platelet Volume 7.9 fL (6.9-10.8) Neutrophils (%) (Auto) 45.6 % (37.0-80.0) Lymphocytes (%) (Auto) 43.2 % (10.0-50.0) Monocytes (%) (Auto) 9.7 % (0.0-12.0) Eosinophils (%) (Auto) 1.3 % (0.0-7.0) Basophils (%) (Auto) 0.2 % (0.0-2.0) Neutrophils # (Auto) 2.8 10 ^3/uL (1.6-8.6) Lymphocytes # (Auto) 2.7 10 ^3/uL (0.4-5.4) Monocytes # (Auto) 0.6 10 ^3/uL (0-1.3) Eosinophils # (Auto) 0.1 10 ^3/uL (0-0.8) Basophils # (Auto) 0 10 ^3/uL (0-0.2) Nucleated Red Blood Cells 0.1 % Sodium Level 143 mmol/L (136-145) Potassium Level 4.1 mmol/L (3.5-5.1) Chloride Level 105 mmol/L (98-107) Carbon Dioxide Level 28 mmol/L (20-31) Anion Gap 10 (5-15) Blood Urea Nitrogen 15 mg/dL (9-23) Creatinine 0.87 mg/dL (0.550-1.02) Glomerular Filtration Rate Calc 78 mL/min (>90) BUN/Creatinine Ratio 17.2 (10.0-20.0) Serum Glucose 90 mg/dL (74-106) Calcium Level 9.9 mg/dL (8.7-10.4) Total Bilirubin 0.4 mg/dL (0.2-1.0) Aspartate Amino Transferase (AST) 13 U/L (13-40) Alanine Aminotransferase (ALT) < 9 U/L (7-40) Alkaline Phosphatase 71 U/L (46-116) Total Protein 7.9 g/dL (5.7-8.2) Albumin 4.4 g/dL (3.2-4.8) POC Glucose 83 mg/dl (70-106) Urine Color Yellow (Yellow) Urine Clarity Turbid (Clear) Urine pH 6.0 (5.0-9.0) Urine Specific [place] 1.023 (1.001-1.035) Urine Protein Negative (Negative) Urine Ketones Trace (Negative) Urine Blood Negative /uL (Negative) Urine Nitrite Negative (Negative) Urine Bilirubin Negative (Negative) Urine Urobilinogen Normal mg/dL (Negative) Urine Leukocyte Esterase Negative /uL (Negative) Urine RBC 1 /hpf (0 - 4) Urine Microscopic WBC 6 /HPF (0-5) Urine Squamous Epithelial Cells Few /hpf (<5) Urine Bacteria Few /hpf (None Seen) Urine Mucus Few (None Seen) Urine Glucose Normal mg/dL (Normal) Other Laboratory Tests 01/15/25 07:50 Brief Hx & Hospital Course: 59-year-old female with a history of anxiety depression hypertension hypercholesterolemia CVA schizophrenia brought in from [facility] assisted living facility with a history that she had a mechanical fall. Sustained minor boost to the face CT head was negative C-spine CT was negative. The patient was treated with the pain medications. Patient feels better and wants to go back to the [facility] assisted living facility today. Discharged. No new medications Consults/Reason for consult None Operations or Procedures CT head Condition at Discharge: Fair Final Diagnosis/Problems List Status post mechanical fall Bruises over the face Neck pain: C-spine CT negative Headache after the fall CT head negative History of seizures Anxiety Depression Hypertension Hypercholesterolemia History of CVA Schizophrenia Discharge Disposition: Home Discharge Instruct/Medications Diet: Regular Activity: Light activity Follow Up/Referral: Follow up with your primary Dr Medications: None Scheduled Amoxicillin & Pot Clavulanate (Augmentin Tablet), 875 MG PO BID Aspirin (Aspir-81), 81 MG PO DAILY, (Reported) Atorvastatin Calcium (Atorvastatin Calcium), 20 MG PO HS, (Reported) Divalproex Sodium (Divalproex Sodium Er), 4 TAB PO HS, (Reported) Folic Acid (Folic Acid), 1 MG PO DAILY, (Reported) Gabapentin (Once-Daily) (Gabapentin), 300 MG PO TID, (Reported) Lacosamide (Lacosamide), 150 MG PO BID, (Reported) Lacosamide (Vimpat), 200 MG PO BID, (Reported) Lacosamide (Vimpat), 200 MG PO BID, (Reported) Lacosamide (Vimpat), 100 MG PO BID, (Reported) Lacosamide (Lacosamide), 200 MG PO BID, (Reported) Levetiracetam (Keppra), 1.5 TAB PO BID Levetiracetam (Keppra), 750 MG PO BID, (Reported) Loratadine (Claritin), 10 MG PO DAILY, (Reported) Melatonin (Kp Melatonin), 10 MG PO HS, (Reported) Multiple Vitamins W/ Minerals (One Daily Multivitamin Wo), 1 TAB PO DAILY, (Reported) Olanzapine (Olanzapine), 20 MG PO HS, (Reported) Quetiapine Fumerate (Seroquel), 12.5 MG PO BID, (Reported) Senna (Senokot), 2 TAB PO BID, (Reported) Sertraline Hcl (Sertraline Hcl), 25 MG PO DAILY, (Reported) Thiamine Hcl (Vitamin B-1), 100 MG PO DAILY, (Reported) Scheduled PRN Clotrimazole W/ Betamethasone (Clotrimazole/Betamethason 1-0.05 %), 1 CRE EX BID PRN Diphenhydramine Hcl (Benadryl Allergy), 25 MG PO Q6HPRN PRN for FOR ITCHING, (Reported) Hydroxyzine Hcl (Hydroxyzine Hcl), 25 MG PO Q8HPRN PRN for ANXIETY, (Reported) Lorazepam (Ativan Tablet), 0.5 MG PO Q6HPRN PRN for ANXIETY, (Reported) 35 (Time taken for discharge summary 35 minutes) Discharge Statement: "Patient was advised to return to the ER or call 911 if any headaches, dizziness, shortness of breath, chest pain, abdominal pain, bleeding, fevers, or worsening of medical condition. Patient was counseled about treatment plan, medications, possible side effects, patientverbalized understanding. All questions were answered to the best of my ability. This discharge took greater then 30 minutes in planning, reviewing documentation, counseling the patient, and discussing with other team members." ASSESSMENT ASSESSMENT Hospital Course Improved Assessment Status post mechanical fall Bruises over the face Neck pain: C-spine CT negative Headache after the fall CT head negative History of seizures Anxiety Depression Hypertension Hypercholesterolemia History of CVA Schizophrenia Date of Service: Jan 16, 2025 Billing Provider: JENNIFER CHAMBERS MD Common Visit Codes: 69264-YIE/OBS DISCH DAY >30min JENNIFER CHAMBERS MD Jan 16, 2025 11:36
[2025-01-16 12:23] VITALS: BP 117/73; PULSE 61; RESP 18; TEMP 98.4; O2SAT 95
[2025-01-16 13:00] VITALS: BP 110/72; PULSE 66; RESP 18; TEMP 98.3; O2SAT 90
== END 2025-01-16 14:20 | disposition home or self-care (01) | DRG 384 ==
LOC: ER 14:20 → EDBD 14:20 → EDUNIT# 14:20 → OVERFLOW 01-15 02:02 → EAST 01-15 21:55
PROVIDERS: ADMIT Nurse Practitioner Family; ATTEND Nurse Practitioner Family
DX: S00.83XA Contusion of other part of head, initial encounter (principal); S09.90XA Unspecified injury of head, initial encounter; E78.00 Pure hypercholesterolemia, unspecified; F20.9 Schizophrenia, unspecified; F32.A Depression, unspecified; F41.9 Anxiety disorder, unspecified; I10 Essential (primary) hypertension; W01.0XXA Fall on same level from slipping, tripping and stumbling without subsequent striking against object, initial encounter; Y93.01 Activity, walking, marching and hiking; Z88.2 Allergy status to sulfonamides; Z91.041 Radiographic dye allergy status; Z86.73 Personal history of transient ischemic attack (TIA), and cerebral infarction without residual deficits; Z80.9 Family history of malignant neoplasm, unspecified; Y99.8 Other external cause status; Y92.009 Unspecified place in unspecified non-institutional (private) residence as the place of occurrence of the external cause
CPT/HCPCS: 36415; 70450; 72125; 80048; 80053; 81001; 82962; 85025; 87081; G0378

== ENCOUNTER 2025-02-10 03:48 | Emergency (ER) | payer OTHER ==
[~2025-02-10] VITALS: Ht 175.3 cm; Wt 63.0 kg
[~2025-02-10 03:48] MED LIST changes: +FOLI-119 PO; +LEVE250T18 PO
--- NOTE | 2025-02-10 04:16 | ED.PDOC ---
Drew. trauma (HPI) HPI Comments 59-year-old female with a history of anxiety depression hypertension hypercholesterolemia CVA schizophrenia dementia brought in from [facility] with a history that she had a mechanical fall. Patient has a witnessed fall a she walked towards the bathroom, and she fell forwards landing on both knees. Still able to stand up and ambulate after the fall. No head trauma or loss of consciousness noted. No other injuries noted REVIEW OF SYSTEMS: General: No fever, no chills, or fatigue HEENT: No sore throat, no earache, no congestion, no neck pain. Cardiac: No chest pain. No palpitations. Lungs: No shortness of breath, no cough. GI: No nausea, no vomiting, no diarrhea, no constipation, no abdominal pain : No dysuria, frequency, or urgency. No hematuria. Musculoskeletal: (+) bilateral knee joint pain , no joint swelling, no extremity edema. Skin: No rash, no itching. Neuro: No headache, no dizziness, no weakness PHYSICAL EXAM: General: Awake, alert and oriented. No acute distress. Skin: Skin in warm, dry and intact without rashes or lesions. HEENT: The head is normocephalic and atraumatic. Conjunctivae are clear without exudates or hemorrhage. Sclera is non-icteric. Neck: Normal range of motion. No JVD. Cardiac: Regular rate Respiratory: No signs of respiratory distress. No Stridor. Extremities: Bilateral anterior knee tenderness. No overlying abrasion, laceration, effusion, bruising. Good range of motion. No tenderness of the thigh, calf or ankle. Neurological: The patient is awake, alert and oriented to person, place, and time with normal speech. Speech is clear. There is no facial asymmetry. Psychiatric: Appropriate mood and affect. Good judgement and insight. Chief Complaint: Fall Injury Time Seen by MD: 04:14 Primary Care Provider: unknown Reviewed notes: Help Desk Team Leader Notes Allergies: Coded Allergies: Iodine (Verified Allergy, Unknown, 11/11/23) Sulfa Antibiotics (Verified Allergy, Unknown, 11/11/23) Sulfasalazine (Verified Allergy, Unknown, 01/15/25) Home Meds Active Scripts Amoxicillin & Pot Clavulanate (AUGMENTIN TABLET) 875 Mg Tb, 875 MG PO BID for 5 Days, #10 TAB Prov:HASAN,RASHEDUL RESIDENT 05/12/24 Clotrimazole W/ Betamethasone (Clotrimazole/Betamethason 1-0.05 %) 1 Cre Cre, 1 CRE EX BID PRN, #45 GM Prov:NEAL SANTOS MD 04/04/24 Levetiracetam (Keppra) 500 Mg Tab, 1.5 TAB PO BID, #180 TAB 3 Refills Prov:NEAL SANTOS MD 04/04/24 Reported Medications Levetiracetam (Keppra) 250 Mg Tab, 750 MG PO BID for 30 Days, MG 01/16/25 Folic Acid (Folic Acid) 1 Mg Tab, 1 MG PO DAILY for 30 Days, MG 01/16/25 Lacosamide (Lacosamide) 200 Mg Tab, 200 MG PO BID, #60 TAB 09/19/24 Lacosamide (Vimpat) 100 Mg Tab, 100 MG PO BID, #60 TAB 25 Lacosamide (Vimpat) 100 Mg Tab, 200 MG PO BID, #60 TAB 25 Lacosamide (Vimpat) 100 Mg Tab, 200 MG PO BID, #60 TAB 09/19/24 Divalproex Sodium (Divalproex Sodium Er) 500 Mg Tab, 4 TAB PO HS, TAB 04/01/24 Atorvastatin Calcium (ATORVASTATIN CALCIUM) 20 Mg Tab, 20 MG PO HS, TAB 04/01/24 Aspirin (Aspir-81) 81 Mg Tab, 81 MG PO DAILY, TAB 04/01/24 Lacosamide (Lacosamide) 150 Mg Tab, 150 MG PO BID, TAB 04/01/24 Multiple Vitamins W/ Minerals (One Daily Multivitamin Wo) 1 Tab Tab, 1 TAB PO DAILY, TAB 04/01/24 Olanzapine (OLANZAPINE) 20 Mg Tab, 20 MG PO HS, TAB 04/01/24 Melatonin (KP MELATONIN) 3 Mg Tab, 10 MG PO HS, TAB 04/01/24 Loratadine (Claritin) 10 Mg Tab, 10 MG PO DAILY, TAB 04/01/24 Thiamine Hcl (VITAMIN B-1) 100 Mg Tb, 100 MG PO DAILY, TAB 04/01/24 Sertraline Hcl (Sertraline Hcl) 25 Mg Tab, 25 MG PO DAILY, TAB 04/01/24 Senna (Senokot) 8.6 Mg Tab, 2 TAB PO BID, TAB 04/01/24 Quetiapine Fumerate (Seroquel) 50 Mg Tab, 12.5 MG PO BID, TAB 04/01/24 Hydroxyzine Hcl (Hydroxyzine Hcl) 25 Mg Tab, 25 MG PO Q8HPRN PRN for ANXIETY, TAB 04/01/24 Diphenhydramine Hcl (Benadryl Allergy) 25 Mg Cap, 25 MG PO Q6HPRN PRN for FOR I TCHING, CAP 04/01/24 Lorazepam (ATIVAN TABLET) 0.5 Mg Tb, 0.5 MG PO Q6HPRN PRN for ANXIETY, TAB 04/01/24 Gabapentin (Once-Daily) (Gabapentin) 300 Mg Tab, 300 MG PO TID, TAB 01/11/24 Information Source: Patient, Emergency Med Personnel Mode of Arrival: EMS Past Medical History PAST MEDICAL HISTORY: Anxiety, CVA, Dementia, Depression, High Lipids, HTN, Schizophrenia, Seizures Surgical History: Denies all surgeries HR MANAGER History: No Pertinent HR MANAGER History Family History Family History: Reviewed,noncontributory to illness, Family hx of Cancer Social History Smoker: Non-Smoker Alcohol: Denies ETOH Use, Unknown Drugs: Denies Drug Use Lives In: Assisted Care Was a procedure done? Was a procedure done?: No Differential Diagnosis Multiple Trauma: Fractures, Abrasions, Contusion X-Ray, Labs, Meds, VS Vital Signs Date Time Temp Pulse Resp B/P (MAP) Pulse Ox O2 Delivery O2 Flow Rate FiO2 02/10/25 14:53 97.7 74 16 115/64 (81) 98 97.7 02/10/25 11:30 74 16 99 Room Air* 0 21 02/10/25 11:30 74 16 114/82 (93) 99 02/10/25 07:35 98.0 65 20 118/77 (91) 99 98.0 02/10/25 07:28 65 20 99 Room Air* 0 21 02/10/25 06:08 81 12 98 Room Air* 0 21 02/10/25 06:04 81 14 118/70 (86) 96 02/10/25 04:25 98.1 81 12 117/49 (71) 98 98.1 02/10/25 03:58 98.2 61 15 124/73 99 98.2 Current Medications Medications (Trade) Dose Ordered Sig/Aureliano Route Start Time Stop Time Status Last Admin Acetaminophen (Tylenol Tablet) 650 mg ONCE ONCE PO 02/10/25 04:15 02/10/25 04:16 DC 02/10/25 06:30 Time of 1ST Reevaluation: 04:12 Reevaluation 1ST: Unchanged Patient Education/Counseling: Need For Follow Up Family Education/Counseling: No Family Present Departure 1 Departure Time of Disposition: 05:46 Impression: Primary Impression: Bilateral knee pain Additional Impression: Fall Disposition: HOME / SELF CARE / HOMELESS Condition: Stable Additional Instructions: ED DISCHARGE INSTRUCTIONS Instructions: Please read all instructions provided in this packet carefully. Although you have been discharged from the Emergency Department, this does not mean that you have a "clean bill of health". No definitive diagnosis for your symptoms has been made today. It is possible that you are in the process of developing a serious illness. This is why you must return to the ED without fail if any new or worsening symptoms (especially if your symptoms include chest pain, trouble breathing, abdominal pain, fever, headache, confusion, trouble seeing, or trouble walking) It is also very important that you see a primary care provider (PCP) within the next 3-5 days to follow up. If you are unable to get an appointment, return to the ED for re-evaluation. Comments Extensive evaluation was performed in attempt to identify or rule out: (See differential diagnosis section) The following tests were ordered, and results were reviewed by me and discussed with patient: (See diagnostic results section) The following test were independently interpreted by me: Left, right knee x-ray-no acute fracture Additional information was gathered from interviewing the following independent historians: EMS personnel Decision regarding hospitalization or escalation of hospital level of care: Risks and benefits of admission for further treatment of patient's condition was considered however due to patient's stable condition patient will be discharged to follow up closely or return to care for worsening of condition or inability to follow up. Critical Care Note Critical Care Time?: No Stability Stability form required: No I personally scribed for KAT URRUTIA MD ([email or web address]) on 02/10/25 at 04:16. Electronically submitted by Agustin Bowen ([facility]). KAT URRUTIA MD Feb 10, 2025 04:16
[2025-02-10 06:08] VITALS: PULSE 81; RESP 12; O2SAT 98
--- NOTE | 2025-02-10 06:08 | DVH ---
CLINICAL INDICATION: Bilateral knee pain status post fall TECHNIQUE: XY R KNEE 3V XRAY Comparison: XY L KNEE 3V XRAY on DOS: 02/10/25, XY R KNEE 2V XRAY on DOS: 09/16/24 FINDINGS/IMPRESSION: : There is no evidence of acute fracture or dislocation. Moderate osteoarthritic degenerative change includes medial tibiofemoral and patellofemoral compartme nt narrowing and osteophytosis. Soft tissues are unremarkable.
--- NOTE | 2025-02-10 06:09 | DVH ---
CLINICAL INDICATION: Bilateral knee pain status post fall TECHNIQUE: XY L KNEE 3V XRAY Comparison: XY R KNEE 3V XRAY on DOS: 02/10/25, XY R KNEE 2V XRAY on DOS: 09/16/24 FINDINGS/IMPRESSION: : There is no evidence of acute fracture or dislocation. Moderate osteoarthritic degenerative change includes medial tibiofemoral and patellofemoral compartme nt narrowing with associated osteophytosis. Soft tissues are unremarkable.
[2025-02-10] MEDS: ACETAMINOPHEN 325 MG TAB PO ONE (06:30)
[2025-02-10 07:28] VITALS: PULSE 65; RESP 20; O2SAT 99
[2025-02-10 11:30] VITALS: PULSE 74; RESP 16; O2SAT 99
[2025-02-10 14:53] VITALS: BP 115/64; PULSE 74; RESP 16; TEMP 97.7; O2SAT 98
== END 2025-02-10 14:53 | disposition home or self-care (01) ==
LOC: ER 03:48 → EDBD 03:48 → ER 14:53
DX: M25.561 Pain in right knee (principal); M25.562 Pain in left knee; F41.9 Anxiety disorder, unspecified; F32.A Depression, unspecified; E78.5 Hyperlipidemia, unspecified; I10 Essential (primary) hypertension; F20.9 Schizophrenia, unspecified; F03.90 Unspecified dementia, unspecified severity, without behavioral disturbance, psychotic disturbance, mood disturbance, and anxiety; Z88.2 Allergy status to sulfonamides; Z86.73 Personal history of transient ischemic attack (TIA), and cerebral infarction without residual deficits; Z79.899 Other long term (current) drug therapy; Z79.82 Long term (current) use of aspirin; Z88.8 Allergy status to other drugs, medicaments and biological substances; W19.XXXA Unspecified fall, initial encounter; Y93.89 Activity, other specified; Y92.89 Other specified places as the place of occurrence of the external cause; Y99.8 Other external cause status
CPT/HCPCS: 73562

== ENCOUNTER 2025-03-02 09:06 | Inpatient (IN) | payer OTHER ==
[~2025-03-02] VITALS: Ht 162.6 cm; Wt 89.4 kg
--- NOTE | 2025-03-02 09:19 | ED.PDOC ---
History of Present Illness HPI Comments 59-year-old female brought by paramedics from [facility] because of pelvic pain. Pelvic pain 11/24 has been going on for a month. She also is complaining of discharged from her pelvis. States that she has been tolerating for the past month but recently causing more pain. She does have a history of seizure schizophrenia hypotension. She does use a walker to help her assist. She was given tramadol prior to arrival. States that tremulous did not help and still has a pain. Denies nausea vomiting diarrhea. Denies any other symptoms. Chief Complaint: Pelvic Pain Time Seen by MD: 09:11 Primary Care Provider: unknown Reviewed Notes: Nurses Notes, Medications, Allergies Allergies: Coded Allergies: Iodine (Verified Allergy, Unknown, 11/11/23) Sulfa Antibiotics (Verified Allergy, Unknown, 11/11/23) Sulfasalazine (Verified Allergy, Unknown, 01/15/25) Home Meds Active Scripts Amoxicillin & Pot Clavulanate (AUGMENTIN TABLET) 875 Mg Tb, 875 MG PO BID for 5 Days, #10 TAB Prov:KAMARI CONNELLY RESIDENT 05/12/24 Clotrimazole W/ Betamethasone (Clotrimazole/Betamethason 1-0.05 %) 1 Cre Cre, 1 CRE EX BID PRN, #45 GM Prov:NEAL SANTOS MD 04/04/24 Levetiracetam (Keppra) 500 Mg Tab, 1.5 TAB PO BID, #180 TAB 3 Refills Prov:NEAL SANTOS MD 04/04/24 Reported Medications Levetiracetam (Keppra) 250 Mg Tab, 750 MG PO BID for 30 Days, MG 01/16/25 Folic Acid (Folic Acid) 1 Mg Tab, 1 MG PO DAILY for 30 Days, MG /06/11 Lacosamide (Lacosamide) 200 Mg Tab, 200 MG PO BID, #60 TAB 5/5/25 Lacosamide (Vimpat) 100 Mg Tab, 100 MG PO BID, #60 TAB 5/5/25 Lacosamide (Vimpat) 100 Mg Tab, 200 MG PO BID, #60 TAB 5/5/25 Lacosamide (Vimpat) 100 Mg Tab, 200 MG PO BID, #60 TAB 5//25 Divalproex Sodium (Divalproex Sodium Er) 500 Mg Tab, 4 TAB PO HS, TAB 04/01/24 Atorvastatin Calcium (ATORVASTATIN CALCIUM) 20 Mg Tab, 20 MG PO HS, TAB 04/01/24 Aspirin (Aspir-81) 81 Mg Tab, 81 MG PO DAILY, TAB 04/01/24 Lacosamide (Lacosamide) 150 Mg Tab, 150 MG PO BID, TAB 04/01/24 Multiple Vitamins W/ Minerals (One Daily Multivitamin Wo) 1 Tab Tab, 1 TAB PO DAILY, TAB 04/01/24 Olanzapine (OLANZAPINE) 20 Mg Tab, 20 MG PO HS, TAB 04/01/24 Melatonin (KP MELATONIN) 3 Mg Tab, 10 MG PO HS, TAB 04/01/24 Loratadine (Claritin) 10 Mg Tab, 10 MG PO DAILY, TAB 04/01/24 Thiamine Hcl (VITAMIN B-1) 100 Mg Tb, 100 MG PO DAILY, TAB 04/01/24 Sertraline Hcl (Sertraline Hcl) 25 Mg Tab, 25 MG PO DAILY, TAB 04/01/24 Senna (Senokot) 8.6 Mg Tab, 2 TAB PO BID, TAB 04/01/24 Quetiapine Fumerate (Seroquel) 50 Mg Tab, 12.5 MG PO BID, TAB 04/01/24 Hydroxyzine Hcl (Hydroxyzine Hcl) 25 Mg Tab, 25 MG PO Q8HPRN PRN for ANXIETY, TAB 04/01/24 Diphenhydramine Hcl (Benadryl Allergy) 25 Mg Cap, 25 MG PO Q6HPRN PRN for FOR ITCHING, CAP 04/01/24 Lorazepam (ATIVAN TABLET) 0.5 Mg Tb, 0.5 MG PO Q6HPRN PRN for ANXIETY, TAB 04/01/24 Gabapentin (Once-Daily) (Gabapentin) 300 Mg Tab, 300 MG PO TID, TAB 01/11/24 Information Source: Patient, Emergency Med Personnel Mode of Arrival: EMS Severity: Moderate Timing: Days Duration: Since onset Past Medical History PAST MEDICAL HISTORY: Anxiety, CVA, Dementia, Depression, High Lipids, HTN, Schizophrenia, Seizures Surgical History: Denies all surgeries WEBBING TACKER History: No Pertinent WEBBING TACKER History Family History Family History: Reviewed,noncontributory to illness, Family hx of Cancer Social History Smoker: Non-Smoker Alcohol: Denies ETOH Use, Unknown Drugs: Denies Drug Use Lives In: Assisted Care Constitutional: denies: chills, diaphoresis, fatigue, fever, malaise, sweats, weakness, others EENTM: denies: blurred vision, double vision, ear bleeding, ear discharge, ear drainage, ear pain, ear ringing, eye pain, eye redness, hearing loss, mouth pain, mouth swelling, nasal discharge, nose bleeding, nose congestion, nose pain, photophobia, tearing, throat pain, throat swelling, voice changes, others Respiratory: denies: cough, hemoptysis, orthopnea, SOB at rest, shortness of breath, SOB with excertion, stridor, wheezing, others Cardiovascular: denies: chest pain, dizzy spells, diaphoresis, Dyspnea on exertion, edema, irregular heart beat, left arm pain, lightheadedness, palpit ations, PND, syncope, others Gastrointestinal: denies: abdomen distended, abdominal pain, blood streaked b owels, constipated, diarrhea, dysphagia, difficulty swallowing, hematemesis, melena, nausea, poor appetite, poor fluid intake, rectal bleeding, rectal pain, vomiting, others Genitourinary: reports: pain (Pelvis); denies: abnormal vagina bleeding, burning, dyspareunia, dysuria, flank pain, frequency, hematuria, incontinence, , vagina discharge, urgency, others Neurological: denies: dizziness, fainting, headache, left sided numbness, left sided weakness, numbness, paresthesia, pre-existing deficit, right sided numbness, right sided weakness, seizure, speech problems, tingling, tremors, weakness, others Musculoskeletal: denies: back pain, gout, joint pain, joint swelling, muscle pain, muscle stiffness, neck pain, others Integumetry: denies: bruises, change in color, change in hair/nails, dryness, laceration, lesions, lumps, rash, wounds, others Allergic/Immunocompromised: denies: Difficulty Healing, Frequent Infections, Hives, Itching, others Hematologic/Lymphatic: denies: anemia, blood clots, easy bleeding, easy bruising, swollen glands, others Endocrine: denies: excessive hunger, excessive sweating, excessive thirst, excessive urination, flushing, intolerance to cold, intolerance to heat, unexplained weight gain, unexplained weight loss, others Psychiatric: denies: anxiety, bipolar disorder, depression, hopeless, panic disorder, schizophrenia, sleepless, suicidal, others Physical Exam General Appearance: Moderate Distress HEENT: Normal ENT Inspection, Pharynx Normal, TMs Normal Neck: Full Range of Motion, Non-Tender, Normal, Normal Inspection Respiratory: Chest Non-Tender, Lungs Clear, No Accessory Muscle Use, No Respiratory Distress, Normal Breath Sounds Cardiovascular: No Edema, No JVD, No Murmur, No Gallop, Normal Peripheral Pulses, Regular Rate/Rhythm Breast Exam: Deferred Gastrointestinal: No Organomegaly, Non Tender, No Pulsatile Mass, Normal Bowel Sounds, Soft Genitalia: Deferred Pelvic: Deferred Rectal: Deferred Extremities: No calf tenderness, No pedal edema Musculoskeletal : Apperance: Normal Neurologic: Alert Cerebellar Function: NOT DONE Reflexes: NOT DONE Skin: Normal Color Peripheral Pulses: 3+ Radial (R), 3+ Radial (L) Lymphatic: No Adenopathy Was a procedure done? Was a procedure done?: No Differential Dx Considerations may include: Anemia Electrolyte imbalance X-Ray, Labs, Meds, VS Vital Signs Date Time Temp Pulse Resp B/P (MAP) Pulse Ox O2 Delivery O2 Flow Rate FiO2 03/02/25 09:13 97.8 72 18 108/64 96 97.8 Lab Test 03/02/25 09:51 Range/Units White Blood Count 3.4 L 4.4-10.8 10^3/uL Red Blood Count 4.69 4.0-5.20 10^6/uL Hemoglobin 13.9 12.2-16.2 g/dL Hematocrit 41.8 36.0-46.0 % Mean Corpuscular Volume 89.2 80.0-100.0 fL Mean Corpuscular Hemoglobin 29.7 28.0-32.0 pg Mean Corpuscular Hemoglobin Concent 33.3 32.0-36.0 g/dL Red Cell Distribution Width 14.0 11.8-14.3 % Platelet Count 157 140-450 10^3/uL Mean Platelet Volume 7.9 6.9-10.8 fL Neutrophils (%) (Auto) 39.4 37.0-80.0 % Lymphocytes (%) (Auto) 50.7 H 10.0-50.0 % Monocytes (%) (Auto) 7.0 0.0-12.0 % Eosinophils (%) (Auto) 2.4 0.0-7.0 % Basophils (%) (Auto) 0.5 0.0-2.0 % Neutrophils # (Auto) 1.3 L 1.6-8.6 10 ^3/uL Lymphocytes # (Auto) 1.7 0.4-5.4 10 ^3/uL Monocytes # (Auto) 0.2 0-1.3 10 ^3/uL Eosinophils # (Auto) 0.1 0-0.8 10 ^3/uL Basophils # (Auto) 0 0-0.2 10 ^3/uL Nucleated Red Blood Cells 0.2 % Sodium Level 141 136-145 mmol/L Potassium Level 4.0 3.5-5.1 mmol/L Chloride Level 107 98-107 mmol/L Carbon Dioxide Level 26 20-31 mmol/L Anion Gap 8 5-15 Blood Urea Nitrogen 19 9-23 mg/dL Creatinine 0.79 0.550-1.02 mg/dL Glomerular Filtration Rate Calc 87 >90 mL/min BUN/Creatinine Ratio 24.1 H 10.0-20.0 Serum Glucose 91 74-106 mg/dL Calcium Level 9.5 8.7-10.4 mg/dL Patient alert. Complaining of elevated pain. Vitals stable. Answering questions. Establish intravenous access. Was given fluids. Was given pain medication. Was given Zofran. Continue monitoring. [place] [id number] Ph: [phone] DIAGNOSTIC IMAGING Diagnostic Imaging Report : [id number] Signed PATIENT: JER ORNELAS ACCT: [id number] UNIT: [id number] : 1965 LOC: ER ROOM / BED: / AGE / SEX: 59 / F ADM STATUS: REG ER SERVICE 0920 ORDERING PHYSICIAN: DEJUAN GIMENEZ MD PROCEDURE(s): ABPL - CT AB PEL WO CON-NO ORAL OR IV REASON: pelvicpain ORDER NUMBER(s): [id number], ACCESSION NUMBER(s): [id number] Exam: CT CT AB PEL WO CON-NO ORAL OR IV History: Pelvic pain. Comparison Study: CT CT AB PEL WO CON-NO ORAL OR IV on DOS: 01/12/24. Technique: Multidetector spiral CT of the abdomen and pelvis was performed from lung bases to pubic symphysis. Imaging was performed without intravenous contrast. Coronal and sagittal multiplanar reformats were obtained from the axial data set by the technologist. Radiation Dose : 1. Abdomen/Pelvis: CTDIvol 9.42 mGy, DLP 3.92 mGy*cm. Findings: Evaluation of vasculature and solid organs is limited due to lack of intravenous contrast use. Lung Bases: Bilateral lower lobe atelectasis. Visualized portions of the heart and pericardium are unremarkable. Liver: The liver is normal in size. No focal lesions. Nodular hepatic contour. Gallbladder and Biliary Tree: The gallbladder is unremarkable. No intrahepatic or extrahepatic biliary ductal dilatation. Spleen: Unremarkable Pancreas: The pancreas is grossly unremarkable. Adrenal Glands: Unremarkable Kidneys: Kidneys are unremarkable without calculi or hydronephrosis. GI tract: The stomach is grossly normal in appearance. No evidence of small bowel wall thickening or abnormal dilatation to suggest bowel obstruction. The colon is unremarkable. The appendix is not visualized, however no inflammatory changes in the right lower quadrant to suggest acute appendicitis. Peritoneum/mesentery/retroperitoneum. No evidence of free intraperitoneal air. No ascites. No evidence of suspicious lymphadenopathy. Abdominal Wall: Unremarkable. Vasculature: The visualized abdominal aorta is normal in size and caliber. Evaluation of abdominal and pelvic vessels is limited due to lack of intravenous contrast. Urinary Bladder: Grossly unremarkable for degree of distention. Pelvic Organs: Unremarkable Musculoskeletal: No aggressive focal bony lesions, acute fractures or dislocation. Soft tissues: Bilateral breast implants. There is a fat containing umbilical hernia. IMPRESSION: 1. No acute abdominal or pelvic findings. 2. Nodular hepatic contour. Correlate for cirrhosis. ATED BY: HALLE HILL MD DICTATED DATE/TIME: 03/02/25958 SIGNED BY: HALLE HILL MD SIGNED DATE/TIME: 03/02/25958 CC: [place] [id number] Ph: [phone] DIAGNOSTIC IMAGING Diagnostic Imaging Report : [id number] Signed PATIENT: JRE ORNELAS ACCT: [id number] UNIT: [id number] : 1965 LOC: ER ROOM / BED: / AGE / SEX: 59 / F ADM STATUS: REG ER SERVICE 9 ORDERING PHYSICIAN: DEJUAN GIMENEZ MD PROCEDURE(s): CXRP - CHEST PORTABLE REASON: sob ORDER NUMBER(s): [id number], ACCESSION NUMBER(s): [id number] XY CHEST PORTABLE, HISTORY: sob COMPARISON: XY CHEST XRAY 1 VIEW on DOS: 05/11/24, XY CHEST PORTABLE on DOS: 01/10/24, XY CHEST PORTABLE on DOS: 12/29/23 XY CHEST XRAY 1 VIEW on DOS: 05/11/24, XY CHEST PORTABLE on DOS: 01/10/24, XY CHEST PORTABLE on DOS: 12/29/23 TECHNICAL DATA: 1 view of the chest was obtained. FINDINGS: Lines and tubes: None Cardiomediastinal silhouette: normal Pulmonary vasculature: normal Lung expansion: low Lung airspace: normal Lung interstitium: normal Pleura: normal Pneumothorax: no Bones: Unremarkable Other: no IMPRESSION: No acute intrathoracic abnormality. ATED BY: BENI MAYFIELD MD DICTATED DATE/TIME: 03/02/251000 SIGNED BY: BENI MAYFIELD MD SIGNED DATE/TIME: 03/02/251000 CC: Images Reviewed?: Images reviewed and evaluated by me Time of 1ST Reevaluation: 09:18 Reevaluation 1ST: Unchanged Patient Education/Counseling: Diagnosis, Treatment, Prognosis Family Education/Counseling: No Family Present SEPSIS Sepsis Screen Physician Orders Chest Portable (03/02/25 09:20) Urinalysis (03/02/25 09:20) Sodium Chloride 0.9% (03/02/25 09:30) Ct Ab Pel Wo Con-No Oral Or Iv (03/02/25 09:20) Vital Signs Date Time Temp Pulse Resp B/P (MAP) Pulse Ox O2 Delivery O2 Flow Rate FiO2 03/02/25 09:13 97.8 72 18 108/64 96 97.8 Laboratory Tests Test 03/02/25 09:51 White Blood Count 3.4 10^3/uL (4.4-10.8) L Departure 1 Departure Time of Disposition: 09:19 Impression: Primary Impression: Acute abdominal pain Disposition: ADMITTED INPATIENT Admit to: Med Surg Condition: Guarded Critical Care Note Critical Care Time?: No Stability Stability form required: No Heart Score Heart Score: Heart Score Response (Comments) Value History N/A 0 EKG N/A 0 Age N/A 0 Risk Factors N/A 0 Troponin N/A 0 Total 0 I personally scribed for DEJUAN GIMENEZ MD ([email or web address]) on 03/02/25 at 12:13. Electronically submitted by Yaya Mendosa ([email or web address]). DEJUAN GIMENEZ MD Mar 02, 2025 09:19
--- NOTE | 2025-03-02 10:01 | DVH ---
Exam: CT CT AB PEL WO CON-NO ORAL OR IV History: Pelvic pain. Comparison Study: CT CT AB PEL WO CON-NO ORAL OR IV on DOS: 01/12/24. Technique: Multidetector spiral CT of the abdomen and pelvis was performed from lung bases to pubic s ymphysis. Imaging was performed without intravenous contrast. Coronal and sagittal multiplanar reform ats were obtained from the axial data set by the technologist. Radiation Dose : 1. Abdomen/Pelvis: CTDIvol 9.42 mGy, DLP 3.92 mGy*cm. Findings: Evaluation of vasculature and solid organs is limited due to lack of intravenous contrast use. Lung Bases: Bilateral lower lobe atelectasis. Visualized portions of the heart and pericardium are un remarkable. Liver: The liver is normal in size. No focal lesions. Nodular hepatic contour. Gallbladder and Biliary Tree: The gallbladder is unremarkable. No intrahepatic or extrahepatic biliar y ductal dilatation. Spleen: Unremarkable Pancreas: The pancreas is grossly unremarkable. Adrenal Glands: Unremarkable Kidneys: Kidneys are unremarkable without calculi or hydronephrosis. GI tract: The stomach is grossly normal in appearance. No evidence of small bowel wall thickening or abnormal dilatation to suggest bowel obstruction. The colon is unremarkable. The appendix is not visu alized, however no inflammatory changes in the right lower quadrant to suggest acute appendicitis. Peritoneum/mesentery/retroperitoneum. No evidence of free intraperitoneal air. No ascites. No evidenc e of suspicious lymphadenopathy. Abdominal Wall: Unremarkable. Vasculature: The visualized abdominal aorta is normal in size and caliber. Evaluation of abdominal a nd pelvic vessels is limited due to lack of intravenous contrast. Urinary Bladder: Grossly unremarkable for degree of distention. Pelvic Organs: Unremarkable Musculoskeletal: No aggressive focal bony lesions, acute fractures or dislocation. Soft tissues: Bilateral breast implants. There is a fat containing umbilical hernia. IMPRESSION: 1. No acute abdominal or pelvic findings. 2. Nodular hepatic contour. Correlate for cirrhosis.
--- NOTE | 2025-03-02 10:03 | DVH ---
XY CHEST PORTABLE, HISTORY: sob COMPARISON: XY CHEST XRAY 1 VIEW on DOS: 05/11/24, XY CHEST PORTABLE on DOS: 01/10/24, XY CHEST PORTAB LE on DOS: 12/29/23 XY CHEST XRAY 1 VIEW on DOS: 05/11/24, XY CHEST PORTABLE on DOS: 01/10/24, XY CHEST PORTABLE on DOS: TECHNICAL DATA: 1 view of the chest was obtained. FINDINGS: Lines and tubes: None Cardiomediastinal silhouette: normal Pulmonary vasculature: normal Lung expansion: low Lung airspace: normal Lung interstitium: normal Pleura: normal Pneumothorax: no Bones: Unremarkable Other: no IMPRESSION: No acute intrathoracic abnormality.
[2025-03-02 10:05] LABS: Hematocrit 41.8 % (36.0-46.0); Hemoglobin 13.9 g/dL (12.2-16.2); Mean Corpuscular Hemoglobin 29.7 pg (28.0-32.0); Mean Corpuscular Volume 89.2 fL (80.0-100.0); Nucleated Red Blood Cells % 0.2 %
[2025-03-02 10:11] LABS: Chloride 107 mmol/L (98-107); Potassium 4.0 mmol/L (3.5-5.1); Sodium 141 mmol/L (136-145)
[2025-03-02 10:12] LABS: Anion Gap 8 (5-15); Calcium 9.5 mg/dL (8.7-10.4); Carbon Dioxide 26 mmol/L (20-31)
[2025-03-02 10:17] LABS: BUN/Creatinine Ratio 24.1 (10.0-20.0); Blood Urea Nitrogen 19 mg/dL (9-23); Glucose 91 mg/dL (74-106)
--- NOTE | 2025-03-02 12:58 | DVHHP2 ---
Admitting Diagnosis: acute abd pain History of Present Illness Home Meds Active Scripts Amoxicillin & Pot Clavulanate (AUGMENTIN TABLET) 875 Mg Tb, 875 MG PO BID for 5 Days, #10 TAB Prov:KAMARI CONNELLY RESIDENT 05/12/24 Clotrimazole W/ Betamethasone (Clotrimazole/Betamethason 1-0.05 %) 1 Cre Cre, 1 CRE EX BID PRN, #45 GM Prov:NEAL SANTOS MD 04/04/24 Levetiracetam (Keppra) 500 Mg Tab, 1.5 TAB PO BID, #180 TAB 3 Refills Prov:NEAL SANTOS MD 04/04/24 Reported Medications Levetiracetam (Keppra) 250 Mg Tab, 750 MG PO BID for 30 Days, MG 01/16/25 Folic Acid (Folic Acid) 1 Mg Tab, 1 MG PO DAILY for 30 Days, MG 01/16/25 Lacosamide (Lacosamide) 200 Mg Tab, 200 MG PO BID, #60 TAB 09/19/24 Lacosamide (Vimpat) 100 Mg Tab, 100 MG PO BID, #60 TAB 25 Lacosamide (Vimpat) 100 Mg Tab, 200 MG PO BID, #60 TAB 525 Lacosamide (Vimpat) 100 Mg Tab, 200 MG PO BID, #60 TAB 25 Divalproex Sodium (Divalproex Sodium Er) 500 Mg Tab, 4 TAB PO HS, TAB 04/01/24 Atorvastatin Calcium (ATORVASTATIN CALCIUM) 20 Mg Tab, 20 MG PO HS, TAB 04/01/24 Aspirin (Aspir-81) 81 Mg Tab, 81 MG PO DAILY, TAB 04/01/24 Lacosamide (Lacosamide) 150 Mg Tab, 150 MG PO BID, TAB 04/01/24 Multiple Vitamins W/ Minerals (One Daily Multivitamin Wo) 1 Tab Tab, 1 TAB PO DAILY, TAB 04/01/24 Olanzapine (OLANZAPINE) 20 Mg Tab, 20 MG PO HS, TAB 04/01/24 Melatonin (KP MELATONIN) 3 Mg Tab, 10 MG PO HS, TAB 04/01/24 Loratadine (Claritin) 10 Mg Tab, 10 MG PO DAILY, TAB 04/01/24 Thiamine Hcl (VITAMIN B-1) 100 Mg Tb, 100 MG PO DAILY, TAB 04/01/24 Sertraline Hcl (Sertraline Hcl) 25 Mg Tab, 25 MG PO DAILY, TAB 04/01/24 Senna (Senokot) 8.6 Mg Tab, 2 TAB PO BID, TAB 04/01/24 Quetiapine Fumerate (Seroquel) 50 Mg Tab, 12.5 MG PO BID, TAB 04/01/24 Hydroxyzine Hcl (Hydroxyzine Hcl) 25 Mg Tab, 25 MG PO Q8HPRN PRN for ANXIETY, TAB 04/01/24 Diphenhydramine Hcl (Benadryl Allergy) 25 Mg Cap, 25 MG PO Q6HPRN PRN for FOR ITCHING, CAP 04/01/24 Lorazepam (ATIVAN TABLET) 0.5 Mg Tb, 0.5 MG PO Q6HPRN PRN for ANXIETY, TAB 04/01/24 Gabapentin (Once-Daily) (Gabapentin) 300 Mg Tab, 300 MG PO TID, TAB 01/11/24 Past Medical History Patient Family History: Cardiovascular disease G8 BROTHER Hypertension G8 MOTHER, H&P Exam Vital Signs Vital Signs Date Time Temp Pulse Resp B/P (MAP) Pulse Ox O2 Delivery O2 Flow Rate FiO2 03/02/25 09:13 97.8 72 18 108/64 96 97.8 SEPSIS Sepsis Screen Date sepsis recognized/suspect: Mar 02, 2025 Time Sepsis recognized/suspect: 909 Recent Procedure: No On Antibiotic Therapy: No Respiratory Rate >20: No Heart Rate >90: No Temp<36 C (96.8 F) or >38.3 C: No SBP <90 or MAP <65 mmHG: No New Acute Mental Status Change: No Is the patient on CPAP, BIPAP,: No Physician Orders Chest Portable (03/02/25 09:20) Urinalysis (03/02/25 09:20) Sodium Chloride 0.9% (03/02/25 09:30) Ct Ab Pel Wo Con-No Oral Or Iv (03/02/25 09:20) Admit (03/02/25 12:55) Code Status (03/02/25 12:55) 2 Gm Sodium Diet (03/02/25 Lunch) Hydrocodone-Acet 5/325mg Tab ([place] 5/32 (03/02/25 13:00) Ondansetron Hcl (Zofran) (03/02/25 13:00) Enoxaparin Sodium (Lovenox) (03/03/25 10:00) Complete Blood Count (03/03/25 04:00) Comprehensive Metabolic Panel (03/03/25 04:00) Pt Request For Service (03/02/25 12:55) Condition: Serious (03/02/25 12:55) Acetaminophen Tablet (Tylenol Tablet) (03/02/25 13:00) Morphine Sulfate Injection (03/02/25 13:00) Nitroglycerin Sublingual (Ntrostat Subli (03/02/25 13:00) Morphine Sulfate Injection (03/02/25 13:00) Stat Ekg For Chest Pain (03/02/25 12:55) Notify Of Changes From Base (03/02/25 12:55) Manager Of Administration For 24 Hours (03/02/25 12:55) Emergency Dysrhythmia Protocol (03/02/25 12:55) Rhythm Strips Once Every Shift (03/02/25 12:55) Oxygen By Nasal Cannula (03/02/25 12:55) Vital Signs Date Time Temp Pulse Resp B/P (MAP) Pulse Ox O2 Delivery O2 Flow Rate FiO2 03/02/25 09:13 97.8 72 18 108/64 96 97.8 Laboratory Tests Test 03/02/25 09:51 White Blood Count 3.4 10^3/uL (4.4-10.8) L Labs/Xrays Labs Test 03/02/25 09:51 Range/Units White Blood Count 3.4 L 4.4-10.8 10^3/uL Red Blood Count 4.69 4.0-5.20 10^6/uL Hemoglobin 13.9 12.2-16.2 g/dL Hematocrit 41.8 36.0-46.0 % Mean Corpuscular Volume 89.2 80.0-100.0 fL Mean Corpuscular Hemoglobin 29.7 28.0-32.0 pg Mean Corpuscular Hemoglobin Concent 33.3 32.0-36.0 g/dL Red Cell Distribution Width 14.0 11.8-14.3 % Platelet Count 157 140-450 10^3/uL Mean Platelet Volume 7.9 6.9-10.8 fL Neutrophils (%) (Auto) 39.4 37.0-80.0 % Lymphocytes (%) (Auto) 50.7 H 10.0-50.0 % Monocytes (%) (Auto) 7.0 0.0-12.0 % Eosinophils (%) (Auto) 2.4 0.0-7.0 % Basophils (%) (Auto) 0.5 0.0-2.0 % Neutrophils # (Auto) 1.3 L 1.6-8.6 10 ^3/uL Lymphocytes # (Auto) 1.7 0.4-5.4 10 ^3/uL Monocytes # (Auto) 0.2 0-1.3 10 ^3/uL Eosinophils # (Auto) 0.1 0-0.8 10 ^3/uL Basophils # (Auto) 0 0-0.2 10 ^3/uL Nucleated Red Blood Cells 0.2 % Sodium Level 141 136-145 mmol/L Potassium Level 4.0 3.5-5.1 mmol/L Chloride Level 107 98-107 mmol/L Carbon Dioxide Level 26 20-31 mmol/L Anion Gap 8 5-15 Blood Urea Nitrogen 19 9-23 mg/dL Creatinine 0.79 0.550-1.02 mg/dL Glomerular Filtration Rate Calc 87 >90 mL/min BUN/Creatinine Ratio 24.1 H 10.0-20.0 Serum Glucose 91 74-106 mg/dL Calcium Level 9.5 8.7-10.4 mg/dL Assessment/Plan Primary Diagnosis 1. No acute abdominal or pelvic findings. 2. Nodular hepatic contour. Correlate for cirrhosis. acute abd pain MARTHA FERRARA DO Mar 02, 2025 12:58
[2025-03-02] MEDS ORDERED: MORPHINE SULFATE INJ 2 MG/ml SYRG IV PRN ×2 (13:00)
[2025-03-02] MEDS ORDERED: NITROGLYCERIN 0.4 MG SL TAB SL PRN (13:00)
[2025-03-02] MEDS ORDERED: ONDANSETRON HCL 4 MG/2 ML VIAL IV PRN (13:00)
[2025-03-02 18:17] VITALS: BP 103/64; PULSE 80; RESP 18; TEMP 97.7; O2SAT 95
[2025-03-02] MEDS: SODIUM CHLORIDE 0.9% 1,000 ML IV ONE (18:17)
[2025-03-02 19:15] VITALS: BP 134/80; PULSE 75; RESP 17; TEMP 97.8; O2SAT 98
[2025-03-02 20:00] VITALS: PULSE 75; RESP 17; O2SAT 95
[2025-03-02 21:00] VITALS: BP 105/70; PULSE 79; RESP 16; TEMP 97.6; O2SAT 97
[2025-03-02] MEDS: HYDROcodone-ACET 5/325MG TAB PO PRN (21:07)
[2025-03-03] VITALS (8 sets, daily range): BP systolic 97–121; BP diastolic 56–90; PULSE 61–94; RESP 17–20; TEMP 97.1–98.3; O2SAT 91–98
[2025-03-03 07:46] LABS: Hematocrit 41.0 % (36.0-46.0); Hemoglobin 13.9 g/dL (12.2-16.2); Mean Corpuscular Hemoglobin 30.0 pg (28.0-32.0); Mean Corpuscular Volume 88.6 fL (80.0-100.0); Nucleated Red Blood Cells % 0.2 %
[2025-03-03 08:02] LABS: Alanine Aminotransferase 16 U/L (7-40); Albumin 4.5 g/dL (3.2-4.8); Alkaline Phosphatase 74 U/L (46-116); Anion Gap 10 (5-15); BUN/Creatinine Ratio 24.1 (10.0-20.0); Blood Urea Nitrogen 19 mg/dL (9-23); Calcium 9.5 mg/dL (8.7-10.4); Carbon Dioxide 25 mmol/L (20-31); Potassium 4.0 mmol/L (3.5-5.1); Sodium 143 mmol/L (136-145); Total Protein 7.8 g/dL (5.7-8.2)
[2025-03-03 08:03] LABS: Bilirubin, Total 0.6 mg/dL (0.2-1.0); Chloride 108 mmol/L (98-107); Glucose 108 mg/dL (74-106)
[2025-03-03] MEDS: ENOXAPARIN SOD 40 MG/0.4 ML SYRINGE SC SCH (10:10)
--- NOTE | 2025-03-03 19:22 | DVHINCON2 ---
Date of service: Mar 03, [address] Antunez Reason for Consultation Abdominal pain History of Present Illness This 59-year-old female presented to the emergency room with a abdominal pelvic pain mostly in the pelvis patient has got some discharge in the pelvis also patient has got history of schizophrenia hypertension patient has got apparently bladder infections some blood in the urine also patient is a very poor historian Past Medical History CVA dementia depression high lipids schizophrenia seizures hypertension anxiety Past Surgical History None Family History: Cardiovascular disease G8 BROTHER Hypertension G8 MOTHER, Family History History of cancer Social History Denies smoking or drinking Allergies: Coded Allergies: Iodine (Verified Allergy, Unknown, 11/11/23) Sulfa Antibiotics (Verified Allergy, Unknown, 11/11/23) Sulfasalazine (Verified Allergy, Unknown, 01/15/25) Home Meds Active Scripts Amoxicillin & Pot Clavulanate (AUGMENTIN TABLET) 875 Mg Tb, 875 MG PO BID for 5 Days, #10 TAB Prov:KAMARI CONNELLY RESIDENT 05/12/24 Clotrimazole W/ Betamethasone (Clotrimazole/Betamethason 1-0.05 %) 1 Cre Cre, 1 CRE EX BID PRN, #45 GM Prov:NEAL SANTOS MD 04/04/24 Levetiracetam (Keppra) 500 Mg Tab, 1.5 TAB PO BID, #180 TAB 3 Refills Prov:NEAL SANTOS MD 04/04/24 Reported Medications Levetiracetam (Keppra) 250 Mg Tab, 750 MG PO BID for 30 Days, MG 01/16/25 Folic Acid (Folic Acid) 1 Mg Tab, 1 MG PO DAILY for 30 Days, MG 01/16/25 Lacosamide (Lacosamide) 200 Mg Tab, 200 MG PO BID, #60 TAB /10/09 Lacosamide (Vimpat) 100 Mg Tab, 100 MG PO BID, #60 TAB 5/25 Lacosamide (Vimpat) 100 Mg Tab, 200 MG PO BID, #60 TAB 525 Lacosamide (Vimpat) 100 Mg Tab, 200 MG PO BID, #60 TAB 09/19/24 Divalproex Sodium (Divalproex Sodium Er) 500 Mg Tab, 4 TAB PO HS, TAB 04/01/24 Atorvastatin Calcium (ATORVASTATIN CALCIUM) 20 Mg Tab, 20 MG PO HS, TAB 04/01/24 Aspirin (Aspir-81) 81 Mg Tab, 81 MG PO DAILY, TAB 04/01/24 Lacosamide (Lacosamide) 150 Mg Tab, 150 MG PO BID, TAB 04/01/24 Multiple Vitamins W/ Minerals (One Daily Multivitamin Wo) 1 Tab Tab, 1 TAB PO DAILY, TAB 04/01/24 Olanzapine (OLANZAPINE) 20 Mg Tab, 20 MG PO HS, TAB 04/01/24 Melatonin (KP MELATONIN) 3 Mg Tab, 10 MG PO HS, TAB 04/01/24 Loratadine (Claritin) 10 Mg Tab, 10 MG PO DAILY, TAB 04/01/24 Thiamine Hcl (VITAMIN B-1) 100 Mg Tb, 100 MG PO DAILY, TAB 04/01/24 Sertraline Hcl (Sertraline Hcl) 25 Mg Tab, 25 MG PO DAILY, TAB 04/01/24 Senna (Senokot) 8.6 Mg Tab, 2 TAB PO BID, TAB 04/01/24 Quetiapine Fumerate (Seroquel) 50 Mg Tab, 12.5 MG PO BID, TAB 04/01/24 Hydroxyzine Hcl (Hydroxyzine Hcl) 25 Mg Tab, 25 MG PO Q8HPRN PRN for ANXIETY, TAB 04/01/24 Diphenhydramine Hcl (Benadryl Allergy) 25 Mg Cap, 25 MG PO Q6HPRN PRN for FOR ITCHING, CAP 04/01/24 Lorazepam (ATIVAN TABLET) 0.5 Mg Tb, 0.5 MG PO Q6HPRN PRN for ANXIETY, TAB 04/01/24 Gabapentin (Once-Daily) (Gabapentin) 300 Mg Tab, 300 MG PO TID, TAB 01/11/24 Current Medications Current Medications Medications (Trade) Dose Ordered Sig/Aureliano Route PRN Reason Start Time Stop Time Status Last Admin Enoxaparin Sodium (Lovenox) 40 mg DAILY SC 03/03/25 10:00 03/03/25 10:10 Gabapentin (Neurontin Capsule) 300 mg TID PO 03/03/25 22:00 UNV Review of Systems Noncontributory Vital Signs Vital Signs Date Time Temp Pulse Resp B/P (MAP) Pulse Ox O2 Delivery O2 Flow Rate FiO2 03/03/25 16:27 98.3 90 20 118/83 (95) 98 98.3 03/03/25 08:00 Room Air* 0 21 Physical Exam Moderately built and nourished female in no acute distress HEENT no pallor Lungs are clear Cardiovascular unremarkable Abdomen is soft no tenderness no rigidity except minimally in the lower quadrants no masses Extremities no edema Labs/Diagnostic Data Labs Test 03/03/25 16:50 03/03/25 07:12 Range/Units POC Glucose 117 H 70-106 mg/dl White Blood Count 4.3 #L 4.4-10.8 10^3/uL Red Blood Count 4.63 4.0-5.20 10^6/uL Hemoglobin 13.9 12.2-16.2 g/dL Hematocrit 41.0 36.0-46.0 % Mean Corpuscular Volume 88.6 80.0-100.0 fL Mean Corpuscular Hemoglobin 30.0 28.0-32.0 pg Mean Corpuscular Hemoglobin Concent 33.9 32.0-36.0 g/dL Red Cell Distribution Width 13.5 11.8-14.3 % Platelet Count 167 140-450 10^3/uL Mean Platelet Volume 8.4 6.9-10.8 fL Neutrophils (%) (Auto) 42.6 37.0-80.0 % Lymphocytes (%) (Auto) 46.5 10.0-50.0 % Monocytes (%) (Auto) 8.8 0.0-12.0 % Eosinophils (%) (Auto) 1.7 0.0-7.0 % Basophils (%) (Auto) 0.4 0.0-2.0 % Neutrophils # (Auto) 1.8 1.6-8.6 10 ^3/uL Lymphocytes # (Auto) 2.0 0.4-5.4 10 ^3/uL Monocytes # (Auto) 0.4 0-1.3 10 ^3/uL Eosinophils # (Auto) 0.1 0-0.8 10 ^3/uL Basophils # (Auto) 0 0-0.2 10 ^3/uL Nucleated Red Blood Cells 0.2 % Sodium Level 143 136-145 mmol/L Potassium Level 4.0 3.5-5.1 mmol/L Chloride Level 108 H 98-107 mmol/L Carbon Dioxide Level 25 20-31 mmol/L Anion Gap 10 5-15 Blood Urea Nitrogen 19 9-23 mg/dL Creatinine 0.79 0.550-1.02 mg/dL Glomerular Filtration Rate Calc 87 >90 mL/min BUN/Creatinine Ratio 24.1 H 10.0-20.0 Serum Glucose 108 H 74-106 mg/dL Calcium Level 9.5 8.7-10.4 mg/dL Total Bilirubin 0.6 0.2-1.0 mg/dL Aspartate Amino Transferase (AST) 28 13-40 U/L Alanine Aminotransferase (ALT) 16 7-40 U/L Alkaline Phosphatase 74 46-116 U/L Total Protein 7.8 5.7-8.2 g/dL Albumin 4.5 3.2-4.8 g/dL Assessment 59-year-old female with a anxiety schizophrenia seizure disorder got admitted with complaints of abdominal pain in both pelvic areas has some mild tenderness in the both lower quadrants no rigidity no guarding CAT scan is unremarkable Possible UTI rule out other pathology Possibly of diverticular disease or other pathology can not be excluded Plan/Recommendation We will recommend liver functions CMP and lipase if the liver enzymes are high meal not recommend an ultrasound of the liver and gallbladder If needed gynecology and urological evaluation If necessary may need to repeat the CT scan with oral and IV contrast and may need further GI workup if any abnormalities found Thank you Dr. Navarro Plan discussed with: Patient LINDA NAVARRO MD Mar 03, 2025 19:22
[2025-03-03] MEDS: ACETAMINOPHEN 325 MG TAB PO PRN (20:41)
--- NOTE | 2025-03-03 21:09 | DVHPN2 ---
Progress Note Date Seen: Mar 03, 2025 Objective vital signs Vital Sign Date Time Temp Pulse Resp B/P (MAP) Pulse Ox O2 Delivery O2 Flow Rate FiO2 03/03/25 16:27 98.3 90 20 118/83 (95) 98 98.3 03/03/25 08:00 Room Air* 0 21 Total Intake and Output 03/02/25 03/02/25 03/03/25 15:00 23:00 07:00 Intake Total 400 ml Balance 400 ml medications Current Medications Medications Dose Ordered Sig/Aureliano Route Start Time Stop Time Status Last Admin Dose Admin Acetaminophen/ Hydrocodone Bitart 1 tab Q4HP PRN PO 03/02/25 13:00 03/03/25 18:11 1 TAB Ondansetron HCl 4 mg Q4HP PRN IV 03/02/25 13:00 Enoxaparin Sodium 40 mg DAILY SC 03/03/25 10:00 03/03/25 10:10 40 MG Acetaminophen 650 mg Q6HP PRN PO 03/02/25 13:00 03/03/25 20:41 650 MG Morphine Sulfate 2 mg Q4HPRN PRN IV 03/02/25 13:00 Hold Nitroglycerin 0.4 mg Q5MINP PRN SL 03/02/25 13:00 Morphine Sulfate 2 mg Q30M PRN IV 03/02/25 13:00 Gabapentin 300 mg TID PO 03/03/25 22:00 laboratory and microbiology Laboratory Tests 03/03/25 07:12 Test 03/03/25 07:12 Range/Units Serum Glucose 108 H 74-106 mg/dL My Orders My Orders Orders - MARTHA FERRARA DO Procedure Category Date Status Time Gabapentin Capsule PHA 03/03/25 In Process (Neurontin Capsule) 22:00 Olanzapine Tablet PHA 03/04/25 Verified (Zyprexa Tablet) 10:00 Sertraline Hcl PHA 03/04/25 Verified (Zoloft) 10:00 Quetiapine Fumarate PHA 03/03/25 Verified Tablet (Seroquel Tab 22:00 Levetiracetam Tablet PHA 03/03/25 Verified (Keppra Tablet) 22:00 MARTHA FERRARA DO Mar 03, 2025 21:09
[2025-03-03] MEDS: GABAPENTIN 300 MG CAP PO SCH (21:26)
[2025-03-03] MEDS: levETIRAcetam 500 MG TAB PO SCH (21:27)
[2025-03-04] VITALS (7 sets, daily range): BP systolic 91–114; BP diastolic 60–76; PULSE 63–83; RESP 17–20; TEMP 36.6; O2SAT 92–99
--- NOTE | 2025-03-04 09:08 | DVHDS2 ---
Discharge Summary Date of Admission Mar 02, 2025 at 12:55 Date of Discharge: Mar 04, 2025 Labs/Diagnostic Data: Laboratory Results Test 03/03/25 16:50 03/03/25 07:12 POC Glucose 117 mg/dl (70-106) White Blood Count 4.3 10^3/uL (4.4-10.8) Red Blood Count 4.63 10^6/uL (4.0-5.20) Hemoglobin 13.9 g/dL (12.2-16.2) Hematocrit 41.0 % (36.0-46.0) Mean Corpuscular Volume 88.6 fL (80.0-100.0) Mean Corpuscular Hemoglobin 30.0 pg (28.0-32.0) Mean Corpuscular Hemoglobin Concent 33.9 g/dL (32.0-36.0) Red Cell Distribution Width 13.5 % (11.8-14.3) Platelet Count 167 10^3/uL (140-450) Mean Platelet Volume 8.4 fL (6.9-10.8) Neutrophils (%) (Auto) 42.6 % (37.0-80.0) Lymphocytes (%) (Auto) 46.5 % (10.0-50.0) Monocytes (%) (Auto) 8.8 % (0.0-12.0) Eosinophils (%) (Auto) 1.7 % (0.0-7.0) Basophils (%) (Auto) 0.4 % (0.0-2.0) Neutrophils # (Auto) 1.8 10 ^3/uL (1.6-8.6) Lymphocytes # (Auto) 2.0 10 ^3/uL (0.4-5.4) Monocytes # (Auto) 0.4 10 ^3/uL (0-1.3) Eosinophils # (Auto) 0.1 10 ^3/uL (0-0.8) Basophils # (Auto) 0 10 ^3/uL (0-0.2) Nucleated Red Blood Cells 0.2 % Sodium Level 143 mmol/L (136-145) Potassium Level 4.0 mmol/L (3.5-5.1) Chloride Level 108 mmol/L (98-107) Carbon Dioxide Level 25 mmol/L (20-31) Anion Gap 10 (5-15) Blood Urea Nitrogen 19 mg/dL (9-23) Creatinine 0.79 mg/dL (0.550-1.02) Glomerular Filtration Rate Calc 87 mL/min (>90) BUN/Creatinine Ratio 24.1 (10.0-20.0) Serum Glucose 108 mg/dL (74-106) Calcium Level 9.5 mg/dL (8.7-10.4) Total Bilirubin 0.6 mg/dL (0.2-1.0) Aspartate Amino Transferase (AST) 28 U/L (13-40) Alanine Aminotransferase (ALT) 16 U/L (7-40) Alkaline Phosphatase 74 U/L (46-116) Total Protein 7.8 g/dL (5.7-8.2) Albumin 4.5 g/dL (3.2-4.8) Other Laboratory Tests 03/03/25 07:12 Discharge Disposition: Assisted Living Facility Discharge Instruct/Medications Diet: Cardiac 2g Na,low cholest Activity: No Restrictions, As Tolerated Scheduled Amoxicillin & Pot Clavulanate (Augmentin Tablet), 875 MG PO BID Aspirin (Aspir-81), 81 MG PO DAILY, (Reported) Atorvastatin Calcium (Atorvastatin Calcium), 20 MG PO HS, (Reported) Divalproex Sodium (Divalproex Sodium Er), 4 TAB PO HS, (Reported) Folic Acid (Folic Acid), 1 MG PO DAILY, (Reported) Gabapentin (Once-Daily) (Gabapentin), 300 MG PO TID, (Reported) Lacosamide (Lacosamide), 150 MG PO BID, (Reported) Lacosamide (Vimpat), 200 MG PO BID, (Reported) Lacosamide (Vimpat), 200 MG PO BID, (Reported) Lacosamide (Vimpat), 100 MG PO BID, (Reported) Lacosamide (Lacosamide), 200 MG PO BID, (Reported) Levetiracetam (Keppra), 1.5 TAB PO BID Levetiracetam (Keppra), 750 MG PO BID, (Reported) Loratadine (Claritin), 10 MG PO DAILY, (Reported) Melatonin (Kp Melatonin), 10 MG PO HS, (Reported) Multiple Vitamins W/ Minerals (One Daily Multivitamin Wo), 1 TAB PO DAILY, (Reported) Olanzapine (Olanzapine), 20 MG PO HS, (Reported) Quetiapine Fumerate (Seroquel), 12.5 MG PO BID, (Reported) Senna (Senokot), 2 TAB PO BID, (Reported) Sertraline Hcl (Sertraline Hcl), 25 MG PO DAILY, (Reported) Thiamine Hcl (Vitamin B-1), 100 MG PO DAILY, (Reported) Scheduled PRN Clotrimazole W/ Betamethasone (Clotrimazole/Betamethason 1-0.05 %), 1 CRE EX BID PRN Diphenhydramine Hcl (Benadryl Allergy), 25 MG PO Q6HPRN PRN for FOR ITCHING, (Reported) Hydroxyzine Hcl (Hydroxyzine Hcl), 25 MG PO Q8HPRN PRN for ANXIETY, (Reported) Lorazepam (Ativan Tablet), 0.5 MG PO Q6HPRN PRN for ANXIETY, (Reported) Discharge Statement: "Patient was advised to return to the ER or call 911 if any headaches, dizziness, shortness of breath, chest pain, abdominal pain, bleeding, fevers, or worsening of medical condition. Patient was counseled about treatment plan, medications, possible side effects, patientverbalized understanding. All questions were answered to the best of my ability. This discharge took greater then 30 minutes in planning, reviewing documentation, counseling the patient, and discussing with other team members." ASSESSMENT ASSESSMENT Assessment MARTHA FERRARA DO Mar 04, 2025 09:08
[2025-03-04] MEDS: OLANZapine 5 MG TAB PO SCH (09:55)
[2025-03-04] MEDS: SERTRALINE HCL 50 MG TAB PO SCH (09:55)
[2025-03-04] MEDS: SODIUM CHLORIDE 0.9% 1,000 ML IV ONE (15:28)
[2025-03-04] MEDS: ONDANSETRON HCL 4 MG/2 ML VIAL IV ONE (15:28)
[2025-03-04] MEDS: HYDROmorphone HCL 2 MG/ML VL/or syr IV ONE (15:28)
== END 2025-03-04 21:05 | disposition home or self-care (01) | DRG 463 ==
LOC: ER 09:06 → EDBD 09:06 → OVERFLOW 12:55 → WEST WING 18:16
PROVIDERS: ADMIT Internal Medicine Gastroenterology; ATTEND Internal Medicine
DX: N39.0 Urinary tract infection, site not specified (principal); F03.90 Unspecified dementia, unspecified severity, without behavioral disturbance, psychotic disturbance, mood disturbance, and anxiety; F32.A Depression, unspecified; F41.9 Anxiety disorder, unspecified; I10 Essential (primary) hypertension; F20.9 Schizophrenia, unspecified; G40.909 Epilepsy, unspecified, not intractable, without status epilepticus; Z88.2 Allergy status to sulfonamides; Z86.73 Personal history of transient ischemic attack (TIA), and cerebral infarction without residual deficits; Z91.041 Radiographic dye allergy status; Z82.49 Family history of ischemic heart disease and other diseases of the circulatory system; Z80.9 Family history of malignant neoplasm, unspecified
CPT/HCPCS: 36415; 71045; 74176; 80048; 80053; 82962; 85025; 87081; 96360; 97163; G0378

== ENCOUNTER 2025-05-06 00:29 | Emergency (ER) | payer OTHER ==
[~2025-05-06] VITALS: Ht 165.1 cm; Wt 59.0 kg
[~2025-05-06 00:29] MED LIST changes: -AUG875T PO; -LACO200T3 PO; -LEVE500T40 PO; -LORA-1121 PO
[2025-05-06 00:50] VITALS: PULSE 63; RESP 11; O2SAT 98
[2025-05-06 01:00] VITALS: TEMP 98; O2SAT 98
--- NOTE | 2025-05-06 01:02 | ED.PDOC ---
History of Present Illness HPI Comments 59 year old female who came to ER via EMS for a fall injury. Per EMS. [facility], was seen by caregivers that the patient was lying by the bathroom floor. Unwitnessed fall. Paramedics came, patient was seen sitting at bedside. Complaining of body pains. Patient also states she has been having diarrhea for the past 2 months. She does have history of hypertension, seizures and schizophrenia. REVIEW OF SYSTEMS: General: No fever, no chills, or fatigue HEENT: No sore throat, no earache, no congestion, no neck pain. Cardiac: No chest pain. No palpitations. Lungs: No shortness of breath, no cough. GI: No nausea, no vomiting, no diarrhea, no constipation, no abdominal pain : No dysuria, frequency, or urgency. No hematuria. Musculoskeletal: No joint pain , no joint swelling, no extremity edema. (+) body pain Skin: No rash, no itching. Neuro: No headache, no dizziness, (+) weakness EXAM: General: Awake, alert and oriented. No acute distress. Skin: Skin in warm, dry and intact. Appropriate color for ethnicity. HEENT: The head is normocephalic and atraumatic. Conjunctivae are clear without exudates or hemorrhage. Sclera is non-icteric. EOM are intact. No signs of nystagmus. Eyelids are normal in appearance without swelling or lesions. Oral mucosa is pink and moist Neck: The neck is supple with normal range of motion. No JVD. Cardiac: Heart rate and rhythm are normal. No murmurs, gallops, or rubs are auscultated. Respiratory: No signs of respiratory distress. Lung sounds are clear in all lobes bilaterally without rales, rhonchi, or wheezes. Abdominal: Abdomen is soft, non-tender without distention. Bowel sounds are present and normoactive in all four quadrants. Extremities: Upper and lower extremities are atraumatic in appearance without deformity or edema. Neurological: The patient is awake, lethargic, oriented to person, place, and time with normal speech. Speech is removed.. There is no facial asymmetry. Strength 4 /5 in the upper extremities, 3 of 5 in the lower extremities Chief Complaint: Fall Injury Time Seen by MD: 01:01 Primary Care Provider: unknown Reviewed Notes: Research Assistant Member Notes Allergies: Coded Allergies: Iodine (Verified Allergy, Unknown, 11/11/23) Sulfa Antibiotics (Verified Allergy, Unknown, 11/11/23) Sulfasalazine (Verified Allergy, Unknown, 01/15/25) Home Meds Active Scripts Clotrimazole W/ Betamethasone (Clotrimazole/Betamethason 1-0.05 %) 1 Cre Cre, 1 CRE EX BID PRN, #45 GM Prov:NEAL SANTOS MD 04/04/24 Reported Medications Levetiracetam (Keppra) 250 Mg Tab, 750 MG PO BID for 30 Days, MG 01/16/25 Folic Acid (Folic Acid) 1 Mg Tab, 1 MG PO DAILY for 30 Days, MG 01/16/25 Lacosamide (Vimpat) 100 Mg Tab, 200 MG PO BID, #60 TAB 09/19/24 Lacosamide (Vimpat) 100 Mg Tab, 200 MG PO BID, #60 TAB 09/19/24 Divalproex Sodium (Divalproex Sodium Er) 500 Mg Tab, 4 TAB PO HS, TAB 04/01/24 Atorvastatin Calcium (ATORVASTATIN CALCIUM) 20 Mg Tab, 20 MG PO HS, TAB 04/01/24 Aspirin (Aspir-81) 81 Mg Tab, 81 MG PO DAILY, TAB 04/01/24 Lacosamide (Lacosamide) 150 Mg Tab, 150 MG PO BID, TAB 04/01/24 Multiple Vitamins W/ Minerals (One Daily Multivitamin Wo) 1 Tab Tab, 1 TAB PO DAILY, TAB 04/01/24 Olanzapine (OLANZAPINE) 20 Mg Tab, 20 MG PO HS, TAB 04/01/24 Melatonin (KP MELATONIN) 3 Mg Tab, 10 MG PO HS, TAB 04/01/24 Loratadine (Claritin) 10 Mg Tab, 10 MG PO DAILY, TAB 04/01/24 Thiamine Hcl (VITAMIN B-1) 100 Mg Tb, 100 MG PO DAILY, TAB 04/01/24 Sertraline Hcl (Sertraline Hcl) 25 Mg Tab, 25 MG PO DAILY, TAB 04/01/24 Senna (Senokot) 8.6 Mg Tab, 2 TAB PO BID, TAB 04/01/24 Quetiapine Fumerate (Seroquel) 50 Mg Tab, 12.5 MG PO BID, TAB 04/01/24 Hydroxyzine Hcl (Hydroxyzine Hcl) 25 Mg Tab, 25 MG PO Q8HPRN PRN for ANXIETY, TAB 04/01/24 Diphenhydramine Hcl (Benadryl Allergy) 25 Mg Cap, 25 MG PO Q6HPRN PRN for FOR ITCHING, CAP 04/01/24 Gabapentin (Once-Daily) (Gabapentin) 300 Mg Tab, 300 MG PO TID, TAB 01/11/24 Information Source: Patient, Emergency Med Personnel Past Medical History PAST MEDICAL HISTORY: Anxiety, CVA, Dementia, Depression, High Lipids, HTN, Schizophrenia, Seizures Surgical History: Denies all surgeries [employer] History: No Pertinent [employer]CR[employer] History Family History Family History: Reviewed,noncontributory to illness, Family hx of Cancer Social History Smoker: Non-Smoker Alcohol: Denies ETOH Use, Unknown Drugs: Denies Drug Use Lives In: Assisted Care Was a procedure done? Was a procedure done?: No Differential Dx Considerations may include: Anemia, electrolyte imbalance, fall injury X-Ray, Labs, Meds, VS Vital Signs Date Time Temp Pulse Resp B/P (MAP) Pulse Ox O2 Delivery O2 Flow Rate FiO2 05/06/25 03:00 60 10 93/53 (66) 05/06/25 02:00 60 9 114/67 (83) 05/06/25 01:00 98.0 64 11 109/78 (88) 98 98.0 05/06/25 00:50 63 11 98 Room Air* 0 21 05/06/25 00:35 97.8 68 16 117/83 94 97.8 Lab Test 05/06/25 01:06 Range/Units White Blood Count 4.5 4.4-10.8 10^3/uL Red Blood Count 3.98 L 4.0-5.20 10^6/uL Hemoglobin 12.1 L 12.2-16.2 g/dL Hematocrit 35.6 L 36.0-46.0 % Mean Corpuscular Volume 89.4 80.0-100.0 fL Mean Corpuscular Hemoglobin 30.3 28.0-32.0 pg Mean Corpuscular Hemoglobin Concent 33.9 32.0-36.0 g/dL Red Cell Distribution Width 14.2 11.8-14.3 % Platelet Count 150 140-450 10^3/uL Mean Platelet Volume 7.6 6.9-10.8 fL Neutrophils (%) (Auto) 44.0 37.0-80.0 % Lymphocytes (%) (Auto) 39.9 10.0-50.0 % Monocytes (%) (Auto) 12.8 H 0.0-12.0 % Eosinophils (%) (Auto) 2.7 0.0-7.0 % Basophils (%) (Auto) 0.6 0.0-2.0 % Neutrophils # (Auto) 2.0 1.6-8.6 10 ^3/uL Lymphocytes # (Auto) 1.8 0.4-5.4 10 ^3/uL Monocytes # (Auto) 0.6 0-1.3 10 ^3/uL Eosinophils # (Auto) 0.1 0-0.8 10 ^3/uL Basophils # (Auto) 0 0-0.2 10 ^3/uL Nucleated Red Blood Cells 0.1 % Sodium Level 144 136-145 mmol/L Potassium Level 3.8 3.5-5.1 mmol/L Chloride Level 109 H 98-107 mmol/L Carbon Dioxide Level 24 20-31 mmol/L Anion Gap 11 5-15 Blood Urea Nitrogen 21 9-23 mg/dL Creatinine 0.86 0.550-1.02 mg/dL Glomerular Filtration Rate Calc 79 >90 mL/min BUN/Creatinine Ratio 24.4 H 10.0-20.0 Serum Glucose 95 74-106 mg/dL Calcium Level 9.3 8.7-10.4 mg/dL Troponin I High Sensitivity < 3 L </=34 ng/L B-Type Natriuretic Peptide 27.73 0-100 pg/mL CHEST RADIOGRAPH INDICATION: fall TECHNIQUE: Single frontal view of the chest was obtained COMPARISON: XY CHEST PORTABLE on DOS: 03/02/25, XY CHEST XRAY 1 VIEW on DOS: 05/11/24, XY CHEST PORTABLE on DOS: 01/10/24, XY CHEST PORTABLE on DOS: 12/29/23, XY CHEST TWO VIEWS ROUTINE on DOS: 12/05/23 FINDINGS: Lungs and pleural spaces are clear. Cardiac silhouette and reina are within normal limits. Bones and soft tissues demonstrate no significant abnormality. IMPRESSION: No acute disease. Time of 1ST Reevaluation: 00:58 Reevaluation 1ST: Unchanged Patient Education/Counseling: Need For Follow Up Family Education/Counseling: No Family Present SEPSIS Sepsis Screen Physician Orders Electrocardigram (05/06/25 00:53) Chest Xray 1 View (05/06/25 00:53) Vital Signs Date Time Temp Pulse Resp B/P (MAP) Pulse Ox O2 Delivery O2 Flow Rate FiO2 05/06/25 03:00 60 10 93/53 (66) 05/06/25 02:00 60 9 114/67 (83) 05/06/25 01:00 98.0 64 11 109/78 (88) 98 98.0 05/06/25 00:50 63 11 98 Room Air* 0 21 05/06/25 00:35 97.8 68 16 117/83 94 97.8 Laboratory Tests Test 05/06/25 01:06 White Blood Count 4.5 10^3/uL (4.4-10.8) Departure 1 Departure Time of Disposition: 04:21 Impression: Primary Impression: Fall Disposition: HOME / SELF CARE / HOMELESS Condition: Stable Additional Instructions: Preventing Dehydration In Older Adults Dehydration is when the body dries out because of drinking too little fluid, losing too much fluid, or both. Normal fluid loss happens with breathing, urination, and sweating. Too much fluid can be lost through vomiting, diarrhea, or excessive sweating. Dehydration can occur quickly in older adults and may lead to serious health conditions. You may be dehydrated if you experience: dark colored urine frequent urination and only pass a small amount dry mouth or coated tongue constipation or small and hard stools dry skin frequent urinary tract infection headache confusion dizziness or lightheadedness after standing up fast heart rate dry eyes You may not have all of these symptoms at the same time, but all may be caused by not drinking enough fluids. What can I do to prevent dehydration? The best way to replace fluids is to drink enough daily. Many older people do not feel thirsty and are not aware of the need to drink. Men 13 cups/day (3.0L) Women 9 cups/day (2.7L) What should I drink? At least half of what you drink should be water. Good choices of fluid are: Water or calorie-free flavored water Fruit or vegetable juices Milk Decaffeinated or herbal teas Low sodium broth or soups Poor choices are: Canned soups, which can be a hidden source of salt Soft drinks and sports drinks high in sugar Caffeinated drinks such as coffee, tea, and hot chocolate Alcohol *Caffeinated and alcoholic drinks may cause fluid loss. *Alcoholic drinks should be limited to two drinks/day for men and one for women. 1 Drink = 12oz beer, 6oz wine, or 1oz liquor Simple ways to drink more: Use large, easy to hold cups Leave a glass of fluid at your bedside or sitting area Choose a variety of fluids based on what you like Drink fluids during and between meals Remind older adults to drink enough fluid daily Critical Care Note Critical Care Time?: No Stability Stability form required: No Heart Score Heart Score: Heart Score Response (Comments) Value History N/A 0 EKG N/A 0 Age N/A 0 Risk Factors N/A 0 Troponin N/A 0 Total 0 I personally scribed for KAT URRUTIA MD ([email or web address]) on 05/06/25 at 01:02. Electronically submitted by Agustin Bowen ([employer]). I personally scribed for KAT URRUTIA MD ([email or web address]) on 05/06/25 at 02:07. Electronically submitted by Agustin Bowen ([employer]). KAT URRUTIA MD May 06, 2025 01:02
[2025-05-06 01:14] LABS: Hematocrit 35.6 % (36.0-46.0); Hemoglobin 12.1 g/dL (12.2-16.2); Mean Corpuscular Hemoglobin 30.3 pg (28.0-32.0); Mean Corpuscular Volume 89.4 fL (80.0-100.0); Nucleated Red Blood Cells % 0.1 %
--- NOTE | 2025-05-06 01:50 | DVH ---
CHEST RADIOGRAPH INDICATION: fall TECHNIQUE: Single frontal view of the chest was obtained COMPARISON: XY CHEST PORTABLE on DOS: 03/02/25, XY CHEST XRAY 1 VIEW on DOS: 05/11/24, XY CHEST PORTABLE on DOS: 01/10/24, XY CHEST PORTABLE on DOS: 12/29/23, XY CHEST TWO VIEWS ROUTINE on DOS: 12/05/23 FINDINGS: Lungs and pleural spaces are clear. Cardiac silhouette and reina are within normal limits. Bones and soft tissues demonstrate no significant abnormality. IMPRESSION: No acute disease.
[2025-05-06] MEDS: ACETAMINOPHEN 325 MG TAB PO ONE (01:57)
[2025-05-06] MEDS: SODIUM CHLORIDE 0.9% 1,000 ML IV ONE (01:58)
[2025-05-06 03:00] VITALS: BP 93/53; PULSE 60; RESP 10
[2025-05-06 03:04] LABS: Potassium 3.8 mmol/L (3.5-5.1); Sodium 144 mmol/L (136-145)
[2025-05-06 03:05] LABS: Anion Gap 11 (5-15); Calcium 9.3 mg/dL (8.7-10.4); Carbon Dioxide 24 mmol/L (20-31)
[2025-05-06 03:10] LABS: BUN/Creatinine Ratio 24.4 (10.0-20.0); Blood Urea Nitrogen 21 mg/dL (9-23); Glucose 95 mg/dL (74-106)
[2025-05-06 03:15] LABS: Chloride 109 mmol/L (98-107)
== END 2025-05-06 10:00 | disposition home or self-care (01) ==
LOC: EDUNIT# 00:29 → EDBD 00:29 → ER 00:29
DX: R19.7 Diarrhea, unspecified (principal); F20.9 Schizophrenia, unspecified; F32.A Depression, unspecified; I10 Essential (primary) hypertension; F41.9 Anxiety disorder, unspecified; Z79.899 Other long term (current) drug therapy; Z88.2 Allergy status to sulfonamides; Z88.8 Allergy status to other drugs, medicaments and biological substances; Z86.73 Personal history of transient ischemic attack (TIA), and cerebral infarction without residual deficits; Z79.82 Long term (current) use of aspirin
CPT/HCPCS: 36415; 71045; 80048; 83880; 84484; 85025; 96360; 99285; J7030

== ENCOUNTER 2025-05-15 22:57 | Emergency (ER) | payer OTHER ==
[~2025-05-15] VITALS: Ht 172.7 cm; Wt 65.9 kg
--- NOTE | 2025-05-16 00:28 | DVH ---
CHEST RADIOGRAPH INDICATION: SOB TECHNIQUE: Single frontal view of the chest was obtained COMPARISON: XY CHEST XRAY 1 VIEW on DOS: 05/06/25, XY CHEST PORTABLE on DOS: 03/02/25, XY CHEST XRAY 1 VIEW on DOS: 05/11/24, XY CHEST PORTABLE on DOS: 01/10/24, XY CHEST PORTABLE on DOS: 12/29/23 FINDINGS: Lungs and pleural spaces are clear. Cardiac silhouette and reina are within normal limits. Bones and soft tissues demonstrate no significant abnormality. IMPRESSION: No acute disease.
--- NOTE | 2025-05-16 00:29 | DVH ---
CLINICAL INDICATION: pain fall TECHNIQUE: XYXY L HIP COMPLETE XRAY COMPARISON: XY PELVIS AP on DOS: 12/28/23 FINDINGS/IMPRESSION: : There is no evidence of acute fracture or dislocation. Soft tissues are unremarkable.
--- NOTE | 2025-05-16 00:29 | DVH ---
CLINICAL INDICATION: pain fall TECHNIQUE: XYXY L SHOULDER 2+ VIEW XRAY COMPARISON: None FINDINGS/IMPRESSION: : There is no evidence of acute fracture or dislocation. Soft tissues are unremarkable.
--- NOTE | 2025-05-16 00:39 | ED.PDOC ---
History of Present Illness HPI Comments 59 y/o F is [id number] ambulance from [facility] for c/c of left arm pain, shoulder, and pelvic pain s/p unwitnessed fall injury 3x days ago. Unknown lost of consciousness. No reported signs of obvious deformities. Patient is a poor historian, due to history of dementia (baseline is A&Ox3). Vitals reported by EMS personnel to have been stable and within normal limits. Chief Complaint: Fall Injury Time Seen by MD: 00:30 Primary Care Provider: unknown Reviewed Notes: Nurses Notes, Cooler Conveyor Loader Notes, Medications, Allergies Allergies: Coded Allergies: Iodine (Verified Allergy, Unknown, 11/11/23) Sulfa Antibiotics (Verified Allergy, Unknown, 11/11/23) Sulfasalazine (Verified Allergy, Unknown, 01/15/25) Home Meds Active Scripts Clotrimazole W/ Betamethasone (Clotrimazole/Betamethason 1-0.05 %) 1 Cre Cre, 1 CRE EX BID PRN, #45 GM Prov:NEAL SANTOS MD 04/04/24 Reported Medications Levetiracetam (Keppra) 250 Mg Tab, 750 MG PO BID for 30 Days, MG 01/16/25 Folic Acid (Folic Acid) 1 Mg Tab, 1 MG PO DAILY for 30 Days, MG 01/16/25 Lacosamide (Vimpat) 100 Mg Tab, 200 MG PO BID, #60 TAB 09/19/24 Lacosamide (Vimpat) 100 Mg Tab, 200 MG PO BID, #60 TAB 09/19/24 Divalproex Sodium (Divalproex Sodium Er) 500 Mg Tab, 4 TAB PO HS, TAB 04/01/24 Atorvastatin Calcium (ATORVASTATIN CALCIUM) 20 Mg Tab, 20 MG PO HS, TAB 04/01/24 Aspirin (Aspir-81) 81 Mg Tab, 81 MG PO DAILY, TAB 04/01/24 Lacosamide (Lacosamide) 150 Mg Tab, 150 MG PO BID, TAB 04/01/24 Multiple Vitamins W/ Minerals (One Daily Multivitamin Wo) 1 Tab Tab, 1 TAB PO DAILY, TAB 04/01/24 Olanzapine (OLANZAPINE) 20 Mg Tab, 20 MG PO HS, TAB 04/01/24 Melatonin (KP MELATONIN) 3 Mg Tab, 10 MG PO HS, TAB 04/01/24 Loratadine (Claritin) 10 Mg Tab, 10 MG PO DAILY, TAB 04/01/24 Thiamine Hcl (VITAMIN B-1) 100 Mg Tb, 100 MG PO DAILY, TAB 04/01/24 Sertraline Hcl (Sertraline Hcl) 25 Mg Tab, 25 MG PO DAILY, TAB 04/01/24 Senna (Senokot) 8.6 Mg Tab, 2 TAB PO BID, TAB 04/01/24 Quetiapine Fumerate (Seroquel) 50 Mg Tab, 12.5 MG PO BID, TAB 04/01/24 Hydroxyzine Hcl (Hydroxyzine Hcl) 25 Mg Tab, 25 MG PO Q8HPRN PRN for ANXIETY, TAB 04/01/24 Diphenhydramine Hcl (Benadryl Allergy) 25 Mg Cap, 25 MG PO Q6HPRN PRN for FOR ITCHING, CAP 04/01/24 Gabapentin (Once-Daily) (Gabapentin) 300 Mg Tab, 300 MG PO TID, TAB 01/11/24 Information Source: Patient, Emergency Med Personnel Mode of Arrival: EMS Severity: Moderate Timing: Days Duration: Since onset Prehospital treatment: 12 Lead EKG, Accucheck (102), 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 Past Medical History PAST MEDICAL HISTORY: Anxiety, CVA, Dementia, Depression, High Lipids, HTN, Schizophrenia, Seizures Surgical History: Denies all surgeries COMMUNICATIONS PROJECT LEAD History: No Pertinent COMMUNICATIONS PROJECT LEAD History Family History Family History: Reviewed,noncontributory to illness, Family hx of Cancer Social History Smoker: Non-Smoker Alcohol: Denies ETOH Use, Unknown Drugs: Denies Drug Use Lives In: Assisted Care All Other Systems: Reviewed and Negative (As per HPI) Physical Exam General Appearance: No Apparent Distress, Normal HEENT: Normal ENT Inspection, Pharynx Normal, TMs Normal Neck: Full Range of Motion, Non-Tender, Normal, Normal Inspection Respiratory: Chest Non-Tender, Lungs Clear, No Accessory Muscle Use, No Respiratory Distress, Normal Breath Sounds Cardiovascular: No Edema, No JVD, No Murmur, No Gallop, Normal Peripheral Pulses, Regular Rate/Rhythm Breast Exam: Deferred Gastrointestinal: No Organomegaly, Non Tender, No Pulsatile Mass, Normal Bowel Sounds, Soft Genitalia: Deferred Pelvic: Deferred Rectal: Deferred Extremities: No calf tenderness, Normal capillary refill, Normal inspection, Normal range of motion, No pedal edema, Tender (left shoulder) Musculoskeletal : Location: Left Extremity Location: Other (pelvis ) Apperance: Normal, Tenderness Neurologic: Alert, calciner feeder II-XII nml as Tested, No Motor Deficits, Normal Affect, Normal Mood, No Sensory Deficits Cerebellar Function: Normal Reflexes: Normal Skin: Dry, Normal Color, Warm Lymphatic: No Adenopathy Was a procedure done? Was a procedure done?: No Differential Dx Considerations may include: fractures, dislocations, sprain, strain, musculoskeletal pain, among others X-Ray, Labs, Meds, VS Vital Signs Date Time Temp Pulse Resp B/P (MAP) Pulse Ox O2 Delivery O2 Flow Rate FiO2 05/16/25 03:39 97.9 75 18 118/80 (93) 97 97.9 05/16/25 03:14 Room Air* 0 21 05/15/25 23:06 65 05/15/25 23:03 98.3 77 14 110/78 96 98.3 Lab Test 05/16/25 02:05 05/16/25 00:20 Range/Units Troponin I High Sensitivity < 3 L < 3 L </=34 ng/L White Blood Count 5.5 4.4-10.8 10^3/uL Red Blood Count 4.37 4.0-5.20 10^6/uL Hemoglobin 13.3 12.2-16.2 g/dL Hematocrit 39.3 36.0-46.0 % Mean Corpuscular Volume 90.0 80.0-100.0 fL Mean Corpuscular Hemoglobin 30.4 28.0-32.0 pg Mean Corpuscular Hemoglobin Concent 33.8 32.0-36.0 g/dL Red Cell Distribution Width 14.3 11.8-14.3 % Platelet Count 155 140-450 10^3/uL Mean Platelet Volume 8.4 6.9-10.8 fL Neutrophils (%) (Auto) 38.8 37.0-80.0 % Lymphocytes (%) (Auto) 51.4 H 10.0-50.0 % Monocytes (%) (Auto) 8.3 0.0-12.0 % Eosinophils (%) (Auto) 0.9 0.0-7.0 % Basophils (%) (Auto) 0.6 0.0-2.0 % Neutrophils # (Auto) 2.1 1.6-8.6 10 ^3/uL Lymphocytes # (Auto) 2.8 0.4-5.4 10 ^3/uL Monocytes # (Auto) 0.5 0-1.3 10 ^3/uL Eosinophils # (Auto) 0.1 0-0.8 10 ^3/uL Basophils # (Auto) 0 0-0.2 10 ^3/uL Nucleated Red Blood Cells 0.2 % Sodium Level 141 136-145 mmol/L Potassium Level 3.9 3.5-5.1 mmol/L Chloride Level 106 98-107 mmol/L Carbon Dioxide Level 26 20-31 mmol/L Anion Gap 9 5-15 Blood Urea Nitrogen 14 9-23 mg/dL Creatinine 0.81 0.550-1.02 mg/dL Glomerular Filtration Rate Calc 85 >90 mL/min BUN/Creatinine Ratio 17.3 10.0-20.0 Serum Glucose 92 74-106 mg/dL Lactic Acid Level 1.2 0.4-2.0 mmol/L Calcium Level 9.7 8.7-10.4 mg/dL Magnesium Level 2.2 1.6-2.6 mg/dL Total Bilirubin 0.3 0.2-1.0 mg/dL Aspartate Amino Transferase (AST) 22 13-40 U/L Alanine Aminotransferase (ALT) 16 7-40 U/L Alkaline Phosphatase 71 46-116 U/L Total Protein 7.9 5.7-8.2 g/dL Albumin 4.6 3.2-4.8 g/dL Time of 1ST Reevaluation: 01:00 Reevaluation 1ST: Unchanged Patient Education/Counseling: Other (Patient has dementia) Family Education/Counseling: No Family Present SEPSIS Sepsis Screen Date sepsis recognized/suspect: May 15, 2025 Time Sepsis recognized/suspect: 2302 Recent Procedure: No On Antibiotic Therapy: No Respiratory Rate >20: No Heart Rate >90: No Temp<36 C (96.8 F) or >38.3 C: No SBP <90 or MAP <65 mmHG: No New Acute Mental Status Change: No Is the patient on CPAP, BIPAP,: No Physician Orders Urinalysis (05/15/25 23:49) Blood Culture (05/15/25 23:49) Chest Xray 1 View (05/15/25 23:49) L Shoulder 2+ View Xray (05/15/25 23:49) L Hip Complete Xray (05/15/25 23:49) Vital Signs Date Time Temp Pulse Resp B/P (MAP) Pulse Ox O2 Delivery O2 Flow Rate FiO2 05/16/25 03:39 97.9 75 18 118/80 (93) 97 97.9 05/16/25 03:14 Room Air* 0 21 05/15/25 23:06 65 05/15/25 23:03 98.3 77 14 110/78 96 98.3 Laboratory Tests Test 05/16/25 00:20 Lactic Acid Level 1.2 mmol/L (0.4-2.0) White Blood Count 5.5 10^3/uL (4.4-10.8) Departure 1 Departure Time of Disposition: 02:30 Impression: Primary Impression: Sprain of left shoulder Additional Impression: Fall Disposition: 01 HOME / SELF CARE / HOMELESS Condition: Stable Discharged With: Self Critical Care Note Critical Care Time?: No Stability Stability form required: No Heart Score Heart Score: Heart Score Response (Comments) Value History N/A 0 EKG N/A 0 Age N/A 0 Risk Factors N/A 0 Troponin N/A 0 Total 0 I personally scribed for ANAM GOINS MD ([email or web address]) on 05/16/25 at 00:39. Electronically submitted by Thien Dickey [email or web address]). ANAM GOINS MD May 16, 2025 00:39
[2025-05-16 00:52] LABS: Hematocrit 39.3 % (36.0-46.0); Hemoglobin 13.3 g/dL (12.2-16.2); Mean Corpuscular Hemoglobin 30.4 pg (28.0-32.0); Mean Corpuscular Volume 90.0 fL (80.0-100.0); Nucleated Red Blood Cells % 0.2 %
[2025-05-16 01:10] LABS: Alanine Aminotransferase 16 U/L (7-40); Albumin 4.6 g/dL (3.2-4.8); Alkaline Phosphatase 71 U/L (46-116); Anion Gap 9 (5-15); BUN/Creatinine Ratio 17.3 (10.0-20.0); Bilirubin, Total 0.3 mg/dL (0.2-1.0); Blood Urea Nitrogen 14 mg/dL (9-23); Calcium 9.7 mg/dL (8.7-10.4); Carbon Dioxide 26 mmol/L (20-31); Chloride 106 mmol/L (98-107); Glucose 92 mg/dL (74-106); Magnesium 2.2 mg/dL (1.6-2.6); Potassium 3.9 mmol/L (3.5-5.1); Sodium 141 mmol/L (136-145); Total Protein 7.9 g/dL (5.7-8.2)
[2025-05-16] MEDS: SODIUM CHLORIDE 0.9% 1,000 ML IVB ONE (03:08)
[2025-05-16 03:39] VITALS: BP 118/80; PULSE 75; RESP 18; TEMP 97.9; O2SAT 97
--- NOTE | 2025-05-16 05:26 | ECG ---
[facility] Test Date: 2025-05-15 Test Time: 23:06:58 Pat Name: JER ORNELAS Department: [facility] ED Patient ID: [facility]-[id number] Room: Gender: F Table Lever Operator: ADRIAN : 1965 Requested By: EMERGENCY EMERGENCY Order Number: [id number] Reading MD: Uri Dillon Measurements Intervals Terry Rate: 65 P: 37 ID: [id number] QRS: -72 QRSD: 104 T: 55 QT: 384 QTc: 400 Interpretive Statements Sinus rhythm Left anterior fascicular block Low voltage, precordial leads Consider anterior infarct Electronically Signed On 05-18-2025 17:02:41 PST by Uri Dillon Please click the below link to view image of tracing.
== END 2025-05-16 03:42 | disposition home or self-care (01) ==
LOC: EDBD 22:57 → ER 22:57
DX: S43.402A Unspecified sprain of left shoulder joint, initial encounter (principal); F03.93 Unspecified dementia, unspecified severity, with mood disturbance; F03.94 Unspecified dementia, unspecified severity, with anxiety; F20.9 Schizophrenia, unspecified; F41.9 Anxiety disorder, unspecified; F32.A Depression, unspecified; I10 Essential (primary) hypertension; Z86.73 Personal history of transient ischemic attack (TIA), and cerebral infarction without residual deficits; Z88.2 Allergy status to sulfonamides; Z88.8 Allergy status to other drugs, medicaments and biological substances; Z79.82 Long term (current) use of aspirin; W19.XXXA Unspecified fall, initial encounter; Y93.89 Activity, other specified; Y92.89 Other specified places as the place of occurrence of the external cause; Y99.8 Other external cause status
CPT/HCPCS: 36415; 71045; 73030; 73502; 80053; 83605; 83735; 84484; 85025; 87040; 93005